=== PATIENT | male | born 1930 | race Caucasian/White ===

== ENCOUNTER 2016-08-01 08:13 | Inpatient (IN) | payer MEDICARE, MEDICAID ==
[2016-08-01] MEDS ORDERED: Metoprolol Tartrate 5 MG/5 ML SDV IVPUSH ONE (08:25)
[2016-08-01] MEDS ORDERED: Aspirin 81 MG Tab.Chew CHEW ONE (08:25)
[2016-08-01] MEDS ORDERED: Clopidogrel 75 MG Tab PO ONE (08:25)
[2016-08-01] MEDS ORDERED: Famotidine 20 MG/2 ML SDV IVPUSH ONE (08:25)
--- NOTE | 2016-08-01 08:39 | EDM.PDOC ---
ED HISTORY OF PRESENT ILLNESS - General Chief Complaint: Chest Pain Stated Complaint: CP, SOB Time Seen by Provider: 08/01/16 08:20 Source of Information: Reports: Patient, Old records ([facility] chart/EMR) History Limitations: Reports: No limitations - History of Present Illness INITIAL COMMENTS - FREE TEXT/NARRATIVE: Patient drove himself to the emergency room via private automobile were evaluation of nonspecific 4/10 left-sided chest pain/pressure, which started at about 2 a.m. this morning and associated with some slight diaphoresis, heart flutter, and nausea at that time. He did have some similar chest pain yesterday morning at 7 a.m., although no other anginal-type symptoms at that time. The patient denies orthostasis, orthopnea, diaphoresis, paresthesias, recent decreased exercise tolerance, or any other anginal-type symptoms. No recent history of abdominal pain, heartburn, diarrhea, melena, gross hematochezia, or any food intolerance, including fatty foods, etc. with normal function gastrostomy with bowel movements at midnight. The patient also denies any recent fever, cough, wheezing, dyspnea, etc., although he has had some mild clear nasal drainage during the last 3 days. Symptom Onset Date: 07/31/16 Symptom Onset Time: 07:00 Timing/Duration: Reports: Intermittent Severity: mild Location, General: Reports: chest. Denies: face, neck, abdomen, back, pelvis, upper extremity, left, upper extremity, right, lower extremity, left, radiates to: Quality: Reports: Pressure, Same as previous episode Improves with: Reports: None Worsens with: Reports: None Associated Symptoms (General): Reports: chest pain, diaphoresis, nausea/ vomiting (No emesis). 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: Other (see below) (None, although the patient did take his morning medications) - Related Data Allergies/ADRs: Allergies Allergy/AdvReac Type Severity Reaction Status Date / Time No Known Allergies Allergy Verified 08/01/16 08:28 Home Meds: Home Meds Ferrous Sulfate [Iron] 325 mg PO BID 01/08/14 [History] Gluc HCl/Csa/Brayan Hy/Hyalur Ac [Glucosamine Chondroitin] 1 cap PO QAM 01/08/14 [ History] Leuprolide [Leuprolide Depot 6-Month] 45 mg INJECT ASDIRECTED 01/08/14 [History] Sertraline [Zoloft] 50 mg PO QAM 01/08/14 [History] Simvastatin [Zocor] 20 mg PO BEDTIME 01/08/14 [History] amLODIPine Besylate [Amlodipine Besylate] 10 mg PO BID 01/08/14 [History] Acetaminophen 650 mg PO Q6H PRN 08/01/16 [History] Calcium Carbonate/Vitamin D3 [Calcium 250+D] 2 each PO TID PRN 08/01/16 [History ] Cyclobenzaprine HCl 10 mg PO Q8H PRN 08/01/16 [History] Ibuprofen 200 mg PO Q8H PRN 08/01/16 [History] Lisinopril 15 mg PO DAILY 08/01/16 [History] Prednisone [IMW: predniSONE] 40 mg PO WITHBREAKFAST 08/01/16 [History] Simethicone [Gas Relief] 80 mg PO TID PRN 08/01/16 [History] Past Medical History HEENT History: Reports: Hard of hearing, Impaired vision. Denies: Allergic rhinitis, Cataract, Glaucoma, Macular degeneration, Retinal detachment Cardiovascular History: Reports: High cholesterol, Hypertension. Denies: Afib, Aneurysm, Arrhythmia, Blood clots/VTE/DVT, CAD, Heart Failure, Heart murmur, ID , PTCA, Stents, Syncope Respiratory History: Reports: None. Denies: COPD, Intubation, previous, PE, Pneumothorax, TB Gastrointestinal History: Reports: Chronic constipation, Colon polyp, GI bleed, PUD, Other (see below). Denies: Celiac disease, Cholelithiasis, Chronic diarrhea, Diverticulosis, Fecal incontinence, Gastritis, GERD, Hepatitis, Hiatal hernia, Inflammatory bowel disease, Irritable bowel syndrome, Jaundice, Pancreatitis Other Gastrointestinal History: Upper GI bleed from duodenal ulcer in about 2014 benign hepatic cysts, history of colon cancer as below, left lower quadrant colostomy Genitourinary History: Reports: BPH, Prostate disorder, Urinary incontinence, UTI, recurrent, Other (see below). Denies: Acute renal failure, Chronic renal insuffiency, Renal calculus, STD Other Genitourinary History: Prostate cancer as below Musculoskeletal History: Reports: Arthritis, Back pain, chronic, Fracture, Neck pain, chronic, Osteoarthritis, Other (see below). Denies: Amputation, Gout, Osteoporosis, RA, SLE Other Musculoskeletal History: Right distal fibular/ankle fracture at about age 40 Neurological History: Denies: Alzheimers disease, Cerebral aneurysms, CVA, Frequent repetitive habits (TICS), Headaches, chronic, Migraines, MS, Parkinson' s, Seizure, TIA Psychiatric History: Reports: Addiction, Anxiety, Depression, Other (see below) . 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 Denies: Diabetes, type I, Diabetes , type II, Hypothyroidism Hematologic History: Reports: Anemia, Iron deficiency. Denies: Blood transfusion(s) Immunologic History: Reports: None. Denies: AIDS, HIV, SLE Oncologic (Cancer) History: Reports: Colon, Prostate, Other (see below). Denies : Hodgkin's Lymphoma, Leukemia, Lymphoma, Non-Hodgkin's Lymphoma, Squamous cell carcinoma Other Oncologic History: colon cancer 1982 requiring surgery as below no radiation treatment or chemotherapy, prostate cancer in 1990 with current every 6 month injections Dermatologic History: Reports: None. Denies: Eczema, Psoriasis - Infectious Disease History Infectious Disease History: Reports: Measles, Mumps. Denies: C-difficile, Chicken pox, Meningitis, Mononucleosis, MRSA, Pertussis (whooping cough), Rheumatic Fever, Rubella, Scarlet fever, Shingles, TB, VRE - Past Surgical History Head Surgeries/Procedures: Reports: None HEENT Surgical History: Reports: Oral surgery, Other (see below). Denies: Adenoidectomy, Cataract surgery, Eye surgery, Laser surgery, LASIK, Myringotomy w tube(s), Naso-sinus surgery, Tonsillectomy Other HEENT Surgeries/Procedures: Complete upper extraction of multiple lower teeth extraction Cardiovascular Surgical History: Reports: None. Denies: Varicose, Vascular surgery Respiratory Surgical History: Reports: None. Denies: Thoracentesis GI Surgical History: Reports: Colonoscopy, EGD, Other (see below) Other GI Surgeries/Procedures: Last EGD in about 2014, last colonoscopy in about 2013, left hemicolectomy secondary to colon cancer in 1982 Male Surgical History: Reports: Prostate Biopsy, Other (see below). Denies: Circumcision, Prostatectomy, TURP-Transurethral resection of prostate, Vasectomy Other Male Surgeries/Procedures: Prostate biopsy for prostate cancer 1990 Endocrine Surgical History: Reports: None. Denies: Thyroid biopsy Neurological Surgical History: Reports: None. Denies: C-Spine, Intracranial, Lumbar spine, Sacral Spine, Spinal fusion, Vertebroplasty Musculoskeletal Surgical History: Denies: Arthroscopic knee, Arthroscopic procedure, Carpal tunnel, Ganglion cyst, Joint replacement, ORIF, Shoulder surgery Oncologic Surgical History: Reports: None Dermatological Surgical History: Reports: None - Past Imaging History Past Imaging History: Reports: Bone scan (Whole body bone scan on 05/24/04), CAT scan (CT of the abdomen and pelvis without contrast 07/21/[address] of the abdomen and pelvis on 05/21/04) Social & Family History - Family History HEENT: Reports: None. Denies: Allergic rhinitis, Glaucoma, Macular degeneration , Retinal detachment Cardiac: Reports: CAD, Hypertension, ID, PVD/COD, Other (see below). Denies: Afib, Aneurysm, Arrhythmia, Blood clots/VTE/DVT, High cholesterol, Syncope Other Cardiac Family History: Father with ID in his 70s, sister, mother and father with hypertension, sister with several MIs with 4 vessel CABG with fatal ID at age 83, mother with peripheral vascular disease secondary to her IDDM Respiratory: Denies: Asthma, COPD, PE GI: Reports: Cholelithiasis, Other (see below). Denies: Celiac disease, Colon polyps, GERD, GI bleed, Inflammatory bowel disease, Irritable bowel syndrome, PUD Other GI Family History: Mother with cholelithiasis : Reports: None. Denies: Dialysis, Renal calculus, Renal disease/ insufficiency OBGYN: Reports: None. Denies: Dysfunctional uterine bleeding, Endometriosis, Recurrent spontaneous Musculoskeletal: Reports: None. Denies: Gout, RA, SLE Neurological: Reports: Alzheimers disease, CVA, Dementia, Other (see below). Denies: Migraines, MS, Parkinson's, Seizure Other Neurological Family History: Mother with fatal dementia at age 89, father with history of CVA x4 with fatal CVA at age 82, a brother with a CVA during surgery at age 62 secondary to oral cancer as below Psychiatric: Reports: None. Denies: Abuse, victim of, ADD, ADHD, Psych hospitalization(s), PTSD, Suicide attempt Endocrine/Metabolic: Reports: Diabetes, type II, IDDM, Other (see below). Denies: Diabetes, type I, Hypothyroidism Other Endocrine/Metabolic Family History: Mother with IDDM Hematologic: Reports: None. Denies: Anemia, Transfusion reaction Immunologic: Reports: None. Denies: AIDS, HIV, SLE Dermatologic: Reports: None. Denies: Eczema, Psoriasis Oncologic: Reports: Metastatic, Prostate, Other (see below). Denies: Colon, Leukemia, Lymphoma, Non-Hodgkin's lymphoma, Skin Other Oncologic Family History: 2 brothers with fatal metastatic prostate cancer at age 68 and age 79, brother with oral/? Tonsil cancer at age 62 - Tobacco Use Smoking Status *Q: Former Smoker Tobacco Use Within Last Twelve Months: No Years of Tobacco use: 26 Packs/Tins Daily: 4 Month Tobacco Last Used: Quit 04/23/1974 Smoking Cessation Information Provided To Patient: No Second Hand Smoke Exposure: No Second Hand Smoke Education Provided: No - Caffeine Use Caffeine Use: Reports: Coffee (5 cups per day), Soda (One soda per day). 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 Denies: fever, chills, weakness, fatigue , night sweats, diaphoresis, decreased appetite, weight loss, weight gain HEENT: Reports: Glasses, Hearing loss (Stable severe chronic), Rhinitis. Denies : Dental pain, Ear discharge, Ear pain, Eye pain, Throat pain, Vertigo, Vision change Respiratory: Reports: No Symptoms. Denies: Shortness of Breath, Wheezing, Pleuritic Chest Pain, Cough, Sputum Cardiovascular: Reports: Chest pain, Lightheadedness, Palpitations. Denies: Blood pressure problem, Claudication, Dyspnea on exertion, Edema, Orthopnea, Syncope Endocrine: Reports: no symptoms. Denies: fatigue GI/Abdominal: Reports: No symptoms. Denies: Abdominal pain, Anorexia, Black stool, Bloody stool, Constipation, Diarrhea, Decreased appetite, Difficulty swallowing, Distension, Flatus, Hematemesis, Hematochezia, Melena, Nausea, Vomiting : Reports: incontinence. Denies: discharge, dysuria, flank pain, frequency, hematuria, pain, urgency, urinary retention Musculoskeletal: Reports: no symptoms. Denies: neck pain, shoulder pain, arm pain, back pain, leg pain Skin: Denies: diaphoresis, bruising, wound Neurological: Reports: Dizziness. Denies: Confusion, Headache, Numbness, Paresthesia, Seizure, Tingling, Trouble Speaking, Difficulty Walking, Weakness, Change in Speech, Gait Disturbance Psychiatric: Reports: No symptoms. 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 No: Normal teeth (Completely absent dentition with only a few remaining lower dentition with moderate periodontosis but no acute caries), Dysphagia, Perioral cyanosis Head: atraumatic, normocephalic. No: facial swelling, facial tenderness Neck: supple, non-tender, full range of motion, carotid bruit (Mild bilateral carotid bruits). No: lymphadenopathy (L), lymphadenopathy (R), thyromegaly Respiratory/Chest: no respiratory distress, no accessory muscle use, chest non- tender, rales (Mild bilateral basilar ), wheezing (Occasional bilateral). No: crackles, pleural rub, retractions Cardiovascular: normal peripheral pulses, no edema, no gallop, no JVD, no murmur , extra beats (Frequent PVCs, regular rate). No: diastolic murmur, gallop/S3, gallop/S4 Peripheral Pulses: 2+: radial (L), radial (R), dorsalis pedis (L), dorsalis pedis (R) GI/Abdominal: normal bowel sounds, soft, non tender, no organomegaly, no distention, no abnormal bruit, no mass, hernia (Mild ventral abdominal hernia surrounding colostomy), other (Left lower quadrant colostomy). No: guarding (Male) Exam: Deferred Rectal (Males) Exam: Deferred Back Exam: normal inspection, full range of motion. No: CVA tenderness (L), CVA tenderness (R), muscle spasm Extremities: normal inspection, normal range of motion, non-tender, no pedal edema, normal capillary refill. No: Ana's Sign Neurological: alert, oriented, CN II-XII intact, normal cognition, normal gait, normal reflexes (Negative Babinski's), no motor/sensory deficits Psychiatric: normal affect, normal mood Skin Exam: Warm, Dry, Intact, Normal color, No rash. No: Diaphoretic, Ecchymosis, Petechiae, Wound/incision Lymphatic: no adenopathy EKG INTERPRETATION EKG Date: 08/01/16 Time: 08:20 Rhythm: other (Sinus rhythm with frequent PVCs) Rate (beats/min): 79 [place]: normal (Left cardiac axis) P-wave: enlarged (Moderate diffuse biphasic P waves with extreme poor R-wave progression in the anterior leads) QRS: RBBB (QRS interval of 0.13 seconds representing a complete bifascicular bundle-branch block) ST-T: depressed (T-wave inversion with up to [address] depressions in leads V5, V6, 1, and aVL) QT: normal LA/PQ Interval: 0.16 seconds Comparison: NA - no prior EKG EKG Interpretation Comments: 1. Lateral wall cardiac ischemia 2. PVCs 3. Complete bifascicular bundle-branch block 4. Left atrial enlargement Course - Vital Signs Last Recorded V/S: Last Vital Signs Temp 37.1 C 08/01/16 08:15 Pulse 69 08/01/16 10:45 Resp 26 H 08/01/16 10:45 BP 141/55 H 08/01/16 10:45 Pulse Ox 91 L 08/01/16 10:45 Vital Signs - 24 hr 08/01/16 08/01/16 08/01/16 08:15 08:30 08:34 Temperature [ 37.1 C Oral] Pulse, 81 Peripheral Pulse, 85 79 Peripheral [ Right Brachial] Respiratory 23 H 19 Rate Blood Pressure 159/60 H Blood Pressure 156/68 H 159/60 H [Right Upper Arm] O2 Sat by Pulse 84 L 92 L Oximetry 08/01/16 08/01/16 08/01/16 08:45 08:56 09:15 Temperature [ Oral] Pulse, Peripheral Pulse, 66 64 69 Peripheral [ Right Brachial] Respiratory 20 23 H 24 H Rate Blood Pressure Blood Pressure 148/100 H 145/55 H 156/60 H [Right Upper Arm] O2 Sat by Pulse 92 L 91 L 92 L Oximetry 08/01/16 08/01/16 08/01/16 09:30 09:45 09:57 Temperature [ Oral] Pulse, Peripheral Pulse, 71 67 68 Peripheral [ Right Brachial] Respiratory 22 H 21 H 20 Rate Blood Pressure Blood Pressure 147/61 H 149/57 H 152/61 H [Right Upper Arm] O2 Sat by Pulse 92 L 91 L 91 L Oximetry 08/01/16 08/01/16 08/01/16 10:15 10:30 10:45 Temperature [ Oral] Pulse, Peripheral Pulse, 72 68 69 Peripheral [ Right Brachial] Respiratory 22 H 22 H 26 H Rate Blood Pressure Blood Pressure 149/69 H 148/67 H 141/55 H [Right Upper Arm] O2 Sat by Pulse 91 L 91 L 91 L Oximetry - Orders/Labs/Meds Orders: Active Orders 24 hr Category Date Time Status EKG Documentation Completion [RC] ASDIRECTED Care 08/01/16 08:26 Active Oxygen Therapy, ED [RC] CONTINUOUS Care 08/01/16 08:26 Active Peripheral IV Care [RC] . DIRECTED Care 08/01/16 08:26 Active Peripheral IV Care [RC] . DIRECTED Care 08/01/16 08:26 Active Pulse Oximetry [RC] CONTINUOUS Care 08/01/16 08:26 Active Up With Assistance [RC] PFP Care 08/01/16 08:26 Active Vital Signs [RC] PFP Care 08/01/16 08:26 Active Nothing per Oral Now Diet [DIET] Diet 08/01/16 Breakfast Active Chest 1V Frontal [CR] Stat Exams 08/01/16 08:26 Taken Enoxaparin [Lovenox] Med 08/01/16 10:45 Ordered 40 mg SUBCUT Q24H Sodium Chloride 0.9% [Saline Flush] Med 08/01/16 08:25 Active 10 ml FLUSH ASDIRECTED PRN Obtain Past Medical Record [OM.PC] Urgent Oth 08/01/16 08:26 Active Peripheral IV Insertion Adult [OM.PC] Stat Oth 08/01/16 08:26 Ordered Resuscitation Status Stat Resus Stat 08/01/16 08:25 Ordered Medication Orders Enoxaparin Sodium (Lovenox) 40 mg SUBCUT Q24H SEKOU Last Admin: 08/01/16 10:41 Dose: 40 mg Sodium Chloride (Saline Flush) 10 ml FLUSH ASDIRECTED PRN PRN Reason: Keep Vein Open Labs: Laboratory Tests 08/01/16 08/01/16 08/01/16 Range/Units 08:26 08:26 08:26 WBC 8.3 (4.0-10.2) K/uL RBC 3.79 L (4.33-5.41) M/uL Hgb 11.2 L D (13.1-16.8) g/dL Hct 34.9 L (39.0-49.0) % MCV 92.1 D (84.0-98.0) fL MCH 29.6 (28.2-33.3) pg MCHC 32.1 (31.7-36.0) g/dL RDW 15.1 H (11.2-14.1) % Plt Count 219 (150-350) K/uL Neut % (Auto) 72.5 (45.0-80.0) % Lymph % (Auto) 14.9 (10.0-50.0) % [place] % (Auto) 8.4 (2.0-14.0) % Eos % (Auto) 2.6 (0.0-5.0) % Baso % (Auto) 1.6 (0.0-2.0) % Neut # (Auto) 6.04 (1.40-7.00) K/uL Lymph # (Auto) 1.24 (0.50-3.50) K/uL [place] # (Auto) 0.70 (0.00-1.00) K/uL Eos # (Auto) 0.22 (0.00-0.50) K/uL Baso # (Auto) 0.13 (0.00-0.20) K/uL PT 10.8 (9.8-11.7) SEC INR 1.0 APTT 26.1 (23.5-30.0) SEC D-Dimer, Quantitative 599 H (0-400) ng/mL Sodium (136-145) mmol/L Potassium (3.5-5.1) mmol/L Chloride (98-107) mmol/L Carbon Dioxide (21.0-32.0) mmol/L BUN (7-18) mg/dL Creatinine (0.51-1.17) mg/dL Est Cr Clr Drug Dosing Estimated GFR (MDRD) mL/min Glucose (74-106) mg/dL Hemoglobin A1c (4.3-5.7) % Lactic Acid (0.4-2.0) mmol/L Uric Acid (2.6-7.2) mg/dL Calcium (8.5-10.1) mg/dL Magnesium (1.8-2.4) mg/dL Total Bilirubin (0.2-1.0) mg/dL AST (15-37) U/L ALT (12-78) U/L Alkaline Phosphatase (46-116) IU/L Creatine Kinase (26-308) U/L Creatine Kinase Index (0.0-2.5) % CK-MB (CK-2) (0.00-3.60) ng/mL Troponin I (0.000-0.056) ng/mL Hry-Z-Ipeknybmsyc Pept (0-125) pg/mL Total Protein (6.4-8.2) g/dL Albumin (3.4-5.0) g/dL TSH, Ultra Sensitive (0.358-3.740) mIU/mL H. pylori IgG Antibody (NEGATIVE) 08/01/16 08/01/16 08/01/16 Range/Units 08:26 08:26 08:26 WBC (4.0-10.2) K/uL RBC (4.33-5.41) M/uL Hgb (13.1-16.8) g/dL Hct (39.0-49.0) % MCV (84.0-98.0) fL MCH (28.2-33.3) pg MCHC (31.7-36.0) g/dL RDW (11.2-14.1) % Plt Count (150-350) K/uL Neut % (Auto) (45.0-80.0) % Lymph % (Auto) (10.0-50.0) % [place] % (Auto) (2.0-14.0) % Eos % (Auto) (0.0-5.0) % Baso % (Auto) (0.0-2.0) % Neut # (Auto) (1.40-7.00) K/uL Lymph # (Auto) (0.50-3.50) K/uL [place] # (Auto) (0.00-1.00) K/uL Eos # (Auto) (0.00-0.50) K/uL Baso # (Auto) (0.00-0.20) K/uL PT (9.8-11.7) SEC INR APTT (23.5-30.0) SEC D-Dimer, Quantitative (0-400) ng/mL Sodium 143 (136-145) mmol/L Potassium 3.8 (3.5-5.1) mmol/L Chloride 106 (98-107) mmol/L Carbon Dioxide 26.3 (21.0-32.0) mmol/L BUN 29 H (7-18) mg/dL Creatinine 0.90 (0.51-1.17) mg/dL Est Cr Clr Drug Dosing TNP Estimated GFR (MDRD) > 60 mL/min Glucose 177 H (74-106) mg/dL Hemoglobin A1c (4.3-5.7) % Lactic Acid 1.4 (0.4-2.0) mmol/L Uric Acid 3.4 (2.6-7.2) mg/dL Calcium 8.5 (8.5-10.1) mg/dL Magnesium 2.1 (1.8-2.4) mg/dL Total Bilirubin 0.6 (0.2-1.0) mg/dL AST 54 H (15-37) U/L ALT 81 H (12-78) U/L Alkaline Phosphatase 79 (46-116) IU/L Creatine Kinase 74 (26-308) U/L Creatine Kinase Index 2.0 (0.0-2.5) % CK-MB (CK-2) 1.50 (0.00-3.60) ng/mL Troponin I 0.054 (0.000-0.056) ng/mL Tvv-L-Egxlgfdtlyx Pept 6314 H (0-125) pg/mL Total Protein 7.0 (6.4-8.2) g/dL Albumin 3.8 (3.4-5.0) g/dL TSH, Ultra Sensitive 2.429 (0.358-3.740) mIU/mL H. pylori IgG Antibody Negative (NEGATIVE) 08/01/16 Range/Units 08:26 WBC (4.0-10.2) K/uL RBC (4.33-5.41) M/uL Hgb (13.1-16.8) g/dL Hct (39.0-49.0) % MCV (84.0-98.0) fL MCH (28.2-33.3) pg MCHC (31.7-36.0) g/dL RDW (11.2-14.1) % Plt Count (150-350) K/uL Neut % (Auto) (45.0-80.0) % Lymph % (Auto) (10.0-50.0) % [place] % (Auto) (2.0-14.0) % Eos % (Auto) (0.0-5.0) % Baso % (Auto) (0.0-2.0) % Neut # (Auto) (1.40-7.00) K/uL Lymph # (Auto) (0.50-3.50) K/uL [place] # (Auto) (0.00-1.00) K/uL Eos # (Auto) (0.00-0.50) K/uL Baso # (Auto) (0.00-0.20) K/uL PT (9.8-11.7) SEC INR APTT (23.5-30.0) SEC D-Dimer, Quantitative (0-400) ng/mL Sodium (136-145) mmol/L Potassium (3.5-5.1) mmol/L Chloride (98-107) mmol/L Carbon Dioxide (21.0-32.0) mmol/L BUN (7-18) mg/dL Creatinine (0.51-1.17) mg/dL Est Cr Clr Drug Dosing Estimated GFR (MDRD) mL/min Glucose (74-106) mg/dL Hemoglobin A1c 5.2 (4.3-5.7) % Lactic Acid (0.4-2.0) mmol/L Uric Acid (2.6-7.2) mg/dL Calcium (8.5-10.1) mg/dL Magnesium (1.8-2.4) mg/dL Total Bilirubin (0.2-1.0) mg/dL AST (15-37) U/L ALT (12-78) U/L Alkaline Phosphatase (46-116) IU/L Creatine Kinase (26-308) U/L Creatine Kinase Index (0.0-2.5) % CK-MB (CK-2) (0.00-3.60) ng/mL Troponin I (0.000-0.056) ng/mL Fdx-Y-Vqpphgkarku Pept (0-125) pg/mL Total Protein (6.4-8.2) g/dL Albumin (3.4-5.0) g/dL TSH, Ultra Sensitive (0.358-3.740) mIU/mL H. pylori IgG Antibody (NEGATIVE) Meds: Medications Generic Name Dose Route Start Last Admin Trade Name Freq PRN Reason Stop Dose Admin Enoxaparin Sodium 40 mg 08/01/16 10:45 08/01/16 10:41 Lovenox SUBCUT 40 mg Q24H SEKOU Administration Sodium Chloride 10 ml 08/01/16 08:25 Saline Flush FLUSH ASDIRECTED PRN Keep Vein Open Discontinued Medications Generic Name Dose Route Start Last Admin Trade Name Freq PRN Reason Stop Dose Admin Aspirin 324 mg 08/01/16 08:25 08/01/16 08:31 Aspirin CHEW 08/01/16 08:26 324 mg ONETIME ONE Administration Clopidogrel Bisulfate 300 mg 08/01/16 08:25 08/01/16 08:32 Plavix PO 08/01/16 08:26 300 mg ONETIME ONE Administration Famotidine 40 mg 08/01/16 08:25 08/01/16 08:37 Pepcid IVPUSH 08/01/16 08:26 40 mg ONETIME ONE Administration Furosemide 60 mg 08/01/16 09:12 08/01/16 09:47 Lasix IVPUSH 08/01/16 09:13 60 mg NOW ONE Administration Metoprolol Tartrate 2.5 mg 08/01/16 08:25 08/01/16 08:34 Lopressor IVPUSH 08/01/16 08:26 2.5 mg ONETIME ONE Administration - Radiology Interpretation Free Text/Narrative:: Healthcare Specialist shows sinus rhythm with frequent preformed PVCs, including occasional couplets and triplets, with rate averaging in the 60s to 80s with no other arrhythmia noted Chest x-ray, portable, shows moderate COPD changes with additional moderate to severe cardiomegaly and moderate CHF. Mild aortic valve calcification. Possible additional pulmonary infiltrates, however difficult to assess secondary to his CHF Departure - Departure Time of Disposition: 10:55 Disposition: Admitted As Inpatient 67 Condition: fair Clinical Impression: Acute coronary syndrome, CHF (congestive heart failure), PVC's (premature ventricular contractions), Hypertension, Iron deficiency anemia, Peptic reflux disease, Dyslipidemia, Osteoarthritis, Mixed anxiety depressive disorder, D- dimer, elevated, Elevated LFTs, Hyperglycemia Referrals: PCP,Unknown [Primary Care Provider] - Forms: ED Department Discharge Care Plan Goals: See plan - Problem List & Annotations (1) Acute coronary syndrome SNOMED Code(s): 468480801 Code(s): I24.9 - ACUTE ISCHEMIC HEART DISEASE, UNSPECIFIED Status: Acute Priority: High Onset Date: ~07/31/16 Annotation/Comment:: Unstable angina with chest pain protocol initiated immediately upon patient's arrival to the emergency room. Patient was symptom-free after the above treatments with significant improvement shortly after application of O2. Patient now wishes to be a no code with no further cardiac workup or evaluation per his request. He does agree to hospital transfer to the [facility] in [place] for further treatment. Telephone consultation at 09:55 hours with Sagrario from the [facility] in [place] with no beds available in that facility. The patient agrees to admission to this facility with the MA to contact us tomorrow, if a bed becomes available. Initiate standard rule out ID orders. Note significant d- dimer and BNP elevation with evidence of lateral wall cardiac ischemia by EKG, however only mild secondary changes troponin I but otherwise normal cardiac enzymes. Subcutaneous Lovenox initiated in the emergency room at cardiac dose. (2) CHF (congestive heart failure) SNOMED Code(s): 46719423 Code(s): I50.9 - HEART FAILURE, UNSPECIFIED Status: Acute Priority: High Onset Date: ~08/01/16 Annotation/Comment:: Moderate CHF. IV Lasix started in the emergency room. Note comfort care with no echocardiogram, cardiology consultation, further workup, etc. per the patient's request Qualifiers: Congestive heart failure type: unspecified congestive heart failure type Congestive heart failure chronicity: acute Qualified Code(s): I50.9 - Heart failure, unspecified (3) D-dimer, elevated SNOMED Code(s): 469995661 Code(s): R79.89 - OTHER SPECIFIED ABNORMAL FINDINGS OF BLOOD CHEMISTRY Status: Acute Priority: High Onset Date: 08/01/16 Annotation/Comment:: Acute Lovenox initiated as above. Venous Doppler studies of lower extremities. Consider CTA of the chest with PE protocol depending on his clinical course. Repeat blood work in the a.m. (4) Dyslipidemia SNOMED Code(s): 404433611 Code(s): E78.5 - HYPERLIPIDEMIA, UNSPECIFIED Status: Chronic Priority: Medium Annotation/Comment:: Lipid panel in the a.m. (5) Elevated LFTs SNOMED Code(s): 713188922 Code(s): R94.5 - ABNORMAL RESULTS OF LIVER FUNCTION STUDIES Status: Acute Priority: Medium Onset Date: 08/01/16 Annotation/Comment:: LFTs elevation likely secondary to CHF. No abdominal complaints. Repeat blood work in the a.m. (6) Hyperglycemia SNOMED Code(s): 42784567 Code(s): R73.9 - HYPERGLYCEMIA, UNSPECIFIED Status: Acute Priority: Medium Onset Date: 08/01/16 Annotation/Comment:: Glycosylated hemoglobin later today. No previous known AODM (7) Hypertension SNOMED Code(s): 97289209 Code(s): I10 - ESSENTIAL (PRIMARY) HYPERTENSION Status: Chronic Priority : Medium Annotation/Comment:: Blood Pressures were stable in the emergency room Qualifiers: Hypertension type: essential hypertension Qualified Code(s): I10 - Essential (primary) hypertension (8) Iron deficiency anemia SNOMED Code(s): 85951740 Code(s): D50.9 - IRON DEFICIENCY ANEMIA, UNSPECIFIED Status: Chronic Priority: Medium Annotation/Comment:: Iron studies in the a.m. Note current iron supplementation. No abdominal pain or evidence of acute GI bleed. Hemoccults to be conducted Qualifiers: Iron deficiency anemia type: unspecified iron deficiency Qualified Code(s) : D50.9 - Iron deficiency anemia, unspecified (9) Mixed anxiety depressive disorder SNOMED Code(s): 298023260 Code(s): F41.8 - OTHER SPECIFIED ANXIETY DISORDERS Status: Chronic Priority: Medium Annotation/Comment:: Stable by patient history (10) Osteoarthritis SNOMED Code(s): 213472835 Code(s): M19.90 - UNSPECIFIED OSTEOARTHRITIS, UNSPECIFIED SITE Status: Chronic Priority: Medium Annotation/Comment:: Stable by patient history Qualifiers: Osteoarthritis location: multiple joints Osteoarthritis type: primary Qualified Code(s): M15.0 - Primary generalized (osteo)arthritis (11) PVC's (premature ventricular contractions) SNOMED Code(s): 11598041 Code(s): I49.3 - VENTRICULAR PREMATURE DEPOLARIZATION Status: Acute Priority: High Onset Date: 08/01/16 Annotation/Comment:: IV Lopressor given in the emergency room with improved arrhythmia at time of admission. The patient did take his morning medications (12) Peptic reflux disease SNOMED Code(s): 25610741 Code(s): K21.9 - GASTRO-ESOPHAGEAL REFLUX DISEASE WITHOUT ESOPHAGITIS Status: Chronic Priority: Medium Annotation/Comment:: High-dose IV Pepcid given as GI prophylaxis in the emergency room. - Problem List Review Problem List Initiated/Reviewed/Updated: Yes - My Orders Last 24 Hours: My Active Orders 08/01/16 08:25 Sodium Chloride 0.9% [Saline Flush] 10 ml FLUSH ASDIRECTED PRN Resuscitation Status Stat 08/01/16 08:26 EKG Documentation Completion [RC] ASDIRECTED Oxygen Therapy, ED [RC] CONTINUOUS Peripheral IV Care [RC] . DIRECTED Peripheral IV Care [RC] . DIRECTED Pulse Oximetry [RC] CONTINUOUS Up With Assistance [RC] PFP Vital Signs [RC] PFP Chest 1V Frontal [CR] Stat Obtain Past Medical Record [OM.PC] Urgent Peripheral IV Insertion Adult [OM.PC] Stat 08/01/16 10:45 Enoxaparin [Lovenox] 40 mg SUBCUT Q24H 08/01/16 Breakfast Nothing per Oral Now Diet [DIET] - Assessment/Plan Admission H&P: Please use this note as an admission H&P Last 24 Hours: My Active Orders 08/01/16 08:25 Sodium Chloride 0.9% [Saline Flush] 10 ml FLUSH ASDIRECTED PRN Resuscitation Status Stat 08/01/16 08:26 EKG Documentation Completion [RC] ASDIRECTED Oxygen Therapy, ED [RC] CONTINUOUS Peripheral IV Care [RC] . DIRECTED Peripheral IV Care [RC] . DIRECTED Pulse Oximetry [RC] CONTINUOUS Up With Assistance [RC] PFP Vital Signs [RC] PFP Chest 1V Frontal [CR] Stat Obtain Past Medical Record [OM.PC] Urgent Peripheral IV Insertion Adult [OM.PC] Stat 08/01/16 10:45 Enoxaparin [Lovenox] 40 mg SUBCUT Q24H 08/01/16 Breakfast Nothing per Oral Now Diet [DIET] Assessment:: As above Plan: As above. Extensive precautions were given to the patient, who is in agreement with the treatment plan. The patient will require about 3-4 days of inpatient/ acute care secondary to multiple health problems as above. Asaf rodgers physician assumes care in the a.m.
[2016-08-01 09:00] LABS: CHLORIDE,CL 106 mmol/L (98-107); SODIUM,NA 143 mmol/L (136-145)
[2016-08-01] MEDS ORDERED: Furosemide 40 MG/4 ML VIAL IVPUSH ONE (09:12)
[2016-08-01] MEDS: Enoxaparin 40 MG/0.4 ML Syringe SUBCUT SCH (10:41)
[2016-08-01] MEDS ORDERED: Simethicone 80 MG Tab.Chew PO PRN (12:41)
[2016-08-01] MEDS ORDERED: Acetaminophen 325 MG Tab PO PRN (12:48)
[2016-08-01] MEDS ORDERED: Temazepam 15 MG Cap PO PRN (13:23)
[2016-08-01] MEDS ORDERED: Isosorbide Mononitrate 30 MG Tab.ER PO ONE (16:01)
[2016-08-01] MEDS: Metoprolol Succinate 25 MG Tab.ER PO SCH (17:08)
[2016-08-01] MEDS: Furosemide 40 MG/4 ML VIAL IVPUSH SCH (17:09)
[2016-08-01] MEDS: Potassium Chloride 20 MEQ Tab.ER PO SCH (17:09)
[2016-08-01] MEDS: Sodium Chloride 0.9% 10 ML Syringe FLUSH PRN (17:11)
[2016-08-01] MEDS ORDERED: Isosorbide Mononitrate 30 MG Tab.ER PO SCH (18:00)
[2016-08-01] MEDS ORDERED: amLODIPine 5 MG Tab PO SCH (18:00)
[2016-08-01] MEDS ORDERED: Simvastatin 20 MG Tab PO SCH (20:00)
[2016-08-01] MEDS ORDERED: Sodium Chloride 0.9% 1,000 ML IV SCH (22:00)
[2016-08-01] MEDS ORDERED: Nitroglycerin/D5W 25 MG/250 ML BOTTLE IV SCH (22:00)
[2016-08-02] MEDS: Furosemide 40 MG/4 ML VIAL IVPUSH SCH ×3 (02:39→17:37)
[2016-08-02] MEDS: Sodium Chloride 0.9% 10 ML Syringe FLUSH PRN ×3 (02:39→20:24)
[2016-08-02 07:53] LABS: CHLORIDE,CL 106 mmol/L (98-107); SODIUM,NA 144 mmol/L (136-145)
[2016-08-02] MEDS: Famotidine 20 MG/2 ML SDV IVPUSH SCH (08:14)
[2016-08-02] MEDS: amLODIPine 5 MG Tab PO SCH (08:15)
[2016-08-02] MEDS: Potassium Chloride 20 MEQ Tab.ER PO SCH ×3 (08:15→18:34)
[2016-08-02] MEDS: Sertraline 50 MG Tab PO SCH (08:15)
[2016-08-02] MEDS: Ferrous Sulfate 325 MG Tab PO SCH (08:16)
[2016-08-02] MEDS: predniSONE 20 MG Tab PO SCH (08:16)
[2016-08-02] MEDS: Lisinopril 5 MG Tab PO SCH (08:16)
[2016-08-02] MEDS: Enoxaparin 40 MG/0.4 ML Syringe SUBCUT SCH (10:37)
[2016-08-02] MEDS ORDERED: Clopidogrel 75 MG Tab PO ONE (12:18)
[2016-08-02] MEDS: Isosorbide Mononitrate 30 MG Tab.ER PO SCH (12:38)
[2016-08-02] MEDS: Aspirin 325 MG Tab.EC PO SCH (12:38)
--- NOTE | 2016-08-02 15:15 | PCM.PN ---
- General Info Date of Service: 08/02/16 Admission Dx/Problem (Free Text): NSTEMI. Subjective Update: Patient reports chest pain has resolved and complains currently of mild shortness of breath. Sitting upright and eating on my arrival. Appears comfortable. No distress. - Review of Systems General: Reports: No Symptoms HEENT: Reports: no symptoms Pulmonary: Reports: shortness of breath (Mild) Cardiovascular: Denies: Chest Pain, Palpitations, Orthopnea, Edema, Lightheadedness Gastrointestinal: Reports: No symptoms Genitourinary: Reports: no symptoms Musculoskeletal: Reports: no symptoms Skin: Reports: no symptoms Neurological: Reports: No Symptoms Psychiatric: Reports: no symptoms - Patient Data Vitals - most recent: Last Vital Signs Temp 36.1 C 08/02/16 11:51 Pulse 60 08/02/16 11:51 Resp 18 08/02/16 06:15 BP 134/75 08/02/16 11:51 Pulse Ox 92 L 08/02/16 11:51 Weight - most recent: 85.638 kg I&O - last 24 hours: Intake & Output 08/02/16 08/02/16 08/02/16 06:59 14:59 22:59 Intake Total 578 Output Total 300 Balance 278 Lab Results last 24 hrs: Laboratory Results - last 24 hr 08/01/16 08/01/16 08/01/16 Range/Units 15:00 15:00 20:50 WBC (4.0-10.2) K/uL RBC (4.33-5.41) M/uL Hgb (13.1-16.8) g/dL Hct (39.0-49.0) % MCV (84.0-98.0) fL MCH (28.2-33.3) pg MCHC (31.7-36.0) g/dL RDW (11.2-14.1) % Plt Count (150-350) K/uL Neut % (Auto) (45.0-80.0) % Lymph % (Auto) (10.0-50.0) % Lake % (Auto) (2.0-14.0) % Eos % (Auto) (0.0-5.0) % Baso % (Auto) (0.0-2.0) % Neut # (Auto) (1.40-7.00) K/uL Lymph # (Auto) (0.50-3.50) K/uL Lake # (Auto) (0.00-1.00) K/uL Eos # (Auto) (0.00-0.50) K/uL Baso # (Auto) (0.00-0.20) K/uL D-Dimer, Quantitative (0-400) ng/mL Sodium (136-145) mmol/L Potassium (3.5-5.1) mmol/L Chloride (98-107) mmol/L Carbon Dioxide (21.0-32.0) mmol/L BUN (7-18) mg/dL Creatinine (0.51-1.17) mg/dL Est Cr Clr Drug Dosing mL/min Estimated GFR (MDRD) mL/min Glucose (74-106) mg/dL Calcium (8.5-10.1) mg/dL Total Bilirubin (0.2-1.0) mg/dL AST (15-37) U/L ALT (12-78) U/L Alkaline Phosphatase (46-116) IU/L Creatine Kinase 71 (26-308) U/L Creatine Kinase Index 2.1 (0.0-2.5) % CK-MB (CK-2) 1.50 (0.00-3.60) ng/mL Troponin I 0.059 H* 0.070 H* (0.000-0.056) ng/mL Qie-M-Pvhniskxmfo Pept (0-125) pg/mL Total Protein (6.4-8.2) g/dL Albumin (3.4-5.0) g/dL Triglycerides (30-150) mg/dL Cholesterol (100-200) mg/dL LDL Cholesterol, Calc (0-100) mg/dL HDL Cholesterol (40-60) mg/dL Vitamin B12 454 (193-986) pg/mL Folate 21.0 (8.6-58.9) ng/mL 08/01/16 08/02/16 08/02/16 Range/Units 20:50 06:45 06:45 WBC 7.5 (4.0-10.2) K/uL RBC 3.46 L (4.33-5.41) M/uL Hgb 10.2 L (13.1-16.8) g/dL Hct 32.2 L (39.0-49.0) % MCV 93.1 (84.0-98.0) fL MCH 29.5 (28.2-33.3) pg MCHC 31.7 (31.7-36.0) g/dL RDW 14.9 H (11.2-14.1) % Plt Count 192 (150-350) K/uL Neut % (Auto) 74.9 (45.0-80.0) % Lymph % (Auto) 10.9 (10.0-50.0) % Lake % (Auto) 10.0 (2.0-14.0) % Eos % (Auto) 3.7 (0.0-5.0) % Baso % (Auto) 0.5 (0.0-2.0) % Neut # (Auto) 5.63 (1.40-7.00) K/uL Lymph # (Auto) 0.82 (0.50-3.50) K/uL Lake # (Auto) 0.75 (0.00-1.00) K/uL Eos # (Auto) 0.28 (0.00-0.50) K/uL Baso # (Auto) 0.04 (0.00-0.20) K/uL D-Dimer, Quantitative 532 H (0-400) ng/mL Sodium (136-145) mmol/L Potassium (3.5-5.1) mmol/L Chloride (98-107) mmol/L Carbon Dioxide (21.0-32.0) mmol/L BUN (7-18) mg/dL Creatinine (0.51-1.17) mg/dL Est Cr Clr Drug Dosing mL/min Estimated GFR (MDRD) mL/min Glucose (74-106) mg/dL Calcium (8.5-10.1) mg/dL Total Bilirubin (0.2-1.0) mg/dL AST (15-37) U/L ALT (12-78) U/L Alkaline Phosphatase (46-116) IU/L Creatine Kinase 81 (26-308) U/L Creatine Kinase Index 2.0 (0.0-2.5) % CK-MB (CK-2) 1.60 (0.00-3.60) ng/mL Troponin I (0.000-0.056) ng/mL Fmv-G-Qnljyyqhcik Pept (0-125) pg/mL Total Protein (6.4-8.2) g/dL Albumin (3.4-5.0) g/dL Triglycerides (30-150) mg/dL Cholesterol (100-200) mg/dL LDL Cholesterol, Calc (0-100) mg/dL HDL Cholesterol (40-60) mg/dL Vitamin B12 (193-986) pg/mL Folate (8.6-58.9) ng/mL 08/02/16 Range/Units 06:45 WBC (4.0-10.2) K/uL RBC (4.33-5.41) M/uL Hgb (13.1-16.8) g/dL Hct (39.0-49.0) % MCV (84.0-98.0) fL MCH (28.2-33.3) pg MCHC (31.7-36.0) g/dL RDW (11.2-14.1) % Plt Count (150-350) K/uL Neut % (Auto) (45.0-80.0) % Lymph % (Auto) (10.0-50.0) % Lake % (Auto) (2.0-14.0) % Eos % (Auto) (0.0-5.0) % Baso % (Auto) (0.0-2.0) % Neut # (Auto) (1.40-7.00) K/uL Lymph # (Auto) (0.50-3.50) K/uL Lake # (Auto) (0.00-1.00) K/uL Eos # (Auto) (0.00-0.50) K/uL Baso # (Auto) (0.00-0.20) K/uL D-Dimer, Quantitative (0-400) ng/mL Sodium 144 (136-145) mmol/L Potassium 3.3 L (3.5-5.1) mmol/L Chloride 106 (98-107) mmol/L Carbon Dioxide 30.6 (21.0-32.0) mmol/L BUN 27 H (7-18) mg/dL Creatinine 0.98 (0.51-1.17) mg/dL Est Cr Clr Drug Dosing 52.10 mL/min Estimated GFR (MDRD) > 60 mL/min Glucose 107 H (74-106) mg/dL Calcium 8.2 L (8.5-10.1) mg/dL Total Bilirubin 0.5 (0.2-1.0) mg/dL AST 43 H (15-37) U/L ALT 74 (12-78) U/L Alkaline Phosphatase 67 (46-116) IU/L Creatine Kinase 90 (26-308) U/L Creatine Kinase Index 2.0 (0.0-2.5) % CK-MB (CK-2) 1.80 (0.00-3.60) ng/mL Troponin I 0.067 H* (0.000-0.056) ng/mL Nrg-M-Otvvpducmgj Pept 7335 H (0-125) pg/mL Total Protein 6.4 (6.4-8.2) g/dL Albumin 3.4 (3.4-5.0) g/dL Triglycerides 66 (30-150) mg/dL Cholesterol 138 (100-200) mg/dL LDL Cholesterol, Calc 77 (0-100) mg/dL HDL Cholesterol 48 (40-60) mg/dL Vitamin B12 (193-986) pg/mL Folate (8.6-58.9) ng/mL Dwaine Results last 24 hrs: Microbiology 08/02/16 00:23 Stool Occult Blood (DWAINE) - Final Stool / Feces 08/01/16 17:19 Stool Occult Blood (DWAINE) - Final Stool / Feces Med Orders - Current: Current Medications Acetaminophen (Tylenol) 650 mg PO Q4H PRN PRN Reason: Pain (Mild 1-3)/fever Amlodipine Besylate (Norvasc) 10 mg PO DAILY [facility] Last Admin: 08/02/16 08:15 Dose: 10 mg Aspirin (Ecotrin) 325 mg PO DAILY [facility] Last Admin: 08/02/16 12:38 Dose: 325 mg Atorvastatin Calcium (Lipitor) 80 mg PO BEDTIME [facility] Clopidogrel Bisulfate (Plavix) 75 mg PO DAILY ONE Stop: 08/03/16 08:01 Enoxaparin Sodium (Lovenox) 40 mg SUBCUT Q24H [facility] Last Admin: 08/02/16 10:37 Dose: 40 mg Famotidine (Pepcid) 20 mg IVPUSH DAILY [facility] Last Admin: 08/02/16 08:14 Dose: 20 mg Ferrous Sulfate (Ferrous Sulfate) 325 mg PO DAILY [facility] Last Admin: 08/02/16 08:16 Dose: 325 mg Furosemide (Lasix) 40 mg IVPUSH Q8H [facility] Last Admin: 08/02/16 10:37 Dose: 40 mg Isosorbide Mononitrate (Imdur) 30 mg PO DAILY [facility] Last Admin: 08/02/16 12:38 Dose: 30 mg Lisinopril (Prinivil) 15 mg PO DAILY [facility] Last Admin: 08/02/16 08:16 Dose: 15 mg Metoprolol Succinate (Toprol Xl) 25 mg PO QPM [facility] Last Admin: 08/01/16 17:08 Dose: 25 mg Potassium Chloride (Klor-Con M20) 20 meq PO TID [facility] Last Admin: 08/02/16 11:26 Dose: 20 meq Prednisone (Prednisone) 40 mg PO WITHBREAKFAST [facility] Last Admin: 08/02/16 08:16 Dose: 40 mg Sertraline HCl (Zoloft) 50 mg PO QAM [facility] Last Admin: 08/02/16 08:15 Dose: 50 mg Simethicone (Simethicone) 80 mg PO TID PRN PRN Reason: Gas Sodium Chloride (Saline Flush) 10 ml FLUSH ASDIRECTED PRN PRN Reason: Keep Vein Open Last Admin: 08/02/16 02:39 Dose: 10 ml Sodium Chloride (Saline Flush) 10 ml FLUSH Q12H PRN PRN Reason: Keep Vein Open Temazepam (Restoril) 15 mg PO BEDTIME PRN PRN Reason: Insomnia Discontinued Medications Amlodipine Besylate (Norvasc) 10 mg PO BID [facility] Aspirin (Aspirin) 324 mg CHEW ONETIME ONE Stop: 08/01/16 08:26 Last Admin: 08/01/16 08:31 Dose: 324 mg Clopidogrel Bisulfate (Plavix) 300 mg PO ONETIME ONE Stop: 08/01/16 08:26 Last Admin: 08/01/16 08:32 Dose: 300 mg Clopidogrel Bisulfate (Plavix) 75 mg PO ONETIME ONE Stop: 08/02/16 12:19 Last Admin: 08/02/16 12:38 Dose: 75 mg Famotidine (Pepcid) 40 mg IVPUSH ONETIME ONE Stop: 08/01/16 08:26 Last Admin: 08/01/16 08:37 Dose: 40 mg Furosemide (Lasix) 60 mg IVPUSH NOW ONE Stop: 08/01/16 09:13 Last Admin: 08/01/16 09:47 Dose: 60 mg Nitroglycerin/Dextrose (Nitroglycerin 25 Mg/D5w 250 Ml) 25 mg in 250 mls @ 3 mls/hr IV TITRATE SEK[facility]; 5 MCG/MIN PRN Reason: Protocol Last Admin: 08/01/16 23:35 Dose: 5 mcg/min, 3 mls/hr Sodium Chloride (Normal Saline) 1,000 mls @ 30 mls/hr IV ASDIRECTED [facility] Last Admin: 08/01/16 23:41 Dose: 30 mls/hr Isosorbide Mononitrate (Imdur) 30 mg PO ONETIME ONE Stop: 08/01/16 16:02 Last Admin: 08/01/16 17:08 Dose: 30 mg Isosorbide Mononitrate (Imdur) 30 mg PO QPM [facility] Isosorbide Mononitrate (Imdur) 30 mg PO QPM [facility] Metoprolol Tartrate (Lopressor) 2.5 mg IVPUSH ONETIME ONE Stop: 08/01/16 08:26 Last Admin: 08/01/16 08:34 Dose: 2.5 mg Simvastatin (Zocor) 20 mg PO BEDTIME [facility] Last Admin: 08/01/16 19:10 Dose: 20 mg - Exam General: alert, oriented, cooperative, no acute distress HEENT: Pupils equal, EOMI, Mucous membr. moist/pink Lungs: Clear to auscultation, Normal respiratory effort. No: Decreased breath sounds, Crackles, Rales, Rhonchi, Rub, Wheezing Cardiovascular: Regular Rate, Regular Rhythm, No Murmurs. No: Gallops, Rubs Abdomen: bowel sounds present, soft, no tenderness, no distension Back Exam: normal inspection, full range of motion Extremities: no edema, normal pulses, no tenderness/swelling, no clubbing, no cyanosis, no calf tenderness, other (Ana sign absent bilateral LE.) Skin: warm, dry, intact Neurological: no new focal deficit Psy/Mental Status: alert, normal affect, normal mood EKG INTERPRETATION EKG Interpretation Comments: Review prior EKG and interpretation per Dr. Sunshine and agree with assessment. - Problem List & Annotations (1) Non-ST elevation WI (NSTEMI) SNOMED Code(s): 364846695 Code(s): I21.4 - NON-ST ELEVATION (NSTEMI) MYOCARDIAL INFARCTION Status: Acute Priority: High Current Visit: Yes Onset Date: ~08/01/16 Annotation /Comment:: likely mild as mild elevation of troponin and peak of 0.070 at 20:50 on 08/01/2016 and has subsequently declined and chest pain resolved. (2) Hypertension SNOMED Code(s): 33501871 Code(s): I10 - ESSENTIAL (PRIMARY) HYPERTENSION Status: Chronic Priority : High Current Visit: Yes Qualifiers: Hypertension type: essential hypertension Qualified Code(s): I10 - Essential (primary) hypertension Annotation/Comment:: Currently controlled. (3) CHF (congestive heart failure) SNOMED Code(s): 96122221 Code(s): I50.9 - HEART FAILURE, UNSPECIFIED Status: Acute Priority: High Current Visit: Yes Onset Date: ~08/01/16 Qualifiers: Congestive heart failure type: unspecified congestive heart failure type Congestive heart failure chronicity: acute Qualified Code(s): I50.9 - Heart failure, unspecified Annotation/Comment:: Moderate CHF. BNP increased from admission. Note comfort care with no echocardiogram, cardiology consultation, further workup, etc. per the patient's request (4) D-dimer, elevated SNOMED Code(s): 413362915 Code(s): R79.89 - OTHER SPECIFIED ABNORMAL FINDINGS OF BLOOD CHEMISTRY Status: Acute Priority: High Current Visit: Yes Onset Date: 08/01/16 Annotation/Comment:: Decreased since admission. No clinical concern for DVT or PE at this time. (5) Elevated LFTs SNOMED Code(s): 967342008 Code(s): R94.5 - ABNORMAL RESULTS OF LIVER FUNCTION STUDIES Status: Resolved Priority: Low Current Visit: Yes Onset Date: 08/01/16 Annotation/Comment:: LFTs elevation on admission likely secondary to CHF. Resolved. (6) Peptic reflux disease SNOMED Code(s): 87551636 Code(s): K21.9 - GASTRO-ESOPHAGEAL REFLUX DISEASE WITHOUT ESOPHAGITIS Status: Chronic Priority: Low Current Visit: Yes Annotation/Comment:: Asymptomatic currently. PPI. (7) Dyslipidemia SNOMED Code(s): 066130701 Code(s): E78.5 - HYPERLIPIDEMIA, UNSPECIFIED Status: Chronic Priority: Medium Current Visit: Yes Annotation/Comment:: Good control on current regimen. (8) Hypokalemia SNOMED Code(s): 93161543 Code(s): E87.6 - HYPOKALEMIA Status: Acute Priority: High Current Visit : Yes Annotation/Comment:: Mild hypokalemia currently. Will replete with oral potassium. (9) Normocytic anemia SNOMED Code(s): 132719219 Code(s): D64.9 - ANEMIA, UNSPECIFIED Status: Acute Priority: High Current Visit: Yes Annotation/Comment:: Likely secondary to iatrogenic blood draws. Will continue to follow. - Problem List Review Problem List Initiated/Reviewed/Updated: Yes - My Orders Last 24 Hours: My Active Orders 08/02/16 12:15 Isosorbide Mononitrate [Imdur] 30 mg PO DAILY 08/02/16 12:30 Aspirin [Ecotrin] 325 mg PO DAILY 08/02/16 20:00 atorvaSTATin [Lipitor] 80 mg PO BEDTIME 08/03/16 08:00 Clopidogrel [Plavix] 75 mg PO DAILY ONE - Plan Plan:: 1. Discontinue serial cardiac enzymes and telemetry as cardiac enzymes have peaked and no chest pain currently. 2. Discontinue nitroglycerin gtt and resume isosorbide mononitrate at 30 mg ER daily. 3. Aspirin 325 mg PO daily until discharge then will plan aspirin 81 mg oral daily. 4. Plavix 75 mg PO daily. 5. Potassium chloride 40 mEQ PO x 1 for mild hypokalemia. 6. Continue Lovenox at 40 mg SQ daily as initiated by admitting provider. Will not up to cardiac dose as on ASA, Plavix, and currently asymptomatic and troponin peaked. 7. Continue Lasix 40 mg IV every 8 hours for CHF. 8. Continue Metoprolol Succinate 25 mg QHS for CHF and HTN. 9. Continue Lisinopril 15 mg PO QD for HTN. 10. Continue Amlodipine 10 mg PO QD for HTN. 11. Discontinue Zocor and start Lipitor 80 mg PO QD given ACS to stabilize plaque. 12. ADRIEL mino and SCD's for DVT prophylaxis in addition to Lovenox 40 mg SQ QD. 13. Incentive spirometer for pneumonia prophylaxis. 14. Repeat labs in AM: CBC, CMP, BNP, and D-dimer.
[2016-08-02] MEDS ORDERED: Potassium Chloride 20 MEQ Tab.ER PO ONE (15:42)
[2016-08-02] MEDS: Metoprolol Succinate 25 MG Tab.ER PO SCH (17:36)
[2016-08-02] MEDS ORDERED: Isosorbide Mononitrate 30 MG Tab.ER PO SCH (18:00)
[2016-08-02] MEDS: atorvaSTATin 40 MG Tab PO SCH (19:43)
[2016-08-03] MEDS: Furosemide 40 MG/4 ML VIAL IVPUSH SCH ×2 (02:31→11:03)
[2016-08-03] MEDS: amLODIPine 5 MG Tab PO SCH (07:44)
[2016-08-03] MEDS: Clopidogrel 75 MG Tab PO SCH (07:44)
[2016-08-03] MEDS: predniSONE 20 MG Tab PO SCH (07:44)
[2016-08-03] MEDS: Ferrous Sulfate 325 MG Tab PO SCH (07:44)
[2016-08-03] MEDS: Famotidine 20 MG/2 ML SDV IVPUSH SCH ×2 (07:44→11:03)
[2016-08-03] MEDS: Isosorbide Mononitrate 30 MG Tab.ER PO SCH (07:44)
[2016-08-03] MEDS: Lisinopril 5 MG Tab PO SCH (07:44)
[2016-08-03] MEDS: Aspirin 325 MG Tab.EC PO SCH (07:44)
[2016-08-03] MEDS: Potassium Chloride 20 MEQ Tab.ER PO SCH ×3 (07:44→17:50)
[2016-08-03] MEDS: Sertraline 50 MG Tab PO SCH (07:44)
[2016-08-03] MEDS: Sodium Chloride 0.9% 10 ML Syringe FLUSH PRN (07:45)
[2016-08-03] MEDS ORDERED: Clopidogrel 75 MG Tab PO ONE (08:00)
--- NOTE | 2016-08-03 11:12 | PCM.PN ---
- General Info Date of Service: 08/03/16 Admission Dx/Problem (Free Text): NSTEMI. Subjective Update: The patient denies chest pain. He states he has intermittent shortness of breath and is coughing intermittently. - Review of Systems General: Reports: No Symptoms HEENT: Reports: no symptoms Pulmonary: Reports: shortness of breath (Mild and intermittent.), cough (Mild and intermittent.) Cardiovascular: Reports: No Symptoms Gastrointestinal: Reports: No symptoms Genitourinary: Reports: no symptoms Musculoskeletal: Reports: no symptoms Skin: Reports: no symptoms Neurological: Reports: No Symptoms Psychiatric: Reports: no symptoms - Patient Data Vitals - most recent: Last Vital Signs Temp 36.8 C 08/03/16 04:10 Pulse 72 08/03/16 04:10 Resp 22 H 08/03/16 04:10 BP 117/52 L 08/03/16 04:10 Pulse Ox 91 L 08/03/16 04:16 Weight - most recent: 87.1 kg I&O - last 24 hours: Intake & Output 08/02/16 08/03/16 08/03/16 22:59 06:59 14:59 Intake Total 590 400 Output Total 1100 200 Balance -510 200 Lab Results last 24 hrs: Laboratory Results - last 24 hr 08/03/16 08/03/16 Range/Units 07:10 07:10 WBC 9.6 (4.0-10.2) K/uL RBC 3.67 L (4.33-5.41) M/uL Hgb 10.8 L (13.1-16.8) g/dL Hct 34.2 L (39.0-49.0) % MCV 93.2 (84.0-98.0) fL MCH 29.4 (28.2-33.3) pg MCHC 31.6 L (31.7-36.0) g/dL RDW 14.9 H (11.2-14.1) % Plt Count 236 (150-350) K/uL Neut % (Auto) 74.7 (45.0-80.0) % Lymph % (Auto) 13.1 (10.0-50.0) % H[place] % (Auto) 10.7 (2.0-14.0) % Eos % (Auto) 0.7 (0.0-5.0) % Baso % (Auto) 0.8 (0.0-2.0) % Neut # (Auto) 7.19 H (1.40-7.00) K/uL Lymph # (Auto) 1.26 (0.50-3.50) K/uL Hays # (Auto) 1.03 H (0.00-1.00) K/uL Eos # (Auto) 0.07 (0.00-0.50) K/uL Baso # (Auto) 0.08 (0.00-0.20) K/uL D-Dimer, Quantitative 508 H (0-400) ng/mL Dwaine Results last 24 hrs: Microbiology 08/02/16 00:23 Stool Occult Blood (DWAINE) - Final Stool / Feces Med Orders - Current: Current Medications Acetaminophen (Tylenol) 650 mg PO Q4H PRN PRN Reason: Pain (Mild 1-3)/fever Amlodipine Besylate (Norvasc) 10 mg PO DAILY [facility] Last Admin: 08/03/16 07:44 Dose: 10 mg Aspirin (Ecotrin) 325 mg PO DAILY [facility] Last Admin: 08/03/16 07:44 Dose: 325 mg Atorvastatin Calcium (Lipitor) 80 mg PO BEDTIME [facility] Last Admin: 08/02/16 19:43 Dose: 80 mg Clopidogrel Bisulfate (Plavix) 75 mg PO DAILY [facility] Last Admin: 08/03/16 07:44 Dose: 75 mg Enoxaparin Sodium (Lovenox) 40 mg SUBCUT Q24H [facility] Last Admin: 08/02/16 10:37 Dose: 40 mg Famotidine (Pepcid) 20 mg IVPUSH DAILY [facility] Last Admin: 08/03/16 11:03 Dose: Not Given Ferrous Sulfate (Ferrous Sulfate) 325 mg PO DAILY [facility] Last Admin: 08/03/16 07:44 Dose: 325 mg Furosemide (Lasix) 40 mg IVPUSH Q8H [facility] Last Admin: 08/03/16 11:03 Dose: Not Given Isosorbide Mononitrate (Imdur) 30 mg PO DAILY [facility] Last Admin: 08/03/16 07:44 Dose: 30 mg Lisinopril (Prinivil) 15 mg PO DAILY [facility] Last Admin: 08/03/16 07:44 Dose: 15 mg Metoprolol Succinate (Toprol Xl) 25 mg PO QPM [facility] Last Admin: 08/02/16 17:36 Dose: 25 mg Potassium Chloride (Klor-Con M20) 20 meq PO TID [facility] Last Admin: 08/03/16 07:44 Dose: 20 meq Prednisone (Prednisone) 40 mg PO WITHBREAKFAST [facility] Last Admin: 08/03/16 07:44 Dose: 40 mg Sertraline HCl (Zoloft) 50 mg PO QAM [facility] Last Admin: 08/03/16 07:44 Dose: 50 mg Simethicone (Simethicone) 80 mg PO TID PRN PRN Reason: Gas Sodium Chloride (Saline Flush) 10 ml FLUSH ASDIRECTED PRN PRN Reason: Keep Vein Open Last Admin: 08/02/16 02:39 Dose: 10 ml Sodium Chloride (Saline Flush) 10 ml FLUSH Q12H PRN PRN Reason: Keep Vein Open Last Admin: 08/03/16 07:45 Dose: 10 ml Temazepam (Restoril) 15 mg PO BEDTIME PRN PRN Reason: Insomnia Discontinued Medications Amlodipine Besylate (Norvasc) 10 mg PO BID [facility] Aspirin (Aspirin) 324 mg CHEW ONETIME ONE Stop: 08/01/16 08:26 Last Admin: 08/01/16 08:31 Dose: 324 mg Clopidogrel Bisulfate (Plavix) 300 mg PO ONETIME ONE Stop: 08/01/16 08:26 Last Admin: 08/01/16 08:32 Dose: 300 mg Clopidogrel Bisulfate (Plavix) 75 mg PO ONETIME ONE Stop: 08/02/16 12:19 Last Admin: 08/02/16 12:38 Dose: 75 mg Clopidogrel Bisulfate (Plavix) 75 mg PO DAILY ONE Stop: 08/03/16 08:01 Famotidine (Pepcid) 40 mg IVPUSH ONETIME ONE Stop: 08/01/16 08:26 Last Admin: 08/01/16 08:37 Dose: 40 mg Furosemide (Lasix) 60 mg IVPUSH NOW ONE Stop: 08/01/16 09:13 Last Admin: 08/01/16 09:47 Dose: 60 mg Nitroglycerin/Dextrose (Nitroglycerin 25 Mg/D5w 250 Ml) 25 mg in 250 mls @ 3 mls/hr IV TITRATE [facility]; 5 MCG/MIN PRN Reason: Protocol Last Admin: 08/01/16 23:35 Dose: 5 mcg/min, 3 mls/hr Sodium Chloride (Normal Saline) 1,000 mls @ 30 mls/hr IV ASDIRECTED [facility] Last Admin: 08/01/16 23:41 Dose: 30 mls/hr Isosorbide Mononitrate (Imdur) 30 mg PO ONETIME ONE Stop: 08/01/16 16:02 Last Admin: 08/01/16 17:08 Dose: 30 mg Isosorbide Mononitrate (Imdur) 30 mg PO QPM [facility] Isosorbide Mononitrate (Imdur) 30 mg PO QPM [facility] Metoprolol Tartrate (Lopressor) 2.5 mg IVPUSH ONETIME ONE Stop: 08/01/16 08:26 Last Admin: 08/01/16 08:34 Dose: 2.5 mg Potassium Chloride (Klor-Con M20) 40 meq PO ONETIME ONE Stop: 08/02/16 15:43 Last Admin: 08/02/16 17:35 Dose: 40 meq Simvastatin (Zocor) 20 mg PO BEDTIME [facility] Last Admin: 08/01/16 19:10 Dose: 20 mg - Exam General: alert, oriented HEENT: Pupils equal, Pupils reactive, EOMI, Mucous membr. moist/pink Neck: supple Lungs: Clear to auscultation, Normal respiratory effort Cardiovascular: Regular Rate, Regular Rhythm, No Murmurs Abdomen: bowel sounds present, soft, no tenderness, no distension. No: rigidity , rebound, guarding, tenderness Back Exam: normal inspection, full range of motion Extremities: no edema Skin: warm, dry, intact Wound/Incisions: healing well Neurological: no new focal deficit Psy/Mental Status: alert, normal affect, normal mood - Problem List & Annotations (1) Non-ST elevation [place] (NSTEMI) SNOMED Code(s): 991909745 Code(s): I21.4 - NON-ST ELEVATION (NSTEMI) MYOCARDIAL INFARCTION Status: Acute Priority: High Current Visit: Yes Onset Date: ~08/01/16 Annotation /Comment:: No further chest pain. Mild intermittent shortness of breath. (2) CHF (congestive heart failure) SNOMED Code(s): 23032006 Code(s): I50.9 - HEART FAILURE, UNSPECIFIED Status: Acute Priority: High Current Visit: Yes Onset Date: ~08/01/16 Qualifiers: Congestive heart failure type: unspecified congestive heart failure type Congestive heart failure chronicity: acute Qualified Code(s): I50.9 - Heart failure, unspecified Annotation/Comment:: Moderate CHF. BNP increased from admission. BNP pending today as machine is down and specimen sent out for processing. Note comfort care with no echocardiogram, cardiology consultation, further workup, etc. per the patient's request (3) Hypokalemia SNOMED Code(s): 46440888 Code(s): E87.6 - HYPOKALEMIA Status: Acute Priority: High Current Visit : Yes Annotation/Comment:: Mild hypokalemia currently. Will replete with oral potassium. (4) Normocytic anemia SNOMED Code(s): 410077470 Code(s): D64.9 - ANEMIA, UNSPECIFIED Status: Acute Priority: High Current Visit: Yes Annotation/Comment:: Likely secondary to iatrogenic blood draws. Will continue to follow. (5) Hypertension SNOMED Code(s): 91641367 Code(s): I10 - ESSENTIAL (PRIMARY) HYPERTENSION Status: Chronic Priority : Medium Current Visit: Yes Qualifiers: Hypertension type: essential hypertension Qualified Code(s): I10 - Essential (primary) hypertension Annotation/Comment:: Currently controlled. (6) Dyslipidemia SNOMED Code(s): 276067578 Code(s): E78.5 - HYPERLIPIDEMIA, UNSPECIFIED Status: Chronic Priority: Medium Current Visit: Yes Annotation/Comment:: Good control on current regimen. (7) Peptic reflux disease SNOMED Code(s): 52209468 Code(s): K21.9 - GASTRO-ESOPHAGEAL REFLUX DISEASE WITHOUT ESOPHAGITIS Status: Chronic Priority: Low Current Visit: Yes Annotation/Comment:: Asymptomatic currently. PPI. (8) D-dimer, elevated SNOMED Code(s): 661475243 Code(s): R79.89 - OTHER SPECIFIED ABNORMAL FINDINGS OF BLOOD CHEMISTRY Status: Resolved Priority: Low Current Visit: Yes Onset Date: 08/01/16 Annotation/Comment:: Has continued to decrease since admission. No clinical concern for DVT or PE at this time. - Problem List Review Problem List Initiated/Reviewed/Updated: Yes - My Orders Last 24 Hours: My Active Orders 08/02/16 12:15 Isosorbide Mononitrate [Imdur] 30 mg PO DAILY 08/02/16 12:30 Aspirin [Ecotrin] 325 mg PO DAILY 08/02/16 20:00 atorvaSTATin [Lipitor] 80 mg PO BEDTIME 08/03/16 07:10 CMP [COMPREHENSIVE METABOLIC PN,CMP] [CHEM] DAILY PRO B-TYPE NATRIUR PEPT,BNPPRO [CHEM] DAILY 08/03/16 08:00 Clopidogrel [Plavix] 75 mg PO DAILY 08/03/16 08:02 Chest 2V [CR] Stat 08/04/16 07:00 PRO B-TYPE NATRIUR PEPT,BNPPRO [CHEM] DAILY 08/05/16 07:00 PRO B-TYPE NATRIUR PEPT,BNPPRO [CHEM] DAILY 08/06/16 07:00 PRO B-TYPE NATRIUR PEPT,BNPPRO [CHEM] DAILY - Assessment Assessment:: NSTEMI with mild elevation of troponin and peak of - Plan Plan:: 1. Continue isosorbide mononitrate at 30 mg ER daily. 2. Continue aspirin 325 mg PO daily until discharge then will plan aspirin 81 mg oral daily. 3. Plavix 75 mg PO daily. 4. Continue Lasix 40 mg IV every 8 hours for CHF. 5. Continue Metoprolol Succinate 25 mg QHS for CHF and HTN. 6. Continue Lisinopril 15 mg PO QD for HTN. 7. Continue Amlodipine 10 mg PO QD for HTN. 8. Continue Lipitor 80 mg PO QD given ACS to stabilize plaque. 9. Followup CMP and BNP as machine is down and samples sent out for processing. 10. Repeat CXR to followup CHF, but no clinical change. 11. ADRIEL herzog and SCD's for DVT prophylaxis in addition to Lovenox 40 mg SQ QD. 12. Incentive spirometer for pneumonia prophylaxis.
[2016-08-03] MEDS: Enoxaparin 40 MG/0.4 ML Syringe SUBCUT SCH (11:45)
[2016-08-03] MEDS: Furosemide 40 MG Tab PO SCH (17:50)
[2016-08-03] MEDS: Metoprolol Succinate 25 MG Tab.ER PO SCH (17:51)
[2016-08-03] MEDS: atorvaSTATin 40 MG Tab PO SCH (19:25)
[2016-08-03] MEDS ORDERED: Albuterol 0.083% 2.5 MG/3 ML Neb Soln NEB PRN (23:12)
[2016-08-03] MEDS ORDERED: methylPREDNISolone Sodium Succinate 125 MG/2 ML SDV IM ONE (23:14)
[2016-08-03] MEDS: Albuterol 0.083% 2.5 MG/3 ML Neb Soln NEB SCH (23:55)
[2016-08-04] MEDS: Albuterol 0.083% 2.5 MG/3 ML Neb Soln NEB SCH ×5 (04:52→21:07)
[2016-08-04] MEDS: Lisinopril 5 MG Tab PO SCH (07:09)
[2016-08-04] MEDS: Clopidogrel 75 MG Tab PO SCH (07:10)
[2016-08-04] MEDS: Famotidine 20 MG Tab PO SCH (07:10)
[2016-08-04] MEDS: Aspirin 325 MG Tab.EC PO SCH (07:10)
[2016-08-04] MEDS: predniSONE 20 MG Tab PO SCH (07:10)
[2016-08-04] MEDS: Isosorbide Mononitrate 30 MG Tab.ER PO SCH (07:10)
[2016-08-04] MEDS: amLODIPine 5 MG Tab PO SCH (07:10)
[2016-08-04] MEDS: Sertraline 50 MG Tab PO SCH (07:11)
[2016-08-04] MEDS: Ferrous Sulfate 325 MG Tab PO SCH (07:11)
[2016-08-04] MEDS: Potassium Chloride 20 MEQ Tab.ER PO SCH ×3 (07:11→17:27)
[2016-08-04] MEDS: Furosemide 40 MG Tab PO SCH ×2 (07:17→15:29)
[2016-08-04 08:16] LABS: CHLORIDE,CL 105 mmol/L (98-107); SODIUM,NA 143 mmol/L (136-145)
[2016-08-04] MEDS: Enoxaparin 40 MG/0.4 ML Syringe SUBCUT SCH (10:10)
[2016-08-04] MEDS ORDERED: Sodium Chloride 0.9% 10 ML Syringe FLUSH PRN (13:00)
--- NOTE | 2016-08-04 13:13 | PCM.PN ---
- General Info Date of Service: 08/04/16 Admission Dx/Problem (Free Text): NSTEMI. Subjective Update: The patient had wheezing and hypoxia last night with shortness of breath, but no chest pain, and required an increase in oxygen to 5 L per nasal cannula and required IM Solumedrol 125 mg and albuterol nebulizers. Nursing reports wheezing improved significantly after initial treatment and continued to improve throughout the night. The patient reports his shortness of breath and wheezing have resolved but nursing reports he is still requiring 5 L of oxygen per nasal cannula to maintain adequate oxygenation. - Review of Systems General: Reports: No Symptoms HEENT: Reports: no symptoms Pulmonary: Reports: shortness of breath (Mild, improved significantly from last night. Denies wheezing and chest pain. ) Cardiovascular: Reports: No Symptoms Gastrointestinal: Reports: No symptoms Musculoskeletal: Reports: no symptoms Skin: Reports: no symptoms Neurological: Reports: No Symptoms Psychiatric: Reports: no symptoms - Patient Data Vitals - most recent: Last Vital Signs Temp 36.4 C 08/04/16 07:10 Pulse 66 08/04/16 07:10 Resp 20 08/04/16 07:10 BP 126/54 L 08/04/16 07:10 Pulse Ox 92 L 08/04/16 07:10 Weight - most recent: 86.636 kg I&O - last 24 hours: Intake & Output 08/03/16 08/04/16 08/04/16 22:59 06:59 14:59 Intake Total 540 400 590 Output Total 800 400 Balance 540 -400 190 Lab Results last 24 hrs: Laboratory Results - last 24 hr 08/04/16 Range/Units 07:35 Sodium 143 (136-145) mmol/L Potassium 4.3 (3.5-5.1) mmol/L Chloride 105 (98-107) mmol/L Carbon Dioxide 28.3 (21.0-32.0) mmol/L BUN 40 H (7-18) mg/dL Creatinine 0.93 (0.51-1.17) mg/dL Est Cr Clr Drug Dosing 54.90 mL/min Estimated GFR (MDRD) > 60 mL/min Glucose 162 H (74-106) mg/dL Calcium 8.7 (8.5-10.1) mg/dL Total Bilirubin 0.5 (0.2-1.0) mg/dL AST 254 H (15-37) U/L ALT 368 H (12-78) U/L Alkaline Phosphatase 130 H (46-116) IU/L Ogl-[id number]-[id number] Pept 7061 H (0-125) pg/mL Total Protein 7.0 (6.4-8.2) g/dL Albumin 3.7 (3.4-5.0) g/dL Dwaine Results last 24 hrs: Microbiology 08/04/16 07:20 Stool Occult Blood (DWAINE) - Final Stool / Feces Med Orders - Current: Current Medications Acetaminophen (Tylenol) 650 mg PO Q4H PRN PRN Reason: Pain (Mild 1-3)/fever Albuterol (Proventil Neb Soln) 2.5 mg NEB Q4HRRT [facility] Last Admin: 08/04/16 11:21 Dose: 2.5 mg Albuterol (Proventil Neb Soln) 2.5 mg NEB Q1H PRN PRN Reason: Wheezing Amlodipine Besylate (Norvasc) 10 mg PO DAILY [facility] Last Admin: 08/04/16 07:10 Dose: 10 mg Aspirin (Ecotrin) 325 mg PO DAILY [facility] Last Admin: 08/04/16 07:10 Dose: 325 mg Atorvastatin Calcium (Lipitor) 80 mg PO BEDTIME [facility] Last Admin: 08/03/16 19:25 Dose: 80 mg Clopidogrel Bisulfate (Plavix) 75 mg PO DAILY [facility] Last Admin: 08/04/16 07:10 Dose: 75 mg Enoxaparin Sodium (Lovenox) 40 mg SUBCUT Q24H [facility] Last Admin: 08/04/16 10:10 Dose: 40 mg Famotidine (Pepcid) 20 mg PO DAILY [facility] Last Admin: 08/04/16 07:10 Dose: 20 mg Ferrous Sulfate (Ferrous Sulfate) 325 mg PO DAILY [facility] Last Admin: 08/04/16 07:11 Dose: 325 mg Furosemide (Lasix) 40 mg PO 0800,1600 [facility] Last Admin: 08/04/16 07:17 Dose: 40 mg Isosorbide Mononitrate (Imdur) 30 mg PO DAILY [facility] Last Admin: 08/04/16 07:10 Dose: 30 mg Lisinopril (Prinivil) 15 mg PO DAILY [facility] Last Admin: 08/04/16 07:09 Dose: 15 mg Methylprednisolone Sodium Succinate (Solu-Medrol) 125 mg IVPUSH Q8H [facility] Metoprolol Succinate (Toprol Xl) 25 mg PO QPM [facility] Last Admin: 08/03/16 17:51 Dose: 25 mg Potassium Chloride (Klor-Con M20) 20 meq PO TID [facility] Last Admin: 08/04/16 11:21 Dose: 20 meq Prednisone (Prednisone) 40 mg PO WITHBREAKFAST [facility] Last Admin: 08/04/16 07:10 Dose: 40 mg Sertraline HCl (Zoloft) 50 mg PO QAM [facility] Last Admin: 08/04/16 07:11 Dose: 50 mg Simethicone (Simethicone) 80 mg PO TID PRN PRN Reason: Gas Sodium Chloride (Saline Flush) 10 ml FLUSH ASDIRECTED PRN PRN Reason: Keep Vein Open Last Admin: 08/02/16 02:39 Dose: 10 ml Sodium Chloride (Saline Flush) 10 ml FLUSH Q12H PRN PRN Reason: Keep Vein Open Last Admin: 08/03/16 07:45 Dose: 10 ml Sodium Chloride (Saline Flush) 10 ml FLUSH ASDIRECTED PRN PRN Reason: Keep Vein Open Temazepam (Restoril) 15 mg PO BEDTIME PRN PRN Reason: Insomnia Discontinued Medications Amlodipine Besylate (Norvasc) 10 mg PO BID [facility] Aspirin (Aspirin) 324 mg CHEW ONETIME ONE Stop: 08/01/16 08:26 Last Admin: 08/01/16 08:31 Dose: 324 mg Clopidogrel Bisulfate (Plavix) 300 mg PO ONETIME ONE Stop: 08/01/16 08:26 Last Admin: 08/01/16 08:32 Dose: 300 mg Clopidogrel Bisulfate (Plavix) 75 mg PO ONETIME ONE Stop: 08/02/16 12:19 Last Admin: 08/02/16 12:38 Dose: 75 mg Clopidogrel Bisulfate (Plavix) 75 mg PO DAILY ONE Stop: 08/03/16 08:01 Famotidine (Pepcid) 40 mg IVPUSH ONETIME ONE Stop: 08/01/16 08:26 Last Admin: 08/01/16 08:37 Dose: 40 mg Famotidine (Pepcid) 20 mg IVPUSH DAILY [facility] Last Admin: 08/03/16 11:03 Dose: Not Given Furosemide (Lasix) 60 mg IVPUSH NOW ONE Stop: 08/01/16 09:13 Last Admin: 08/01/16 09:47 Dose: 60 mg Furosemide (Lasix) 40 mg IVPUSH Q8H [facility] Last Admin: 08/03/16 11:03 Dose: Not Given Nitroglycerin/Dextrose (Nitroglycerin 25 Mg/D5w 250 Ml) 25 mg in 250 mls @ 3 mls/hr IV TITRATE SEK[facility]; 5 MCG/MIN PRN Reason: Protocol Last Admin: 08/01/16 23:35 Dose: 5 mcg/min, 3 mls/hr Sodium Chloride (Normal Saline) 1,000 mls @ 30 mls/hr IV ASDIRECTED [facility] Last Admin: 08/01/16 23:41 Dose: 30 mls/hr Isosorbide Mononitrate (Imdur) 30 mg PO ONETIME ONE Stop: 08/01/16 16:02 Last Admin: 08/01/16 17:08 Dose: 30 mg Isosorbide Mononitrate (Imdur) 30 mg PO QPM [facility] Isosorbide Mononitrate (Imdur) 30 mg PO QPM [facility] Methylprednisolone Sodium Succinate (Solu-Medrol) 125 mg IM ONETIME ONE Stop: 08/03/16 23:15 Last Admin: 08/03/16 23:55 Dose: 125 mg Metoprolol Tartrate (Lopressor) 2.5 mg IVPUSH ONETIME ONE Stop: 08/01/16 08:26 Last Admin: 08/01/16 08:34 Dose: 2.5 mg Potassium Chloride (Klor-Con M20) 40 meq PO ONETIME ONE Stop: 08/02/16 15:43 Last Admin: 08/02/16 17:35 Dose: 40 meq Simvastatin (Zocor) 20 mg PO BEDTIME [facility] Last Admin: 08/01/16 19:10 Dose: 20 mg - Exam General: alert, oriented HEENT: Pupils equal, Pupils reactive, EOMI, Mucous membr. moist/pink Neck: supple, other (No nuchal rigidity.) Lungs: Clear to auscultation, Normal respiratory effort, Decreased breath sounds (Mildly diminished breath sounds.). No: Crackles, Rales, Rhonchi, Rub, Wheezing Cardiovascular: Regular Rate, Regular Rhythm Abdomen: bowel sounds present, soft, no tenderness, no distension Back Exam: normal inspection, full range of motion. No: CVA tenderness (L), CVA tenderness (R), paraspinal tenderness, vertebral tenderness Extremities: no edema, no tenderness/swelling, no clubbing, no cyanosis Skin: warm, dry, intact Neurological: no new focal deficit Psy/Mental Status: alert, normal affect, normal mood - Problem List & Annotations (1) COPD exacerbation SNOMED Code(s): 451341795, 939751968 Code(s): J44.1 - CHRONIC OBSTRUCTIVE PULMONARY DISEASE W (ACUTE) EXACERBATION Status: Acute Priority: High Current Visit: Yes Annotation/ Comment:: Undiagnosed COPD. Exacerbation that began 08/03/2016 in the evening with wheezing, shortness of breath, and hypoxia. Improved 08/04/2016 following initial treatment with albuterol nebulizers and IM Solumedrol, but still requiring 5 L of oxygen by nasal cannula to maintain saturations > 90%. 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 Will decrease dose of atorvastatin from 80 mg oral daily to 40 mg oral daily and continue to follow. Will switch back to simvastatin if necessary but atorvastatin preferred for plaque stabilization given acute NSTEMI. (3) Non-ST elevation [place] (NSTEMI) SNOMED Code(s): 733438308 Code(s): I21.4 - NON-ST ELEVATION (NSTEMI) MYOCARDIAL INFARCTION Status: Acute Priority: [facility] Current Visit: Yes Onset Date: ~08/01/16 Annotation /Comment:: No further chest pain. Mild intermittent shortness of breath. (4) CHF (congestive heart failure) SNOMED Code(s): 97363563 Code(s): I50.9 - HEART FAILURE, UNSPECIFIED Status: Acute Priority: High Current Visit: Yes Onset Date: ~08/01/16 Qualifiers: Congestive heart failure type: unspecified congestive heart failure type Congestive heart failure chronicity: acute Qualified Code(s): I50.9 - Heart failure, unspecified Annotation/Comment:: Moderate CHF. BNP increased from admission initially and has stabilized currently. Note comfort care with no echocardiogram, cardiology consultation, further workup, etc. per the patient's request (5) Normocytic anemia SNOMED Code(s): 887622330 Code(s): D64.9 - ANEMIA, UNSPECIFIED Status: Acute Priority: High Current Visit: Yes Annotation/Comment:: Likely secondary to iatrogenic blood draws. Improved 08/03/2016. Will continue to follow and limit blood draws when able. (6) Hypertension SNOMED Code(s): 32510586 Code(s): I10 - ESSENTIAL (PRIMARY) HYPERTENSION Status: Chronic Priority : Medium Current Visit: Yes Qualifiers: Hypertension type: essential hypertension Qualified Code(s): I10 - Essential (primary) hypertension Annotation/Comment:: Currently controlled. (7) Dyslipidemia SNOMED Code(s): 832756190 Code(s): E78.5 - HYPERLIPIDEMIA, UNSPECIFIED Status: Chronic Priority: Medium Current Visit: Yes Annotation/Comment:: Changed from simvastatin to atovastatic given NSTEMI for plaque stabilization. Appears to have some hepatotoxicity at current dose, will cut dose in half from 80 mg daily to 40 mg daily. (8) Peptic reflux disease SNOMED Code(s): 45004878 Code(s): K21.9 - GASTRO-ESOPHAGEAL REFLUX DISEASE WITHOUT ESOPHAGITIS Status: Chronic Priority: Low Current Visit: No Annotation/Comment:: Asymptomatic currently. PPI. - Problem List Review Problem List Initiated/Reviewed/Updated: Yes - My Orders Last 24 Hours: My Active Orders 08/03/16 17:26 Furosemide [Lasix] 40 mg PO 0800,1600 08/03/16 23:11 RT Aerosol Therapy [RC] ASDIRECTED 08/03/16 23:12 Albuterol [Proventil Neb Soln] 2.5 mg NEB Q1H PRN 08/03/16 23:13 RT Aerosol Therapy [RC] ASDIRECTED 08/04/16 00:00 Albuterol [Proventil Neb Soln] 2.5 mg NEB Q4HRRT 08/04/16 08:00 Famotidine [Pepcid] 20 mg PO DAILY 08/04/16 13:00 Peripheral IV Care [RC] . DIRECTED Sodium Chloride 0.9% [Saline Flush] 10 ml FLUSH ASDIRECTED PRN methylPREDNISolone Sod Succ [Solu-MEDROL] 125 mg IVPUSH Q8H Peripheral IV Insertion Adult [OM.PC] Routine 08/05/16 05:11 CBC WITH AUTO DIFF [HEME] AM CMP [COMPREHENSIVE METABOLIC PN,CMP] [CHEM] AM 08/05/16 07:00 PRO B-TYPE NATRIUR PEPT,BNPPRO [CHEM] DAILY 08/06/16 07:00 PRO B-TYPE NATRIUR PEPT,BNPPRO [CHEM] DAILY - Plan Plan:: 1. Solumedrol 125 mg IV every 8 hours for COPD exacerbation. 2. Albuterol nebulizers every 4 hours scheduled and every 1 hour as needed for COPD exacerbation. 3. Decrease dose of Lipitor to 40 mg PO daily from 80 mg PO daily given hepatotoxicity and will continue to follow and switch back to simvastatin if necessary. 4. Continue Aspirin 325 mg PO daily currently and plan to discharge on 81 mg oral daily. 5. Continue Plavix 75 mg oral daily. 6. Continue Toprol XL 25 mg PO QHS. 7. Continue current regimen for hypertension as currently well-controlled. 8. Continue Imdur at 30 mg ER daily. 9. ADRIEL herzog and SCD's for DVT prophylaxis in addition to Lovenox 40 mg SQ QD. 10. Incentive spirometer for pneumonia prophylaxis.
[2016-08-04] MEDS: methylPREDNISolone Sodium Succinate 125 MG/2 ML SDV IVPUSH SCH ×2 (14:22→21:10)
[2016-08-04] MEDS: Sodium Chloride 0.9% 10 ML Syringe FLUSH PRN ×2 (14:22→21:13)
[2016-08-04] MEDS: Metoprolol Succinate 25 MG Tab.ER PO SCH (17:32)
[2016-08-04] MEDS: atorvaSTATin 40 MG Tab PO SCH (21:07)
[2016-08-05] MEDS: Albuterol 0.083% 2.5 MG/3 ML Neb Soln NEB SCH ×3 (01:32→08:48)
[2016-08-05] MEDS: methylPREDNISolone Sodium Succinate 125 MG/2 ML SDV IVPUSH SCH (04:40)
[2016-08-05] MEDS: Sodium Chloride 0.9% 10 ML Syringe FLUSH PRN ×2 (04:40)
[2016-08-05 07:05] LABS: CHLORIDE,CL 106 mmol/L (98-107); SODIUM,NA 144 mmol/L (136-145)
[2016-08-05 08:17] VITALS: BP 148/74
[2016-08-05] MEDS: Famotidine 20 MG Tab PO SCH (08:48)
[2016-08-05] MEDS: Sertraline 50 MG Tab PO SCH (08:48)
[2016-08-05] MEDS: Aspirin 325 MG Tab.EC PO SCH (08:49)
[2016-08-05] MEDS: Potassium Chloride 20 MEQ Tab.ER PO SCH (08:49)
[2016-08-05] MEDS: Lisinopril 5 MG Tab PO SCH (08:50)
[2016-08-05] MEDS: Ferrous Sulfate 325 MG Tab PO SCH (08:50)
[2016-08-05] MEDS: Isosorbide Mononitrate 30 MG Tab.ER PO SCH (08:51)
[2016-08-05] MEDS: Clopidogrel 75 MG Tab PO SCH (08:51)
[2016-08-05] MEDS: amLODIPine 5 MG Tab PO SCH (08:52)
[2016-08-05] MEDS: Furosemide 40 MG Tab PO SCH (08:55)
--- NOTE | 2016-08-05 09:41 | PCM.DCSUM1 ---
Discharge Summary - Hospital Course HPI Initial Comments: See emergency room note/admission H&P Brief History: See emergency room note/admission H&P - Discharge Data Discharge Date: 08/05/16 Discharge Disposition: DC/Tfer to Acute Hospital 02 Condition: Fair - Discharge Diagnosis/Problem(s) (1) Acute coronary syndrome SNOMED Code(s): 838189278 ICD Code: I24.9 - ACUTE ISCHEMIC HEART DISEASE, UNSPECIFIED Status: Acute Priority: High Current Visit: Yes Onset Date: ~07/31/16 Problem Details : No chest pain or anginal-type symptoms at time of discharge/transfer, although evidence of a probable non-STEMI with secondary CHF prior to admission. Patient is requesting comfort care only with no further cardiac workup, consultation, etc. Secondary to his CHF and COPD patient has been more oxygen dependent during this hospitalization and is currently requiring 5 L per minute by nasal cannula with no previous oxygen use required at home. Note that on admission no beds were available at the [facility] in [place] with patient refusing transfer about 2 days thereafter when a [facility] bed was open. Telephone consultation this morning and 0.9:15 hours with [facility] in [place], with no bed available in their facility at that time and approval received to transfer the patient to another hospital in [place]. Subsequent telephone consultation at 09:[address] Diana, hospitalist at [facility], who does accept the patient for further treatment and evaluation, with no further treatment recommendations given. He is aware that patient's condition has degraded significantly since admission, comfort care only status, and likelihood of needing to discharge the patient to [facility] in [place] or another similar facility. The patient now does agree to hospital transfer. Note persistent significant d-dimer and BNP elevation. Subcutaneous Lovenox was discontinued this morning secondary to patient's progressive anemia and Hemoccult-positive stools with his ASA also reduced 81 mg daily. Plavix will be continued for the time being with caution. Currently no abdominal complaints or evidence of a significant GI bleed with continuation of current to Pepcid therapy. Note previously negative H. pylori on admission. Long-term prognosis is extremely poor (2) CHF (congestive heart failure) SNOMED Code(s): 51091414 ICD Code: I50.9 - HEART FAILURE, UNSPECIFIED Status: Acute Priority: High Current Visit: Yes Onset Date: ~08/01/16 Problem Details: Moderate persistent CHF with progressive BNP and LFTs elevation and continued O2 requirement since yesterday after his Lasix therapy was decreased. 60 mg of IV Lasix given prior to discharge secondary to significant CHF by chest x-ray as below. Otherwise as above. Note comfort care with no echocardiogram, cardiology consultation, further workup, etc. per the patient's request Qualifiers: Congestive heart failure type: unspecified congestive heart failure type Congestive heart failure chronicity: acute Qualified Code(s): I50.9 - Heart failure, unspecified (3) D-dimer, elevated SNOMED Code(s): 248843130 ICD Code: R79.89 - OTHER SPECIFIED ABNORMAL FINDINGS OF BLOOD CHEMISTRY Status: Deleted Priority: Low Current Visit: Yes Onset Date: 08/01/16 Problem Details: D-dimer elevation has continued to decrease since admission. No clinical concern for DVT or PE at this time with negative venous Doppler studies of the lower extremities on admission. (4) Dyslipidemia SNOMED Code(s): 559392321 ICD Code: E78.5 - HYPERLIPIDEMIA, UNSPECIFIED Status: Chronic Priority: Medium Current Visit: Yes Problem Details: Secondary to progressive LFTs elevation his statin therapy was discontinued this morning with previously decreased therapy yesterday. CHF likely a concomitant factor of his LFTs elevation with normal total bilirubin at this time. Further workup depending on his clinical course. Lipid panel was normal during this hospitalization with previous medical therapy prior to admission (5) Elevated LFTs SNOMED Code(s): 944323355 ICD Code: R94.5 - ABNORMAL RESULTS OF LIVER FUNCTION STUDIES Status: Deleted Priority: Low Current Visit: Yes Onset Date: 08/01/16 Problem Details: As above (6) Hyperglycemia SNOMED Code(s): 48104149 ICD Code: R73.9 - HYPERGLYCEMIA, UNSPECIFIED Status: Acute Priority: Medium Current Visit: Yes Onset Date: 08/01/16 Problem Details: Glycosylated hemoglobin normal on admission. No previous known AODM (7) Hypertension SNOMED Code(s): 69593882 ICD Code: I10 - ESSENTIAL (PRIMARY) HYPERTENSION Status: Chronic Priority : Medium Current Visit: Yes Problem Details: Blood pressure stable during this hospitalization Qualifiers: Hypertension type: essential hypertension Qualified Code(s): I10 - Essential (primary) hypertension (8) Iron deficiency anemia SNOMED Code(s): 66244267 ICD Code: D50.9 - IRON DEFICIENCY ANEMIA, UNSPECIFIED Status: Chronic Priority: Medium Current Visit: Yes Problem Details: Iron studies, vitamin B 12 level, and folic acid level were normal during this hospitalization. Note current iron supplementation, which will be continued for now secondary to Hemoccult-positive stools and mildly progressive anemia, which may also be related to his CHF and hydration status.. No abdominal pain or evidence of acute GI bleed. Qualifiers: Iron deficiency anemia type: unspecified iron deficiency Qualified Code(s) : D50.9 - Iron deficiency anemia, unspecified (9) Mixed anxiety depressive disorder SNOMED Code(s): 697536638 ICD Code: F41.8 - OTHER SPECIFIED ANXIETY DISORDERS Status: Chronic Priority: Medium Current Visit: Yes Problem Details: Stable by patient history (10) Osteoarthritis SNOMED Code(s): 699530672 ICD Code: M19.90 - UNSPECIFIED OSTEOARTHRITIS, UNSPECIFIED SITE Status: Chronic Priority: Medium Current Visit: Yes Problem Details: Stable by patient history Qualifiers: Osteoarthritis location: multiple joints Osteoarthritis type: primary Qualified Code(s): M15.0 - Primary generalized (osteo)arthritis (11) PVC's (premature ventricular contractions) SNOMED Code(s): 65547377 ICD Code: I49.3 - VENTRICULAR PREMATURE DEPOLARIZATION Status: Acute Priority: High Current Visit: Yes Onset Date: 08/01/16 Problem Details: Persistent occasional PVCs with further adjustment of his beta brooklynn therapy with caution secondary to his COPD. Note that IV Lopressor given in the emergency room with improved arrhythmia at time of admission. (12) Peptic reflux disease SNOMED Code(s): 05250162 ICD Code: K21.9 - GASTRO-ESOPHAGEAL REFLUX DISEASE WITHOUT ESOPHAGITIS Status: Chronic Priority: Low Current Visit: No Problem Details: No abdominal pain at this time despite despite progressive anemia and Hemoccult- positive stools during this hospitalization. He does complain of some constipation, which is a chronic problem. Comfort care with GI consultation as needed (13) Hypocalcemia SNOMED Code(s): 4658161 ICD Code: E83.51 - HYPOCALCEMIA Status: Chronic Priority: Medium Current Visit: Yes Problem Details: Persistent mild occasional hypocalcemia, although normal earlier in hospitalization. Continue to observe for now (14) Hypoalbuminemia SNOMED Code(s): 868566052 ICD Code: E88.09 - OTH DISORDERS OF PLASMA-PROTEIN METABOLISM, NEC Status: Chronic Priority: Medium Current Visit: Yes Problem Details: Consider high -protein Glucerna supplements as snacks (15) Hypokalemia SNOMED Code(s): 56534107 ICD Code: E87.6 - HYPOKALEMIA Status: Acute Priority: High Current Visit: Yes Onset Date: ~08/01/16 Problem Details: Normal at this time (16) COPD (chronic obstructive pulmonary disease) SNOMED Code(s): 09637970 ICD Code: J44.9 - CHRONIC OBSTRUCTIVE PULMONARY DISEASE, UNSPECIFIED Status : Chronic Priority: High Current Visit: Yes Problem Details: Consider aggressive nebulizer therapy with current IV Solu-Medrol therapy, which may need to be discontinued secondary to patient's Hemoccult-positive stools, progressive anemia, etc.. Continue GI medications for now as above. No leukocytosis with CHF as a concomitant factor for exacerbation of his COPD. Qualifiers: COPD type: COPD with acute exacerbation Qualified Code(s): J44.1 - Chronic obstructive pulmonary disease with (acute) exacerbation - Patient Summary/Data Operative Procedure(s) Performed: None Complications: Progressive CHF, COPD exacerbation, progressive anemia, LFTs elevation, etc. as above. Labs Pending at D/C: None Recommended Follow-up Testing/Procedures: As per discharge instructions Planned Operative Procedure(s) after DC: None. Note comfort care Hospital Course: The patient was admitted to inpatient/acute care on telemetry with initiation of standard rule out AR orders with evidence of probable lateral wall non- STEMI. No significant anginal complaints during this hospitalization with patient started on cardiac dose of subcutaneous Lovenox on admission. This therapy was discontinued at time of discharge as above. [facility] physician did assume the patient's care showing after admission with patient's baseline condition degenerating during this hospitalization as above. Long-term prognosis is poor with probable usp care required at time of discharge from the accepting facility in [place] - Patient Instructions Diet: Fluid Restriction Fluid Restriction: Heart healthy, diverticulosis Activity: No Strenuous Activities Driving: Do Not Drive Showering/Bathing: May Shower Notify Provider of: Fever, Increased Pain, Nausea and/or Vomiting Other/Special Instructions: Ambulance transfer to [facility] for direct admission - Discharge Plan Home Medications: Home Meds Ferrous Sulfate [Iron] 325 mg PO DAILY 01/08/14 [History] Gluc HCl/Csa/Brayan Hy/Hyalur Ac [Glucosamine Chondroitin] 1 cap PO QAM 01/08/14 [ History] Leuprolide [Leuprolide Depot 6-Month] 45 mg INJECT ASDIRECTED 01/08/14 [History] Sertraline [Zoloft] 50 mg PO QAM 01/08/14 [History] Simvastatin [Zocor] 20 mg PO BEDTIME 01/08/14 [History] amLODIPine Besylate [Amlodipine Besylate] 10 mg PO BID 01/08/14 [History] Acetaminophen 650 mg PO Q6H PRN 08/01/16 [History] Calcium Carbonate/Vitamin D3 [Calcium 250+D] 2 each PO TID PRN 08/01/16 [History ] Cyclobenzaprine HCl 10 mg PO Q8H PRN 08/01/16 [History] Ibuprofen 200 mg PO Q8H PRN 08/01/16 [History] Lisinopril 15 mg PO DAILY 08/01/16 [History] Prednisone [IMW: predniSONE] 40 mg PO WITHBREAKFAST 08/01/16 [History] Simethicone [Gas Relief] 80 mg PO TID PRN 08/01/16 [History] Patient Handouts: Enoxaparin injection, Acute Coronary Syndrome, Heart Failure Forms: ED Department Discharge, Interfacility Transfer EMTALA Referrals: PCP,Unknown [Ordering Only Provider] - - Discharge Summary/Plan Comment DC Time >30 min.: Yes (Coordination of care) Discharge Summary/Plan Comment: As above. Extensive precautions were given to the patient, who is in agreement with the treatment plan. - General Info Admission Dx/Problem (Free Text: 1. CHF 2. NSTEMI. Functional Status: Reports: pain controlled, tolerating diet, ambulating, urinating, incentive spirometry. Denies: new symptoms Numeric/FACES Score: 0 - Review of Systems General: Reports: Fever, Weakness (Mild generalized), Appetite (Good). Denies: Fatigue, Malaise, Chills, Night Sweats HEENT: Denies: ear pain, eye pain, headaches, post nasal drip, sinus congestion , sore throat, rhinitis, visual changes Pulmonary: Reports: shortness of breath, cough, wheezing. Denies: pleuritic chest pain, sputum, hemoptysis Cardiovascular: Reports: Dyspnea on Exertion. Denies: Chest Pain, Palpitations , Orthopnea, PND, Edema, Lightheadedness Gastrointestinal: Reports: Constipation. Denies: Abdominal pain, Decreased appetite, Diarrhea, Difficulty swallowing, Flatus, Hematochezia, Melena, Nausea , Vomiting Genitourinary: Reports: no symptoms. Denies: dysuria, frequency, burning, pain , urgency, hematuria, flank pain Musculoskeletal: Reports: no symptoms. Denies: neck pain, shoulder pain, arm pain, back pain, leg pain Skin: Reports: pallor (Mild), bruising (Mild secondary to Lovenox therapy). Denies: jaundice, diaphoresis, pruritis, rash Neurological: Reports: Confusion (Borderline), Difficulty Walking (Secondary to weakness), Weakness (Generalized). Denies: Dizziness, Headache, Numbness, Paresthesia, Seizure, Syncope, Tingling, Tremors, Change in Speech, Gait Disturbance Psychiatric: Reports: confusion (As above). Denies: depression, anxiety, agitation, hallucinations, suicidal ideation - Patient Data Vitals - Most Recent: Last Vital Signs Temp 36.6 C 08/05/16 08:00 Pulse 72 08/05/16 08:00 Resp 16 08/04/16 20:00 BP 148/74 H 08/05/16 08:52 Pulse Ox 91 L 08/05/16 08:00 Weight - Most Recent: 87.634 kg I&O - Last 24 hours: Intake & Output 08/04/16 08/05/16 08/05/16 22:59 06:59 14:59 Intake Total 236 800 100 Output Total 350 Balance 236 800 -250 Imaging Impressions - Last 24 hrs: air brake tester shows normal sinus rhythm with exception of occasional uniform PVCs with heart rate averaging in the 60s to 70s with no other ectopy or arrhythmia Venous Doppler studies of the lower extremities on 08/01/16 were negative for DVT Chest x-ray, PA and lateral, from 08/05/16 shows progressive moderate to severe CHF with additional moderate to severe cardiomegaly and COPD changes. Moderate stressors and osteoporotic changes also noted. No pneumothorax. Cannot rule out concomitant pulmonary infiltrates secondary to his CHF findings as above. Fluid level noted in incomplete abdominal view with no evidence of free air Lab Results - Last 24 hrs: Laboratory Results - last 24 hr 08/05/16 08/05/16 08/05/16 Range/Units 06:20 06:20 06:20 WBC 9.3 (4.0-10.2) K/uL RBC 3.32 L (4.33-5.41) M/uL Hgb 9.8 L (13.1-16.8) g/dL Hct 31.4 L (39.0-49.0) % MCV 94.6 (84.0-98.0) fL MCH 29.5 (28.2-33.3) pg MCHC 31.2 L (31.7-36.0) g/dL RDW 14.6 H (11.2-14.1) % Plt Count 230 (150-350) K/uL Neut % (Auto) 94.2 H (45.0-80.0) % Lymph % (Auto) 3.1 L (10.0-50.0) % Bullitt % (Auto) 2.4 (2.0-14.0) % Eos % (Auto) 0.0 (0.0-5.0) % Baso % (Auto) 0.3 (0.0-2.0) % Neut # (Auto) 8.78 H (1.40-7.00) K/uL Lymph # (Auto) 0.29 L (0.50-3.50) K/uL Bullitt # (Auto) 0.22 (0.00-1.00) K/uL Eos # (Auto) 0.00 (0.00-0.50) K/uL Baso # (Auto) 0.03 (0.00-0.20) K/uL Sodium 144 (136-145) mmol/L Potassium 4.3 (3.5-5.1) mmol/L Chloride 106 (98-107) mmol/L Carbon Dioxide 28.2 (21.0-32.0) mmol/L BUN 40 H (7-18) mg/dL Creatinine 0.93 (0.51-1.17) mg/dL Est Cr Clr Drug Dosing 54.90 mL/min Estimated GFR (MDRD) > 60 mL/min Glucose 145 H (74-106) mg/dL Calcium 8.3 L (8.5-10.1) mg/dL Total Bilirubin 0.4 (0.2-1.0) mg/dL AST 191 H (15-37) U/L ALT 371 H (12-78) U/L Alkaline Phosphatase 114 (46-116) IU/L Hdu-P-Whpfgtmbily Pept 8574 H (0-125) pg/mL Total Protein 6.3 L (6.4-8.2) g/dL Albumin 3.3 L (3.4-5.0) g/dL Laboratory Tests 08/01/16 08/01/16 08/01/16 Range/Units 08:26 08:26 08:26 WBC 8.3 (4.0-10.2) K/uL RBC 3.79 L (4.33-5.41) M/uL Hgb 11.2 L D (13.1-16.8) g/dL Hct 34.9 L (39.0-49.0) % MCV 92.1 D (84.0-98.0) fL MCH 29.6 (28.2-33.3) pg MCHC 32.1 (31.7-36.0) g/dL RDW 15.1 H (11.2-14.1) % Plt Count 219 (150-350) K/uL Neut % (Auto) 72.5 (45.0-80.0) % Lymph % (Auto) 14.9 (10.0-50.0) % Bullitt % (Auto) 8.4 (2.0-14.0) % Eos % (Auto) 2.6 (0.0-5.0) % Baso % (Auto) 1.6 (0.0-2.0) % Neut # (Auto) 6.04 (1.40-7.00) K/uL Lymph # (Auto) 1.24 (0.50-3.50) K/uL Bullitt # (Auto) 0.70 (0.00-1.00) K/uL Eos # (Auto) 0.22 (0.00-0.50) K/uL Baso # (Auto) 0.13 (0.00-0.20) K/uL PT 10.8 (9.8-11.7) SEC INR 1.0 APTT 26.1 (23.5-30.0) SEC D-Dimer, Quantitative 599 H (0-400) ng/mL Sodium (136-145) mmol/L Potassium (3.5-5.1) mmol/L Chloride (98-107) mmol/L Carbon Dioxide (21.0-32.0) mmol/L BUN (7-18) mg/dL Creatinine (0.51-1.17) mg/dL Est Cr Clr Drug Dosing Estimated GFR (MDRD) mL/min Glucose (74-106) mg/dL Hemoglobin A1c (4.3-5.7) % Lactic Acid (0.4-2.0) mmol/L Uric Acid (2.6-7.2) mg/dL Calcium (8.5-10.1) mg/dL Magnesium (1.8-2.4) mg/dL Iron (50-175) ug/dL TIBC (250-450) ug/dL % Saturation Transferrin (180-329) mg/dL Ferritin (8-388) ng/mL Total Bilirubin (0.2-1.0) mg/dL AST (15-37) U/L ALT (12-78) U/L Alkaline Phosphatase (46-116) IU/L Creatine Kinase (26-308) U/L Creatine Kinase Index (0.0-2.5) % CK-MB (CK-2) (0.00-3.60) ng/mL Troponin I (0.000-0.056) ng/mL Wvp-L-Mecxrqunxmu Pept (0-125) pg/mL Total Protein (6.4-8.2) g/dL Albumin (3.4-5.0) g/dL Triglycerides (30-150) mg/dL Cholesterol (100-200) mg/dL LDL Cholesterol, Calc (0-100) mg/dL HDL Cholesterol (40-60) mg/dL Vitamin B12 (193-986) pg/mL Folate (8.6-58.9) ng/mL TSH, Ultra Sensitive (0.358-3.740) mIU/mL H. pylori IgG Antibody (NEGATIVE) 08/01/16 08/01/16 08/01/16 Range/Units 08:26 08:26 08:26 WBC (4.0-10.2) K/uL RBC (4.33-5.41) M/uL Hgb (13.1-16.8) g/dL Hct (39.0-49.0) % MCV (84.0-98.0) fL MCH (28.2-33.3) pg MCHC (31.7-36.0) g/dL RDW (11.2-14.1) % Plt Count (150-350) K/uL Neut % (Auto) (45.0-80.0) % Lymph % (Auto) (10.0-50.0) % Bullitt % (Auto) (2.0-14.0) % Eos % (Auto) (0.0-5.0) % Baso % (Auto) (0.0-2.0) % Neut # (Auto) (1.40-7.00) K/uL Lymph # (Auto) (0.50-3.50) K/uL Bullitt # (Auto) (0.00-1.00) K/uL Eos # (Auto) (0.00-0.50) K/uL Baso # (Auto) (0.00-0.20) K/uL PT (9.8-11.7) SEC INR APTT (23.5-30.0) SEC D-Dimer, Quantitative (0-400) ng/mL Sodium 143 (136-145) mmol/L Potassium 3.8 (3.5-5.1) mmol/L Chloride 106 (98-107) mmol/L Carbon Dioxide 26.3 (21.0-32.0) mmol/L BUN 29 H (7-18) mg/dL Creatinine 0.90 (0.51-1.17) mg/dL Est Cr Clr Drug Dosing TNP Estimated GFR (MDRD) > 60 mL/min Glucose 177 H (74-106) mg/dL Hemoglobin A1c (4.3-5.7) % Lactic Acid 1.4 (0.4-2.0) mmol/L Uric Acid 3.4 (2.6-7.2) mg/dL Calcium 8.5 (8.5-10.1) mg/dL Magnesium 2.1 (1.8-2.4) mg/dL Iron (50-175) ug/dL TIBC (250-450) ug/dL % Saturation Transferrin (180-329) mg/dL Ferritin (8-388) ng/mL Total Bilirubin 0.6 (0.2-1.0) mg/dL AST 54 H (15-37) U/L ALT 81 H (12-78) U/L Alkaline Phosphatase 79 (46-116) IU/L Creatine Kinase 74 (26-308) U/L Creatine Kinase Index 2.0 (0.0-2.5) % CK-MB (CK-2) 1.50 (0.00-3.60) ng/mL Troponin I 0.054 (0.000-0.056) ng/mL Phu-S-Yrpvlxlacew Pept 6314 H (0-125) pg/mL Total Protein 7.0 (6.4-8.2) g/dL Albumin 3.8 (3.4-5.0) g/dL Triglycerides (30-150) mg/dL Cholesterol (100-200) mg/dL LDL Cholesterol, Calc (0-100) mg/dL HDL Cholesterol (40-60) mg/dL Vitamin B12 (193-986) pg/mL Folate (8.6-58.9) ng/mL TSH, Ultra Sensitive 2.429 (0.358-3.740) mIU/mL H. pylori IgG Antibody Negative (NEGATIVE) 08/01/16 08/01/16 08/01/16 Range/Units 08:26 09:04 09:10 WBC (4.0-10.2) K/uL RBC (4.33-5.41) M/uL Hgb (13.1-16.8) g/dL Hct (39.0-49.0) % MCV (84.0-98.0) fL MCH (28.2-33.3) pg MCHC (31.7-36.0) g/dL RDW (11.2-14.1) % Plt Count (150-350) K/uL Neut % (Auto) (45.0-80.0) % Lymph % (Auto) (10.0-50.0) % Bullitt % (Auto) (2.0-14.0) % Eos % (Auto) (0.0-5.0) % Baso % (Auto) (0.0-2.0) % Neut # (Auto) (1.40-7.00) K/uL Lymph # (Auto) (0.50-3.50) K/uL Bullitt # (Auto) (0.00-1.00) K/uL Eos # (Auto) (0.00-0.50) K/uL Baso # (Auto) (0.00-0.20) K/uL PT (9.8-11.7) SEC INR APTT (23.5-30.0) SEC D-Dimer, Quantitative (0-400) ng/mL Sodium (136-145) mmol/L Potassium (3.5-5.1) mmol/L Chloride (98-107) mmol/L Carbon Dioxide (21.0-32.0) mmol/L BUN (7-18) mg/dL Creatinine (0.51-1.17) mg/dL Est Cr Clr Drug Dosing Estimated GFR (MDRD) mL/min Glucose (74-106) mg/dL Hemoglobin A1c 5.2 (4.3-5.7) % Lactic Acid (0.4-2.0) mmol/L Uric Acid (2.6-7.2) mg/dL Calcium (8.5-10.1) mg/dL Magnesium (1.8-2.4) mg/dL Iron 52 (50-175) ug/dL TIBC 353 (250-450) ug/dL % Saturation 14.50864 Transferrin 277 (180-329) mg/dL Ferritin 29 (8-388) ng/mL Total Bilirubin (0.2-1.0) mg/dL AST (15-37) U/L ALT (12-78) U/L Alkaline Phosphatase (46-116) IU/L Creatine Kinase (26-308) U/L Creatine Kinase Index (0.0-2.5) % CK-MB (CK-2) (0.00-3.60) ng/mL Troponin I (0.000-0.056) ng/mL Knb-N-Vniihxqpufr Pept (0-125) pg/mL Total Protein (6.4-8.2) g/dL Albumin (3.4-5.0) g/dL Triglycerides (30-150) mg/dL Cholesterol (100-200) mg/dL LDL Cholesterol, Calc (0-100) mg/dL HDL Cholesterol (40-60) mg/dL Vitamin B12 (193-986) pg/mL Folate (8.6-58.9) ng/mL TSH, Ultra Sensitive (0.358-3.740) mIU/mL H. pylori IgG Antibody (NEGATIVE) 08/01/16 08/01/16 08/01/16 Range/Units 15:00 15:00 20:50 WBC (4.0-10.2) K/uL RBC (4.33-5.41) M/uL Hgb (13.1-16.8) g/dL Hct (39.0-49.0) % MCV (84.0-98.0) fL MCH (28.2-33.3) pg MCHC (31.7-36.0) g/dL RDW (11.2-14.1) % Plt Count (150-350) K/uL Neut % (Auto) (45.0-80.0) % Lymph % (Auto) (10.0-50.0) % Bullitt % (Auto) (2.0-14.0) % Eos % (Auto) (0.0-5.0) % Baso % (Auto) (0.0-2.0) % Neut # (Auto) (1.40-7.00) K/uL Lymph # (Auto) (0.50-3.50) K/uL Bullitt # (Auto) (0.00-1.00) K/uL Eos # (Auto) (0.00-0.50) K/uL Baso # (Auto) (0.00-0.20) K/uL PT (9.8-11.7) SEC INR APTT (23.5-30.0) SEC D-Dimer, Quantitative (0-400) ng/mL Sodium (136-145) mmol/L Potassium (3.5-5.1) mmol/L Chloride (98-107) mmol/L Carbon Dioxide (21.0-32.0) mmol/L BUN (7-18) mg/dL Creatinine (0.51-1.17) mg/dL Est Cr Clr Drug Dosing Estimated GFR (MDRD) mL/min Glucose (74-106) mg/dL Hemoglobin A1c (4.3-5.7) % Lactic Acid (0.4-2.0) mmol/L Uric Acid (2.6-7.2) mg/dL Calcium (8.5-10.1) mg/dL Magnesium (1.8-2.4) mg/dL Iron (50-175) ug/dL TIBC (250-450) ug/dL % Saturation Transferrin (180-329) mg/dL Ferritin (8-388) ng/mL Total Bilirubin (0.2-1.0) mg/dL AST (15-37) U/L ALT (12-78) U/L Alkaline Phosphatase (46-116) IU/L Creatine Kinase 71 (26-308) U/L Creatine Kinase Index 2.1 (0.0-2.5) % CK-MB (CK-2) 1.50 (0.00-3.60) ng/mL Troponin I 0.059 H* 0.070 H* (0.000-0.056) ng/mL Zds-V-Gyazckolvld Pept (0-125) pg/mL Total Protein (6.4-8.2) g/dL Albumin (3.4-5.0) g/dL Triglycerides (30-150) mg/dL Cholesterol (100-200) mg/dL LDL Cholesterol, Calc (0-100) mg/dL HDL Cholesterol (40-60) mg/dL Vitamin B12 454 (193-986) pg/mL Folate 21.0 (8.6-58.9) ng/mL TSH, Ultra Sensitive (0.358-3.740) mIU/mL H. pylori IgG Antibody (NEGATIVE) 08/01/16 08/02/16 08/02/16 Range/Units 20:50 06:45 06:45 WBC 7.5 (4.0-10.2) K/uL RBC 3.46 L (4.33-5.41) M/uL Hgb 10.2 L (13.1-16.8) g/dL Hct 32.2 L (39.0-49.0) % MCV 93.1 (84.0-98.0) fL MCH 29.5 (28.2-33.3) pg MCHC 31.7 (31.7-36.0) g/dL RDW 14.9 H (11.2-14.1) % Plt Count 192 (150-350) K/uL Neut % (Auto) 74.9 (45.0-80.0) % Lymph % (Auto) 10.9 (10.0-50.0) % Bullitt % (Auto) 10.0 (2.0-14.0) % Eos % (Auto) 3.7 (0.0-5.0) % Baso % (Auto) 0.5 (0.0-2.0) % Neut # (Auto) 5.63 (1.40-7.00) K/uL Lymph # (Auto) 0.82 (0.50-3.50) K/uL Bullitt # (Auto) 0.75 (0.00-1.00) K/uL Eos # (Auto) 0.28 (0.00-0.50) K/uL Baso # (Auto) 0.04 (0.00-0.20) K/uL PT (9.8-11.7) SEC INR APTT (23.5-30.0) SEC D-Dimer, Quantitative 532 H (0-400) ng/mL Sodium (136-145) mmol/L Potassium (3.5-5.1) mmol/L Chloride (98-107) mmol/L Carbon Dioxide (21.0-32.0) mmol/L BUN (7-18) mg/dL Creatinine (0.51-1.17) mg/dL Est Cr Clr Drug Dosing Estimated GFR (MDRD) mL/min Glucose (74-106) mg/dL Hemoglobin A1c (4.3-5.7) % Lactic Acid (0.4-2.0) mmol/L Uric Acid (2.6-7.2) mg/dL Calcium (8.5-10.1) mg/dL Magnesium (1.8-2.4) mg/dL Iron (50-175) ug/dL TIBC (250-450) ug/dL % Saturation Transferrin (180-329) mg/dL Ferritin (8-388) ng/mL Total Bilirubin (0.2-1.0) mg/dL AST (15-37) U/L ALT (12-78) U/L Alkaline Phosphatase (46-116) IU/L Creatine Kinase 81 (26-308) U/L Creatine Kinase Index 2.0 (0.0-2.5) % CK-MB (CK-2) 1.60 (0.00-3.60) ng/mL Troponin I (0.000-0.056) ng/mL Yfn-S-Fdeogeonhgo Pept (0-125) pg/mL Total Protein (6.4-8.2) g/dL Albumin (3.4-5.0) g/dL Triglycerides (30-150) mg/dL Cholesterol (100-200) mg/dL LDL Cholesterol, Calc (0-100) mg/dL HDL Cholesterol (40-60) mg/dL Vitamin B12 (193-986) pg/mL Folate (8.6-58.9) ng/mL TSH, Ultra Sensitive (0.358-3.740) mIU/mL H. pylori IgG Antibody (NEGATIVE) 08/02/16 08/03/16 08/03/16 Range/Units 06:45 07:10 07:10 WBC 9.6 (4.0-10.2) K/uL RBC 3.67 L (4.33-5.41) M/uL Hgb 10.8 L (13.1-16.8) g/dL Hct 34.2 L (39.0-49.0) % MCV 93.2 (84.0-98.0) fL MCH 29.4 (28.2-33.3) pg MCHC 31.6 L (31.7-36.0) g/dL RDW 14.9 H (11.2-14.1) % Plt Count 236 (150-350) K/uL Neut % (Auto) 74.7 (45.0-80.0) % Lymph % (Auto) 13.1 (10.0-50.0) % Bullitt % (Auto) 10.7 (2.0-14.0) % Eos % (Auto) 0.7 (0.0-5.0) % Baso % (Auto) 0.8 (0.0-2.0) % Neut # (Auto) 7.19 H (1.40-7.00) K/uL Lymph # (Auto) 1.26 (0.50-3.50) K/uL Bullitt # (Auto) 1.03 H (0.00-1.00) K/uL Eos # (Auto) 0.07 (0.00-0.50) K/uL Baso # (Auto) 0.08 (0.00-0.20) K/uL PT (9.8-11.7) SEC INR APTT (23.5-30.0) SEC D-Dimer, Quantitative 508 H (0-400) ng/mL Sodium 144 (136-145) mmol/L Potassium 3.3 L (3.5-5.1) mmol/L Chloride 106 (98-107) mmol/L Carbon Dioxide 30.6 (21.0-32.0) mmol/L BUN 27 H (7-18) mg/dL Creatinine 0.98 (0.51-1.17) mg/dL Est Cr Clr Drug Dosing 52.10 Estimated GFR (MDRD) > 60 mL/min Glucose 107 H (74-106) mg/dL Hemoglobin A1c (4.3-5.7) % Lactic Acid (0.4-2.0) mmol/L Uric Acid (2.6-7.2) mg/dL Calcium 8.2 L (8.5-10.1) mg/dL Magnesium (1.8-2.4) mg/dL Iron (50-175) ug/dL TIBC (250-450) ug/dL % Saturation Transferrin (180-329) mg/dL Ferritin (8-388) ng/mL Total Bilirubin 0.5 (0.2-1.0) mg/dL AST 43 H (15-37) U/L ALT 74 (12-78) U/L Alkaline Phosphatase 67 (46-116) IU/L Creatine Kinase 90 (26-308) U/L Creatine Kinase Index 2.0 (0.0-2.5) % CK-MB (CK-2) 1.80 (0.00-3.60) ng/mL Troponin I 0.067 H* (0.000-0.056) ng/mL Evj-B-Quaksakeskz Pept 7335 H (0-125) pg/mL Total Protein 6.4 (6.4-8.2) g/dL Albumin 3.4 (3.4-5.0) g/dL Triglycerides 66 (30-150) mg/dL Cholesterol 138 (100-200) mg/dL LDL Cholesterol, Calc 77 (0-100) mg/dL HDL Cholesterol 48 (40-60) mg/dL Vitamin B12 (193-986) pg/mL Folate (8.6-58.9) ng/mL TSH, Ultra Sensitive (0.358-3.740) mIU/mL H. pylori IgG Antibody (NEGATIVE) 08/04/16 08/05/16 08/05/16 Range/Units 07:35 06:20 06:20 WBC 9.3 (4.0-10.2) K/uL RBC 3.32 L (4.33-5.41) M/uL Hgb 9.8 L (13.1-16.8) g/dL Hct 31.4 L (39.0-49.0) % MCV 94.6 (84.0-98.0) fL MCH 29.5 (28.2-33.3) pg MCHC 31.2 L (31.7-36.0) g/dL RDW 14.6 H (11.2-14.1) % Plt Count 230 (150-350) K/uL Neut % (Auto) 94.2 H (45.0-80.0) % Lymph % (Auto) 3.1 L (10.0-50.0) % [place] % (Auto) 2.4 (2.0-14.0) % Eos % (Auto) 0.0 (0.0-5.0) % Baso % (Auto) 0.3 (0.0-2.0) % Neut # (Auto) 8.78 H (1.40-7.00) K/uL Lymph # (Auto) 0.29 L (0.50-3.50) K/uL [place] # (Auto) 0.22 (0.00-1.00) K/uL Eos # (Auto) 0.00 (0.00-0.50) K/uL Baso # (Auto) 0.03 (0.00-0.20) K/uL PT (9.8-11.7) SEC INR APTT (23.5-30.0) SEC D-Dimer, Quantitative (0-400) ng/mL Sodium 143 (136-145) mmol/L Potassium 4.3 (3.5-5.1) mmol/L Chloride 105 (98-107) mmol/L Carbon Dioxide 28.3 (21.0-32.0) mmol/L BUN 40 H (7-18) mg/dL Creatinine 0.93 (0.51-1.17) mg/dL Est Cr Clr Drug Dosing 54.90 Estimated GFR (MDRD) > 60 mL/min Glucose 162 H (74-106) mg/dL Hemoglobin A1c (4.3-5.7) % Lactic Acid (0.4-2.0) mmol/L Uric Acid (2.6-7.2) mg/dL Calcium 8.7 (8.5-10.1) mg/dL Magnesium (1.8-2.4) mg/dL Iron (50-175) ug/dL TIBC (250-450) ug/dL % Saturation Transferrin (180-329) mg/dL Ferritin (8-388) ng/mL Total Bilirubin 0.5 (0.2-1.0) mg/dL AST 254 H (15-37) U/L ALT 368 H (12-78) U/L Alkaline Phosphatase 130 H (46-116) IU/L Creatine Kinase (26-308) U/L Creatine Kinase Index (0.0-2.5) % CK-MB (CK-2) (0.00-3.60) ng/mL Troponin I (0.000-0.056) ng/mL [id number]-[id number] Pept 7061 H 8574 H (0-125) pg/mL Total Protein 7.0 (6.4-8.2) g/dL Albumin 3.7 (3.4-5.0) g/dL Triglycerides (30-150) mg/dL Cholesterol (100-200) mg/dL LDL Cholesterol, Calc (0-100) mg/dL HDL Cholesterol (40-60) mg/dL Vitamin B12 (193-986) pg/mL Folate (8.6-58.9) ng/mL TSH, Ultra Sensitive (0.358-3.740) mIU/mL H. pylori IgG Antibody (NEGATIVE) 08/05/16 08/05/16 Range/Units 06:20 06:20 WBC (4.0-10.2) K/uL RBC (4.33-5.41) M/uL Hgb (13.1-16.8) g/dL Hct (39.0-49.0) % MCV (84.0-98.0) fL MCH (28.2-33.3) pg MCHC (31.7-36.0) g/dL RDW (11.2-14.1) % Plt Count (150-350) K/uL Neut % (Auto) (45.0-80.0) % Lymph % (Auto) (10.0-50.0) % [place] % (Auto) (2.0-14.0) % Eos % (Auto) (0.0-5.0) % Baso % (Auto) (0.0-2.0) % Neut # (Auto) (1.40-7.00) K/uL Lymph # (Auto) (0.50-3.50) K/uL [place] # (Auto) (0.00-1.00) K/uL Eos # (Auto) (0.00-0.50) K/uL Baso # (Auto) (0.00-0.20) K/uL PT (9.8-11.7) SEC INR APTT (23.5-30.0) SEC D-Dimer, Quantitative (0-400) ng/mL Sodium 144 (136-145) mmol/L Potassium 4.3 (3.5-5.1) mmol/L Chloride 106 (98-107) mmol/L Carbon Dioxide 28.2 (21.0-32.0) mmol/L BUN 40 H (7-18) mg/dL Creatinine 0.93 (0.51-1.17) mg/dL Est Cr Clr Drug Dosing 54.90 Estimated GFR (MDRD) > 60 mL/min Glucose 145 H (74-106) mg/dL Hemoglobin A1c (4.3-5.7) % Lactic Acid (0.4-2.0) mmol/L Uric Acid (2.6-7.2) mg/dL Calcium 8.3 L (8.5-10.1) mg/dL Magnesium (1.8-2.4) mg/dL Iron (50-175) ug/dL TIBC (250-450) ug/dL % Saturation Transferrin (180-329) mg/dL Ferritin (8-388) ng/mL Total Bilirubin 0.4 (0.2-1.0) mg/dL AST 191 H (15-37) U/L ALT 371 H (12-78) U/L Alkaline Phosphatase 114 (46-116) IU/L Creatine Kinase 196 (26-308) U/L Creatine Kinase Index 0.8 (0.0-2.5) % CK-MB (CK-2) 1.50 (0.00-3.60) ng/mL Troponin I 0.047 (0.000-0.056) ng/mL Riv-U-Exxrrkgredo Pept (0-125) pg/mL Total Protein 6.3 L (6.4-8.2) g/dL Albumin 3.3 L (3.4-5.0) g/dL Triglycerides (30-150) mg/dL Cholesterol (100-200) mg/dL LDL Cholesterol, Calc (0-100) mg/dL HDL Cholesterol (40-60) mg/dL Vitamin B12 (193-986) pg/mL Folate (8.6-58.9) ng/mL TSH, Ultra Sensitive (0.358-3.740) mIU/mL H. pylori IgG Antibody (NEGATIVE) MICHAEL Results - Last 24 hrs: Microbiology 08/04/16 07:20 Stool Occult Blood (MICHAEL) - Final Stool / Feces Microbiology 08/04/16 07:20 Stool / Feces Stool Occult Blood (MICHAEL) - Final 08/02/16 00:23 Stool / Feces Stool Occult Blood (MICHAEL) - Final 08/01/16 17:19 Stool / Feces Stool Occult Blood (MICHAEL) - Final Hemoccult x3 all positive Med Orders - Current: Current Medications Acetaminophen (Tylenol) 650 mg PO Q4H PRN PRN Reason: Pain (Mild 1-3)/fever Albuterol (Proventil Neb Soln) 2.5 mg NEB Q4HRRT [facility] Last Admin: 08/05/16 08:48 Dose: 2.5 mg Albuterol (Proventil Neb Soln) 2.5 mg NEB Q1H PRN PRN Reason: Wheezing Amlodipine Besylate (Norvasc) 10 mg PO DAILY [facility] Last Admin: 08/05/16 08:52 Dose: 10 mg Aspirin (Aspirin) 81 mg PO WITHBREAKFAST [facility] Clopidogrel Bisulfate (Plavix) 75 mg PO DAILY [facility] Last Admin: 08/05/16 08:51 Dose: 75 mg Famotidine (Pepcid) 20 mg PO DAILY [facility] Last Admin: 08/05/16 08:48 Dose: 20 mg Ferrous Sulfate (Ferrous Sulfate) 325 mg PO DAILY [facility] Last Admin: 08/05/16 08:50 Dose: 325 mg Furosemide (Lasix) 40 mg PO 0800,1600 [facility] Last Admin: 08/05/16 08:55 Dose: 40 mg Isosorbide Mononitrate (Imdur) 30 mg PO DAILY [facility] Last Admin: 08/05/16 08:51 Dose: 30 mg Lisinopril (Prinivil) 15 mg PO DAILY [facility] Last Admin: 08/05/16 08:50 Dose: 15 mg Methylprednisolone Sodium Succinate (Solu-Medrol) 125 mg IVPUSH Q8H [facility] Last Admin: 08/05/16 04:40 Dose: 125 mg Metoprolol Succinate (Toprol Xl) 25 mg PO QPM [facility] Last Admin: 08/04/16 17:32 Dose: 25 mg Potassium Chloride (Klor-Con M20) 20 meq PO TID [facility] Last Admin: 08/05/16 08:49 Dose: 20 meq Sertraline HCl (Zoloft) 50 mg PO QAM [facility] Last Admin: 08/05/16 08:48 Dose: 50 mg Simethicone (Simethicone) 80 mg PO TID PRN PRN Reason: Gas Sodium Chloride (Saline Flush) 10 ml FLUSH Q12H PRN PRN Reason: Keep Vein Open Last Admin: 08/05/16 04:40 Dose: 10 ml Sodium Chloride (Saline Flush) 10 ml FLUSH ASDIRECTED PRN PRN Reason: Keep Vein Open Last Admin: 08/04/16 15:30 Dose: 10 ml Temazepam (Restoril) 15 mg PO BEDTIME PRN PRN Reason: Insomnia Discontinued Medications Amlodipine Besylate (Norvasc) 10 mg PO BID [facility] Aspirin (Aspirin) 324 mg CHEW ONETIME ONE Stop: 08/01/16 08:26 Last Admin: 08/01/16 08:31 Dose: 324 mg Aspirin (Ecotrin) 325 mg PO DAILY [facility] Last Admin: 08/05/16 08:49 Dose: Not Given Atorvastatin Calcium (Lipitor) 80 mg PO BEDTIME [facility] Last Admin: 08/04/16 21:07 Dose: 80 mg Clopidogrel Bisulfate (Plavix) 300 mg PO ONETIME ONE Stop: 08/01/16 08:26 Last Admin: 08/01/16 08:32 Dose: 300 mg Clopidogrel Bisulfate (Plavix) 75 mg PO ONETIME ONE Stop: 08/02/16 12:19 Last Admin: 08/02/16 12:38 Dose: 75 mg Clopidogrel Bisulfate (Plavix) 75 mg PO DAILY ONE Stop: 08/03/16 08:01 Enoxaparin Sodium (Lovenox) 40 mg SUBCUT Q24H [facility] Last Admin: 08/04/16 10:10 Dose: 40 mg Famotidine (Pepcid) 40 mg IVPUSH ONETIME ONE Stop: 08/01/16 08:26 Last Admin: 08/01/16 08:37 Dose: 40 mg Famotidine (Pepcid) 20 mg IVPUSH DAILY [facility] Last Admin: 08/03/16 11:03 Dose: Not Given Furosemide (Lasix) 60 mg IVPUSH NOW ONE Stop: 08/01/16 09:13 Last Admin: 08/01/16 09:47 Dose: 60 mg Furosemide (Lasix) 40 mg IVPUSH Q8H [facility] Last Admin: 08/03/16 11:03 Dose: Not Given Nitroglycerin/Dextrose (Nitroglycerin 25 Mg/D5w 250 Ml) 25 mg in 250 mls @ 3 mls/hr IV TITRATE SEKOU; 5 MCG/MIN PRN Reason: Protocol Last Admin: 08/01/16 23:35 Dose: 5 mcg/min, 3 mls/hr Sodium Chloride (Normal Saline) 1,000 mls @ 30 mls/hr IV ASDIRECTED [facility] Last Admin: 08/01/16 23:41 Dose: 30 mls/hr Isosorbide Mononitrate (Imdur) 30 mg PO ONETIME ONE Stop: 08/01/16 16:02 Last Admin: 08/01/16 17:08 Dose: 30 mg Isosorbide Mononitrate (Imdur) 30 mg PO QPM [facility] Isosorbide Mononitrate (Imdur) 30 mg PO QPM [facility] Methylprednisolone Sodium Succinate (Solu-Medrol) 125 mg IM ONETIME ONE Stop: 08/03/16 23:15 Last Admin: 08/03/16 23:55 Dose: 125 mg Metoprolol Tartrate (Lopressor) 2.5 mg IVPUSH ONETIME ONE Stop: 08/01/16 08:26 Last Admin: 08/01/16 08:34 Dose: 2.5 mg Potassium Chloride (Klor-Con M20) 40 meq PO ONETIME ONE Stop: 08/02/16 15:43 Last Admin: 08/02/16 17:35 Dose: 40 meq Prednisone (Prednisone) 40 mg PO WITHBREAKFAST [facility] Last Admin: 08/04/16 07:10 Dose: 40 mg Simvastatin (Zocor) 20 mg PO BEDTIME [facility] Last Admin: 08/01/16 19:10 Dose: 20 mg Sodium Chloride (Saline Flush) 10 ml FLUSH ASDIRECTED PRN PRN Reason: Keep Vein Open Last Admin: 08/05/16 04:40 Dose: 10 ml - Exam Quality Assessment: Reports: supplemental oxygen, DVT prophylaxis. Denies: urine catheter, skin breakdown, restraints General: Reports: alert, oriented (Borderline OBS), cooperative, no acute distress HEENT: Reports: Pupils equal, Pupils reactive, EOMI, Mucous membr. moist/pink Neck: Reports: supple, trachea midline, no JVD, carotid bruit (Mild bilateral carotid bruits). Denies: no thyromegaly, lymphadenopathy Lungs: Reports: Normal respiratory effort, Rales (Mild bilateral diffuse rales mostly in the bases), Wheezing (Occasional diffuse). Denies: Rhonchi, Rub Cardiovascular: Reports: Regular Rate, No Murmurs, Irregular Rhythm (Occasional extrasystoles noted with PVCs by monitor). Denies: Murmurs, Rubs Abdomen: Reports: bowel sounds present, soft, no tenderness, no distension, other (8 cm nonincarcerated ventral abdominal hernia in the midline with abdominal incision/scar noted in this area). Denies: guarding, distension, CVA tenderness (Male) Exam: Deferred Rectal (Males) Exam: Deferred Back Exam: Reports: normal inspection. Denies: CVA tenderness (L), CVA tenderness (R), muscle spasm Extremities: Reports: no edema, normal pulses, no tenderness/swelling, no calf tenderness Skin: Reports: warm, dry, intact, ecchymosis (Occasional), other (Tattoo on left arm) Neurological: Reports: no new focal deficit, other (No clinical orthostasis, borderline confusion as above) Psy/Mental Status: Reports: alert, normal affect, normal mood. Denies: agitated , hallucinations EKG INTERPRETATION EKG Date: 08/05/16 Time: 09:39 Rhythm: other (Occasional PVCs but otherwise normal sinus rhythm) Rate (beats/min): 81 [place]: normal (Left cardiac axis) P-wave: enlarged (Other diffuse biphasic P waves with extreme poor R-wave progression in the anterior leads) QRS: other (QRS interval of 0.13 seconds representing a complete right bundle branch block/bifascicular bundle-branch block) ST-T: depressed (Persistent 1-[address] depressions with T-wave inversion in leads V5, V6, 1, and aVL with additional [address] depressions in leads 2, 3, and aVF) Comparison: change from previous EKG (Last EKG on 08/02/16) EKG Interpretation Comments: 1. Progressive inferolateral cardiac ischemia since last EKG 2. 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 PVCs *Q Meaningful Use (DIS) - VTE *Q VTE Criteria *Q: - Stroke *Q Stroke Criteria *Q: - AMI *Q AMI Criteria *Q:
[2016-08-05] MEDS ORDERED: Furosemide 40 MG/4 ML VIAL IVPUSH ONE (10:28)
[2016-08-06] MEDS ORDERED: Aspirin 81 MG Tab.Chew PO SCH (08:00)
== END 2016-08-05 10:54 | DRG 281 ==
LOC: LL.ED 08:13 → LL.MS 11:00 → UNDOADMIN 11:00 → LL.MS 12:40 → UNDODISIN 08-05 10:54
PROVIDERS: ADMIT Family Medicine; ATTEND Family Medicine
DX: I24.9 Acute ischemic heart disease, unspecified (principal); I21.4 Non-ST elevation (NSTEMI) myocardial infarction; J44.1 Chronic obstructive pulmonary disease with (acute) exacerbation; Z51.5 Encounter for palliative care; I50.9 Heart failure, unspecified; J44.9 Chronic obstructive pulmonary disease, unspecified; E78.5 Hyperlipidemia, unspecified; R79.89 Other specified abnormal findings of blood chemistry; R94.5 Abnormal results of liver function studies; R73.9 Hyperglycemia, unspecified; I11.0 Hypertensive heart disease with heart failure; D50.9 Iron deficiency anemia, unspecified; F41.8 Other specified anxiety disorders; M15.0 Primary generalized (osteo)arthritis; I49.3 Ventricular premature depolarization; K21.9 Gastro-esophageal reflux disease without esophagitis; E83.51 Hypocalcemia; E88.09 Other disorders of plasma-protein metabolism, not elsewhere classified; E87.6 Hypokalemia; R09.02 Hypoxemia; T46.6X1A Poisoning by antihyperlipidemic and antiarteriosclerotic drugs, accidental (unintentional), initial encounter; D64.9 Anemia, unspecified
CPT/HCPCS: 36415; 71010; 80053; 82550; 82553; 82728; 83036; 83540; 83550; 83605; 83735; 83880; 84443; 84466; 84484; 84550; 85025; 85379; 85610; 85730; 86318; 93005; 96372; 96374; 96375; 99285; A9270 ×2; J1650; J1940; 71020; 80061; 82272; 82607; 82746; 93970; 94640; 94664; J2930; J3490; J7030; J7050; J7620-GY; S0028

== ENCOUNTER 2016-08-19 07:06 | Emergency (ER) | payer MEDICARE, MEDICAID ==
[2016-08-19] MEDS ORDERED: Aspirin 81 MG Tab.Chew PO ONE (07:17)
[2016-08-19] MEDS ORDERED: Sodium Chloride 0.9% 10 ML Syringe FLUSH PRN (07:22)
[2016-08-19] MEDS ORDERED: Albuterol 0.083% 2.5 MG/3 ML Neb Soln NEB ONE (07:40)
[2016-08-19] MEDS ORDERED: Furosemide 40 MG/4 ML VIAL IVPUSH ONE (08:00)
[2016-08-19 08:03] LABS: CHLORIDE,CL 106 mmol/L (98-107); SODIUM,NA 142 mmol/L (136-145)
--- NOTE | 2016-08-19 08:13 | EDM.PDOC ---
<Beltran Sanders - Last Filed: 08/19/16 08:01> ED HISTORY OF PRESENT ILLNESS - General Chief Complaint: Cardiovascular Problem Stated Complaint: SOB Time Seen by Provider: 08/19/16 07:20 Source of Information: Reports: Patient History Limitations: Reports: No limitations - History of Present Illness INITIAL COMMENTS - FREE TEXT/NARRATIVE: The patient presents with SOB that began on awakening this morning at approximately 04:00 am this morning. He denies chest pain or orthopnea lately. He was admitted on 08/02/16 here at [facility] with NSTEMI with mild elevation of troponin and corresponding moderate CHF exacerbation and patient refused transfer and aggressive treatment initially. He had subsequent COPD exacerbation as well. He had progressive deterioration during his admission and was subsequently transferred out to [facility] on 08/05/16 for further care. - Related Data Allergies/ADRs: Allergies Allergy/AdvReac Type Severity Reaction Status Date / Time carvedilol Allergy Itching Verified 08/19/16 09:44 metoprolol Allergy Itching Verified 08/19/16 09:44 Home Meds: Home Meds Ferrous Sulfate [Iron] 325 mg PO DAILY 01/08/14 [History] Gluc HCl/Csa/Brayan Hy/Hyalur Ac [Glucosamine Chondroitin] 1 cap PO QAM 01/08/14 [ History] Leuprolide [Leuprolide Depot 6-Month] 45 mg INJECT ASDIRECTED 01/08/14 [History] Sertraline [Zoloft] 50 mg PO QAM 01/08/14 [History] Simvastatin [Zocor] 20 mg PO BEDTIME 01/08/14 [History] amLODIPine Besylate [Amlodipine Besylate] 10 mg PO BID 01/08/14 [History] Acetaminophen 650 mg PO Q6H PRN 08/01/16 [History] Calcium Carbonate/Vitamin D3 [Calcium 250+D] 2 each PO TID PRN 08/01/16 [History ] Cyclobenzaprine HCl 10 mg PO Q8H PRN 08/01/16 [History] Ibuprofen 200 mg PO Q8H PRN 08/01/16 [History] Lisinopril 15 mg PO DAILY 08/01/16 [History] Prednisone [IMW: predniSONE] 40 mg PO WITHBREAKFAST 08/01/16 [History] Simethicone [Gas Relief] 80 mg PO TID PRN 08/01/16 [History] Past Medical History HEENT History: Reports: Hard of hearing, Impaired vision Cardiovascular History: Reports: High cholesterol, Hypertension Respiratory History: Reports: None Gastrointestinal History: Reports: Chronic constipation, Colon polyp, GI bleed, PUD, Other (see below) Other Gastrointestinal History: Upper GI bleed from duodenal ulcer in about 2014 benign hepatic cysts, history of colon cancer as below, left lower quadrant colostomy Genitourinary History: Reports: BPH, Prostate disorder, Urinary incontinence, UTI, recurrent, Other (see below) Other Genitourinary History: Prostate cancer as below Musculoskeletal History: Reports: Arthritis, Back pain, chronic, Fracture, Neck pain, chronic, Osteoarthritis, Other (see below) Other Musculoskeletal History: Right distal fibular/ankle fracture at about age 40 Psychiatric History: Reports: Addiction, Anxiety, Depression, Other (see below) Other Psychiatric History: 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 Denies: C-difficile, Chicken pox, Meningitis, Mononucleosis, MRSA, Pertussis (whooping cough), Rheumatic Fever, Rubella, Scarlet fever, Shingles, TB, VRE - Past Surgical History Head Surgeries/Procedures: Reports: None HEENT Surgical History: Reports: Oral surgery, Other (see below) Other HEENT Surgeries/Procedures: Complete upper extraction of multiple lower teeth extraction Cardiovascular Surgical History: Reports: None Respiratory Surgical History: Reports: None GI Surgical History: Reports: Colonoscopy, EGD, Other (see below) Other GI Surgeries/Procedures: Last EGD in about 2014, last colonoscopy in about 2013, left hemicolectomy secondary to colon cancer in 1982 Male Surgical History: Reports: Prostate Biopsy, Other (see below) Other Male Surgeries/Procedures: Prostate biopsy for prostate cancer 1990 Endocrine Surgical History: Reports: None Neurological Surgical History: Reports: None Oncologic Surgical History: Reports: None Dermatological Surgical History: Reports: None - Past Imaging History Past Imaging History: Reports: Bone scan (Whole body bone scan on 05/24/04), CAT scan (CT of the abdomen and pelvis without contrast 07/21/[address] of the abdomen and pelvis on 05/21/04) Social & Family History - Family History HEENT: Reports: None Cardiac: Reports: CAD, Hypertension, WI, PVD/COD, Other (see below) Other Cardiac Family History: Father with WI in his 70s, sister, mother and father with hypertension, sister with several MIs with 4 vessel CABG with fatal WI at age 83, mother with peripheral vascular disease secondary to her IDDM GI: Reports: Cholelithiasis, Other (see below) Other GI Family History: Mother with cholelithiasis : Reports: None OBGYN: Reports: None Musculoskeletal: Reports: None Neurological: Reports: Alzheimers disease, CVA, Dementia, Other (see below) Other Neurological Family History: Mother with fatal dementia at age 89, father with history of CVA x4 with fatal CVA at age 82, a brother with a CVA during surgery at age 62 secondary to oral cancer as below Psychiatric: Reports: None Endocrine/Metabolic: Reports: Diabetes, type II, IDDM, Other (see below) Other Endocrine/Metabolic Family History: Mother with IDDM Hematologic: Reports: None Immunologic: Reports: None Dermatologic: Reports: None Oncologic: Reports: Metastatic, Prostate, Other (see below) Other Oncologic Family History: 2 brothers with fatal metastatic prostate cancer at age 68 and age 79, brother with oral/? Tonsil cancer at age 62 - Tobacco Use Smoking Status *Q: Former Smoker Years of Tobacco use: 26 Packs/Tins Daily: 4 Used Tobacco, but Quit: Yes Month Tobacco Last Used: Quit 04/23/1974 Second Hand Smoke Exposure: No - Caffeine Use Caffeine Use: Reports: Coffee (5 cups per day), Soda (One soda per day). 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 ED EXAM, GENERAL - Physical Exam Exam: See Below Exam Limited By: No limitations General Appearance: alert, WD/WN, no apparent distress (Mild SOB. ) Eye Exam: bilateral eye: EOMI, normal inspection, PERRL Ears: normal external exam, normal canal, hearing grossly normal, normal TMs Ear Exam: bilateral ear: auricle normal, canal normal, TM normal Nose: normal inspection, normal mucosa, no blood Throat/Mouth: Normal inspection, Normal lips, Normal teeth, Normal gums, Normal oropharynx, Normal voice Head: atraumatic, normocephalic Neck: normal inspection, supple, non-tender, full range of motion, other (No nuchal rigidity.). No: lymphadenopathy (L), lymphadenopathy (R), tender lateral , tender midline Respiratory/Chest: no respiratory distress, lungs clear, normal breath sounds, no accessory muscle use, chest non-tender Cardiovascular: normal peripheral pulses, regular rate, rhythm, no edema, no gallop, no murmur, no rub Peripheral Pulses: 2+: radial (L), radial (R), dorsalis pedis (L), dorsalis pedis (R) GI/Abdominal: normal bowel sounds, soft, non tender, no organomegaly, no distention. No: distended, guarding, rigid, rebound Back Exam: normal inspection, full range of motion. No: CVA tenderness (L), CVA tenderness (R), paraspinal tenderness, vertebral tenderness Extremities: normal inspection, normal range of motion, non-tender, normal capillary refill, pedal edema (2+ nonpitting edema of bilateral LE. ) Neurological: alert, oriented, CN II-XII intact, normal cognition, normal gait, normal reflexes, no motor/sensory deficits Psychiatric: normal affect, normal mood Skin Exam: Warm, Dry, Intact, Normal color, No rash Lymphatic: no adenopathy EKG INTERPRETATION EKG Date: 08/19/16 Time: 07:18 Rhythm: NSR [place]: normal P-wave: present QRS: RBBB (WRS 134) ST-T: depressed (V4-V6) QT: normal Comparison: no change Course - Vital Signs Last Recorded V/S: Last Vital Signs Temp 36.3 C 08/19/16 09:00 Pulse 110 H 08/19/16 09:00 Resp 21 H 08/19/16 09:00 BP 121/83 08/19/16 09:00 Pulse Ox 91 L 08/19/16 09:00 - Orders/Labs/Meds Orders: Active Orders 24 hr Category Date Time Status EKG Documentation Completion [RC] ASDIRECTED Care 08/19/16 07:21 Active EKG Documentation Completion [RC] ASDIRECTED Care 08/19/16 09:26 Active EKG Documentation Completion [RC] STAT Care 08/19/16 08:17 Active Oxygen Therapy Adult [Oxygen Therapy, ED] [RC] Care 08/19/16 07:22 Active ASDIRECTED RT Aerosol Therapy [RC] ASDIRECTED Care 08/19/16 07:40 Active Chest 1V Frontal [CR] Stat Exams 08/19/16 07:21 Taken PE Chest [Ang Chest] [CT] Stat Exams 08/19/16 08:18 Taken Diltiazem [Cardizem] 100 mg Med 08/19/16 08:45 Active Sodium Chloride 0.9% [Normal Saline] 100 ml IV TITRATE Sodium Chloride 0.9% [Normal Saline] 500 ml Med 08/19/16 09:00 Active IV ASDIRECTED Sodium Chloride 0.9% [Saline Flush] Med 08/19/16 07:22 Active 10 ml FLUSH ASDIRECTED PRN Saline Lock Insert [OM.PC] Routine Oth 08/19/16 07:22 Ordered Medication Orders Diltiazem HCl 100 mg/ Sodium (Chloride) 100 mls @ 5 mls/hr IV TITRATE SEKOU; 5 MG /HR PRN Reason: Protocol Last Admin: 08/19/16 08:54 Dose: 5 mls/hr Sodium Chloride (Normal Saline) 500 mls @ 30 mls/hr IV ASDIRECTED SEKOU Last Admin: 08/19/16 09:02 Dose: 30 mls/hr Sodium Chloride (Saline Flush) 10 ml FLUSH ASDIRECTED PRN PRN Reason: Keep Vein Open Labs: Laboratory Tests 08/19/16 08/19/16 08/19/16 Range/Units 07:15 07:15 07:15 WBC 12.1 H (4.0-10.2) K/uL RBC 3.59 L (4.33-5.41) M/uL Hgb 10.3 L (13.1-16.8) g/dL Hct 33.7 L (39.0-49.0) % MCV 93.9 (84.0-98.0) fL MCH 28.7 (28.2-33.3) pg MCHC 30.6 L (31.7-36.0) g/dL RDW 14.9 H (11.2-14.1) % Plt Count 263 (150-350) K/uL Neut % (Auto) 84.4 H (45.0-80.0) % Lymph % (Auto) 7.2 L (10.0-50.0) % [place] % (Auto) 6.5 (2.0-14.0) % Eos % (Auto) 1.2 (0.0-5.0) % Baso % (Auto) 0.7 (0.0-2.0) % Neut # (Auto) 10.23 H (1.40-7.00) K/uL Lymph # (Auto) 0.87 (0.50-3.50) K/uL [place] # (Auto) 0.79 (0.00-1.00) K/uL Eos # (Auto) 0.14 (0.00-0.50) K/uL Baso # (Auto) 0.08 (0.00-0.20) K/uL PT 11.0 (9.8-11.7) SEC INR 1.0 APTT 28.0 (23.5-30.0) SEC D-Dimer, Quantitative (0-400) ng/mL Sodium 142 (136-145) mmol/L Potassium 3.7 (3.5-5.1) mmol/L Chloride 106 (98-107) mmol/L Carbon Dioxide 28.3 (21.0-32.0) mmol/L BUN 22 H (7-18) mg/dL Creatinine 1.01 (0.51-1.17) mg/dL Est Cr Clr Drug Dosing 49.99 mL/min Estimated GFR (MDRD) > 60 mL/min Glucose 133 H (74-106) mg/dL Calcium 8.0 L (8.5-10.1) mg/dL Total Bilirubin 0.6 (0.2-1.0) mg/dL AST 78 H (15-37) U/L ALT 199 H (12-78) U/L Alkaline Phosphatase 146 H (46-116) IU/L Creatine Kinase 61 (26-308) U/L Creatine Kinase Index 2.3 (0.0-2.5) % CK-MB (CK-2) 1.40 (0.00-3.60) ng/mL Troponin I 0.034 (0.000-0.056) ng/mL [id number] Pept (0-125) pg/mL Total Protein 6.7 (6.4-8.2) g/dL Albumin 3.0 L (3.4-5.0) g/dL 08/19/16 08/19/16 Range/Units 07:15 07:15 WBC (4.0-10.2) K/uL RBC (4.33-5.41) M/uL Hgb (13.1-16.8) g/dL Hct (39.0-49.0) % MCV (84.0-98.0) fL MCH (28.2-33.3) pg MCHC (31.7-36.0) g/dL RDW (11.2-14.1) % Plt Count (150-350) K/uL Neut % (Auto) (45.0-80.0) % Lymph % (Auto) (10.0-50.0) % [place] % (Auto) (2.0-14.0) % Eos % (Auto) (0.0-5.0) % Baso % (Auto) (0.0-2.0) % Neut # (Auto) (1.40-7.00) K/uL Lymph # (Auto) (0.50-3.50) K/uL [place] # (Auto) (0.00-1.00) K/uL Eos # (Auto) (0.00-0.50) K/uL Baso # (Auto) (0.00-0.20) K/uL PT (9.8-11.7) SEC INR APTT (23.5-30.0) SEC D-Dimer, Quantitative 1410 H (0-400) ng/mL Sodium (136-145) mmol/L Potassium (3.5-5.1) mmol/L Chloride (98-107) mmol/L Carbon Dioxide (21.0-32.0) mmol/L BUN (7-18) mg/dL Creatinine (0.51-1.17) mg/dL Est Cr Clr Drug Dosing mL/min Estimated GFR (MDRD) mL/min Glucose (74-106) mg/dL Calcium (8.5-10.1) mg/dL Total Bilirubin (0.2-1.0) mg/dL AST (15-37) U/L ALT (12-78) U/L Alkaline Phosphatase (46-116) IU/L Creatine Kinase (26-308) U/L Creatine Kinase Index (0.0-2.5) % CK-MB (CK-2) (0.00-3.60) ng/mL Troponin I (0.000-0.056) ng/mL Svp-L-Emxtcvdaged Pept 25379 H (0-125) pg/mL Total Protein (6.4-8.2) g/dL Albumin (3.4-5.0) g/dL Meds: Medications Generic Name Dose Route Start Last Admin Trade Name Freq PRN Reason Stop Dose Admin Diltiazem HCl 100 mg/ Sodium 100 mls @ 5 mls/hr 08/19/16 08:45 08/19/16 08:54 Chloride IV 5 mls/hr TITRATE SEKOU Administration Protocol 5 MG/HR Sodium Chloride 500 mls @ 30 mls/hr 08/19/16 09:00 08/19/16 09:02 Normal Saline IV 30 mls/hr ASDIRECTED SEKOU Administration Sodium Chloride 10 ml 08/19/16 07:22 Saline Flush FLUSH ASDIRECTED PRN Keep Vein Open Discontinued Medications Generic Name Dose Route Start Last Admin Trade Name Fresabino PRN Reason Stop Dose Admin Albuterol 2.5 mg 08/19/16 07:40 08/19/16 07:43 Proventil Neb Soln NEB 08/19/16 07:41 2.5 mg ONETIME ONE Administration Aspirin 324 mg 08/19/16 07:17 08/19/16 07:28 Aspirin PO 08/19/16 07:18 324 mg ONETIME ONE Administration Enoxaparin Sodium 80 mg 08/19/16 08:37 08/19/16 08:53 Lovenox SUBCUT 08/19/16 08:38 80 mg ONETIME ONE Administration Furosemide 40 mg 08/19/16 08:00 08/19/16 08:07 Lasix IVPUSH 08/19/16 08:01 40 mg NOW ONE Administration Iopamidol 100 ml 08/19/16 08:30 08/19/16 08:46 Isovue-370 (76%) IVPUSH 08/19/16 08:31 100 ml ONETIME ONE Administration Metoprolol Tartrate 5 mg 08/19/16 09:30 08/19/16 09:30 Lopressor IVPUSH 08/19/16 09:41 Not Given Q5M SEKOU - Radiology Interpretation Free Text/Narrative:: CXR shows increased size of cardiac silhouette and increased pulmonary edema. No evidence of consolidation or infiltrate. - Re-Assessments/Exams Free Text/Narrative Re-Assessment/Exam: 08/19/16 08:30 Pulse increased to 110-120 and pulse irregularly irregular. EKG performed and shows atrial fibrillation with RVR. Diffuse ST depressions I, II, III, aVL, and V4-V6. Deep and wide Q waves in V1-V3. Patient continues to have significant tachycardia and SOB and D-Dimer significantly elevated. Will get CT with PE protocol. Will start Cardizem drip at 5 mg/hour and titrate up to 15 mg/hour as tolerated to target HR < 90. Will dose with SQ Lovenox as well. 08/19/16 08:33 Discussed history, labs, EKG, CXR, and new onset atrial fibrillation with oncoming provider Dr. Yang who will resume care. Departure - Departure Disposition: DC/Tfer to [facility] 02 Clinical Impression: New onset a-fib CHF exacerbation Qualifiers: Congestive heart failure type: unspecified congestive heart failure type Qualified Code(s): I50.9 - Heart failure, unspecified Forms: ED Department Discharge - My Orders Last 24 Hours: My Active Orders 08/19/16 09:00 Sodium Chloride 0.9% [Normal Saline] 500 ml IV ASDIRECTED - Assessment/Plan Last 24 Hours: My Active Orders 08/19/16 09:00 Sodium Chloride 0.9% [Normal Saline] 500 ml IV ASDIRECTED <Cheko Yang - Last Filed: 08/19/16 09:51> Course - Re-Assessments/Exams Free Text/Narrative Re-Assessment/Exam: 08/19/16 09:48 D/W [facility] hopitalist Dr Valencia. Will accept in transfer. Transfer via ambulance Departure - Departure Time of Disposition: 10:00 Reason for Transfer *Q: Primary PCI Indicated
[2016-08-19] MEDS ORDERED: Iopamidol 755 Mg/ML 100 ML Bottle IVPUSH ONE (08:30)
[2016-08-19] MEDS ORDERED: Enoxaparin 100 MG/1 ML Syringe SUBCUT ONE (08:37)
[2016-08-19] MEDS ORDERED: Diltiazem 100 MG in Sodium Chloride 0.9% 100 ML IV SCH (08:45)
[2016-08-19] MEDS ORDERED: Sodium Chloride 0.9% 500 ML IV SCH (09:00)
[2016-08-19] MEDS: Metoprolol Tartrate 5 MG/5 ML SDV IVPUSH SCH ×2 (09:30→09:51)
[2016-08-19 11:21] VITALS: BP 109/67
== END 2016-08-19 10:30 ==
LOC: LL.ED 07:06
DX: I48.91 Unspecified atrial fibrillation (principal); I50.9 Heart failure, unspecified; I10 Essential (primary) hypertension; E78.00 Pure hypercholesterolemia, unspecified; N40.0 Benign prostatic hyperplasia without lower urinary tract symptoms; C61 Malignant neoplasm of prostate; M19.90 Unspecified osteoarthritis, unspecified site; F32.9 Major depressive disorder, single episode, unspecified; F41.9 Anxiety disorder, unspecified; F10.21 Alcohol dependence, in remission; D50.9 Iron deficiency anemia, unspecified; Z87.891 Personal history of nicotine dependence; Z88.8 Allergy status to other drugs, medicaments and biological substances
CPT/HCPCS: 36000; 36415; 71010; 71275; 80053; 82550; 82553; 83880; 84484; 85025; 85379; 85610; 85730; 93005; 94640; 96365; 96372; 96375; 99285; A9270; J1650; J1940; J7040; J7050; J7620; Q9967; J3490

== ENCOUNTER 2016-09-11 00:14 | Emergency (ER) | payer MEDICARE, MEDICAID ==
--- NOTE | 2016-09-11 00:36 | EDM.PDOC ---
ED HPI GENERAL MEDICAL PROBLEM - General Chief Complaint: General Stated Complaint: diaphoretic,confused Time Seen by Provider: 09/11/16 00:30 Source of Information: Reports: Patient, Family (Kyleon), Old Records ([facility] chart/EMR), Other (EMR for [facility]) History Limitations: Reports: No Limitations - History of Present Illness INITIAL COMMENTS - FREE TEXT/NARRATIVE: Patient was brought to the emergency room via private automobile by his stepson Carlton, for evaluation of moderate to severe sudden onset diaphoresis, which occurred at about midnight this evening. His stepson thought that there may have been some mild confusion at time of his arrival, although the patient is much more alert and back to his baseline at time of arrival to our facility. Note that the patient is status post recent PTCA/stent x4 as below with hospital discharge from [facility] on 09/02/16. The patient denies any chest pain/pressure, heart flutter, dizziness, orthostasis, orthopnea , paresthesias, recent decreased exercise tolerance, or any other anginal-type symptoms. No recent history of abdominal pain, heartburn, nausea, diarrhea, melena, gross hematochezia, or any food intolerance, including fatty foods, etc.. The patient also denies any recent fever, cough, wheezing, dyspnea, etc.. Onset: Today, Sudden Onset Date: 09/11/16 Onset Time: 00:00 Duration: Constant (Diaphoresis with no pain) Quality: Reports: Same as Previous Episode Severity: Moderate Improves with: Reports: None Worsens with: Reports: None Context: Reports: Other (As above) Associated Symptoms: Reports: Confusion (Borderline as above), Diaphoresis. Denies: Chest Pain, Cough, Fever/Chills, Headaches, Loss of Appetite, Malaise, Nausea/Vomiting, Shortness of Breath, Syncope, Weakness Treatments HEALTH PROFESSOR: Reports: Other (see below) (None) - Related Data Allergies Allergy/AdvReac Type Severity Reaction Status Date / Time carvedilol Allergy Itching Verified 08/19/16 09:44 Home Meds: Home Meds Gluc HCl/Csa/Brayan Hy/Hyalur Ac [Glucosamine Chondroitin] 1 cap PO QAM 01/08/14 [ History] Leuprolide [Leuprolide Depot 6-Month] 45 mg INJECT ASDIRECTED 01/08/14 [History] Sertraline [Zoloft] 50 mg PO QAM 01/08/14 [History] Acetaminophen 650 mg PO Q6H PRN 08/01/16 [History] Calcium Carbonate/Vitamin D3 [Calcium 250+D] 1 each PO DAILY PRN 08/01/16 [ History] Simethicone [Gas Relief] 160 mg PO TID PRN 08/01/16 [History] Aspirin [Adult Low Dose Aspirin EC] 81 mg PO DAILY 08/19/16 [History] Ferrous Gluconate 324 mg PO DAILY 08/19/16 [History] Metoprolol Succinate 25 mg PO DAILY 08/19/16 [History] Apixaban [Eliquis] 5 mg PO BID 09/11/16 [History] Bumetanide 1 mg PO 1800 09/11/16 [History] Bumetanide 2 mg PO DAILY 09/11/16 [History] Clopidogrel [Plavix] 75 mg PO DAILY 09/11/16 [History] Docusate Sodium/Sennosides [Senna Plus] 2 tab PO DAILY PRN 09/11/16 [History] Fluticasone Propionate [Flovent Diskus] 50 mcg IH BID 09/11/16 [History] Ibuprofen 200 mg PO TID 09/11/16 [History] Losartan [Cozaar] 25 mg PO DAILY 09/11/16 [History] Nitroglycerin [Nitrostat] 0.4 mg SL Q5M 09/11/16 [History] Potassium Chloride [Klor-Con M20] 10 meq PO DAILY 09/11/16 [History] atorvaSTATin [Lipitor] 40 mg PO BEDTIME 09/11/16 [History] Past Medical History HEENT History: Reports: Hard of Hearing, Impaired Vision. Denies: Allergic Rhinitis, Cataract, Glaucoma, Macular Degeneration, Retinal Detachment Cardiovascular History: Reports: Afib, Arrhythmia, CAD, Cardiomyopathy, Heart Failure, Heart Murmur, High Cholesterol, Hypertension, DE, PTCA, Pulmonary Hypertension, Stents, Other (See Below). Denies: Aneurysm, Blood Clots/VTE/DVT , Bypass, Pacemaker, PVD, Syncope Other Cardiovascular History: Dyslipidemia, non-STEMI on 08/01/16 and 08/19/16 with subsequent PTCA/stent as below, new onset atrial fibrillation with rapid ventricular response with frequent PVCs and incomplete bifascicular bundle branch block at time of DE on 08/19/16, severe systolic/grade 2 diastolic dysfunction and cardiomyopathy with ejection fraction of only 20-25%, recurrent CHF, severe mitral valve insufficiency and aortic valve insufficiency with additional moderate tricuspid valve insufficiency and moderate bilateral atrial enlargement, severe pulmonary hypertension by echocardiogram, chronic d-dimer elevation with negative workup as below Respiratory History: Reports: COPD, Intubation, Previous, Other (See Below). Denies: PE, Pneumothorax Other Respiratory History: Respiratory failure in July 2016 with concomitant CHF Gastrointestinal History: Reports: Bowel Obstruction, Chronic Constipation, Colon Polyp, Diverticulosis (Left-sided), Gastritis, GI Bleed, PUD, Other (See Below). Denies: Celiac Disease, Cholelithiasis, Chronic Diarrhea, Fecal Incontinence, GERD, Hepatitis, Hiatal Hernia, Inflammatory Bowel Disease, Irritable Bowel Syndrome, Jaundice, Pancreatitis Other Gastrointestinal History: Upper GI bleed from duodenal ulcer in about 2014 , benign hepatic cysts, history of colon cancer as below, left lower quadrant colostomy, left-sided ischemic colitis with acute lower GI bleed in July 2016, excision of tubular adenomas x3 from the cecal area on 08/08/16, history of LFTs elevation secondary to fatty liver, CHF, and possible statin intolerance, benign hepatic cysts Genitourinary History: Reports: BPH, Chronic Renal Insuffiency, Prostate Disorder, Urinary Incontinence, UTI, Recurrent, Other (See Below). Denies: Acute Renal Failure, Renal Calculus, STD Other Genitourinary History: Prostate cancer as below Musculoskeletal History: Reports: Arthritis, Back Pain, Chronic, Fracture, Neck Pain, Chronic, Osteoarthritis, Other (See Below). Denies: Gout, Osteoporosis, RA, SLE Other Musculoskeletal History: Right distal fibular/ankle fracture at about age 40 Neurological History: Reports: None. Denies: Alzheimers Disease, Cerebral Aneurysms, Concussion, CVA, Headaches, Chronic, Head Trauma, Migraines, Parkinson's, Seizure, TIA Psychiatric History: Reports: Addiction, Anxiety, Depression, Other (See Below) . 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 Denies: Diabetes, Type I, Diabetes, Type II, Hypothyroidism, IDDM Other Endocrine/Metabolic History: Borderline hyperglycemia with normal glycosylated hemoglobin Hematologic History: Reports: Anemia, Iron Deficiency. Denies: Blood Transfusion(s) Immunologic History: Reports: None. Denies: AIDS, HIV, SLE Oncologic (Cancer) History: Reports: Colon, Prostate, Other (See Below). Denies : Basal Cell Carcinoma, Hodgkin's Lymphoma, Leukemia, Lymphoma, Malignant Melanoma, Metastatic, Non-Hodgkin's Lymphoma, Squamous Cell Carcinoma Other Oncologic History: colon cancer 1982 requiring surgery as below with no radiation treatment or chemotherapy, prostate cancer in 1990 with current every 6 month Lupron injections Dermatologic History: Reports: None. Denies: Eczema, Psoriasis - Infectious Disease History Infectious Disease History: Reports: Measles, Mumps. Denies: C-Difficile, Chicken Pox, Meningitis, Mononucleosis, MRSA, Pertussis (Whooping Cough), Rheumatic Fever, Rubella, Scarlet Fever, Shingles, TB, VRE - Past Surgical History Head Surgeries/Procedures: Reports: None HEENT Surgical History: Reports: Oral Surgery, Other (See Below). Denies: Adenoidectomy, Cataract Surgery, Eye Surgery, Laser Surgery, LASIK, Myringotomy w Tube(s), Naso-Sinus Surgery, Tonsillectomy Other HEENT Surgeries/Procedures: Complete upper teeth extraction with multiple lower teeth extractions Cardiovascular Surgical History: Reports: Coronary Artery Stent, Percutaneous Transluminal Angioplasty, Other (See Below). Denies: Varicose Other Cardiovascular Surgeries/Procedures: PTCA/stent x4 on 08/29/16 Respiratory Surgical History: Reports: None. Denies: Thoracentesis GI Surgical History: Reports: Colonoscopy, EGD, Polypectomy, Other (See Below). Denies: Appendectomy, Cholecystectomy, Hernia, Abdominal, Hernia, Inguinal, Hernia Repair/Other Other GI Surgeries/Procedures: Last colonoscopy on 08/08/16 with previous evaluation in about 2013, EGD in about 2014, left hemicolectomy secondary to colon cancer in 1982 with current colostomy Male Surgical History: Reports: Prostate Biopsy, Other (See Below). Denies: Circumcision, Vasectomy Other Male Surgeries/Procedures: Prostate biopsy for prostate cancer 1990 Endocrine Surgical History: Reports: None. Denies: Thyroid Biopsy Neurological Surgical History: Reports: Other (See Below). Denies: C-Spine, Discectomy, Laminectomy, Lumbar Spine, Spinal Fusion, Vertebroplasty Other Neurological Surgeries/Procedures: Last epidural steroid injection and lumbar region on 06/13/16 Musculoskeletal Surgical History: Reports: None. Denies: Arthroscopic Knee, Arthroscopic Procedure, Carpal Tunnel, Ganglion Cyst, Joint Replacement, ORIF, Shoulder Surgery Oncologic Surgical History: Reports: None Dermatological Surgical History: Reports: None - Past Imaging History Past Imaging History: Reports: Bone Scan (Whole body bone scan on 05/24/04), Cardiac Echo (Last echocardiogram on 08/06/16 with ejection fraction of only 20- 25% and significant findings as above), CAT Scan (Negative CTA of the chest on , CT of the abdomen and pelvis on 08/06/16 with previous evaluations on 07/21 and 05/21/04), Venous Doppler (Lower extremities bilaterally on 08/01/16) Social & Family History - Family History HEENT: Reports: None. Denies: Allergic Rhinitis, Glaucoma, Macular Degeneration Cardiac: Reports: CAD, Hypertension, DE, PVD/COD, Other (See Below). Denies: Afib, Aneurysm, Blood Clots/VTE/DVT, High Cholesterol, Syncope Other Cardiac Family History: Father with DE in his 70s, sister, mother and father with hypertension, sister with several MIs with 4 vessel CABG with fatal DE at age 83, mother with peripheral vascular disease secondary to her IDDM Respiratory: Reports: None. Denies: COPD, PE GI: Reports: Cholelithiasis, Other (See Below). Denies: Celiac Disease, Colon Polyps, Inflammatory Bowel Disease, Irritable Bowel Syndrome, PUD Other GI Family History: Mother with cholelithiasis : Reports: None. Denies: Dialysis, Renal Calculus, Renal Disease/ Insufficiency OBGYN: Reports: None. Denies: Dysfunctional uterine bleeding, Endometriosis, Recurrent Spontaneous Musculoskeletal: Reports: None. Denies: Gout, RA, SLE Neurological: Reports: Alzheimers Disease, CVA, Dementia, Other (See Below). Denies: Migraines, MS, Parkinson's Other Neurological Family History: Mother with fatal dementia at age 89, father with history of CVA x4 with fatal CVA at age 82, a brother with a CVA during surgery at age 62 secondary to oral cancer as below Psychiatric: Reports: None. Denies: Abuse, Victim of, ADD, ADHD, Anxiety, Depression, Psych Hospitalization(s), PTSD, Suicide Attempt Endocrine/Metabolic: Reports: Diabetes, type II, IDDM, Other (See Below). Denies: Diabetes, Type I, Hypothyroidism Other Endocrine/Metabolic Family History: Mother with IDDM Hematologic: Reports: None. Denies: Anemia, Transfusion Reaction Immunologic: Reports: None. Denies: AIDS, HIV, SLE Dermatologic: Reports: None. Denies: Eczema, Psoriasis Oncologic: Reports: Metastatic, Prostate, Other (See Below). Denies: Colon, Hodgkin's Lymphoma, Leukemia, Lymphoma, Non-Hodgkin's Lymphoma, Skin Other Oncologic Family History: 2 brothers with fatal metastatic prostate cancer at age 68 and age 79, brother with oral/? Tonsil cancer at age 62 - Tobacco Use Smoking Status *Q: Former Smoker Tobacco Use Within Last Twelve Months: No Years of Tobacco use: 26 Packs/Tins Daily: 4 Used Tobacco, but Quit: Yes Month Tobacco Last Used: Quit 04/23/1974 Second Hand Smoke Exposure: No Second Hand Smoke Education Provided: No - Caffeine Use Caffeine Use: Reports: Coffee (5 cups per day), Soda (One soda per day). 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 Denies: Fever, Chills, Weakness, Fatigue , Night Sweats, Decreased Appetite, Weight Loss, Weight Gain HEENT: Reports: Glasses, Hearing Loss. Denies: Dental Pain, Ear Pain, Throat Pain, Vertigo, Vision Change Respiratory: Reports: No Symptoms. Denies: Shortness of Breath, Wheezing, Pleuritic Chest Pain, Cough Cardiovascular: Reports: No Symptoms. Denies: Chest Pain, Blood Pressure Problem, Claudication, Dyspnea on Exertion, Edema, Lightheadedness, Orthopnea, Palpitations, Syncope Endocrine: Reports: No Symptoms. Denies: Fatigue GI/Abdominal: Reports: No Symptoms. Denies: Abdominal Pain, Anorexia, Black Stool, Bloody Stool, Constipation, Diarrhea, Decreased Appetite, Difficulty Swallowing, Distension, Flatus, Hematochezia, Melena, Nausea, Stool Incontinence , Vomiting : Reports: No Symptoms. Denies: Discharge, Dysuria, Flank Pain, Frequency, Hematuria, Pain, Urgency Musculoskeletal: Reports: No Symptoms. Denies: Neck Pain, Shoulder Pain, Arm Pain, Back Pain, Leg Pain Skin: Reports: Diaphoresis. Denies: Bruising, Wound Neurological: Reports: Confusion (Possible as above). Denies: Dizziness, Headache, Numbness, Paresthesia, Seizure, Syncope, Trouble Speaking, Difficulty Walking, Weakness Psychiatric: Reports: Confusion (As above). Denies: Agitation, Anxiety, Depression, Hallucinations Hematologic/Lymphatic: Reports: Anemia (Stable chronic), Easy Bruising (Blood thinners) Immunologic: Reports: No Symptoms ED EXAM, GENERAL - Physical Exam Exam: See Below Exam Limited By: No Limitations General Appearance: Alert, WD/WN, No Apparent Distress Eye Exam: Bilateral Eye: EOMI, Normal Fundi, Normal Inspection (No nystagmus), PERRL Ears: Normal External Exam, Normal Canal, Normal TMs, Hearing Loss (Mild to moderate bilateral presbycusis) Nose: Normal Inspection, Normal Mucosa, No Blood Throat/Mouth: Normal Inspection, Normal Lips, Normal Gums, Normal Oropharynx, Normal Voice, No Airway Compromise. No: Normal Teeth (Complete absent upper dentition with only a few lower maintaining dentition with no dentures today), Dysphagia, Perioral Cyanosis Head: Atraumatic, Normocephalic. No: Facial Swelling, Facial Tenderness, Sinus Tenderness Neck: Normal Inspection, Supple, Non-Tender, Full Range of Motion, Carotid Bruit (Bilateral carotid bruits versus transmitted heart sounds). No: Lymphadenopathy (L), Lymphadenopathy (R), Thyromegaly Respiratory/Chest: No Respiratory Distress, No Accessory Muscle Use, Chest Non- Tender, Rales (Mild bilateral basilar), Rhonchi (Very occasional). No: Pleural Rub, Retractions Cardiovascular: Normal Peripheral Pulses, No Edema, No Gallop, No JVD, No Rub, Bradycardia (Mild), Systolic Murmur (2/6 DREW at the mitral and aortic valves), Extra Beats (Occasional with PVCs by monitor as below). No: Gallop/S3, Gallop/ S4, Friction Rub Peripheral Pulses: 2+: Radial (L), Radial (R), Dorsalis Pedis (L), Dorsalis Pedis (R) GI/Abdominal: Normal Bowel Sounds, Soft, Non-Tender, No Organomegaly, No Distention, No Abnormal Bruit, No Mass, Pelvis Stable, Other (Colostomy noted with multiple postoperative abdominal scars). No: Guarding (Male) Exam: Deferred Rectal (Males) Exam: Deferred Back Exam: Normal Inspection, Full Range of Motion. No: CVA Tenderness (L), CVA Tenderness (R), Muscle Spasm Extremities: Normal Inspection, Normal Range of Motion, Non-Tender, No Pedal Edema, Normal Capillary Refill. No: Ana's Sign Neurological: Alert, Oriented, CN II-XII Intact, Normal Cognition, Normal Gait, Normal Reflexes (Negative Babinski's), No Motor/Sensory Deficits. No: Confused Psychiatric: Normal Affect, Normal Mood Skin Exam: Intact, Cool, Diaphoretic, Ecchymosis (Occasional), Pallor (Mild). No: Petechiae, Wound/Incision Lymphatic: No Adenopathy EKG INTERPRETATION EKG Date: 09/11/16 Time: 01:10 Rhythm: other (Sinus bradycardia with PVCs) Rate (beats/min): 58 Bernie: normal (Left) P-wave: present QRS: other (QRS interval of 0.13 seconds representing a bifascicular bundle- branch block) ST-T: other (T-wave inversion in leads 1, 2, aVL, and V4 through V6 with nonspecific ST changes and resolution of previous ST depressions in these leads) QT: normal NM/PQ Interval: 0.16 seconds with extreme poor R-wave progression in the anterior leads and left ventricular hypertrophy by voltage Comparison: change from previous EKG (Resolved atrial fibrillation, tachycardia , and lateral wall ST depressions since 08/19/[address] changes in these leads, no postoperative EKG for comparison) EKG Interpretation Comments: 1. Lateral wall ischemia versus non-STEMI 2. Bradycardia with PVCs 3. Complete bifascicular bundle-branch Course - Vital Signs Last Recorded V/S: Last Vital Signs Temp 36.4 C 05/24/17 00:27 Pulse 58 L 09/11/16 01:00 Resp 18 09/11/16 01:00 BP 139/61 09/11/16 01:00 Pulse Ox 100 09/11/16 01:00 Vital Signs - 24 hr 09/11/16 09/11/16 09/11/16 00:18 00:27 00:37 Temperature [ 36.4 C Axillary] Temperature [ 35.1 C L 36.4 C Temporal] Pulse, 68 63 58 L Peripheral [ Right Pulse Oximetry] Respiratory 10 L 20 20 Rate Blood Pressure 150/86 H 147/58 H 148/55 H [Right Upper Arm] O2 Sat by Pulse 97 95 100 Oximetry 09/11/16 09/11/16 09/11/16 01:00 01:11 01:26 Temperature [ Axillary] Temperature [ Temporal] Pulse, 58 L 60 Peripheral [ Right Pulse Oximetry] Respiratory 18 18 18 Rate Blood Pressure 139/61 146/56 H 146/56 H [Right Upper Arm] O2 Sat by Pulse 100 100 100 Oximetry 09/11/16 09/11/16 01:41 02:14 Temperature [ Axillary] Temperature [ Temporal] Pulse, 57 L Peripheral [ Right Pulse Oximetry] Respiratory 18 18 Rate Blood Pressure 147/53 H 146/58 H [Right Upper Arm] O2 Sat by Pulse 100 99 Oximetry - Orders/Labs/Meds Orders: Active Orders 24 hr Category Date Time Status Cardiac Monitoring [RC] . DIRECTED Care 09/11/16 00:37 Active EKG Documentation Completion [RC] ASDIRECTED Care 09/11/16 00:37 Active Oxygen Therapy, ED [RC] CONTINUOUS Care 09/11/16 00:37 Active Peripheral IV Care [RC] . DIRECTED Care 09/11/16 00:37 Active Pulse Oximetry [RC] CONTINUOUS Care 09/11/16 00:37 Active Up With Assistance [RC] PFP Care 09/11/16 00:37 Active Vital Signs [RC] PFP Care 09/11/16 00:37 Active Nothing per Oral Now Diet [DIET] Diet 09/11/16 Breakfast Active Chest 1V Frontal [CR] Stat Exams 09/11/16 00:37 Ordered H PYLORI STOOL ANTIGEN [MREF] Stat Lab 09/11/16 00:37 Uncollected Sodium Chloride 0.9% [Saline Flush] Med 09/11/16 00:37 Active 10 ml FLUSH ASDIRECTED PRN Obtain Past Medical Record [OM.PC] Urgent Oth 09/11/16 00:37 Active Peripheral IV Insertion Adult [OM.PC] Stat Oth 09/11/16 00:37 Ordered Resuscitation Status Stat Resus Stat 09/11/16 00:37 Ordered Medication Orders Sodium Chloride (Saline Flush) 10 ml FLUSH ASDIRECTED PRN PRN Reason: Keep Vein Open Last Admin: 09/11/16 00:48 Dose: 10 ml Labs: Laboratory Tests 09/11/16 09/11/16 09/11/16 Range/Units 00:45 00:45 00:45 WBC 4.7 (4.0-10.2) K/uL RBC 3.73 L (4.33-5.41) M/uL Hgb 10.1 L (13.1-16.8) g/dL Hct 33.5 L (39.0-49.0) % MCV 89.8 D (84.0-98.0) fL MCH 27.1 L (28.2-33.3) pg MCHC 30.1 L (31.7-36.0) g/dL RDW 15.4 H (11.2-14.1) % Plt Count 330 (150-350) K/uL Add Manual Diff Yes Neutrophils % (Manual) 58 Lymphocytes % (Manual) 26 Monocytes % (Manual) 13 Eosinophils % (Manual) 3 Absolute Neutrophils 2.7260 Lymphocytes # (Manual) 1.2220 Monocytes # (Manual) 0.6110 Eosinophils # (Manual) 0.1410 PT 11.8 H (9.8-11.7) SEC INR 1.1 APTT 30.6 H (23.5-30.0) SEC D-Dimer, Quantitative 567 H (0-400) ng/mL Sodium (136-145) mmol/L Potassium (3.5-5.1) mmol/L Chloride (98-107) mmol/L Carbon Dioxide (21.0-32.0) mmol/L BUN (7-18) mg/dL Creatinine (0.51-1.17) mg/dL Est Cr Clr Drug Dosing mL/min Estimated GFR (MDRD) mL/min Glucose (74-106) mg/dL Lactic Acid (0.4-2.0) mmol/L Uric Acid (2.6-7.2) mg/dL Calcium (8.5-10.1) mg/dL Magnesium (1.8-2.4) mg/dL Total Bilirubin (0.2-1.0) mg/dL AST (15-37) U/L ALT (12-78) U/L Alkaline Phosphatase (46-116) IU/L Creatine Kinase (26-308) U/L Creatine Kinase Index (0.0-2.5) % CK-MB (CK-2) (0.00-3.60) ng/mL Troponin I (0.000-0.056) ng/mL Dvd-C-Jadmoirfury Pept (0-125) pg/mL Total Protein (6.4-8.2) g/dL Albumin (3.4-5.0) g/dL TSH, Ultra Sensitive (0.358-3.740) mIU/mL 09/11/16 09/11/16 Range/Units 00:45 00:45 WBC (4.0-10.2) K/uL RBC (4.33-5.41) M/uL Hgb (13.1-16.8) g/dL Hct (39.0-49.0) % MCV (84.0-98.0) fL MCH (28.2-33.3) pg MCHC (31.7-36.0) g/dL RDW (11.2-14.1) % Plt Count (150-350) K/uL Add Manual Diff Neutrophils % (Manual) Lymphocytes % (Manual) Monocytes % (Manual) Eosinophils % (Manual) Absolute Neutrophils Lymphocytes # (Manual) Monocytes # (Manual) Eosinophils # (Manual) PT (9.8-11.7) SEC INR APTT (23.5-30.0) SEC D-Dimer, Quantitative (0-400) ng/mL Sodium 143 (136-145) mmol/L Potassium 4.0 (3.5-5.1) mmol/L Chloride 105 (98-107) mmol/L Carbon Dioxide 30.1 (21.0-32.0) mmol/L BUN 30 H (7-18) mg/dL Creatinine 1.32 H (0.51-1.17) mg/dL Est Cr Clr Drug Dosing 38.25 mL/min Estimated GFR (MDRD) 52 mL/min Glucose 109 H (74-106) mg/dL Lactic Acid 1.1 (0.4-2.0) mmol/L Uric Acid 4.5 (2.6-7.2) mg/dL Calcium 8.0 L (8.5-10.1) mg/dL Magnesium 2.2 (1.8-2.4) mg/dL Total Bilirubin 0.3 (0.2-1.0) mg/dL AST 21 (15-37) U/L ALT 17 (12-78) U/L Alkaline Phosphatase 87 (46-116) IU/L Creatine Kinase 48 (26-308) U/L Creatine Kinase Index 2.3 (0.0-2.5) % CK-MB (CK-2) 1.10 (0.00-3.60) ng/mL Troponin I 0.065 H* (0.000-0.056) ng/mL Udp-V-Ipymptlvozr Pept 54411 H (0-125) pg/mL Total Protein 6.4 (6.4-8.2) g/dL Albumin 3.0 L (3.4-5.0) g/dL TSH, Ultra Sensitive 4.466 H (0.358-3.740) mIU/mL Meds: Medications Generic Name Dose Route Start Last Admin Trade Name Freq PRN Reason Stop Dose Admin Sodium Chloride 10 ml 09/11/16 00:37 09/11/16 00:48 Saline Flush FLUSH 10 ml ASDIRECTED PRN Administration Keep Vein Open Discontinued Medications Generic Name Dose Route Start Last Admin Trade Name Freq PRN Reason Stop Dose Admin Famotidine 40 mg 09/11/16 00:37 09/11/16 00:48 Pepcid IVPUSH 09/11/16 00:38 40 mg ONETIME ONE Administration Furosemide 60 mg 09/11/16 01:39 09/11/16 01:44 Lasix IVPUSH 09/11/16 01:40 60 mg NOW ONE Administration - Radiology Interpretation Free Text/Narrative:: 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 bradycardia with heart rate in the high 50s with frequent PVCs and occasional bigeminy and couplets Chest x-ray, portable, shows severe cardiomegaly with moderate COPD and CHF Departure - Departure Time of Disposition: 02:40 Disposition: DC/Tfer to Acute Hospital 02 Reason for Transfer *Q: Other (Possible repeat lateral non-STEMI) Condition: fair Clinical Impression: COPD exacerbation, Non-ST elevation DE (NSTEMI), PVC's (premature ventricular contractions), Hypoalbuminemia, Mixed anxiety depressive disorder, Peptic reflux disease, Dyslipidemia CHF (congestive heart failure) Qualifiers: Congestive heart failure type: unspecified congestive heart failure type Congestive heart failure chronicity: acute Qualified Code(s): I50.9 - Heart failure, unspecified COPD (chronic obstructive pulmonary disease) Qualifiers: COPD type: COPD with acute exacerbation Qualified Code(s): J44.1 - Chronic obstructive pulmonary disease with (acute) exacerbation Hypertension Qualifiers: Hypertension type: essential hypertension Qualified Code(s): I10 - Essential ( primary) hypertension Iron deficiency anemia Qualifiers: Iron deficiency anemia type: unspecified iron deficiency Qualified Code(s): D50.9 - Iron deficiency anemia, unspecified Forms: ED Department Discharge, Interfacility Transfer EMTALA - Problem List & Annotations (1) Non-ST elevation DE (NSTEMI) SNOMED Code(s): 624824756 Code(s): I21.4 - NON-ST ELEVATION (NSTEMI) MYOCARDIAL INFARCTION Status: Acute Priority: High Current Visit: Yes Onset Date: 09/11/16 Annotation/ Comment:: No chest pain on arrival, however no diaphoresis with chest pain protocol initiated in the emergency room. No ASA, Plavix, or IV heparin were given secondary to patient's recently initiated Eliquis with discontinuation of Coumadin at that time. No beta brooklynn therapy was also given secondary to his bradycardia on arrival. Troponin I elevation with probable threatening lateral wall ischemia versus non-STEMI, although EKG improved from time non-STEMI on 08/19. Renal insufficiency and CHF component to his troponin I elevation. Telephone consultation at 01:[address] Art, hospitalist at the [facility] in [place], who does accept the patient for further treatment and evaluation. No further treatment recommendations given with Dr. Art in agreement with our current treatment regimen, including no IV heparinization, etc. as above. Vital signs stable at time of transfer. Some confusion with the patient's current medical therapy with apparent continued ASA and Plavix despite recent initiation of Eliquis with discontinuation of Coumadin. Clarification of medical therapy with [facility] [place] [facility] from [facility] as above (2) CHF (congestive heart failure) SNOMED Code(s): 40213242 Code(s): I50.9 - HEART FAILURE, UNSPECIFIED Status: Acute Priority: High Current Visit: Yes Onset Date: ~08/01/16 Annotation/Comment:: Moderate CHF by chest x-ray and elevated BNP, although improved from time of acute DE on 08/19/16. Note recent echocardiogram showing extremely poor cardiac function with ejection fraction of only 20-25%, diffuse vascular disease, pulmonary hypertension, and grade 2 diastolic dysfunction. Initial dose of IV Lasix given in the emergency room Qualifiers: Congestive heart failure type: unspecified congestive heart failure type Congestive heart failure chronicity: acute Qualified Code(s): I50.9 - Heart failure, unspecified (3) Renal insufficiency SNOMED Code(s): 699334486, 428287431 Code(s): N28.9 - DISORDER OF KIDNEY AND URETER, UNSPECIFIED Status: Chronic Priority: Medium Current Visit: Yes Annotation/Comment:: Continue to observe closely especially in light of required IV Lasix therapy (4) PVC's (premature ventricular contractions) SNOMED Code(s): 54935312 Code(s): I49.3 - VENTRICULAR PREMATURE DEPOLARIZATION Status: Acute Priority: High Current Visit: Yes Onset Date: 08/01/16 Annotation/Comment: : Nonsymptomatic PVCs. Continue to observe closely with recent history of atrial fibrillation with rapid ventricular response with his DE on 08/19 (5) COPD (chronic obstructive pulmonary disease) SNOMED Code(s): 34014052 Code(s): J44.9 - CHRONIC OBSTRUCTIVE PULMONARY DISEASE, UNSPECIFIED Status : Chronic Priority: High Current Visit: Yes Annotation/Comment:: No recent fever or bronchitic-type symptoms Qualifiers: COPD type: COPD with acute exacerbation Qualified Code(s): J44.1 - Chronic obstructive pulmonary disease with (acute) exacerbation (6) Dyslipidemia SNOMED Code(s): 824137543 Code(s): E78.5 - HYPERLIPIDEMIA, UNSPECIFIED Status: Chronic Priority: Medium Current Visit: Yes Annotation/Comment:: Currently under therapy (7) Hypertension SNOMED Code(s): 07566030 Code(s): I10 - ESSENTIAL (PRIMARY) HYPERTENSION Status: Chronic Priority : Medium Current Visit: Yes Annotation/Comment:: Blood pressures stable during emergency room care Qualifiers: Hypertension type: essential hypertension Qualified Code(s): I10 - Essential (primary) hypertension (8) Hypoalbuminemia SNOMED Code(s): 072524614 Code(s): E88.09 - OTH DISORDERS OF PLASMA-PROTEIN METABOLISM, NEC Status: Chronic Priority: Medium Current Visit: Yes Annotation/Comment:: Consider high-protein Glucerna supplements as snacks (9) Iron deficiency anemia SNOMED Code(s): 35338142 Code(s): D50.9 - IRON DEFICIENCY ANEMIA, UNSPECIFIED Status: Chronic Priority: Medium Current Visit: Yes Annotation/Comment:: Iron studies, vitamin B 12 level, and folic acid level were normal during recent hospitalization this facility. No abdominal pain or evidence of acute GI bleed. Qualifiers: Iron deficiency anemia type: unspecified iron deficiency Qualified Code(s) : D50.9 - Iron deficiency anemia, unspecified (10) Mixed anxiety depressive disorder SNOMED Code(s): 969327431 Code(s): F41.8 - OTHER SPECIFIED ANXIETY DISORDERS Status: Chronic Priority: Medium Current Visit: Yes Annotation/Comment:: Stable by patient history (11) Peptic reflux disease SNOMED Code(s): 99663513 Code(s): K21.9 - GASTRO-ESOPHAGEAL REFLUX DISEASE WITHOUT ESOPHAGITIS Status: Chronic Priority: Low Current Visit: Yes Annotation/Comment:: No abdominal pain at this time. IV Pepcid given as GI prophylaxis (12) Osteoarthritis SNOMED Code(s): 120640323 Code(s): M19.90 - UNSPECIFIED OSTEOARTHRITIS, UNSPECIFIED SITE Status: Chronic Priority: Medium Current Visit: No Annotation/Comment:: Stable by patient history Qualifiers: Osteoarthritis location: multiple joints Osteoarthritis type: primary Qualified Code(s): M15.0 - Primary generalized (osteo)arthritis - Problem List Review Problem List Initiated/Reviewed/Updated: Yes - My Orders Last 24 Hours: My Active Orders 09/11/16 00:37 Cardiac Monitoring [RC] . DIRECTED EKG Documentation Completion [RC] ASDIRECTED Oxygen Therapy, ED [RC] CONTINUOUS Peripheral IV Care [RC] . DIRECTED Pulse Oximetry [RC] CONTINUOUS Up With Assistance [RC] PFP Vital Signs [RC] PFP Chest 1V Frontal [CR] Stat H PYLORI STOOL ANTIGEN [MREF] Stat Sodium Chloride 0.9% [Saline Flush] 10 ml FLUSH ASDIRECTED PRN Obtain Past Medical Record [OM.PC] Urgent Peripheral IV Insertion Adult [OM.PC] Stat Resuscitation Status Stat 09/11/16 Breakfast Nothing per Oral Now Diet [DIET] - Assessment/Plan Last 24 Hours: My Active Orders 09/11/16 00:37 Cardiac Monitoring [RC] . DIRECTED EKG Documentation Completion [RC] ASDIRECTED Oxygen Therapy, ED [RC] CONTINUOUS Peripheral IV Care [RC] . DIRECTED Pulse Oximetry [RC] CONTINUOUS Up With Assistance [RC] PFP Vital Signs [RC] PFP Chest 1V Frontal [CR] Stat H PYLORI STOOL ANTIGEN [MREF] Stat Sodium Chloride 0.9% [Saline Flush] 10 ml FLUSH ASDIRECTED PRN Obtain Past Medical Record [OM.PC] Urgent Peripheral IV Insertion Adult [OM.PC] Stat Resuscitation Status Stat 09/11/16 Breakfast Nothing per Oral Now Diet [DIET] Assessment:: As above Plan: As above. Extensive precautions were given to the patient and his stepson, who are in agreement with the treatment plan. Ambulance transfer with deputy director of nursing accompaniment
[2016-09-11] MEDS ORDERED: Famotidine 20 MG/2 ML SDV IVPUSH ONE (00:37)
[2016-09-11] MEDS ORDERED: Sodium Chloride 0.9% 10 ML Syringe FLUSH PRN (00:37)
[2016-09-11] MEDS ORDERED: Furosemide 40 MG/4 ML VIAL IVPUSH ONE (01:39)
[2016-09-11 02:15] VITALS: BP 146/58
== END 2016-09-11 02:40 ==
LOC: LL.ED 00:14
DX: J44.1 Chronic obstructive pulmonary disease with (acute) exacerbation (principal); I11.0 Hypertensive heart disease with heart failure; I50.9 Heart failure, unspecified; I48.91 Unspecified atrial fibrillation; I21.4 Non-ST elevation (NSTEMI) myocardial infarction; I25.10 Atherosclerotic heart disease of native coronary artery without angina pectoris; E78.00 Pure hypercholesterolemia, unspecified; I25.2 Old myocardial infarction; E78.5 Hyperlipidemia, unspecified; D50.9 Iron deficiency anemia, unspecified; F41.8 Other specified anxiety disorders; Z87.891 Personal history of nicotine dependence
CPT/HCPCS: 36415; 71010; 80053; 82550; 82553; 83605; 83735; 83880; 84443; 84484; 84550; 85025; 85379; 85610; 85730; 93005; 96374; 96375; 99285; J1940; J7050; S0028

== ENCOUNTER 2016-11-04 09:33 | Inpatient (IN) | payer MEDICARE, MEDICAID ==
[2016-11-04 10:26] LABS: CHLORIDE,CL 105 mmol/L (98-107); SODIUM,NA 144 mmol/L (136-145)
[2016-11-04] MEDS ORDERED: Sodium Chloride 0.9% 10 ML Syringe FLUSH PRN (10:46)
[2016-11-04] MEDS ORDERED: Furosemide 40 MG/4 ML VIAL IVPUSH ONE (10:46)
[2016-11-04] MEDS ORDERED: Nitroglycerin 0.4 MG Tab.SL SL PRN ×2 (11:24→12:29)
[2016-11-04] MEDS ORDERED: Aspirin 81 MG Tab.Chew PO ONE (11:24)
--- NOTE | 2016-11-04 11:33 | EDM.PDOC ---
ED HPI GENERAL MEDICAL PROBLEM - General Chief Complaint: Cardiovascular Problem Stated Complaint: SHORTNESS OF BREATH, INCREASED LEG EDEMA Time Seen by Provider: 11/04/16 09:40 Source of Information: Reports: Patient (940) History Limitations: Reports: No Limitations - History of Present Illness Onset: Gradual Duration: Day(s): Location: Reports: Lower Extremity, Left, Lower Extremity, Right Severity: Severe Improves with: Reports: None Worsens with: Reports: Other Context: Reports: Sick Contact Associated Symptoms: Reports: Chest Pain, Shortness of Breath Other Treatments ASSOCIATE MANAGER: none - Related Data Allergies Allergy/AdvReac Type Severity Reaction Status Date / Time carvedilol Allergy Itching Verified 08/19/16 09:44 Home Meds: Home Meds Gluc HCl/Csa/Brayan Hy/Hyalur Ac [Glucosamine Chondroitin] 1 cap PO DAILY@1200 [History] Leuprolide [Leuprolide Depot 6-Month] 45 mg INJECT ASDIRECTED 01/08/14 [History] Sertraline [Zoloft] 50 mg PO QAM 01/08/14 [History] Acetaminophen 650 mg PO Q6H PRN 08/01/16 [History] Calcium Carbonate/Vitamin D3 [Calcium 250+D] 1 each PO DAILY@1200 PRN 08/01/16 [ History] Simethicone [Gas Relief] 160 mg PO TID PRN 08/01/16 [History] Ferrous Gluconate 324 mg PO DAILY 08/19/16 [History] Metoprolol Succinate 25 mg PO DAILY 08/19/16 [History] Apixaban [Eliquis] 5 mg PO BID 09/11/16 [History] Bumetanide 1 mg PO DAILY@1800 09/11/16 [History] Bumetanide 2 mg PO QAM 09/11/16 [History] Clopidogrel [Plavix] 75 mg PO DAILY 09/11/16 [History] Nitroglycerin [Nitrostat] 0.4 mg SL Q5M PRN 09/11/16 [History] atorvaSTATin [Lipitor] 40 mg PO BEDTIME 09/11/16 [History] Docusate Sodium 2 tab PO DAILY PRN 11/04/16 [History] Fluticasone Propionate [Flonase] 1 spray NASBOTH BID PRN 11/04/16 [History] Losartan [Cozaar] 50 mg PO DAILY 11/04/16 [History] Potassium Chloride 10 meq PO DAILY 11/04/16 [History] Past Medical History HEENT History: Reports: Hard of Hearing, Impaired Vision Other HEENT History: wears glasses Cardiovascular History: Reports: Afib, Arrhythmia, CAD, Cardiomyopathy, Heart Failure, Heart Murmur, High Cholesterol, Hypertension, IA, PTCA, Pulmonary Hypertension, Stents, Other (See Below) Other Cardiovascular History: Dyslipidemia, non-STEMI on 08/01/16 and 08/19/16 with subsequent PTCA/stent as below, new onset atrial fibrillation with rapid ventricular response with frequent PVCs and incomplete bifascicular bundle branch block at time of IA on 08/19/16, severe systolic/grade 2 diastolic dysfunction and cardiomyopathy with ejection fraction of only 20-25%, recurrent CHF, severe mitral valve insufficiency and aortic valve insufficiency with additional moderate tricuspid valve insufficiency and moderate bilateral atrial enlargement, severe pulmonary hypertension by echocardiogram, chronic d-dimer elevation with negative workup as below Respiratory History: Reports: COPD, Intubation, Previous, Other (See Below) Other Respiratory History: Respiratory failure in July 2016 with concomitant CHF Gastrointestinal History: Reports: Bowel Obstruction, Chronic Constipation, Colon Polyp, Diverticulosis, Gastritis, GI Bleed, PUD, Other (See Below) Other Gastrointestinal History: Upper GI bleed from duodenal ulcer in about 2014 , benign hepatic cysts, history of colon cancer as below, left lower quadrant colostomy, left-sided ischemic colitis with acute lower GI bleed in July 2016, excision of tubular adenomas x3 from the cecal area on 08/08/16, history of LFTs elevation secondary to fatty liver, CHF, and possible statin intolerance, benign hepatic cysts Genitourinary History: Reports: BPH, Chronic Renal Insuffiency, Prostate Disorder, Urinary Incontinence, UTI, Recurrent, Other (See Below) Other Genitourinary History: Prostate cancer as below Musculoskeletal History: Reports: Arthritis, Back Pain, Chronic, Fracture, Neck Pain, Chronic, Osteoarthritis, Other (See Below) Other Musculoskeletal History: Right distal fibular/ankle fracture at about age 40 Neurological History: Reports: None Psychiatric History: Reports: Addiction, Anxiety, Depression, Other (See Below) Other Psychiatric History: alcohol abuse with no use since February 17, 1972 Endocrine/Metabolic History: Reports: Other (See Below) Other Endocrine/Metabolic History: Borderline hyperglycemia with normal glycosylated hemoglobin Hematologic History: Reports: Anemia, Iron Deficiency Immunologic History: Reports: None Oncologic (Cancer) History: Reports: Colon, Prostate, Other (See Below) Other Oncologic History: colon cancer 1982 requiring surgery as below with no radiation treatment or chemotherapy, prostate cancer in 1990 with current every 6 month Lupron injections Dermatologic History: Reports: None - Infectious Disease History Infectious Disease History: Reports: Measles, Mumps - Past Surgical History Head Surgeries/Procedures: Reports: None HEENT Surgical History: Reports: Oral Surgery, Other (See Below) Other HEENT Surgeries/Procedures: Complete upper teeth extraction with multiple lower teeth extractions Cardiovascular Surgical History: Reports: Coronary Artery Stent, Percutaneous Transluminal Angioplasty, Other (See Below) Other Cardiovascular Surgeries/Procedures: PTCA/stent x4 on 08/29/16 Respiratory Surgical History: Reports: None GI Surgical History: Reports: Colonoscopy, EGD, Polypectomy, Other (See Below) Other GI Surgeries/Procedures: Last colonoscopy on 08/08/16 with previous evaluation in about 2013, EGD in about 2014, left hemicolectomy secondary to colon cancer in 1982 with current colostomy Male Surgical History: Reports: Prostate Biopsy, Other (See Below) Other Male Surgeries/Procedures: Prostate biopsy for prostate cancer 1990 Endocrine Surgical History: Reports: None Neurological Surgical History: Reports: Other (See Below) Other Neurological Surgeries/Procedures: Last epidural steroid injection and lumbar region on 06/13/16 Musculoskeletal Surgical History: Reports: None Oncologic Surgical History: Reports: None Dermatological Surgical History: Reports: None - Past Imaging History Past Imaging History: Reports: Bone Scan (Whole body bone scan on 05/24/04), Cardiac Echo (Last echocardiogram on 08/06/16 with ejection fraction of only 20- 25% and significant findings as above), CAT Scan (Negative CTA of the chest on , CT of the abdomen and pelvis on 08/06/16 with previous evaluations on 07/21 and 05/21/04), Venous Doppler (Lower extremities bilaterally on 08/01/16) Social & Family History - Family History HEENT: Reports: None Cardiac: Reports: CAD, Hypertension, IA, PVD/COD, Other (See Below) Other Cardiac Family History: Father with IA in his 70s, sister, mother and father with hypertension, sister with several MIs with 4 vessel CABG with fatal IA at age 83, mother with peripheral vascular disease secondary to her IDDM Respiratory: Reports: None GI: Reports: Cholelithiasis, Other (See Below) Other GI Family History: Mother with cholelithiasis : Reports: None OBGYN: Reports: None Musculoskeletal: Reports: None Neurological: Reports: Alzheimers Disease, CVA, Dementia, Other (See Below) Other Neurological Family History: Mother with fatal dementia at age 89, father with history of CVA x4 with fatal CVA at age 82, a brother with a CVA during surgery at age 62 secondary to oral cancer as below Psychiatric: Reports: None Endocrine/Metabolic: Reports: Diabetes, type II, IDDM, Other (See Below) Other Endocrine/Metabolic Family History: Mother with IDDM Hematologic: Reports: None Immunologic: Reports: None Dermatologic: Reports: None Oncologic: Reports: Metastatic, Prostate, Other (See Below) Other Oncologic Family History: 2 brothers with fatal metastatic prostate cancer at age 68 and age 79, brother with oral/? 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) ED ROS GENERAL - Review of Systems Review Of Systems: See Below Constitutional: Reports: Weakness, Weight Gain HEENT: Reports: No Symptoms Respiratory: Reports: Shortness of Breath Cardiovascular: Reports: Chest Pain Endocrine: Reports: Fatigue GI/Abdominal: Reports: Other (colostomy) Musculoskeletal: Reports: Other Skin: Reports: No Symptoms Neurological: Reports: No Symptoms Psychiatric: Reports: No Symptoms ED EXAM, GENERAL - Physical Exam Exam: See Below Exam Limited By: No Limitations General Appearance: Alert, WD/WN, No Apparent Distress, Mild Distress Ears: Normal External Exam, Normal Canal, Hearing Grossly Normal, Normal TMs Nose: Normal Inspection Throat/Mouth: Normal Inspection, Normal Lips, Normal Teeth, Normal Gums, Normal Oropharynx, Normal Voice, No Airway Compromise Head: Atraumatic, Normocephalic Neck: Normal Inspection, Supple, Non-Tender, Full Range of Motion Respiratory/Chest: Decreased Breath Sounds, Rales (Left lower lobe) Cardiovascular: Irregularly Irregular GI/Abdominal: Normal Bowel Sounds, Other (Left colostomy) (Male) Exam: Deferred Neurological: Alert, Oriented, CN II-XII Intact, Normal Cognition, Normal Gait, Normal Reflexes, No Motor/Sensory Deficits Psychiatric: Normal Affect, Normal Mood Skin Exam: Warm, Dry, Intact, Normal Color, No Rash Course - Vital Signs Last Recorded V/S: Last Vital Signs Temp 96.3 F 11/04/16 10:10 Pulse 54 L 11/04/16 10:10 Resp 20 11/04/16 10:10 BP 151/81 H 11/04/16 10:10 Pulse Ox 95 11/04/16 10:10 - Orders/Labs/Meds Orders: Active Orders 24 hr Category Date Time Status EKG Documentation Completion [RC] ASDIRECTED Care 11/04/16 11:22 Ordered Notify Provider Vital Signs [RC] ASDIRECTED Care 11/04/16 11:20 Ordered Oxygen Therapy [RC] PRN Care 11/04/16 11:20 Ordered CXR [Chest 2V] [CR] Stat Exams 11/04/16 09:34 Taken Nitroglycerin [Nitrostat] Med 11/04/16 11:24 Ordered 0.4 mg SL Q5M PRN Sodium Chloride 0.9% [Saline Flush] Med 11/04/16 10:46 Ordered 10 ml FLUSH ASDIRECTED PRN CHF Questionnaire [COMM] Routine Oth 11/04/16 09:34 Ordered Saline Lock Insert [OM.PC] Stat Oth 11/04/16 10:46 Ordered EKG 12 Lead [EK] Stat Ther 11/04/16 11:20 Ordered Medication Orders Nitroglycerin (Nitrostat) 0.4 mg SL Q5M PRN PRN Reason: Chest Pain Stop: 11/04/16 11:35 Sodium Chloride (Saline Flush) 10 ml FLUSH ASDIRECTED PRN PRN Reason: Keep Vein Open Last Admin: 11/04/16 11:02 Dose: 10 ml Labs: Laboratory Tests 11/04/16 11/04/16 Range/Units 09:55 09:55 WBC 6.4 (4.0-10.2) K/uL RBC 4.28 L (4.33-5.41) M/uL Hgb 11.0 L (13.1-16.8) g/dL Hct 36.8 L (39.0-49.0) % MCV 86.0 D (84.0-98.0) fL MCH 25.7 L (28.2-33.3) pg MCHC 29.9 L (31.7-36.0) g/dL RDW 16.7 H (11.2-14.1) % Plt Count 290 (150-350) K/uL Neut % (Auto) 66.1 (45.0-80.0) % Lymph % (Auto) 14.6 (10.0-50.0) % [place] % (Auto) 13.8 (2.0-14.0) % Eos % (Auto) 3.6 (0.0-5.0) % Baso % (Auto) 1.9 (0.0-2.0) % Neut # (Auto) 4.26 (1.40-7.00) K/uL Lymph # (Auto) 0.94 (0.50-3.50) K/uL [place] # (Auto) 0.89 (0.00-1.00) K/uL Eos # (Auto) 0.23 (0.00-0.50) K/uL Baso # (Auto) 0.12 (0.00-0.20) K/uL Sodium 144 (136-145) mmol/L Potassium 4.1 (3.5-5.1) mmol/L Chloride 105 (98-107) mmol/L Carbon Dioxide 33.9 H (21.0-32.0) mmol/L BUN 30 H (7-18) mg/dL Creatinine 1.09 (0.51-1.17) mg/dL Est Cr Clr Drug Dosing 47.13 mL/min Estimated GFR (MDRD) > 60 mL/min Glucose 99 (74-106) mg/dL Calcium 8.3 L (8.5-10.1) mg/dL Goe-C-Fzepvcrkelq Pept 89394 H (0-125) pg/mL Meds: Medications Generic Name Dose Route Start Last Admin Trade Name Freq PRN Reason Stop Dose Admin Nitroglycerin 0.4 mg 11/04/16 11:24 Nitrostat SL 11/04/16 11:35 Q5M PRN Chest Pain Sodium Chloride 10 ml 11/04/16 10:46 11/04/16 11:02 Saline Flush FLUSH 10 ml ASDIRECTED PRN Administration Keep Vein Open Discontinued Medications Generic Name Dose Route Start Last Admin Trade Name Faby PRN Reason Stop Dose Admin Aspirin 324 mg 11/04/16 11:24 Aspirin PO 11/04/16 11:25 ONETIME ONE Furosemide 80 mg 11/04/16 10:46 11/04/16 11:02 Lasix IVPUSH 11/04/16 10:47 80 mg NOW ONE Administration Departure - Departure Time of Disposition: 12:01 Disposition: Admitted As Inpatient 67 Condition: Serious Clinical Impression: Chest pain Qualifiers: Chest pain type: chest pain due to myocardial ischemia Ischemic chest pain type : stable angina pectoris Qualified Code(s): I20.8 - Other forms of angina pectoris CHF (congestive heart failure) Qualifiers: Congestive heart failure type: unspecified congestive heart failure type Congestive heart failure chronicity: acute Qualified Code(s): I50.9 - Heart failure, unspecified Forms: ED Department Discharge Care Plan Goals: Patient will be admitted to the hospital monitored and treated as needed Discussed with distance learning coordinator at the [facility] at this time has no acute benefits will admit him to our hospital - My Orders Last 24 Hours: My Active Orders 11/04/16 09:34 CXR [Chest 2V] [CR] Stat CHF Questionnaire [COMM] Routine 11/04/16 10:46 Sodium Chloride 0.9% [Saline Flush] 10 ml FLUSH ASDIRECTED PRN Saline Lock Insert [OM.PC] Stat 11/04/16 11:20 Notify Provider Vital Signs [RC] ASDIRECTED Oxygen Therapy [RC] PRN EKG 12 Lead [EK] Stat 11/04/16 11:22 EKG Documentation Completion [RC] ASDIRECTED 11/04/16 11:24 Nitroglycerin [Nitrostat] 0.4 mg SL Q5M PRN - Assessment/Plan Last 24 Hours: My Active Orders 11/04/16 09:34 CXR [Chest 2V] [CR] Stat CHF Questionnaire [COMM] Routine 11/04/16 10:46 Sodium Chloride 0.9% [Saline Flush] 10 ml FLUSH ASDIRECTED PRN Saline Lock Insert [OM.PC] Stat 11/04/16 11:20 Notify Provider Vital Signs [RC] ASDIRECTED Oxygen Therapy [RC] PRN EKG 12 Lead [EK] Stat 11/04/16 11:22 EKG Documentation Completion [RC] ASDIRECTED 11/04/16 11:24 Nitroglycerin [Nitrostat] 0.4 mg SL Q5M PRN
[2016-11-04] MEDS ORDERED: Fluticasone Propionate Nasal Spray 16 GM Bottle NASBOTH PRN (12:29)
[2016-11-04] MEDS ORDERED: Simethicone 80 MG Tab.Chew PO PRN (12:29)
[2016-11-04] MEDS ORDERED: Acetaminophen 325 MG Tab PO PRN (12:29)
[2016-11-04] MEDS ORDERED: Docusate Sodium 100 MG Cap PO PRN (12:29)
[2016-11-04] MEDS ORDERED: LEUPROLIDE 45 MG INJECT SCH (12:30)
[2016-11-04] MEDS: Furosemide 40 MG/4 ML VIAL IVPUSH SCH (18:22)
[2016-11-04] MEDS: Apixaban 5 MG Tab PO SCH (18:22)
[2016-11-04] MEDS: atorvaSTATin 40 MG Tab PO SCH (20:30)
[2016-11-05] MEDS ORDERED: Sertraline 25 MG Tab PO SCH (08:00)
[2016-11-05 08:06] LABS: CHLORIDE,CL 106 mmol/L (98-107); SODIUM,NA 144 mmol/L (136-145)
[2016-11-05] MEDS: Furosemide 40 MG/4 ML VIAL IVPUSH SCH (08:27)
[2016-11-05] MEDS: Sodium Chloride 0.9% 10 ML Syringe FLUSH PRN ×2 (08:27→12:55)
[2016-11-05] MEDS: Clopidogrel 75 MG Tab PO SCH (08:28)
[2016-11-05] MEDS: Losartan 50 MG Tab PO SCH (08:29)
[2016-11-05] MEDS: Pantoprazole 40 MG Tab.CR PO SCH (08:29)
[2016-11-05] MEDS: Ferrous Sulfate 325 MG Tab PO SCH (08:29)
[2016-11-05] MEDS: Apixaban 5 MG Tab PO SCH ×2 (08:30→17:29)
[2016-11-05] MEDS: Metoprolol Succinate 25 MG Tab.ER PO SCH (08:30)
[2016-11-05] MEDS: Potassium Chloride 10 MEQ Tab.ER PO SCH (08:30)
[2016-11-05] MEDS: Aspirin 81 MG Tab.Chew PO SCH (08:30)
--- NOTE | 2016-11-05 11:54 | PCM.PN ---
- General Info Date of Service: 11/05/16 Admission Dx/Problem (Free Text): chf she was admitted with chief complaint of shortness of breath [facility] therefore we decided to admit him here - Review of Systems General: Reports: Weakness, Fatigue HEENT: Reports: no symptoms Pulmonary: Reports: shortness of breath Cardiovascular: Reports: Dyspnea on Exertion Gastrointestinal: Reports: No symptoms Genitourinary: Reports: no symptoms Musculoskeletal: Reports: no symptoms Skin: Reports: no symptoms Neurological: Reports: No Symptoms Psychiatric: Reports: no symptoms - Patient Data Vitals - most recent: Last Vital Signs Temp 97.8 F 11/05/16 08:00 Pulse 62 11/05/16 08:30 Resp 17 11/05/16 08:00 BP 150/50 H 11/05/16 08:30 Pulse Ox 98 11/05/16 08:00 Weight - most recent: 200 lb I&O - last 24 hours: Intake & Output 11/04/16 11/05/16 11/05/16 22:59 06:59 14:59 Intake Total 300 Balance 300 Lab Results last 24 hrs: Laboratory Results - last 24 hr 11/04/16 11/05/16 11/05/16 Range/Units 17:10 06:50 06:50 WBC 6.8 (4.0-10.2) K/uL RBC 4.15 L (4.33-5.41) M/uL Hgb 10.4 L (13.1-16.8) g/dL Hct 35.7 L (39.0-49.0) % MCV 86.0 (84.0-98.0) fL MCH 25.1 L (28.2-33.3) pg MCHC 29.1 L (31.7-36.0) g/dL RDW 16.5 H (11.2-14.1) % Plt Count 267 (150-350) K/uL Neut % (Auto) 68.9 (45.0-80.0) % Lymph % (Auto) 13.7 (10.0-50.0) % [place] % (Auto) 12.8 (2.0-14.0) % Eos % (Auto) 3.4 (0.0-5.0) % Baso % (Auto) 1.2 (0.0-2.0) % Neut # (Auto) 4.70 (1.40-7.00) K/uL Lymph # (Auto) 0.93 (0.50-3.50) K/uL [place] # (Auto) 0.87 (0.00-1.00) K/uL Eos # (Auto) 0.23 (0.00-0.50) K/uL Baso # (Auto) 0.08 (0.00-0.20) K/uL PT 12.6 H (9.8-11.7) SEC INR 1.2 APTT 28.7 (23.5-30.0) SEC Sodium (136-145) mmol/L Potassium (3.5-5.1) mmol/L Chloride (98-107) mmol/L Carbon Dioxide (21.0-32.0) mmol/L BUN (7-18) mg/dL Creatinine (0.51-1.17) mg/dL Est Cr Clr Drug Dosing mL/min Estimated GFR (MDRD) mL/min Glucose (74-106) mg/dL Calcium (8.5-10.1) mg/dL Troponin I 0.070 H* (0.000-0.056) ng/mL Triglycerides (30-150) mg/dL Cholesterol (100-200) mg/dL LDL Cholesterol, Calc (0-100) mg/dL HDL Cholesterol (40-60) mg/dL 11/05/16 Range/Units 06:50 WBC (4.0-10.2) K/uL RBC (4.33-5.41) M/uL Hgb (13.1-16.8) g/dL Hct (39.0-49.0) % MCV (84.0-98.0) fL MCH (28.2-33.3) pg MCHC (31.7-36.0) g/dL RDW (11.2-14.1) % Plt Count (150-350) K/uL Neut % (Auto) (45.0-80.0) % Lymph % (Auto) (10.0-50.0) % Jefferson % (Auto) (2.0-14.0) % Eos % (Auto) (0.0-5.0) % Baso % (Auto) (0.0-2.0) % Neut # (Auto) (1.40-7.00) K/uL Lymph # (Auto) (0.50-3.50) K/uL Jefferson # (Auto) (0.00-1.00) K/uL Eos # (Auto) (0.00-0.50) K/uL Baso # (Auto) (0.00-0.20) K/uL PT (9.8-11.7) SEC INR APTT (23.5-30.0) SEC Sodium 144 (136-145) mmol/L Potassium 3.7 (3.5-5.1) mmol/L Chloride 106 (98-107) mmol/L Carbon Dioxide 34.2 H (21.0-32.0) mmol/L BUN 34 H (7-18) mg/dL Creatinine 1.13 (0.51-1.17) mg/dL Est Cr Clr Drug Dosing 45.46 mL/min Estimated GFR (MDRD) > 60 mL/min Glucose 112 H (74-106) mg/dL Calcium 8.2 L (8.5-10.1) mg/dL Troponin I (0.000-0.056) ng/mL Triglycerides 69 (30-150) mg/dL Cholesterol 107 (100-200) mg/dL LDL Cholesterol, Calc 56 (0-100) mg/dL HDL Cholesterol 37 L (40-60) mg/dL Med Orders - Current: Current Medications Acetaminophen (Tylenol) 650 mg PO Q6H PRN PRN Reason: Pain Apixaban (Eliquis) 5 mg PO BID [facility] Last Admin: 11/05/16 08:30 Dose: 5 mg Aspirin (Aspirin) 81 mg PO DAILY [facility] Last Admin: 11/05/16 08:30 Dose: 81 mg Atorvastatin Calcium (Lipitor) 40 mg PO BEDTIME [facility] Last Admin: 11/04/16 20:30 Dose: 40 mg Calcium Carbonate (Oystcal-D 625 Mg-125 Units) 1 tab PO DAILY@1200 [facility] Clopidogrel Bisulfate (Plavix) 75 mg PO DAILY [facility] Last Admin: 11/05/16 08:28 Dose: 75 mg Docusate Sodium (Colace) 200 mg PO DAILY PRN PRN Reason: Constipation Ferrous Sulfate (Ferrous Sulfate) 325 mg PO DAILY [facility] Last Admin: 11/05/16 08:29 Dose: 325 mg Fluticasone Propionate (Flonase) 0 gm NASBOTH BID PRN PRN Reason: Allergies Furosemide (Lasix) 40 mg IVPUSH BID [facility] Last Admin: 11/05/16 08:27 Dose: 40 mg Glucosamine/Chondroitin (Glucosamine-Chondroitin 500-400 Capsule) 1 cap PO DAILY@1200 [facility] Losartan Potassium (Cozaar) 50 mg PO DAILY [facility] Last Admin: 11/05/16 08:29 Dose: 50 mg Metoprolol Succinate (Toprol Xl) 25 mg PO DAILY [facility] Last Admin: 11/05/16 08:30 Dose: 25 mg Nitroglycerin (Nitrostat) 0.4 mg SL Q5M PRN PRN Reason: Chest Pain Pantoprazole Sodium (Protonix) 40 mg PO ACBREAKFAST [facility] Last Admin: 11/05/16 08:29 Dose: 40 mg Potassium Chloride (Klor-Con 10) 10 meq PO DAILY [facility] Last Admin: 11/05/16 08:30 Dose: 10 meq Sertraline HCl (Zoloft) 50 mg PO QAM [facility] Simethicone (Simethicone) 160 mg PO TID PRN PRN Reason: Gas Sodium Chloride (Saline Flush) 10 ml FLUSH ASDIRECTED PRN PRN Reason: Keep Vein Open Last Admin: 11/05/16 08:27 Dose: 10 ml Discontinued Medications Aspirin (Aspirin) 324 mg PO ONETIME ONE Stop: 11/04/16 11:25 Last Admin: 11/04/16 11:29 Dose: 324 mg Furosemide (Lasix) 80 mg IVPUSH NOW ONE Stop: 11/04/16 10:47 Last Admin: 11/04/16 11:02 Dose: 80 mg Nitroglycerin (Nitrostat) 0.4 mg SL Q5M PRN PRN Reason: Chest Pain Stop: 11/04/16 11:35 Last Admin: 11/04/16 11:31 Dose: 0.4 mg Non-Formulary Medication (Leuprolide [Leuprolide Depot 6-Month]) 45 mg INJECT ASDIRECTED [facility] Sertraline HCl (Zoloft) 50 mg PO QAM [facility] Last Admin: 11/05/16 08:28 Dose: 50 mg Sodium Chloride (Saline Flush) 10 ml FLUSH ASDIRECTED PRN PRN Reason: Keep Vein Open Last Admin: 11/04/16 11:02 Dose: 10 ml - Exam General: alert, oriented HEENT: Pupils equal, Pupils reactive, EOMI, Mucous membr. moist/pink Neck: supple Lungs: Rales (in bilateral bases) Cardiovascular: Irregular Rhythm (and rate ) GI/Abdominal Exam: Normal Bowel Sounds, Soft, Non-Tender, No Organomegaly, No Distention, No Abnormal Bruit, No Mass, Pelvis Stable (Male) Exam: Deferred Back Exam: Normal Inspection, Full Range of Motion Extremities: Pedal Edema Skin: warm, dry, intact Neurological: no new focal deficit Psy/Mental Status: alert, normal affect, normal mood - Problem List & Annotations (1) CHF (congestive heart failure) SNOMED Code(s): 32084086 Code(s): I50.9 - HEART FAILURE, UNSPECIFIED Status: Acute Current Visit: Yes Qualifiers: Congestive heart failure type: unspecified congestive heart failure type Congestive heart failure chronicity: acute Qualified Code(s): I50.9 - Heart failure, unspecified - Problem List Review Problem List Initiated/Reviewed/Updated: Yes - My Orders Last 24 Hours: My Active Orders 11/04/16 12:21 Cardiac Education [RC] Click To Edit Cardiac Monitoring [RC] Q2HR Oxygen Therapy [RC] 2300 Sodium Chloride 0.9% [Saline Flush] 10 ml FLUSH ASDIRECTED PRN Peripheral IV Insertion Adult [OM.PC] Routine 11/04/16 12:25 Peripheral IV Care [RC] 00,08,16 11/04/16 12:26 EKG Documentation Completion [RC] ASDIRECTED 11/04/16 12:29 Acetaminophen [Tylenol] 650 mg PO Q6H PRN Docusate Sodium [Colace] 200 mg PO DAILY PRN Fluticasone Propionate [Flonase] 0 gm NASBOTH BID PRN Nitroglycerin [Nitrostat] 0.4 mg SL Q5M PRN Simethicone 160 mg PO TID PRN 11/04/16 12:35 Ambulate [RC] ASDIRECTED Height and Weight [RC] 0600 May Shower [RC] ASDIRECTED Up to Chair [RC] ASDIRECTED Vital Signs [RC] 00,08,16 Resuscitation Status Routine 11/04/16 12:36 Patient Status [ADT] Routine VTE/DVT Education [RC] PER UNIT ROUTINE 11/04/16 18:00 Apixaban [Eliquis] 5 mg PO BID Furosemide [Lasix] 40 mg IVPUSH BID 11/04/16 20:00 atorvaSTATin [Lipitor] 40 mg PO BEDTIME 11/05/16 05:11 Chest 1V Frontal [CR] AM 11/05/16 07:30 Pantoprazole [ProTONIX] 40 mg PO ACBREAKFAST 11/05/16 08:00 Aspirin 81 mg PO DAILY Clopidogrel [Plavix] 75 mg PO DAILY Ferrous Sulfate 325 mg PO DAILY Losartan [Cozaar] 50 mg PO DAILY Metoprolol Succinate [Toprol XL] 25 mg PO DAILY Potassium Chloride [Klor-Con 10] 10 meq PO DAILY 11/05/16 12:00 Calcium Carbonate/Vitamin D3 [OystCal-D 625 MG-125 Units] 1 tab PO DAILY@1200 Chondroitin/Glucosamine [Glucosamine-Chondroitin 500-400 Capsule] 1 cap PO DAILY@1200 11/06/16 08:00 Sertraline [Zoloft] 50 mg PO QAM - Plan Plan:: Will continue diuresing patient at this time. Will continue to monitor CHF status. Planned DC tomorrow.
[2016-11-05] MEDS ORDERED: Furosemide 40 MG/4 ML VIAL IVPUSH ONE (11:59)
[2016-11-05] MEDS: Chondroitin/Glucosamine Cap PO SCH (12:55)
[2016-11-05] MEDS: Calcium Carbonate/Vitamin D3 625 MG-125 Unit Tab PO SCH (12:55)
[2016-11-05] MEDS: atorvaSTATin 40 MG Tab PO SCH (19:30)
[2016-11-06 07:40] LABS: CHLORIDE,CL 106 mmol/L (98-107); SODIUM,NA 143 mmol/L (136-145)
[2016-11-06] MEDS: Ferrous Sulfate 325 MG Tab PO SCH (07:55)
[2016-11-06] MEDS: Potassium Chloride 10 MEQ Tab.ER PO SCH (07:55)
[2016-11-06] MEDS: Aspirin 81 MG Tab.Chew PO SCH (07:55)
[2016-11-06] MEDS: Metoprolol Succinate 25 MG Tab.ER PO SCH (07:55)
[2016-11-06] MEDS: Sertraline 50 MG Tab PO SCH (07:56)
[2016-11-06] MEDS: Apixaban 5 MG Tab PO SCH ×2 (07:56→17:17)
[2016-11-06] MEDS: Losartan 50 MG Tab PO SCH (07:56)
[2016-11-06] MEDS: Pantoprazole 40 MG Tab.CR PO SCH (07:56)
[2016-11-06] MEDS: Clopidogrel 75 MG Tab PO SCH (07:56)
[2016-11-06] MEDS: Furosemide 40 MG/4 ML VIAL IVPUSH SCH ×2 (07:56→17:17)
[2016-11-06] MEDS: Sodium Chloride 0.9% 10 ML Syringe FLUSH PRN ×4 (07:56→20:51)
[2016-11-06] MEDS: Chondroitin/Glucosamine Cap PO SCH (11:52)
[2016-11-06] MEDS: Calcium Carbonate/Vitamin D3 625 MG-125 Unit Tab PO SCH (11:52)
--- NOTE | 2016-11-06 12:21 | PCM.PN ---
- General Info Date of Service: 11/06/16 Admission Dx/Problem (Free Text): chf she was admitted with chief complaint of shortness of breath [facility] therefore we decided to admit him here Functional Status: Reports: Ambulating, Urinating, Other () - Review of Systems General: Reports: Weakness HEENT: Reports: No Symptoms Pulmonary: Reports: shortness of breath Cardiovascular: Reports: Dyspnea on Exertion, Edema (Improving) Gastrointestinal: Reports: No Symptoms Genitourinary: Reports: no symptoms Musculoskeletal: Reports: no symptoms Skin: Reports: no symptoms Neurological: Reports: Confusion (At night) Psychiatric: Reports: confusion, depression - Patient Data Vitals - most recent: Last Vital Signs Temp 97.6 F 11/06/16 07:27 Pulse 61 11/06/16 07:55 Resp 17 11/06/16 07:27 BP 135/59 L 11/06/16 07:56 Pulse Ox 93 L 11/06/16 07:27 Weight - most recent: 198 lb I&O - last 24 hours: Intake & Output 11/05/16 11/06/16 11/06/16 22:59 06:59 14:59 Intake Total 187 461 4106 Balance 062 345 4335 Lab Results last 24 hrs: Laboratory Results - last 24 hr 11/05/16 11/06/16 11/06/16 Range/Units 16:00 07:10 07:10 WBC 7.2 (4.0-10.2) K/uL RBC 4.09 L (4.33-5.41) M/uL Hgb 10.4 L (13.1-16.8) g/dL Hct 35.2 L (39.0-49.0) % MCV 86.1 (84.0-98.0) fL MCH 25.4 L (28.2-33.3) pg MCHC 29.5 L (31.7-36.0) g/dL RDW 16.5 H (11.2-14.1) % Plt Count 262 (150-350) K/uL Neut % (Auto) 74.4 (45.0-80.0) % Lymph % (Auto) 11.9 (10.0-50.0) % [place]y % (Auto) 10.5 (2.0-14.0) % Eos % (Auto) 2.5 (0.0-5.0) % Baso % (Auto) 0.7 (0.0-2.0) % Neut # (Auto) 5.32 (1.40-7.00) K/uL Lymph # (Auto) 0.85 (0.50-3.50) K/uL [place] # (Auto) 0.75 (0.00-1.00) K/uL Eos # (Auto) 0.18 (0.00-0.50) K/uL Baso # (Auto) 0.05 (0.00-0.20) K/uL Sodium 143 (136-145) mmol/L Potassium 3.8 (3.5-5.1) mmol/L Chloride 106 (98-107) mmol/L Carbon Dioxide 34.0 H (21.0-32.0) mmol/L BUN 37 H (7-18) mg/dL Creatinine 1.12 (0.51-1.17) mg/dL Est Cr Clr Drug Dosing 45.59 mL/min Estimated GFR (MDRD) > 60 mL/min Glucose 110 H (74-106) mg/dL Calcium 8.2 L (8.5-10.1) mg/dL Troponin I (0.000-0.056) ng/mL Uks-[id number]-Kfxbwjucajr Pept 44150 H (0-125) pg/mL 11/06/16 Range/Units 07:10 WBC (4.0-10.2) K/uL RBC (4.33-5.41) M/uL Hgb (13.1-16.8) g/dL Hct (39.0-49.0) % MCV (84.0-98.0) fL MCH (28.2-33.3) pg MCHC (31.7-36.0) g/dL RDW (11.2-14.1) % Plt Count (150-350) K/uL Neut % (Auto) (45.0-80.0) % Lymph % (Auto) (10.0-50.0) % [place] % (Auto) (2.0-14.0) % Eos % (Auto) (0.0-5.0) % Baso % (Auto) (0.0-2.0) % Neut # (Auto) (1.40-7.00) K/uL Lymph # (Auto) (0.50-3.50) K/uL [place]y # (Auto) (0.00-1.00) K/uL Eos # (Auto) (0.00-0.50) K/uL Baso # (Auto) (0.00-0.20) K/uL Sodium (136-145) mmol/L Potassium (3.5-5.1) mmol/L Chloride (98-107) mmol/L Carbon Dioxide (21.0-32.0) mmol/L BUN (7-18) mg/dL Creatinine (0.51-1.17) mg/dL Est Cr Clr Drug Dosing mL/min Estimated GFR (MDRD) mL/min Glucose (74-106) mg/dL Calcium (8.5-10.1) mg/dL Troponin I 0.050 (0.000-0.056) ng/mL Uel-[id number] Pept 8604 H (0-125) pg/mL Med Orders - Current: Current Medications Acetaminophen (Tylenol) 650 mg PO Q6H PRN PRN Reason: Pain Apixaban (Eliquis) 5 mg PO BID [facility] Last Admin: 11/06/16 07:56 Dose: 5 mg Aspirin (Aspirin) 81 mg PO DAILY [facility] Last Admin: 11/06/16 07:55 Dose: 81 mg Atorvastatin Calcium (Lipitor) 40 mg PO BEDTIME [facility] Last Admin: 11/05/16 19:30 Dose: 40 mg Calcium Carbonate (Oystcal-D 625 Mg-125 Units) 1 tab PO DAILY@1200 [facility] Last Admin: 11/06/16 11:52 Dose: 1 tab Clopidogrel Bisulfate (Plavix) 75 mg PO DAILY [facility] Last Admin: 11/06/16 07:56 Dose: 75 mg Docusate Sodium (Colace) 200 mg PO DAILY PRN PRN Reason: Constipation Ferrous Sulfate (Ferrous Sulfate) 325 mg PO DAILY [facility] Last Admin: 11/06/16 07:55 Dose: 325 mg Fluticasone Propionate (Flonase) 0 gm NASBOTH BID PRN PRN Reason: Allergies Furosemide (Lasix) 40 mg IVPUSH BID [facility] Last Admin: 11/06/16 07:56 Dose: 40 mg Glucosamine/Chondroitin (Glucosamine-Chondroitin 500-400 Capsule) 1 cap PO DAILY@1200 [facility] Last Admin: 11/06/16 11:52 Dose: 1 cap Losartan Potassium (Cozaar) 50 mg PO DAILY [facility] Last Admin: 11/06/16 07:56 Dose: 50 mg Metoprolol Succinate (Toprol Xl) 25 mg PO DAILY [facility] Last Admin: 11/06/16 07:55 Dose: 25 mg Nitroglycerin (Nitrostat) 0.4 mg SL Q5M PRN PRN Reason: Chest Pain Pantoprazole Sodium (Protonix) 40 mg PO ACBREAKFAST [facility] Last Admin: 11/06/16 07:56 Dose: 40 mg Potassium Chloride (Klor-Con 10) 10 meq PO DAILY [facility] Last Admin: 11/06/16 07:55 Dose: 10 meq Sertraline HCl (Zoloft) 50 mg PO QAM [facility] Last Admin: 11/06/16 07:56 Dose: 50 mg Simethicone (Simethicone) 160 mg PO TID PRN PRN Reason: Gas Sodium Chloride (Saline Flush) 10 ml FLUSH ASDIRECTED PRN PRN Reason: Keep Vein Open Last Admin: 11/06/16 07:56 Dose: 10 ml Discontinued Medications Aspirin (Aspirin) 324 mg PO ONETIME ONE Stop: 11/04/16 11:25 Last Admin: 11/04/16 11:29 Dose: 324 mg Furosemide (Lasix) 80 mg IVPUSH NOW ONE Stop: 11/04/16 10:47 Last Admin: 11/04/16 11:02 Dose: 80 mg Furosemide (Lasix) 80 mg IVPUSH NOW ONE Stop: 11/05/16 12:00 Last Admin: 11/05/16 12:55 Dose: 80 mg Nitroglycerin (Nitrostat) 0.4 mg SL Q5M PRN PRN Reason: Chest Pain Stop: 11/04/16 11:35 Last Admin: 11/04/16 11:31 Dose: 0.4 mg Non-Formulary Medication (Leuprolide [Leuprolide Depot 6-Month]) 45 mg INJECT ASDIRECTED [facility] Sertraline HCl (Zoloft) 50 mg PO QAM [facility] Last Admin: 11/05/16 08:28 Dose: 50 mg Sodium Chloride (Saline Flush) 10 ml FLUSH ASDIRECTED PRN PRN Reason: Keep Vein Open Last Admin: 11/04/16 11:02 Dose: 10 ml - Problem List & Annotations (1) CHF (congestive heart failure) SNOMED Code(s): 99343273 Code(s): I50.9 - HEART FAILURE, UNSPECIFIED Status: Acute Current Visit: Yes Qualifiers: Congestive heart failure type: unspecified congestive heart failure type Congestive heart failure chronicity: acute Qualified Code(s): I50.9 - Heart failure, unspecified (2) COPD exacerbation SNOMED Code(s): 284262809, 466316533 Code(s): J44.1 - CHRONIC OBSTRUCTIVE PULMONARY DISEASE W (ACUTE) EXACERBATION Status: Acute Priority: High Current Visit: No Annotation/ Comment:: 0%. (3) Pulmonary hypertension SNOMED Code(s): 20120258 Code(s): I27.2 - OTHER SECONDARY PULMONARY HYPERTENSION Status: Acute Current Visit: Yes Annotation/Comment:: X-ray appearance of pulmonary hypertension - Problem List Review Problem List Initiated/Reviewed/Updated: Yes - My Orders Last 24 Hours: My Active Orders 11/05/16 12:00 Calcium Carbonate/Vitamin D3 [OystCal-D 625 MG-125 Units] 1 tab PO DAILY@1200 Chondroitin/Glucosamine [Glucosamine-Chondroitin 500-400 Capsule] 1 cap PO DAILY@1200 11/06/16 08:00 Sertraline [Zoloft] 50 mg PO QAM 11/06/16 10:25 Chest 2V [CR] Routine - Plan Plan:: Will continue diuresing patient at this time. Will continue to monitor CHF status. Planned DC tomorrow.
[2016-11-06] MEDS: atorvaSTATin 40 MG Tab PO SCH (20:51)
[2016-11-07] MEDS: Apixaban 5 MG Tab PO SCH ×2 (08:35→17:23)
[2016-11-07] MEDS: Losartan 50 MG Tab PO SCH (08:35)
[2016-11-07] MEDS: Potassium Chloride 10 MEQ Tab.ER PO SCH (08:36)
[2016-11-07] MEDS: Ferrous Sulfate 325 MG Tab PO SCH (08:36)
[2016-11-07] MEDS: Sertraline 50 MG Tab PO SCH (08:36)
[2016-11-07] MEDS: Clopidogrel 75 MG Tab PO SCH (08:36)
[2016-11-07] MEDS: Metoprolol Succinate 25 MG Tab.ER PO SCH (08:37)
[2016-11-07] MEDS: Pantoprazole 40 MG Tab.CR PO SCH (08:38)
[2016-11-07] MEDS: Aspirin 81 MG Tab.Chew PO SCH (08:38)
[2016-11-07] MEDS: Furosemide 40 MG/4 ML VIAL IVPUSH SCH ×3 (08:39→17:23)
[2016-11-07] MEDS: Calcium Carbonate/Vitamin D3 625 MG-125 Unit Tab PO SCH (11:17)
[2016-11-07] MEDS: Chondroitin/Glucosamine Cap PO SCH (11:17)
[2016-11-07] MEDS: Sodium Chloride 0.9% 10 ML Syringe FLUSH PRN (17:23)
--- NOTE | 2016-11-07 17:48 | PCM.PN ---
- General Info Date of Service: 11/07/16 Functional Status: Reports: Other (sob) - Review of Systems General: Reports: Weakness HEENT: Reports: No Symptoms Pulmonary: Reports: Shortness of Breath Cardiovascular: Reports: No Symptoms, Dyspnea on Exertion Gastrointestinal: Reports: No Symptoms Genitourinary: Reports: No Symptoms Musculoskeletal: Reports: Leg Pain, Joint Pain Skin: Reports: No Symptoms Neurological: Reports: No Symptoms Psychiatric: Reports: Depression - Patient Data Vitals - most recent: Last Vital Signs Temp 97.6 F 11/07/16 16:00 Pulse 58 L 11/07/16 16:00 Resp 20 11/07/16 16:00 BP 146/60 H 11/07/16 16:00 Pulse Ox 94 L 11/07/16 16:00 Weight - most recent: 199 lb 4 oz I&O - last 24 hours: Intake & Output 11/07/16 11/07/16 11/07/16 06:59 14:59 22:59 Intake Total 480 960 Balance 480 960 Lab Results last 24 hrs: Laboratory Results - last 24 hr 11/07/16 Range/Units 09:48 WBC 6.3 (4.0-10.2) K/uL RBC 3.88 L (4.33-5.41) M/uL Hgb 9.9 L (13.1-16.8) g/dL Hct 33.7 L (39.0-49.0) % MCV 86.9 (84.0-98.0) fL MCH 25.5 L (28.2-33.3) pg MCHC 29.4 L (31.7-36.0) g/dL RDW 16.6 H (11.2-14.1) % Plt Count 240 (150-350) K/uL Neut % (Auto) 75.7 (45.0-80.0) % Lymph % (Auto) 10.8 (10.0-50.0) % [place] % (Auto) 10.4 (2.0-14.0) % Eos % (Auto) 2.1 (0.0-5.0) % Baso % (Auto) 1.0 (0.0-2.0) % Neut # (Auto) 4.75 (1.40-7.00) K/uL Lymph # (Auto) 0.68 (0.50-3.50) K/uL [place] # (Auto) 0.65 (0.00-1.00) K/uL Eos # (Auto) 0.13 (0.00-0.50) K/uL Baso # (Auto) 0.06 (0.00-0.20) K/uL Med Orders - Current: Current Medications Acetaminophen (Tylenol) 650 mg PO Q6H PRN PRN Reason: Pain Apixaban (Eliquis) 5 mg PO BID [facility] Last Admin: 11/07/16 17:23 Dose: 5 mg Atorvastatin Calcium (Lipitor) 40 mg PO BEDTIME [facility] Last Admin: 11/06/16 20:51 Dose: 40 mg Calcium Carbonate (Oystcal-D 625 Mg-125 Units) 1 tab PO DAILY@1200 [facility] Last Admin: 11/07/16 11:17 Dose: 1 tab Clopidogrel Bisulfate (Plavix) 75 mg PO DAILY [facility] Last Admin: 11/07/16 08:36 Dose: 75 mg Docusate Sodium (Colace) 200 mg PO DAILY PRN PRN Reason: Constipation Ferrous Sulfate (Ferrous Sulfate) 325 mg PO DAILY [facility] Last Admin: 11/07/16 08:36 Dose: 325 mg Fluticasone Propionate (Flonase) 0 gm NASBOTH BID PRN PRN Reason: Allergies Furosemide (Lasix) 40 mg IVPUSH BID [facility] Last Admin: 11/07/16 17:23 Dose: 40 mg Glucosamine/Chondroitin (Glucosamine-Chondroitin 500-400 Capsule) 1 cap PO DAILY@1200 [facility] Last Admin: 11/07/16 11:17 Dose: 1 cap Losartan Potassium (Cozaar) 50 mg PO DAILY [facility] Last Admin: 11/07/16 08:35 Dose: 50 mg Metoprolol Succinate (Toprol Xl) 25 mg PO DAILY [facility] Last Admin: 11/07/16 08:37 Dose: 25 mg Nitroglycerin (Nitrostat) 0.4 mg SL Q5M PRN PRN Reason: Chest Pain Pantoprazole Sodium (Protonix) 40 mg PO ACBREAKFAST [facility] Last Admin: 11/07/16 08:38 Dose: 40 mg Potassium Chloride (Klor-Con 10) 10 meq PO DAILY [facility] Last Admin: 11/07/16 08:36 Dose: 10 meq Sertraline HCl (Zoloft) 50 mg PO QAM [facility] Last Admin: 11/07/16 08:36 Dose: 50 mg Simethicone (Simethicone) 160 mg PO TID PRN PRN Reason: Gas Sodium Chloride (Saline Flush) 10 ml FLUSH ASDIRECTED PRN PRN Reason: Keep Vein Open Last Admin: 11/07/16 17:23 Dose: 10 ml Discontinued Medications Aspirin (Aspirin) 324 mg PO ONETIME ONE Stop: 11/04/16 11:25 Last Admin: 11/04/16 11:29 Dose: 324 mg Aspirin (Aspirin) 81 mg PO DAILY [facility] Last Admin: 11/07/16 08:38 Dose: 81 mg Furosemide (Lasix) 80 mg IVPUSH NOW ONE Stop: 11/04/16 10:47 Last Admin: 11/04/16 11:02 Dose: 80 mg Furosemide (Lasix) 80 mg IVPUSH NOW ONE Stop: 11/05/16 12:00 Last Admin: 11/05/16 12:55 Dose: 80 mg Nitroglycerin (Nitrostat) 0.4 mg SL Q5M PRN PRN Reason: Chest Pain Stop: 11/04/16 11:35 Last Admin: 11/04/16 11:31 Dose: 0.4 mg Non-Formulary Medication (Leuprolide [Leuprolide Depot 6-Month]) 45 mg INJECT ASDIRECTED [facility]) [facility] Admin: 11/05/16 08:28 Dose: 50 mg Sodium Chloride (Saline Flush) 10 ml FLUSH ASDIRECTED PRN PRN Reason: Keep Vein Open Last Admin: 11/04/16 11:02 Dose: 10 ml - Exam Quality Assessment: supplemental oxygen General: alert, oriented HEENT: Pupils equal, Pupils reactive, EOMI, Mucous membr. moist/pink Neck: supple Lungs: Clear to Auscultation, Normal Respiratory Effort Cardiovascular: Regular Rate, Regular Rhythm GI/Abdominal Exam: Normal Bowel Sounds - Problem List & Annotations (1) CHF (congestive heart failure) SNOMED Code(s): 32734260 Code(s): I50.9 - HEART FAILURE, UNSPECIFIED Status: Acute Current Visit: Yes Qualifiers: Congestive heart failure type: unspecified congestive heart failure type Congestive heart failure chronicity: acute Qualified Code(s): I50.9 - Heart failure, unspecified (2) COPD exacerbation SNOMED Code(s): 462906498, 810921836 Code(s): J44.1 - CHRONIC OBSTRUCTIVE PULMONARY DISEASE W (ACUTE) EXACERBATION Status: Acute Priority: High Current Visit: No Annotation/ Comment:: 0%. (3) Pulmonary hypertension SNOMED Code(s): 81514711 Code(s): I27.2 - OTHER SECONDARY PULMONARY HYPERTENSION Status: Acute Current Visit: Yes Annotation/Comment:: X-ray appearance of pulmonary hypertension - Problem List Review Problem List Initiated/Reviewed/Updated: No - My Orders Last 24 Hours: My Active Orders 11/07/16 14:02 Consult to Physical Therapy [PT Evaluation and Treatment] [CONS] Routine OT Evaluation and Treatment [CONS] Routine 11/07/16 17:45 CBC WITH AUTO DIFF [HEME] AM 11/08/16 05:11 COMPREHENSIVE METABOLIC PN,CMP [CHEM] Routine PRO B-TYPE NATRIUR PEPT,BNPPRO [CHEM] Stat 11/08/16 05:15 BASIC METABOLIC PANEL,BMP [CHEM] AM 11/08/16 17:41 Chest 2V [CR] Routine 11/08/16 17:42 PRO B-TYPE NATRIUR PEPT,BNPPRO [CHEM] Routine - Plan Plan:: Will continue diuresing patient at this time. Will continue to monitor CHF status. Planned DC tomorrow.
[2016-11-07] MEDS: atorvaSTATin 40 MG Tab PO SCH (19:57)
[2016-11-07] MEDS ORDERED: Temazepam 15 MG Cap PO PRN (22:59)
[2016-11-08 06:16] VITALS: BP 140/52
[2016-11-08 07:34] LABS: CHLORIDE,CL 106 mmol/L (98-107); SODIUM,NA 146 mmol/L (136-145)
[2016-11-08] MEDS: Losartan 50 MG Tab PO SCH (07:48)
[2016-11-08] MEDS: Metoprolol Succinate 25 MG Tab.ER PO SCH (07:48)
[2016-11-08] MEDS: Potassium Chloride 10 MEQ Tab.ER PO SCH (07:49)
[2016-11-08] MEDS: Sertraline 50 MG Tab PO SCH (07:49)
[2016-11-08] MEDS: Ferrous Sulfate 325 MG Tab PO SCH (07:50)
[2016-11-08] MEDS: Pantoprazole 40 MG Tab.CR PO SCH (07:50)
[2016-11-08] MEDS: Apixaban 5 MG Tab PO SCH (07:50)
[2016-11-08] MEDS: Clopidogrel 75 MG Tab PO SCH (07:50)
[2016-11-08] MEDS: Furosemide 40 MG/4 ML VIAL IVPUSH SCH (07:51)
[2016-11-08] MEDS: Sodium Chloride 0.9% 10 ML Syringe FLUSH PRN (07:51)
--- NOTE | 2016-11-08 10:16 | PCM.DCSUM1 ---
Discharge Summary - Hospital Course Free Text/Narrative:: Patient is a 86-year-old gentleman who was admitted secondary to congestive heart failure during this period of time patient was diuresed and it was noted the patient was sundowning at night also home health states the patient is unable to take medications at night and there is concern for his safety at home therefore we decided and patient also decided to be admitted to swing bed with transfer to the [facility] when space available - Discharge Data Discharge Date: 11/08/16 Discharge Disposition: DC/Tfer W/I Hosp To Swing 61 Condition: Good - Discharge Diagnosis/Problem(s) (1) CHF (congestive heart failure) SNOMED Code(s): 28471805 ICD Code: I50.9 - HEART FAILURE, UNSPECIFIED Status: Acute Current Visit : Yes Qualifiers: Congestive heart failure type: unspecified congestive heart failure type Congestive heart failure chronicity: acute Qualified Code(s): I50.9 - Heart failure, unspecified (2) COPD exacerbation SNOMED Code(s): 736598693, 741016220 ICD Code: J44.1 - CHRONIC OBSTRUCTIVE PULMONARY DISEASE W (ACUTE) EXACERBATION Status: Acute Priority: High Current Visit: No Problem Details: 0%. (3) Pulmonary hypertension SNOMED Code(s): 04718478 ICD Code: I27.2 - OTHER SECONDARY PULMONARY HYPERTENSION Status: Acute Current Visit: Yes Problem Details: X-ray appearance of pulmonary hypertension - Patient Summary/Data Consults: Consultations 11/07/16 14:02 Consult to Physical Therapy [PT Evaluation and Treatment] [CONS] Routine OT Evaluation and Treatment [CONS] Routine - Discharge Plan Home Medications: Home Meds Gluc HCl/Csa/Brayan Hy/Hyalur Ac [Glucosamine Chondroitin] 1 cap PO DAILY@1200 [History] Leuprolide [Leuprolide Depot 6-Month] 45 mg INJECT ASDIRECTED 01/08/14 [History] Sertraline [Zoloft] 50 mg PO QAM 01/08/14 [History] Acetaminophen 650 mg PO Q6H PRN 08/01/16 [History] Calcium Carbonate/Vitamin D3 [Calcium 250+D] 1 each PO DAILY@1200 08/01/16 [ History] Simethicone [Gas Relief] 160 mg PO TID PRN 08/01/16 [History] Ferrous Gluconate 324 mg PO DAILY 08/19/16 [History] Metoprolol Succinate 25 mg PO DAILY 08/19/16 [History] Apixaban [Eliquis] 5 mg PO BID 09/11/16 [History] Bumetanide 1 mg PO DAILY@1800 09/11/16 [History] Bumetanide 2 mg PO QAM 09/11/16 [History] Clopidogrel [Plavix] 75 mg PO DAILY 09/11/16 [History] Nitroglycerin [Nitrostat] 0.4 mg SL Q5M PRN 09/11/16 [History] atorvaSTATin [Lipitor] 40 mg PO BEDTIME 09/11/16 [History] Docusate Sodium 2 tab PO DAILY PRN 11/04/16 [History] Fluticasone Propionate [Flonase] 1 spray NASBOTH BID PRN 11/04/16 [History] Losartan [Cozaar] 50 mg PO DAILY 11/04/16 [History] Potassium Chloride 10 meq PO DAILY 11/04/16 [History] Patient Handouts: Heart Failure, [id number] Forms: ED Department Discharge Referrals: PCP,Not In Area [Primary Care Provider] - - General Info Date of Service: 11/08/16 - Review of Systems General: Reports: Weakness, Fatigue HEENT: Reports: No Symptoms Pulmonary: Reports: Shortness of Breath Cardiovascular: Reports: No Symptoms Gastrointestinal: Reports: No Symptoms Genitourinary: Reports: No Symptoms Musculoskeletal: Reports: No Symptoms Skin: Reports: No Symptoms Neurological: Reports: Confusion (at night ) Psychiatric: Reports: No Symptoms - Patient Data Vitals - Most Recent: Last Vital Signs Temp 98.2 F 11/08/16 06:16 Pulse 58 L 11/08/16 07:48 Resp 20 11/08/16 06:16 BP 140/52 L 11/08/16 07:48 Pulse Ox 99 11/08/16 06:16 Weight - Most Recent: 200 lb 4.8 oz I&O - Last 24 hours: Intake & Output 11/07/16 11/08/16 11/08/16 22:59 06:59 14:59 Intake Total 380 440 360 Balance 380 440 360 Lab Results - Last 24 hrs: Laboratory Results - last 24 hr 11/08/16 11/08/16 Range/Units 06:10 06:10 WBC 6.8 (4.0-10.2) K/uL RBC 3.96 L (4.33-5.41) M/uL Hgb 9.9 L (13.1-16.8) g/dL Hct 34.0 L (39.0-49.0) % MCV 85.9 (84.0-98.0) fL MCH 25.0 L (28.2-33.3) pg MCHC 29.1 L (31.7-36.0) g/dL RDW 17.0 H (11.2-14.1) % Plt Count 266 (150-350) K/uL Neut % (Auto) 70.1 (45.0-80.0) % Lymph % (Auto) 15.4 (10.0-50.0) % Swift % (Auto) 10.7 (2.0-14.0) % Eos % (Auto) 2.9 (0.0-5.0) % Baso % (Auto) 0.9 (0.0-2.0) % Neut # (Auto) 4.80 (1.40-7.00) K/uL Lymph # (Auto) 1.05 (0.50-3.50) K/uL Swift # (Auto) 0.73 (0.00-1.00) K/uL Eos # (Auto) 0.20 (0.00-0.50) K/uL Baso # (Auto) 0.06 (0.00-0.20) K/uL Sodium 146 H (136-145) mmol/L Potassium 4.0 (3.5-5.1) mmol/L Chloride 106 (98-107) mmol/L Carbon Dioxide 34.3 H (21.0-32.0) mmol/L BUN 36 H (7-18) mg/dL Creatinine 1.04 (0.51-1.17) mg/dL Est Cr Clr Drug Dosing 49.09 mL/min Estimated GFR (MDRD) > 60 mL/min Glucose 103 (74-106) mg/dL Calcium 7.8 L (8.5-10.1) mg/dL Total Bilirubin 0.5 (0.2-1.0) mg/dL AST 68 H (15-37) U/L ALT 121 H (12-78) U/L Alkaline Phosphatase 95 (46-116) IU/L [id number] Pept 09852 H (0-125) pg/mL Total Protein 5.9 L (6.4-8.2) g/dL Albumin 2.9 L (3.4-5.0) g/dL Med Orders - Current: Current Medications Acetaminophen (Tylenol) 650 mg PO Q6H PRN PRN Reason: Pain Apixaban (Eliquis) 5 mg PO BID [facility] Last Admin: 11/08/16 07:50 Dose: 5 mg Atorvastatin Calcium (Lipitor) 40 mg PO BEDTIME [facility] Last Admin: 11/07/16 19:57 Dose: 40 mg Calcium Carbonate (Oystcal-D 625 Mg-125 Units) 1 tab PO DAILY@1200 [facility] Last Admin: 11/07/16 11:17 Dose: 1 tab Clopidogrel Bisulfate (Plavix) 75 mg PO DAILY [facility] Last Admin: 11/08/16 07:50 Dose: 75 mg Docusate Sodium (Colace) 200 mg PO DAILY PRN PRN Reason: Constipation Ferrous Sulfate (Ferrous Sulfate) 325 mg PO DAILY [facility] Last Admin: 11/08/16 07:50 Dose: 325 mg Fluticasone Propionate (Flonase) 0 gm NASBOTH BID PRN PRN Reason: Allergies Furosemide (Lasix) 40 mg IVPUSH BID [facility] Last Admin: 11/08/16 07:51 Dose: 40 mg Glucosamine/Chondroitin (Glucosamine-Chondroitin 500-400 Capsule) 1 cap PO DAILY@1200 [facility] Last Admin: 11/07/16 11:17 Dose: 1 cap Losartan Potassium (Cozaar) 50 mg PO DAILY [facility] Last Admin: 11/08/16 07:48 Dose: 50 mg Metoprolol Succinate (Toprol Xl) 25 mg PO DAILY [facility] Last Admin: 11/08/16 07:48 Dose: 25 mg Nitroglycerin (Nitrostat) 0.4 mg SL Q5M PRN PRN Reason: Chest Pain Pantoprazole Sodium (Protonix) 40 mg PO ACBREAKFAST [facility] Last Admin: 11/08/16 07:50 Dose: 40 mg Potassium Chloride (Klor-Con 10) 10 meq PO DAILY [facility] Last Admin: 11/08/16 07:49 Dose: 10 meq Sertraline HCl (Zoloft) 50 mg PO QAM [facility] Last Admin: 11/08/16 07:49 Dose: 50 mg Simethicone (Simethicone) 160 mg PO TID PRN PRN Reason: Gas Sodium Chloride (Saline Flush) 10 ml FLUSH ASDIRECTED PRN PRN Reason: Keep Vein Open Last Admin: 11/08/16 07:51 Dose: 10 ml Temazepam (Restoril) 15 mg PO BEDTIME PRN PRN Reason: Insomnia Last Admin: 11/07/16 23:12 Dose: 15 mg Discontinued Medications Aspirin (Aspirin) 324 mg PO ONETIME ONE Stop: 11/04/16 11:25 Last Admin: 11/04/16 11:29 Dose: 324 mg Aspirin (Aspirin) 81 mg PO DAILY [facility] Last Admin: 11/07/16 08:38 Dose: 81 mg Furosemide (Lasix) 80 mg IVPUSH NOW ONE Stop: 11/04/16 10:47 Last Admin: 11/04/16 11:02 Dose: 80 mg Furosemide (Lasix) 80 mg IVPUSH NOW ONE Stop: 11/05/16 12:00 Last Admin: 11/05/16 12:55 Dose: 80 mg Nitroglycerin (Nitrostat) 0.4 mg SL Q5M PRN PRN Reason: Chest Pain Stop: 11/04/16 11:35 Last Admin: 11/04/16 11:31 Dose: 0.4 mg Non-Formulary Medication (Leuprolide [Leuprolide Depot 6-Month]) 45 mg INJECT ASDIRECTED [facility] Sertraline HCl (Zoloft) 50 mg PO QAM [facility] Last Admin: 11/05/16 08:28 Dose: 50 mg Sodium Chloride (Saline Flush) 10 ml FLUSH ASDIRECTED PRN PRN Reason: Keep Vein Open Last Admin: 11/04/16 11:02 Dose: 10 ml - Exam Quality Assessment: Reports: supplemental oxygen General: Reports: alert (with occasional sundowners at night ), oriented HEENT: Reports: Pupils equal, Pupils reactive, EOMI, Mucous membr. moist/pink Neck: Reports: supple Lungs: Reports: Rales (in bilateral bases but improving ) Cardiovascular: Reports: Regular Rate, Regular Rhythm GI/Abdominal Exam: Normal Bowel Sounds, Soft, Non-Tender, No Organomegaly, No Distention, No Abnormal Bruit, No Mass, Pelvis Stable (Male) Exam: Deferred Rectal (Males) Exam: Deferred Back Exam: Reports: Normal Inspection, Full Range of Motion Extremities: Pedal Edema (+2) Skin: Reports: warm, dry, intact Neurological: Reports: no new focal deficit Psy/Mental Status: Reports: alert, normal affect, normal mood *Q Meaningful Use (DIS) - VTE *Q VTE Criteria *Q: - Stroke *Q Stroke Criteria *Q: - AMI *Q AMI Criteria *Q:
== END 2016-11-08 10:27 | disposition swing bed (61) | DRG 292 ==
LOC: LL.ED 09:33 → LL.MS 12:14
PROVIDERS: ADMIT Family Medicine; ATTEND Family Medicine
DX: I13.0 Hypertensive heart and chronic kidney disease with heart failure and stage 1 through stage 4 chronic kidney disease, or unspecified chronic kidney disease (principal); F05 Delirium due to known physiological condition; R07.9 Chest pain, unspecified; R60.0 Localized edema; J44.1 Chronic obstructive pulmonary disease with (acute) exacerbation; I50.40 Unspecified combined systolic (congestive) and diastolic (congestive) heart failure; I27.2 Other secondary pulmonary hypertension; E78.00 Pure hypercholesterolemia, unspecified; I42.9 Cardiomyopathy, unspecified; R06.02 Shortness of breath; I20.8 Other forms of angina pectoris; Z79.899 Other long term (current) drug therapy; J44.9 Chronic obstructive pulmonary disease, unspecified; K57.30 Diverticulosis of large intestine without perforation or abscess without bleeding; I48.91 Unspecified atrial fibrillation; N40.0 Benign prostatic hyperplasia without lower urinary tract symptoms; D64.9 Anemia, unspecified; Z87.891 Personal history of nicotine dependence; Z85.46 Personal history of malignant neoplasm of prostate; I25.10 Atherosclerotic heart disease of native coronary artery without angina pectoris; Z85.038 Personal history of other malignant neoplasm of large intestine; Z79.01 Long term (current) use of anticoagulants; Z88.8 Allergy status to other drugs, medicaments and biological substances; Z93.3 Colostomy status; I25.2 Old myocardial infarction; E78.5 Hyperlipidemia, unspecified; K59.09 Other constipation
CPT/HCPCS: 36415; 71020; 80048; 83880; 84484; 85025; 85379; 93005; 94761; 96374; 99285; A9270 ×2; J1940; J7050; 71010; 80053; 80061; 85610; 85730; 97116-GP; 97161-GP; 97530-GP

== ENCOUNTER 2016-11-08 09:31 | Inpatient (IN) | payer MEDICARE, MEDICAID ==
[2016-11-08] MEDS ORDERED: Docusate Sodium 100 MG Cap PO PRN (10:17)
[2016-11-08] MEDS ORDERED: Fluticasone Propionate Nasal Spray 16 GM Bottle NASBOTH PRN (10:17)
--- NOTE | 2016-11-08 10:21 | PCM.SN ---
- Free Text/Narrative Note: Please use DC summary from acute on 11-08-16 as SWB H&P
[2016-11-08] MEDS: Calcium Carbonate/Vitamin D3 625 MG-125 Unit Tab PO SCH (12:38)
[2016-11-08] MEDS: Chondroitin/Glucosamine Cap PO SCH (12:38)
[2016-11-08] MEDS: Furosemide 40 MG/4 ML VIAL IVPUSH SCH (18:03)
[2016-11-08] MEDS: Sodium Chloride 0.9% 10 ML Syringe FLUSH PRN (18:03)
[2016-11-08] MEDS: Apixaban 5 MG Tab PO SCH (18:03)
[2016-11-08] MEDS: atorvaSTATin 40 MG Tab PO SCH (20:12)
[2016-11-08] MEDS: Temazepam 15 MG Cap PO PRN (23:10)
[2016-11-09] MEDS: Pantoprazole 40 MG Tab.CR PO SCH (07:28)
[2016-11-09] MEDS: Ferrous Sulfate 325 MG Tab PO SCH (07:40)
[2016-11-09] MEDS: Sertraline 50 MG Tab PO SCH (07:40)
[2016-11-09] MEDS: Potassium Chloride 10 MEQ Tab.ER PO SCH (07:41)
[2016-11-09] MEDS: Metoprolol Succinate 25 MG Tab.ER PO SCH (07:41)
[2016-11-09] MEDS: Apixaban 5 MG Tab PO SCH ×2 (07:42→18:03)
[2016-11-09] MEDS: Losartan 50 MG Tab PO SCH (07:42)
[2016-11-09] MEDS: Clopidogrel 75 MG Tab PO SCH (07:42)
[2016-11-09] MEDS: Furosemide 40 MG/4 ML VIAL IVPUSH SCH ×2 (07:43→18:03)
[2016-11-09 08:07] LABS: CHLORIDE,CL 107 mmol/L (98-107); SODIUM,NA 144 mmol/L (136-145)
[2016-11-09] MEDS: Calcium Carbonate/Vitamin D3 625 MG-125 Unit Tab PO SCH (12:03)
[2016-11-09] MEDS: Chondroitin/Glucosamine Cap PO SCH (12:03)
[2016-11-09] MEDS: Sodium Chloride 0.9% 10 ML Syringe FLUSH PRN (18:04)
[2016-11-09] MEDS: atorvaSTATin 40 MG Tab PO SCH (20:10)
[2016-11-09] MEDS: Acetaminophen 325 MG Tab PO PRN (21:58)
[2016-11-09] MEDS: Temazepam 15 MG Cap PO PRN (21:58)
[2016-11-10] MEDS: Losartan 50 MG Tab PO SCH (07:49)
[2016-11-10] MEDS: Apixaban 5 MG Tab PO SCH ×2 (07:49→19:01)
[2016-11-10] MEDS: Sertraline 50 MG Tab PO SCH (07:50)
[2016-11-10] MEDS: Ferrous Sulfate 325 MG Tab PO SCH (07:50)
[2016-11-10] MEDS: Potassium Chloride 10 MEQ Tab.ER PO SCH (07:50)
[2016-11-10] MEDS: Metoprolol Succinate 25 MG Tab.ER PO SCH (07:51)
[2016-11-10] MEDS: Clopidogrel 75 MG Tab PO SCH (07:51)
[2016-11-10] MEDS: Pantoprazole 40 MG Tab.CR PO SCH (07:52)
[2016-11-10] MEDS: Furosemide 40 MG/4 ML VIAL IVPUSH SCH ×2 (07:52→19:08)
[2016-11-10] MEDS: Chondroitin/Glucosamine Cap PO SCH (12:25)
[2016-11-10] MEDS: Calcium Carbonate/Vitamin D3 625 MG-125 Unit Tab PO SCH (12:25)
[2016-11-10] MEDS: atorvaSTATin 40 MG Tab PO SCH (19:15)
[2016-11-11] MEDS: Sertraline 50 MG Tab PO SCH (07:24)
[2016-11-11] MEDS: Potassium Chloride 10 MEQ Tab.ER PO SCH (07:24)
[2016-11-11] MEDS: Metoprolol Succinate 25 MG Tab.ER PO SCH (07:25)
[2016-11-11] MEDS: Pantoprazole 40 MG Tab.CR PO SCH (07:26)
[2016-11-11] MEDS: Apixaban 5 MG Tab PO SCH ×2 (07:27→17:40)
[2016-11-11] MEDS: Ferrous Sulfate 325 MG Tab PO SCH (07:27)
[2016-11-11] MEDS: Clopidogrel 75 MG Tab PO SCH (07:27)
[2016-11-11] MEDS: Losartan 50 MG Tab PO SCH (07:28)
[2016-11-11] MEDS: Furosemide 40 MG/4 ML VIAL IVPUSH SCH ×2 (07:29→17:40)
[2016-11-11] MEDS: Sodium Chloride 0.9% 10 ML Syringe FLUSH PRN ×3 (07:32→17:42)
[2016-11-11] MEDS: Calcium Carbonate/Vitamin D3 625 MG-125 Unit Tab PO SCH (11:20)
[2016-11-11] MEDS: Chondroitin/Glucosamine Cap PO SCH (11:21)
[2016-11-11] MEDS: atorvaSTATin 40 MG Tab PO SCH (20:20)
[2016-11-11] MEDS: Temazepam 15 MG Cap PO PRN (23:25)
[2016-11-12] MEDS: Metoprolol Succinate 25 MG Tab.ER PO SCH (07:21)
[2016-11-12] MEDS: Pantoprazole 40 MG Tab.CR PO SCH (07:21)
[2016-11-12] MEDS: Sodium Chloride 0.9% 10 ML Syringe FLUSH PRN ×2 (07:21→17:17)
[2016-11-12] MEDS: Furosemide 40 MG/4 ML VIAL IVPUSH SCH ×2 (07:21→17:17)
[2016-11-12] MEDS: Apixaban 5 MG Tab PO SCH ×2 (07:22→17:17)
[2016-11-12] MEDS: Losartan 50 MG Tab PO SCH (07:22)
[2016-11-12] MEDS: Potassium Chloride 10 MEQ Tab.ER PO SCH (07:22)
[2016-11-12] MEDS: Ferrous Sulfate 325 MG Tab PO SCH (07:22)
[2016-11-12] MEDS: Clopidogrel 75 MG Tab PO SCH (07:22)
[2016-11-12] MEDS: Sertraline 50 MG Tab PO SCH (07:22)
[2016-11-12] MEDS: Calcium Carbonate/Vitamin D3 625 MG-125 Unit Tab PO SCH (11:50)
[2016-11-12] MEDS: Chondroitin/Glucosamine Cap PO SCH (11:50)
[2016-11-12] MEDS: atorvaSTATin 40 MG Tab PO SCH (20:14)
[2016-11-13] MEDS: Losartan 50 MG Tab PO SCH (08:04)
[2016-11-13] MEDS: Potassium Chloride 10 MEQ Tab.ER PO SCH (08:05)
[2016-11-13] MEDS: Sertraline 50 MG Tab PO SCH (08:06)
[2016-11-13] MEDS: Apixaban 5 MG Tab PO SCH ×2 (08:06→17:03)
[2016-11-13] MEDS: Ferrous Sulfate 325 MG Tab PO SCH (08:07)
[2016-11-13] MEDS: Metoprolol Succinate 25 MG Tab.ER PO SCH (08:07)
[2016-11-13] MEDS: Pantoprazole 40 MG Tab.CR PO SCH (08:08)
[2016-11-13] MEDS: Clopidogrel 75 MG Tab PO SCH (08:09)
[2016-11-13] MEDS: Furosemide 40 MG/4 ML VIAL IVPUSH SCH ×2 (08:10→17:07)
[2016-11-13] MEDS: Sodium Chloride 0.9% 10 ML Syringe FLUSH PRN ×2 (08:12→17:10)
[2016-11-13] MEDS: Calcium Carbonate/Vitamin D3 625 MG-125 Unit Tab PO SCH (11:19)
[2016-11-13] MEDS: Chondroitin/Glucosamine Cap PO SCH (11:19)
[2016-11-13] MEDS ORDERED: Metoprolol Succinate 25 MG Tab.ER PO ONE (16:52)
[2016-11-13] MEDS: atorvaSTATin 40 MG Tab PO SCH (19:23)
[2016-11-14] MEDS: Pantoprazole 40 MG Tab.CR PO SCH (07:40)
[2016-11-14] MEDS: Apixaban 5 MG Tab PO SCH ×2 (07:41→17:24)
[2016-11-14] MEDS: Losartan 50 MG Tab PO SCH (07:41)
[2016-11-14] MEDS: Ferrous Sulfate 325 MG Tab PO SCH (07:41)
[2016-11-14] MEDS: Potassium Chloride 10 MEQ Tab.ER PO SCH (07:42)
[2016-11-14] MEDS: Clopidogrel 75 MG Tab PO SCH (07:43)
[2016-11-14] MEDS: Metoprolol Succinate 25 MG Tab.ER PO SCH (07:44)
[2016-11-14] MEDS: Furosemide 40 MG/4 ML VIAL IVPUSH SCH ×2 (07:45→17:24)
[2016-11-14] MEDS: Sertraline 50 MG Tab PO SCH (07:45)
[2016-11-14] MEDS: Sodium Chloride 0.9% 10 ML Syringe FLUSH PRN ×2 (07:46→17:27)
[2016-11-14 09:56] LABS: CHLORIDE,CL 103 mmol/L (98-107); SODIUM,NA 144 mmol/L (136-145)
[2016-11-14] MEDS ORDERED: Metolazone 2.5 MG Tab PO ONE (10:41)
--- NOTE | 2016-11-14 10:52 | PCM.PN ---
- General Info Date of Service: 11/14/16 Admission Dx/Problem (Free Text): Increased heart rate with mild difficulty breathing. Heart rate was up slightly yesterday afternoon at which time we'll implement an additional dose of Toprol-XL with minimal improvement. This morning heart rate continued slightly over 100 at which time laboratory analysis was obtained showing increase in his BNP with stable creatinine and mildly elevated be when. Was seen for assessment after laboratory analysis concluded Functional Status: Reports: Pain Controlled - Review of Systems General: Reports: No Symptoms HEENT: Reports: No Symptoms Pulmonary: Reports: Shortness of Breath Cardiovascular: Reports: Other (Tachycardia) Gastrointestinal: Reports: No Symptoms Genitourinary: Reports: No Symptoms Musculoskeletal: Reports: No Symptoms Skin: Reports: No Symptoms Neurological: Reports: Confusion, Other (Forgetfulness) Psychiatric: Reports: Other (Radicular: This) - Patient Data Vitals - Most Recent: Last Vital Signs Temp 36.5 C 11/14/16 07:54 Pulse 118 H 11/14/16 07:54 Resp 20 11/14/16 07:54 BP 116/64 11/14/16 07:54 Pulse Ox 96 11/14/16 07:54 Weight - Most Recent: 89.267 kg I&O - Last 24 Hours: Intake & Output 11/13/16 11/14/16 11/14/16 22:59 06:59 14:59 Intake Total 150 300 Output Total 400 400 Balance -250 -100 Lab Results Last 24 Hours: Laboratory Results - last 24 hr 11/14/16 11/14/16 Range/Units 09:20 09:20 WBC 6.7 (4.0-10.2) K/uL RBC 3.82 L (4.33-5.41) M/uL Hgb 9.6 L (13.1-16.8) g/dL Hct 32.8 L (39.0-49.0) % MCV 85.9 (84.0-98.0) fL MCH 25.1 L (28.2-33.3) pg MCHC 29.3 L (31.7-36.0) g/dL RDW 17.1 H (11.2-14.1) % Plt Count 222 (150-350) K/uL Neut % (Auto) 71.0 (45.0-80.0) % Lymph % (Auto) 12.3 (10.0-50.0) % Harmon % (Auto) 12.9 (2.0-14.0) % Eos % (Auto) 2.7 (0.0-5.0) % Baso % (Auto) 1.1 (0.0-2.0) % Neut # (Auto) 4.72 (1.40-7.00) K/uL Lymph # (Auto) 0.82 (0.50-3.50) K/uL Harmon # (Auto) 0.86 (0.00-1.00) K/uL Eos # (Auto) 0.18 (0.00-0.50) K/uL Baso # (Auto) 0.07 (0.00-0.20) K/uL Sodium 144 (136-145) mmol/L Potassium 3.7 (3.5-5.1) mmol/L Chloride 103 (98-107) mmol/L Carbon Dioxide 36.1 H (21.0-32.0) mmol/L BUN 23 H (7-18) mg/dL Creatinine 1.09 (0.51-1.17) mg/dL Est Cr Clr Drug Dosing 46.21 mL/min Estimated GFR (MDRD) > 60 mL/min Glucose 121 H (74-106) mg/dL Calcium 8.3 L (8.5-10.1) mg/dL [id number] Pept 48868 H (0-125) pg/mL Med Orders - Current: Current Medications Acetaminophen (Tylenol) 650 mg PO Q6H PRN PRN Reason: Pain Last Admin: 11/09/16 21:58 Dose: 650 mg Apixaban (Eliquis) 5 mg PO BID [facility] Last Admin: 11/14/16 07:41 Dose: 5 mg Atorvastatin Calcium (Lipitor) 40 mg PO BEDTIME [facility] Last Admin: 11/13/16 19:23 Dose: 40 mg Calcium Carbonate (Oystcal-D 625 Mg-125 Units) 1 tab PO DAILY@1200 [facility] Last Admin: 11/13/16 11:19 Dose: 1 tab Clopidogrel Bisulfate (Plavix) 75 mg PO DAILY [facility] Last Admin: 11/14/16 07:43 Dose: 75 mg Docusate Sodium (Colace) 200 mg PO DAILY PRN PRN Reason: Constipation Ferrous Sulfate (Ferrous Sulfate) 325 mg PO DAILY [facility] Last Admin: 11/14/16 07:41 Dose: 325 mg Fluticasone Propionate (Flonase) 0 gm NASBOTH BID PRN PRN Reason: Allergies Furosemide (Lasix) 40 mg IVPUSH BID [facility] Last Admin: 11/14/16 07:45 Dose: 40 mg Furosemide (Lasix) 80 mg IVPUSH NOW ONE Stop: 11/15/16 08:01 Glucosamine/Chondroitin (Glucosamine-Chondroitin 500-400 Capsule) 1 cap PO DAILY@1200 [facility] Last Admin: 11/13/16 11:19 Dose: 1 cap Losartan Potassium (Cozaar) 50 mg PO DAILY [facility] Last Admin: 11/14/16 07:41 Dose: 50 mg Metolazone (Zaroxolyn) 2.5 mg PO ONETIME ONE Stop: 11/14/16 10:42 Metolazone (Zaroxolyn) 2.5 mg PO ONETIME ONE Stop: 11/15/16 07:01 Metoprolol Succinate (Toprol Xl) 25 mg PO DAILY [facility] Last Admin: 11/14/16 07:44 Dose: 25 mg Nitroglycerin (Nitrostat) 0.4 mg SL Q5M PRN PRN Reason: Chest Pain Pantoprazole Sodium (Protonix) 40 mg PO ACBREAKFAST [facility] Last Admin: 11/14/16 07:40 Dose: 40 mg Potassium Chloride (Klor-Con 10) 10 meq PO DAILY [facility] Last Admin: 11/14/16 07:42 Dose: 10 meq Sertraline HCl (Zoloft) 50 mg PO QAM [facility] Last Admin: 11/14/16 07:45 Dose: 50 mg Simethicone (Simethicone) 160 mg PO TID PRN PRN Reason: Gas Sodium Chloride (Saline Flush) 10 ml FLUSH ASDIRECTED PRN PRN Reason: Keep Vein Open Last Admin: 11/14/16 07:46 Dose: 10 ml Temazepam (Restoril) 15 mg PO BEDTIME PRN PRN Reason: Insomnia Last Admin: 11/11/16 23:25 Dose: 15 mg Discontinued Medications Metoprolol Succinate (Toprol Xl) 25 mg PO ONETIME ONE Stop: 11/13/16 16:53 Last Admin: 11/13/16 17:03 Dose: 25 mg - Exam General: Alert, Oriented HEENT: Pupils Equal, Pupils Reactive Neck: Supple Lungs: Rales, Rhonchi Cardiovascular: Regular Rate, Tachycardia GI/Abdominal Exam: Normal Bowel Sounds (Male) Exam: Deferred Extremities: Pedal Edema Skin: Warm, Dry Neurological: No New Focal Deficit Psy/Mental Status: Other (Dementia type confusion/forgetfulness) - Problem List & Annotations (1) CHF (congestive heart failure) SNOMED Code(s): 07895784 Code(s): I50.9 - HEART FAILURE, UNSPECIFIED Status: Acute Priority: High Current Visit: Yes Onset Date: ~08/01/16 Qualifiers: Congestive heart failure type: unspecified congestive heart failure type Congestive heart failure chronicity: acute on chronic Qualified Code(s): I50.9 - Heart failure, unspecified Annotation/Comment:: Significant elevation in BNP again after acute phase of treatment and hospitalization prior to swing bed comparison. Speaks of intermittent breathing issues and increased edema at times to the lower extremities which he does not keep elevated as advised. Discussed with pharmacy aspects of Zaroxolyn in conjunction with an increased dose of Lasix in the a.m. Other consideration if not showing improvement with this change in therapy would be to return to Bumex versus frozen wide. Will be reevaluated. - Problem List Review Problem List Initiated/Reviewed/Updated: Yes - My Orders Last 24 Hours: My Active Orders 11/14/16 10:41 Metolazone [Zaroxolyn] 2.5 mg PO ONETIME ONE 11/15/16 07:00 Metolazone [Zaroxolyn] 2.5 mg PO ONETIME ONE 11/15/16 08:00 Furosemide [Lasix] 80 mg IVPUSH NOW ONE
[2016-11-14] MEDS: Chondroitin/Glucosamine Cap PO SCH (11:10)
[2016-11-14] MEDS: Calcium Carbonate/Vitamin D3 625 MG-125 Unit Tab PO SCH (11:10)
[2016-11-14] MEDS: atorvaSTATin 40 MG Tab PO SCH (20:16)
[2016-11-15] MEDS ORDERED: Metolazone 2.5 MG Tab PO ONE (07:00)
[2016-11-15] MEDS: Pantoprazole 40 MG Tab.CR PO SCH (07:45)
[2016-11-15] MEDS: Losartan 50 MG Tab PO SCH (07:46)
[2016-11-15] MEDS: Apixaban 5 MG Tab PO SCH ×2 (07:48→17:21)
[2016-11-15] MEDS: Potassium Chloride 10 MEQ Tab.ER PO SCH (07:49)
[2016-11-15] MEDS: Clopidogrel 75 MG Tab PO SCH (07:49)
[2016-11-15] MEDS: Ferrous Sulfate 325 MG Tab PO SCH (07:49)
[2016-11-15] MEDS: Metoprolol Succinate 25 MG Tab.ER PO SCH (07:50)
[2016-11-15] MEDS: Sertraline 50 MG Tab PO SCH (07:51)
[2016-11-15] MEDS ORDERED: Furosemide 40 MG/4 ML VIAL IVPUSH ONE (08:00)
[2016-11-15] MEDS: Chondroitin/Glucosamine Cap PO SCH (11:54)
[2016-11-15] MEDS: Calcium Carbonate/Vitamin D3 625 MG-125 Unit Tab PO SCH (11:55)
[2016-11-15] MEDS: Sodium Chloride 0.9% 10 ML Syringe FLUSH PRN ×3 (13:21→22:45)
[2016-11-15] MEDS: Furosemide 40 MG/4 ML VIAL IVPUSH SCH (15:05)
--- NOTE | 2016-11-15 15:09 | PCM.PN ---
- General Info Date of Service: 11/15/16 Admission Dx/Problem (Free Text): re-assess CHF -edema Functional Status: Reports: Pain Controlled - Review of Systems General: Reports: No Symptoms HEENT: Reports: No Symptoms Pulmonary: Reports: Shortness of Breath (Improved status) Cardiovascular: Reports: No Symptoms Gastrointestinal: Reports: No Symptoms Genitourinary: Reports: No Symptoms Musculoskeletal: Reports: No Symptoms Skin: Reports: No Symptoms Neurological: Reports: No Symptoms Psychiatric: Reports: No Symptoms - Patient Data Vitals - Most Recent: Last Vital Signs Temp 36.5 C 11/15/16 08:00 Pulse 114 H 11/15/16 13:10 Resp 20 11/15/16 13:10 BP 102/58 L 11/15/16 13:10 Pulse Ox 98 11/15/16 13:10 Weight - Most Recent: 87.725 kg I&O - Last 24 Hours: Intake & Output 11/15/16 11/15/16 11/15/16 06:59 14:59 22:59 Intake Total 100 Output Total 400 1500 Balance -300 -1500 Med Orders - Current: Current Medications Acetaminophen (Tylenol) 650 mg PO Q6H PRN PRN Reason: Pain Last Admin: 11/09/16 21:58 Dose: 650 mg Apixaban (Eliquis) 5 mg PO BID [facility] Last Admin: 11/15/16 07:48 Dose: 5 mg Atorvastatin Calcium (Lipitor) 40 mg PO BEDTIME [facility] Last Admin: 11/14/16 20:16 Dose: 40 mg Calcium Carbonate (Oystcal-D 625 Mg-125 Units) 1 tab PO DAILY@1200 [facility] Last Admin: 11/15/16 11:55 Dose: 1 tab Clopidogrel Bisulfate (Plavix) 75 mg PO DAILY [facility] Last Admin: 11/15/16 07:49 Dose: 75 mg Docusate Sodium (Colace) 200 mg PO DAILY PRN PRN Reason: Constipation Ferrous Sulfate (Ferrous Sulfate) 325 mg PO DAILY [facility] Last Admin: 11/15/16 07:49 Dose: 325 mg Fluticasone Propionate (Flonase) 0 gm NASBOTH BID PRN PRN Reason: Allergies Furosemide (Lasix) 80 mg IVPUSH DAILY [facility] Furosemide (Lasix) 40 mg IVPUSH DAILY [facility] Glucosamine/Chondroitin (Glucosamine-Chondroitin 500-400 Capsule) 1 cap PO DAILY@1200 [facility] Last Admin: 11/15/16 11:54 Dose: 1 cap Losartan Potassium (Cozaar) 50 mg PO DAILY [facility] Last Admin: 11/15/16 07:46 Dose: 50 mg Metolazone (Zaroxolyn) 2.5 mg PO DAILY [facility] Metoprolol Succinate (Toprol Xl) 25 mg PO DAILY [facility] Last Admin: 11/15/16 07:50 Dose: 25 mg Nitroglycerin (Nitrostat) 0.4 mg SL Q5M PRN PRN Reason: Chest Pain Pantoprazole Sodium (Protonix) 40 mg PO ACBREAKFAST [facility] Last Admin: 11/15/16 07:45 Dose: 40 mg Potassium Chloride (Klor-Con 10) 10 meq PO DAILY [facility] Last Admin: 11/15/16 07:49 Dose: 10 meq Sertraline HCl (Zoloft) 50 mg PO QAM [facility] Last Admin: 11/15/16 07:51 Dose: 50 mg Simethicone (Simethicone) 160 mg PO TID PRN PRN Reason: Gas Sodium Chloride (Saline Flush) 10 ml FLUSH ASDIRECTED PRN PRN Reason: Keep Vein Open Last Admin: 11/15/16 13:21 Dose: 10 ml Temazepam (Restoril) 15 mg PO BEDTIME PRN PRN Reason: Insomnia Last Admin: 11/11/16 23:25 Dose: 15 mg Discontinued Medications Furosemide (Lasix) 40 mg IVPUSH BID [facility] Last Admin: 11/14/16 17:24 Dose: 40 mg Furosemide (Lasix) 80 mg IVPUSH NOW ONE Stop: 11/15/16 08:01 Last Admin: 11/15/16 07:51 Dose: 80 mg Metolazone (Zaroxolyn) 2.5 mg PO ONETIME ONE Stop: 11/14/16 10:42 Last Admin: 11/14/16 11:10 Dose: 2.5 mg Metolazone (Zaroxolyn) 2.5 mg PO ONETIME ONE Stop: 11/15/16 07:01 Last Admin: 11/15/16 07:45 Dose: 2.5 mg Metoprolol Succinate (Toprol Xl) 25 mg PO ONETIME ONE Stop: 11/13/16 16:53 Last Admin: 11/13/16 17:03 Dose: 25 mg - Exam General: Alert, Oriented HEENT: Pupils Equal, Pupils Reactive Neck: Supple Lungs: Clear to Auscultation, Rhonchi (Fine rhonchi at bases) GI/Abdominal Exam: Normal Bowel Sounds (Male) Exam: Deferred Back Exam: Normal Inspection Extremities: Pedal Edema (ADRIEL hose in place but is much softer/typical than yesterday's assessment.) Skin: Warm, Dry Neurological: No New Focal Deficit Psy/Mental Status: Alert, Normal Affect, Normal Mood - Problem List & Annotations (1) CHF (congestive heart failure) SNOMED Code(s): 56936032 Code(s): I50.9 - HEART FAILURE, UNSPECIFIED Status: Acute Priority: High Current Visit: Yes Onset Date: ~08/01/16 Qualifiers: Congestive heart failure type: unspecified congestive heart failure type Congestive heart failure chronicity: acute on chronic Qualified Code(s): I50.9 - Heart failure, unspecified Annotation/Comment:: Noted improvement as well as weight loss. States feeling better. Advised we will continue with medication adjustment over the weekend and reassess 1 work Friday morning and Will be reevaluated at that time for medication adjustments. - Problem List Review Problem List Initiated/Reviewed/Updated: Yes - My Orders Last 24 Hours: My Active Orders 11/15/16 16:00 Furosemide [Lasix] 40 mg IVPUSH DAILY 11/16/16 07:00 Metolazone [Zaroxolyn] 2.5 mg PO DAILY 11/16/16 08:00 Furosemide [Lasix] 80 mg IVPUSH DAILY 11/18/16 05:11 BMP [BASIC METABOLIC PANEL,BMP] [CHEM] Routine PRO B-TYPE NATRIUR PEPT,BNPPRO [CHEM] Routine
[2016-11-15] MEDS: atorvaSTATin 40 MG Tab PO SCH (19:28)
[2016-11-16] MEDS: Pantoprazole 40 MG Tab.CR PO SCH (07:28)
[2016-11-16] MEDS: Losartan 50 MG Tab PO SCH (07:29)
[2016-11-16] MEDS: Ferrous Sulfate 325 MG Tab PO SCH (07:29)
[2016-11-16] MEDS: Potassium Chloride 10 MEQ Tab.ER PO SCH (07:29)
[2016-11-16] MEDS: Apixaban 5 MG Tab PO SCH ×2 (07:29→17:15)
[2016-11-16] MEDS: Clopidogrel 75 MG Tab PO SCH (07:30)
[2016-11-16] MEDS: Metoprolol Succinate 25 MG Tab.ER PO SCH (07:31)
[2016-11-16] MEDS: Sertraline 50 MG Tab PO SCH (07:32)
[2016-11-16] MEDS: Metolazone 2.5 MG Tab PO SCH ×2 (08:10→08:11)
[2016-11-16] MEDS: Furosemide 40 MG/4 ML VIAL IVPUSH SCH ×3 (08:26→15:06)
[2016-11-16] MEDS: Sodium Chloride 0.9% 10 ML Syringe FLUSH PRN ×2 (08:34→15:08)
[2016-11-16] MEDS: Calcium Carbonate/Vitamin D3 625 MG-125 Unit Tab PO SCH (11:17)
[2016-11-16] MEDS: Chondroitin/Glucosamine Cap PO SCH (11:17)
[2016-11-16] MEDS: atorvaSTATin 40 MG Tab PO SCH (19:13)
[2016-11-17] MEDS: Pantoprazole 40 MG Tab.CR PO SCH (07:40)
[2016-11-17] MEDS: Losartan 50 MG Tab PO SCH (07:40)
[2016-11-17] MEDS: Apixaban 5 MG Tab PO SCH ×2 (07:40→17:19)
[2016-11-17] MEDS: Potassium Chloride 10 MEQ Tab.ER PO SCH (07:41)
[2016-11-17] MEDS: Clopidogrel 75 MG Tab PO SCH (07:41)
[2016-11-17] MEDS: Ferrous Sulfate 325 MG Tab PO SCH (07:41)
[2016-11-17] MEDS: Sertraline 50 MG Tab PO SCH (07:42)
[2016-11-17] MEDS: Metolazone 2.5 MG Tab PO SCH (07:42)
[2016-11-17] MEDS: Metoprolol Succinate 25 MG Tab.ER PO SCH (07:45)
[2016-11-17] MEDS: Furosemide 40 MG/4 ML VIAL IVPUSH SCH ×2 (07:46→15:03)
[2016-11-17] MEDS: Sodium Chloride 0.9% 10 ML Syringe FLUSH PRN ×2 (07:47→15:05)
[2016-11-17] MEDS: Chondroitin/Glucosamine Cap PO SCH (11:25)
[2016-11-17] MEDS: Calcium Carbonate/Vitamin D3 625 MG-125 Unit Tab PO SCH (11:26)
[2016-11-17] MEDS: atorvaSTATin 40 MG Tab PO SCH (19:03)
[2016-11-18] MEDS: Pantoprazole 40 MG Tab.CR PO SCH (07:27)
[2016-11-18] MEDS: Losartan 50 MG Tab PO SCH (07:28)
[2016-11-18] MEDS: Apixaban 5 MG Tab PO SCH ×2 (07:28→17:14)
[2016-11-18] MEDS: Ferrous Sulfate 325 MG Tab PO SCH (07:28)
[2016-11-18] MEDS: Potassium Chloride 10 MEQ Tab.ER PO SCH (07:29)
[2016-11-18] MEDS: Metoprolol Succinate 25 MG Tab.ER PO SCH (07:29)
[2016-11-18] MEDS: Clopidogrel 75 MG Tab PO SCH (07:31)
[2016-11-18] MEDS: Metolazone 2.5 MG Tab PO SCH (07:31)
[2016-11-18] MEDS: Sertraline 50 MG Tab PO SCH (07:32)
[2016-11-18] MEDS: Furosemide 40 MG/4 ML VIAL IVPUSH SCH ×3 (07:32→15:04)
[2016-11-18] MEDS ORDERED: D5 IV SCH (09:15)
[2016-11-18] MEDS ORDERED: KCL IV SCH (09:15)
[2016-11-18] MEDS ORDERED: 1/2 NS W IV SCH (09:15)
--- NOTE | 2016-11-18 10:16 | PCM.PN ---
- General Info Date of Service: 11/18/16 Functional Status: Reports: Pain Controlled - Review of Systems General: Reports: No Symptoms HEENT: Reports: No Symptoms Pulmonary: Reports: No Symptoms, Cough Cardiovascular: Reports: No Symptoms Gastrointestinal: Reports: No Symptoms Genitourinary: Reports: No Symptoms Musculoskeletal: Reports: No Symptoms (Very infrequent cough) Skin: Reports: No Symptoms Neurological: Reports: No Symptoms Psychiatric: Reports: No Symptoms - Patient Data Vitals - Most Recent: Last Vital Signs Temp 36.3 C 11/18/16 08:00 Pulse 114 H 11/18/16 08:00 Resp 20 11/18/16 08:00 BP 123/65 11/18/16 08:00 Pulse Ox 93 L 11/18/16 08:00 Weight - Most Recent: 84.686 kg I&O - Last 24 Hours: Intake & Output 11/17/16 11/18/16 11/18/16 22:59 06:59 14:59 Intake Total 1080 Output Total 800 Balance 280 Lab Results Last 24 Hours: Laboratory Results - last 24 hr 11/18/16 Range/Units 07:30 Sodium 143 (136-145) mmol/L Potassium 2.7 L* (3.5-5.1) mmol/L Chloride 95 L (98-107) mmol/L Carbon Dioxide 42.9 H* (21.0-32.0) mmol/L BUN 36 H (7-18) mg/dL Creatinine 1.32 H (0.51-1.17) mg/dL Est Cr Clr Drug Dosing 38.16 mL/min Estimated GFR (MDRD) 52 mL/min Glucose 112 H (74-106) mg/dL Calcium 8.6 (8.5-10.1) mg/dL [id number] Pept 7122 H (0-125) pg/mL Med Orders - Current: Current Medications Acetaminophen (Tylenol) 650 mg PO Q6H PRN PRN Reason: Pain Last Admin: 11/09/16 21:58 Dose: 650 mg Apixaban (Eliquis) 5 mg PO BID [facility] Last Admin: 11/18/16 07:28 Dose: 5 mg Atorvastatin Calcium (Lipitor) 40 mg PO BEDTIME [facility] Last Admin: 11/17/16 19:03 Dose: 40 mg Calcium Carbonate (Oystcal-D 625 Mg-125 Units) 1 tab PO DAILY@1200 [facility] Last Admin: 11/17/16 11:26 Dose: 1 tab Clopidogrel Bisulfate (Plavix) 75 mg PO DAILY [facility] Last Admin: 11/18/16 07:31 Dose: 75 mg Docusate Sodium (Colace) 200 mg PO DAILY PRN PRN Reason: Constipation Ferrous Sulfate (Ferrous Sulfate) 325 mg PO DAILY [facility] Last Admin: 11/18/16 07:28 Dose: 325 mg Fluticasone Propionate (Flonase) 0 gm NASBOTH BID PRN PRN Reason: Allergies Furosemide (Lasix) 80 mg IVPUSH DAILY [facility] Last Admin: 11/18/16 10:09 Dose: 80 mg Furosemide (Lasix) 40 mg IVPUSH DAILY@1600 [facility] Last Admin: 11/17/16 15:03 Dose: 40 mg Glucosamine/Chondroitin (Glucosamine-Chondroitin 500-400 Capsule) 1 cap PO DAILY@1200 [facility] Last Admin: 11/17/16 11:25 Dose: 1 cap Potassium Chloride/Dextrose/Sod Cl (D5 1/2 Ns W/ 40 Meq/L Kcl) 100 mls @ 40 mls /hr IV ASDIRECTED [facility] Losartan Potassium (Cozaar) 50 mg PO DAILY [facility] Last Admin: 11/18/16 07:28 Dose: 50 mg Metolazone (Zaroxolyn) 2.5 mg PO DAILY [facility] Last Admin: 11/18/16 07:31 Dose: 2.5 mg Metoprolol Succinate (Toprol Xl) 25 mg PO DAILY [facility] Last Admin: 11/18/16 07:29 Dose: 25 mg Nitroglycerin (Nitrostat) 0.4 mg SL Q5M PRN PRN Reason: Chest Pain Pantoprazole Sodium (Protonix) 40 mg PO ACBREAKFAST [facility] Last Admin: 11/18/16 07:27 Dose: 40 mg Potassium Chloride (Klor-Con M20) 20 meq PO BID [facility] Sertraline HCl (Zoloft) 50 mg PO QAM [facility] Last Admin: 11/18/16 07:32 Dose: 50 mg Simethicone (Simethicone) 160 mg PO TID PRN PRN Reason: Gas Sodium Chloride (Saline Flush) 10 ml FLUSH ASDIRECTED PRN PRN Reason: Keep Vein Open Last Admin: 11/17/16 15:05 Dose: 10 ml Temazepam (Restoril) 15 mg PO BEDTIME PRN PRN Reason: Insomnia Last Admin: 11/11/16 23:25 Dose: 15 mg Discontinued Medications Furosemide (Lasix) 40 mg IVPUSH BID [facility] Last Admin: 11/14/16 17:24 Dose: 40 mg Furosemide (Lasix) 80 mg IVPUSH NOW ONE Stop: 11/15/16 08:01 Last Admin: 11/15/16 07:51 Dose: 80 mg Furosemide (Lasix) 40 mg IVPUSH DAILY [facility] Last Admin: 11/16/16 08:26 Dose: Not Given Metolazone (Zaroxolyn) 2.5 mg PO ONETIME ONE Stop: 11/14/16 10:42 Last Admin: 11/14/16 11:10 Dose: 2.5 mg Metolazone (Zaroxolyn) 2.5 mg PO ONETIME ONE Stop: 11/15/16 07:01 Last Admin: 11/15/16 07:45 Dose: 2.5 mg Metoprolol Succinate (Toprol Xl) 25 mg PO ONETIME ONE Stop: 11/13/16 16:53 Last Admin: 11/13/16 17:03 Dose: 25 mg Potassium Chloride (Klor-Con 10) 10 meq PO DAILY [facility] Last Admin: 11/18/16 07:29 Dose: 10 meq - Exam General: Alert, Oriented HEENT: Pupils Equal, Pupils Reactive, EOMI Neck: Supple Lungs: Decreased Breath Sounds, Rhonchi (Very faint basilar) Cardiovascular: Regular Rate, Regular Rhythm GI/Abdominal Exam: Normal Bowel Sounds, Soft (Male) Exam: Deferred Back Exam: Normal Inspection Extremities: Pedal Edema (Trace with ADRIEL hose in place) Skin: Warm, Dry, Intact Neurological: No New Focal Deficit Psy/Mental Status: Alert, Normal Affect, Normal Mood - Problem List & Annotations (1) CHF (congestive heart failure) SNOMED Code(s): 93903698 Code(s): I50.9 - HEART FAILURE, UNSPECIFIED Status: Acute Priority: High Current Visit: Yes Onset Date: ~08/01/16 Qualifiers: Congestive heart failure type: unspecified congestive heart failure type Congestive heart failure chronicity: acute on chronic Qualified Code(s): I50.9 - Heart failure, unspecified Annotation/Comment:: Noted improvement as well as weight loss. States feeling better. Advised we will continue with medication adjustment over the weekend and reassess 1 work Friday morning and Will be reevaluated at that time for medication adjustments. (2) Hypokalemia due to loss of potassium SNOMED Code(s): 05489849 Code(s): E87.6 - HYPOKALEMIA Status: Acute Priority: High Current Visit : Yes (3) COPD (chronic obstructive pulmonary disease) SNOMED Code(s): 69579613 Code(s): J44.9 - CHRONIC OBSTRUCTIVE PULMONARY DISEASE, UNSPECIFIED Status : Chronic Priority: High Current Visit: Yes Qualifiers: COPD type: COPD with acute exacerbation Qualified Code(s): J44.1 - Chronic obstructive pulmonary disease with (acute) exacerbation Annotation/Comment:: No recent fever or bronchitic-type symptoms (4) Hypertension SNOMED Code(s): 81240811 Code(s): I10 - ESSENTIAL (PRIMARY) HYPERTENSION Status: Chronic Priority : Medium Current Visit: Yes Qualifiers: Hypertension type: essential hypertension Qualified Code(s): I10 - Essential (primary) hypertension Annotation/Comment:: Blood pressures stable during emergency room care - Problem List Review Problem List Initiated/Reviewed/Updated: Yes - My Orders Last 24 Hours: My Active Orders 11/18/16 09:15 D5 1/2 NS w/ 40 mEq/L KCl 100 ml IV ASDIRECTED 11/18/16 18:00 Potassium Chloride [Klor-Con M20] 20 meq PO BID 11/19/16 05:11 BASIC METABOLIC PANEL,BMP [CHEM] Routine PRO B-TYPE NATRIUR PEPT,BNPPRO [CHEM] Routine
[2016-11-18] MEDS: Potassium Chloride 10 MEQ in Premix Bag 1 BAG IV SCH ×2 (11:02→12:03)
[2016-11-18] MEDS: Chondroitin/Glucosamine Cap PO SCH (11:15)
[2016-11-18] MEDS: Calcium Carbonate/Vitamin D3 625 MG-125 Unit Tab PO SCH (11:15)
[2016-11-18] MEDS ORDERED: Sodium Chloride 0.9% 250 ML IV SCH (11:45)
[2016-11-18] MEDS: Sodium Chloride 0.9% 10 ML Syringe FLUSH PRN (15:05)
[2016-11-18] MEDS: Potassium Chloride 20 MEQ Tab.ER PO SCH (17:22)
[2016-11-18] MEDS: atorvaSTATin 40 MG Tab PO SCH (20:15)
[2016-11-19] MEDS: Pantoprazole 40 MG Tab.CR PO SCH (07:37)
[2016-11-19] MEDS: Apixaban 5 MG Tab PO SCH ×2 (07:38→17:15)
[2016-11-19] MEDS: Losartan 50 MG Tab PO SCH ×2 (07:38→08:40)
[2016-11-19] MEDS: Ferrous Sulfate 325 MG Tab PO SCH (07:38)
[2016-11-19] MEDS: Clopidogrel 75 MG Tab PO SCH (07:39)
[2016-11-19] MEDS: Metoprolol Succinate 25 MG Tab.ER PO SCH (07:41)
[2016-11-19] MEDS: Metolazone 2.5 MG Tab PO SCH (07:43)
[2016-11-19] MEDS: Sertraline 50 MG Tab PO SCH (07:43)
[2016-11-19] MEDS: Potassium Chloride 20 MEQ Tab.ER PO SCH ×2 (07:54→17:15)
[2016-11-19] MEDS: Furosemide 40 MG/4 ML VIAL IVPUSH SCH ×2 (07:55→16:35)
[2016-11-19] MEDS ORDERED: Potassium Chloride 10 MEQ in Premix Bag 1 BAG IV ONE (10:44)
[2016-11-19] MEDS: Chondroitin/Glucosamine Cap PO SCH (11:14)
[2016-11-19] MEDS: Calcium Carbonate/Vitamin D3 625 MG-125 Unit Tab PO SCH (11:14)
[2016-11-19] MEDS: Potassium Chloride 10 MEQ in Premix Bag 1 BAG IV SCH ×4 (11:25→15:14)
[2016-11-19] MEDS: Sodium Chloride 0.9% 10 ML Syringe FLUSH PRN ×2 (11:35→16:36)
[2016-11-19] MEDS ORDERED: Sodium Chloride 0.9% 250 ML IV ONE (12:00)
[2016-11-19] MEDS: atorvaSTATin 40 MG Tab PO SCH (19:29)
[2016-11-20] MEDS: Pantoprazole 40 MG Tab.CR PO SCH (07:56)
[2016-11-20] MEDS: Losartan 50 MG Tab PO SCH (08:00)
[2016-11-20] MEDS: Apixaban 5 MG Tab PO SCH ×2 (08:01→17:05)
[2016-11-20] MEDS: Ferrous Sulfate 325 MG Tab PO SCH (08:02)
[2016-11-20] MEDS: Potassium Chloride 20 MEQ Tab.ER PO SCH ×2 (08:02→17:05)
[2016-11-20] MEDS: Clopidogrel 75 MG Tab PO SCH (08:03)
[2016-11-20] MEDS: Metoprolol Succinate 25 MG Tab.ER PO SCH (08:03)
[2016-11-20] MEDS: Sertraline 50 MG Tab PO SCH (08:04)
[2016-11-20] MEDS: Furosemide 40 MG/4 ML VIAL IVPUSH SCH ×2 (08:05→16:57)
[2016-11-20] MEDS: Sodium Chloride 0.9% 10 ML Syringe FLUSH PRN ×2 (08:06→16:58)
[2016-11-20] MEDS: Chondroitin/Glucosamine Cap PO SCH (11:35)
[2016-11-20] MEDS: Calcium Carbonate/Vitamin D3 625 MG-125 Unit Tab PO SCH (11:35)
[2016-11-20] MEDS: Simethicone 80 MG Tab.Chew PO PRN (11:37)
[2016-11-20] MEDS: atorvaSTATin 40 MG Tab PO SCH (19:30)
[2016-11-21] MEDS: Pantoprazole 40 MG Tab.CR PO SCH (07:27)
[2016-11-21] MEDS: Metolazone 2.5 MG Tab PO SCH (07:27)
[2016-11-21] MEDS: Losartan 50 MG Tab PO SCH (07:27)
[2016-11-21] MEDS: Ferrous Sulfate 325 MG Tab PO SCH (07:28)
[2016-11-21] MEDS: Apixaban 5 MG Tab PO SCH ×2 (07:28→17:37)
[2016-11-21] MEDS: Potassium Chloride 20 MEQ Tab.ER PO SCH ×3 (07:29→17:38)
[2016-11-21] MEDS: Clopidogrel 75 MG Tab PO SCH (07:29)
[2016-11-21] MEDS: Sertraline 50 MG Tab PO SCH (07:30)
[2016-11-21] MEDS: Metoprolol Succinate 25 MG Tab.ER PO SCH (07:30)
[2016-11-21] MEDS: Furosemide 40 MG/4 ML VIAL IVPUSH SCH ×2 (07:32→16:04)
[2016-11-21] MEDS: Sodium Chloride 0.9% 10 ML Syringe FLUSH PRN ×2 (07:32→16:10)
--- NOTE | 2016-11-21 08:25 | PCM.PN ---
- General Info Date of Service: 11/21/16 Functional Status: Reports: Pain Controlled - Review of Systems General: Reports: No Symptoms HEENT: Reports: No Symptoms Pulmonary: Reports: No Symptoms Cardiovascular: Reports: No Symptoms Gastrointestinal: Reports: No Symptoms Genitourinary: Reports: No Symptoms Musculoskeletal: Reports: No Symptoms Skin: Reports: No Symptoms Neurological: Reports: No Symptoms Psychiatric: Reports: No Symptoms - Patient Data Vitals - Most Recent: Last Vital Signs Temp 36.1 C 11/21/16 07:36 Pulse 112 H 11/21/16 07:36 Resp 16 11/21/16 07:36 BP 120/60 11/21/16 07:36 Pulse Ox 97 11/21/16 07:36 Weight - Most Recent: 84.595 kg I&O - Last 24 Hours: Intake & Output 11/20/16 11/21/16 11/21/16 22:59 06:59 14:59 Output Total 500 Balance -500 Lab Results Last 24 Hours: Laboratory Results - last 24 hr 11/21/16 Range/Units 07:20 Sodium 142 (136-145) mmol/L Potassium 2.8 L* (3.5-5.1) mmol/L Chloride 95 L (98-107) mmol/L Carbon Dioxide 41.6 H* (21.0-32.0) mmol/L BUN 47 H (7-18) mg/dL Creatinine 1.45 H (0.51-1.17) mg/dL Est Cr Clr Drug Dosing 34.74 mL/min Estimated GFR (MDRD) 46 mL/min Glucose 116 H (74-106) mg/dL Calcium 8.6 (8.5-10.1) mg/dL [id number] Pept 8114 H (0-125) pg/mL Med Orders - Current: Current Medications Acetaminophen (Tylenol) 650 mg PO Q6H PRN PRN Reason: Pain Last Admin: 11/09/16 21:58 Dose: 650 mg Apixaban (Eliquis) 5 mg PO BID [facility] Last Admin: 11/21/16 07:28 Dose: 5 mg Atorvastatin Calcium (Lipitor) 40 mg PO BEDTIME [facility] Last Admin: 11/20/16 19:30 Dose: 40 mg Calcium Carbonate (Oystcal-D 625 Mg-125 Units) 1 tab PO DAILY@1200 [facility] Last Admin: 11/20/16 11:35 Dose: 1 tab Clopidogrel Bisulfate (Plavix) 75 mg PO DAILY [facility] Last Admin: 11/21/16 07:29 Dose: 75 mg Docusate Sodium (Colace) 200 mg PO DAILY PRN PRN Reason: Constipation Ferrous Sulfate (Ferrous Sulfate) 325 mg PO DAILY [facility] Last Admin: 11/21/16 07:28 Dose: 325 mg Fluticasone Propionate (Flonase) 0 gm NASBOTH BID PRN PRN Reason: Allergies Furosemide (Lasix) 40 mg IVPUSH DAILY@1600 [facility] Last Admin: 11/20/16 16:57 Dose: 40 mg Furosemide (Lasix) 40 mg IVPUSH DAILY [facility] Last Admin: 11/21/16 07:32 Dose: 40 mg Glucosamine/Chondroitin (Glucosamine-Chondroitin 500-400 Capsule) 1 cap PO DAILY@1200 [facility] Last Admin: 11/20/16 11:35 Dose: 1 cap Potassium Chloride 10 meq/ (Premix) 50 mls @ 50 mls/hr IV ONETIME [facility] Losartan Potassium (Cozaar) 50 mg PO DAILY [facility] Last Admin: 11/21/16 07:27 Dose: 50 mg Metolazone (Zaroxolyn) 2.5 mg PO TuThSa@0700 [facility] Last Admin: 11/21/16 07:27 Dose: 2.5 mg Metoprolol Succinate (Toprol Xl) 25 mg PO DAILY [facility] Last Admin: 11/21/16 07:30 Dose: 25 mg Nitroglycerin (Nitrostat) 0.4 mg SL Q5M PRN PRN Reason: Chest Pain Pantoprazole Sodium (Protonix) 40 mg PO ACBREAKFAST [facility] Last Admin: 11/21/16 07:27 Dose: 40 mg Potassium Chloride (Klor-Con M20) 20 meq PO BID [facility] Last Admin: 11/21/16 07:29 Dose: 20 meq Sertraline HCl (Zoloft) 50 mg PO QAM [facility] Last Admin: 11/21/16 07:30 Dose: 50 mg Simethicone (Simethicone) 160 mg PO TID PRN PRN Reason: Gas Last Admin: 11/20/16 11:37 Dose: 160 mg Sodium Chloride (Saline Flush) 10 ml FLUSH ASDIRECTED PRN PRN Reason: Keep Vein Open Last Admin: 11/21/16 07:32 Dose: 10 ml Temazepam (Restoril) 15 mg PO BEDTIME PRN PRN Reason: Insomnia Last Admin: 11/11/16 23:25 Dose: 15 mg Discontinued Medications Furosemide (Lasix) 40 mg IVPUSH BID [facility] Last Admin: 11/14/16 17:24 Dose: 40 mg Furosemide (Lasix) 80 mg IVPUSH NOW ONE Stop: 11/15/16 08:01 Last Admin: 11/15/16 07:51 Dose: 80 mg Furosemide (Lasix) 80 mg IVPUSH DAILY [facility] Last Admin: 11/19/16 07:55 Dose: 80 mg Furosemide (Lasix) 40 mg IVPUSH DAILY [facility] Last Admin: 11/16/16 08:26 Dose: Not Given Potassium Chloride/Dextrose/Sod Cl (D5 1/2 Ns W/ 40 Meq/L Kcl) 100 mls @ 40 mls /hr IV ASDIRECTED [facility] Potassium Chloride 10 meq/ (Premix) 50 mls @ 50 mls/hr IV Q1H [facility] Stop: 11/18/16 12:59 Last Admin: 11/18/16 12:03 Dose: 50 mls/hr Sodium Chloride (Normal Saline) 250 mls @ 50 mls/hr IV ASDIRECTED [facility] Potassium Chloride 10 meq/ (Premix) 50 mls @ 50 mls/hr IV ONETIME ONE Stop: 11/19/16 11:43 Last Admin: 11/19/16 11:38 Dose: Not Given Potassium Chloride 10 meq/ (Premix) 50 mls @ 50 mls/hr IV Q1H [facility] Stop: 11/19/16 15:59 Last Admin: 11/19/16 15:14 Dose: 50 mls/hr Sodium Chloride (Normal Saline) 250 mls @ 50 mls/hr IV ONETIME ONE Stop: 11/19/16 16:59 Last Admin: 11/19/16 11:31 Dose: 50 mls/hr Metolazone (Zaroxolyn) 2.5 mg PO ONETIME ONE Stop: 11/14/16 10:42 Last Admin: 11/14/16 11:10 Dose: 2.5 mg Metolazone (Zaroxolyn) 2.5 mg PO ONETIME ONE Stop: 11/15/16 07:01 Last Admin: 11/15/16 07:45 Dose: 2.5 mg Metolazone (Zaroxolyn) 2.5 mg PO DAILY [facility] Last Admin: 11/19/16 07:43 Dose: 2.5 mg Metoprolol Succinate (Toprol Xl) 25 mg PO ONETIME ONE Stop: 11/13/16 16:53 Last Admin: 11/13/16 17:03 Dose: 25 mg Potassium Chloride (Klor-Con 10) 10 meq PO DAILY [facility] Last Admin: 11/18/16 07:29 Dose: 10 meq - Exam General: Alert, Oriented HEENT: Pupils Equal Neck: Supple Lungs: Clear to Auscultation, Decreased Breath Sounds, Rhonchi Cardiovascular: Regular Rate, Regular Rhythm GI/Abdominal Exam: Normal Bowel Sounds (Male) Exam: Deferred Extremities: Normal Inspection, No Pedal Edema (Trace if any) Skin: Warm, Dry, Intact Neurological: No New Focal Deficit Psy/Mental Status: Alert, Normal Affect, Normal Mood - Problem List & Annotations (1) CHF (congestive heart failure) SNOMED Code(s): 41742459 Code(s): I50.9 - HEART FAILURE, UNSPECIFIED Status: Acute Priority: High Current Visit: Yes Onset Date: ~08/01/16 Qualifiers: Congestive heart failure type: unspecified congestive heart failure type Congestive heart failure chronicity: acute on chronic Qualified Code(s): I50.9 - Heart failure, unspecified Annotation/Comment:: We have likely reached the difficult point of titration as hypokalemia secondary of increased diuresis is still occurring despite increased oral dose as well as IV. Lasix was decreased back to 40 twice a day with Zaroxolyn to every other day and we saw any increase in his BNP by nearly 1000 points over 48 hours. Potassium has slowly come up with the increase in oral dosing in conjunction with IV dosing. We will give 40 mEq IV today, continue with oral potassium twice a day repeat laboratory analysis tomorrow and discuss with Dr. Ling who will be here for the next 10 days for further adjustment and potential of switching IV meds secondary of difficulty in maintaining IV to oral if possible. (2) Hypokalemia due to loss of potassium SNOMED Code(s): 68816121 Code(s): E87.6 - HYPOKALEMIA Status: Acute Priority: High Current Visit : Yes (3) COPD (chronic obstructive pulmonary disease) SNOMED Code(s): 36199566 Code(s): J44.9 - CHRONIC OBSTRUCTIVE PULMONARY DISEASE, UNSPECIFIED Status : Chronic Priority: High Current Visit: Yes Qualifiers: COPD type: COPD with acute exacerbation Qualified Code(s): J44.1 - Chronic obstructive pulmonary disease with (acute) exacerbation Annotation/Comment:: No recent fever or bronchitic-type symptoms (4) Hypertension SNOMED Code(s): 93293343 Code(s): I10 - ESSENTIAL (PRIMARY) HYPERTENSION Status: Chronic Priority : Medium Current Visit: Yes Qualifiers: Hypertension type: essential hypertension Qualified Code(s): I10 - Essential (primary) hypertension Annotation/Comment:: Blood pressures stable during emergency room care - Problem List Review Problem List Initiated/Reviewed/Updated: Yes - My Orders Last 24 Hours: My Active Orders 11/20/16 08:00 Furosemide [Lasix] 40 mg IVPUSH DAILY 11/21/16 07:00 Metolazone [Zaroxolyn] 2.5 mg PO TuThSa@0700 11/21/16 09:00 Potassium Chloride [KCl 10 MEQ in Water 50 ML] 10 meq Premix Bag 4 bag IV ONETIME
[2016-11-21] MEDS ORDERED: Sodium Chloride 0.9% 250 ML IV ONE (08:30)
[2016-11-21] MEDS ORDERED: Potassium Chloride 10 MEQ in Premix Bag 1 BAG IV SCH (09:00)
[2016-11-21] MEDS: Potassium Chloride 10 MEQ in Premix Bag 1 BAG IV SCH ×4 (10:22→13:33)
[2016-11-21] MEDS: Chondroitin/Glucosamine Cap PO SCH (11:21)
[2016-11-21] MEDS: Calcium Carbonate/Vitamin D3 625 MG-125 Unit Tab PO SCH (11:22)
[2016-11-21] MEDS: atorvaSTATin 40 MG Tab PO SCH (20:42)
[2016-11-22] MEDS: Pantoprazole 40 MG Tab.CR PO SCH (07:58)
[2016-11-22] MEDS: Losartan 50 MG Tab PO SCH (08:03)
[2016-11-22] MEDS: Apixaban 5 MG Tab PO SCH ×2 (08:04→17:27)
[2016-11-22] MEDS: Ferrous Sulfate 325 MG Tab PO SCH (08:04)
[2016-11-22] MEDS: Potassium Chloride 20 MEQ Tab.ER PO SCH ×3 (08:04→17:27)
[2016-11-22] MEDS: Metoprolol Succinate 25 MG Tab.ER PO SCH (08:05)
[2016-11-22] MEDS: Clopidogrel 75 MG Tab PO SCH (08:05)
[2016-11-22] MEDS: Sertraline 50 MG Tab PO SCH (08:06)
[2016-11-22] MEDS: Furosemide 40 MG/4 ML VIAL IVPUSH SCH ×2 (08:07→16:22)
[2016-11-22] MEDS: Sodium Chloride 0.9% 10 ML Syringe FLUSH PRN ×4 (08:15→19:27)
[2016-11-22] MEDS: Chondroitin/Glucosamine Cap PO SCH (11:14)
[2016-11-22] MEDS: Calcium Carbonate/Vitamin D3 625 MG-125 Unit Tab PO SCH (11:15)
--- NOTE | 2016-11-22 13:18 | PCM.SN ---
- Free Text/Narrative Note: Potassium level improved however continues to be low. Additional IV potassium requested. Recheck BMP in AM. CO2 level remains elevated, however continues to remain improved in comparison to previous levels.
[2016-11-22] MEDS ORDERED: Sodium Chloride 0.9% 250 ML IV ONE (14:00)
[2016-11-22] MEDS ORDERED: Potassium Chloride 10 MEQ in Premix Bag 1 BAG IV ONE ×2 (14:00→20:00)
[2016-11-22] MEDS: atorvaSTATin 40 MG Tab PO SCH (19:27)
[2016-11-23] MEDS: Metolazone 2.5 MG Tab PO SCH (07:37)
[2016-11-23] MEDS: Apixaban 5 MG Tab PO SCH ×2 (07:38→17:56)
[2016-11-23] MEDS: Pantoprazole 40 MG Tab.CR PO SCH (07:38)
[2016-11-23] MEDS: Losartan 50 MG Tab PO SCH (07:38)
[2016-11-23] MEDS: Potassium Chloride 20 MEQ Tab.ER PO SCH ×3 (07:39→17:55)
[2016-11-23] MEDS: Ferrous Sulfate 325 MG Tab PO SCH (07:39)
[2016-11-23] MEDS: Metoprolol Succinate 25 MG Tab.ER PO SCH (07:40)
[2016-11-23] MEDS: Furosemide 40 MG/4 ML VIAL IVPUSH SCH (07:40)
[2016-11-23] MEDS: Clopidogrel 75 MG Tab PO SCH (07:40)
[2016-11-23] MEDS: Sertraline 50 MG Tab PO SCH (07:41)
[2016-11-23] MEDS: Potassium Chloride 10 MEQ in Premix Bag 4 BAG IV ONE ×2 (09:59→10:15)
[2016-11-23] MEDS ORDERED: Sodium Chloride 0.9% 500 ML IV ONE (10:00)
[2016-11-23] MEDS: Potassium Chloride 10 MEQ in Premix Bag 4 BAG IV SCH ×4 (10:00→12:18)
[2016-11-23] MEDS: Chondroitin/Glucosamine Cap PO SCH (11:52)
[2016-11-23] MEDS: Calcium Carbonate/Vitamin D3 625 MG-125 Unit Tab PO SCH (12:18)
--- NOTE | 2016-11-23 14:06 | PCM.SN ---
- Free Text/Narrative Note: Patient continues to have potassium loss, suspect due to aggressive Lasix therapy for CHF. has no complaints and feels comfortable. CO2 level improved today. He was alert and conversive. Grossly neurologically intact. Lungs overall clear to ascultation. Heart was regular in rate and rhythm. Pulses +2 x4. Abdomen soft. Minimal edema noted in lower leg area. Additional K supplementation IV ordered in addition to PO supplementation. Recheck levels in morning.
[2016-11-23] MEDS: Furosemide 20 MG/2 ML VIAL IVPUSH SCH (16:46)
[2016-11-23] MEDS: atorvaSTATin 40 MG Tab PO SCH (19:33)
[2016-11-24] MEDS: Pantoprazole 40 MG Tab.CR PO SCH (07:58)
[2016-11-24] MEDS: Apixaban 5 MG Tab PO SCH ×2 (08:00→18:06)
[2016-11-24] MEDS: Potassium Chloride 20 MEQ Tab.ER PO SCH ×3 (08:00→18:06)
[2016-11-24] MEDS: Losartan 50 MG Tab PO SCH (08:00)
[2016-11-24] MEDS: Ferrous Sulfate 325 MG Tab PO SCH (08:00)
[2016-11-24] MEDS: Furosemide 40 MG/4 ML VIAL IVPUSH SCH (08:01)
[2016-11-24] MEDS: Clopidogrel 75 MG Tab PO SCH (08:02)
[2016-11-24] MEDS: Metoprolol Succinate 25 MG Tab.ER PO SCH (08:03)
[2016-11-24] MEDS: Sertraline 50 MG Tab PO SCH (08:03)
[2016-11-24] MEDS: Calcium Carbonate/Vitamin D3 625 MG-125 Unit Tab PO SCH (12:14)
[2016-11-24] MEDS: Chondroitin/Glucosamine Cap PO SCH (12:15)
[2016-11-24] MEDS: Furosemide 20 MG/2 ML VIAL IVPUSH SCH (16:31)
[2016-11-24] MEDS: atorvaSTATin 40 MG Tab PO SCH (19:41)
[2016-11-24] MEDS: Acetaminophen 325 MG Tab PO PRN (22:28)
[2016-11-25] MEDS: Pantoprazole 40 MG Tab.CR PO SCH (07:28)
[2016-11-25] MEDS: Losartan 50 MG Tab PO SCH (07:33)
[2016-11-25] MEDS: Apixaban 5 MG Tab PO SCH ×2 (07:34→17:35)
[2016-11-25] MEDS: Ferrous Sulfate 325 MG Tab PO SCH (07:35)
[2016-11-25] MEDS: Furosemide 40 MG/4 ML VIAL IVPUSH SCH (07:36)
[2016-11-25] MEDS: Potassium Chloride 20 MEQ Tab.ER PO SCH ×3 (07:36→17:36)
[2016-11-25] MEDS: Clopidogrel 75 MG Tab PO SCH (07:37)
[2016-11-25] MEDS: Metoprolol Succinate 25 MG Tab.ER PO SCH (07:37)
[2016-11-25] MEDS: Sertraline 50 MG Tab PO SCH (07:38)
[2016-11-25] MEDS: Chondroitin/Glucosamine Cap PO SCH (12:23)
[2016-11-25] MEDS: Calcium Carbonate/Vitamin D3 625 MG-125 Unit Tab PO SCH (12:25)
--- NOTE | 2016-11-25 14:20 | PCM.SN ---
- Free Text/Narrative Note: Potassium noted to stabilize once afternoon dose of Lasix decreased. However BNP noted to elevate in response. BUN/Cr also noted to slightly increase. Patient feels well and is without complaint. Lungs sounds overall are clear. Anticipate increasing difficulty maintaining fluid balance with patient's worsening CHF without compromising renal function as well as electrolytes. After discussion with , will trial patient on oral Lasix and discontinue IV form.
[2016-11-25] MEDS: atorvaSTATin 40 MG Tab PO SCH (19:29)
[2016-11-26] MEDS: Simethicone 80 MG Tab.Chew PO PRN ×2 (04:12→16:20)
[2016-11-26] MEDS: Pantoprazole 40 MG Tab.CR PO SCH (07:20)
[2016-11-26] MEDS: Metolazone 2.5 MG Tab PO SCH (07:47)
[2016-11-26] MEDS: Losartan 50 MG Tab PO SCH (07:48)
[2016-11-26] MEDS: Apixaban 5 MG Tab PO SCH ×2 (07:49→17:41)
[2016-11-26] MEDS: Ferrous Sulfate 325 MG Tab PO SCH (07:50)
[2016-11-26] MEDS: Potassium Chloride 20 MEQ Tab.ER PO SCH ×3 (07:50→17:41)
[2016-11-26] MEDS: Clopidogrel 75 MG Tab PO SCH (07:51)
[2016-11-26] MEDS: Furosemide 40 MG Tab PO SCH (07:51)
[2016-11-26] MEDS: Metoprolol Succinate 25 MG Tab.ER PO SCH (07:52)
[2016-11-26] MEDS: Sertraline 50 MG Tab PO SCH (07:53)
[2016-11-26] MEDS: Sodium Chloride 0.9% 10 ML Syringe FLUSH PRN ×2 (09:00→21:18)
[2016-11-26] MEDS: Chondroitin/Glucosamine Cap PO SCH (12:09)
[2016-11-26] MEDS: Calcium Carbonate/Vitamin D3 625 MG-125 Unit Tab PO SCH (12:10)
[2016-11-26] MEDS: Furosemide 20 MG Tab PO SCH (16:17)
[2016-11-26] MEDS: atorvaSTATin 40 MG Tab PO SCH (19:28)
[2016-11-26] MEDS: Nitroglycerin 0.4 MG Tab.SL SL PRN ×2 (19:38→21:27)
[2016-11-27] MEDS: Losartan 50 MG Tab PO SCH (08:18)
[2016-11-27] MEDS: Pantoprazole 40 MG Tab.CR PO SCH (08:18)
[2016-11-27] MEDS: Ferrous Sulfate 325 MG Tab PO SCH (08:22)
[2016-11-27] MEDS: Apixaban 5 MG Tab PO SCH ×2 (08:22→17:16)
[2016-11-27] MEDS: Potassium Chloride 20 MEQ Tab.ER PO SCH ×3 (08:23→17:16)
[2016-11-27] MEDS: Furosemide 20 MG Tab PO SCH (08:24)
[2016-11-27] MEDS: Furosemide 40 MG Tab PO SCH (08:24)
[2016-11-27] MEDS: Clopidogrel 75 MG Tab PO SCH (08:25)
[2016-11-27] MEDS: Metoprolol Succinate 25 MG Tab.ER PO SCH (08:25)
[2016-11-27] MEDS: Sertraline 50 MG Tab PO SCH (08:26)
[2016-11-27] MEDS: Chondroitin/Glucosamine Cap PO SCH (11:16)
[2016-11-27] MEDS: Calcium Carbonate/Vitamin D3 625 MG-125 Unit Tab PO SCH (11:17)
[2016-11-27] MEDS: Sodium Chloride 0.9% 10 ML Syringe FLUSH PRN (11:18)
[2016-11-27] MEDS: atorvaSTATin 40 MG Tab PO SCH (19:15)
[2016-11-27] MEDS: Sodium Chloride 0.9% 10 ML Syringe IV SCH (19:16)
[2016-11-28] MEDS: Metolazone 2.5 MG Tab PO SCH (07:25)
[2016-11-28] MEDS: Pantoprazole 40 MG Tab.CR PO SCH (07:25)
[2016-11-28] MEDS: Sodium Chloride 0.9% 10 ML Syringe IV SCH ×2 (07:26→19:06)
[2016-11-28] MEDS: Losartan 50 MG Tab PO SCH (07:44)
[2016-11-28] MEDS: Potassium Chloride 20 MEQ Tab.ER PO SCH ×3 (07:45→17:25)
[2016-11-28] MEDS: Apixaban 5 MG Tab PO SCH ×2 (07:45→17:25)
[2016-11-28] MEDS: Ferrous Sulfate 325 MG Tab PO SCH (07:45)
[2016-11-28] MEDS: Furosemide 40 MG Tab PO SCH (07:46)
[2016-11-28] MEDS: Furosemide 20 MG Tab PO SCH (07:46)
[2016-11-28] MEDS: Clopidogrel 75 MG Tab PO SCH (07:47)
[2016-11-28] MEDS: Metoprolol Succinate 25 MG Tab.ER PO SCH (07:47)
[2016-11-28] MEDS: Sertraline 50 MG Tab PO SCH (07:48)
[2016-11-28] MEDS: Chondroitin/Glucosamine Cap PO SCH (11:15)
[2016-11-28] MEDS: Calcium Carbonate/Vitamin D3 625 MG-125 Unit Tab PO SCH (11:16)
[2016-11-28] MEDS: atorvaSTATin 40 MG Tab PO SCH (19:06)
[2016-11-29] MEDS: Pantoprazole 40 MG Tab.CR PO SCH (08:32)
[2016-11-29] MEDS: Losartan 50 MG Tab PO SCH (08:33)
[2016-11-29] MEDS: Potassium Chloride 20 MEQ Tab.ER PO SCH ×3 (08:34→18:01)
[2016-11-29] MEDS: Ferrous Sulfate 325 MG Tab PO SCH (08:34)
[2016-11-29] MEDS: Apixaban 5 MG Tab PO SCH ×2 (08:34→18:01)
[2016-11-29] MEDS: Furosemide 20 MG Tab PO SCH (08:35)
[2016-11-29] MEDS: Furosemide 40 MG Tab PO SCH (08:35)
[2016-11-29] MEDS: Clopidogrel 75 MG Tab PO SCH (08:36)
[2016-11-29] MEDS: Sodium Chloride 0.9% 10 ML Syringe FLUSH SCH ×2 (08:36→19:37)
[2016-11-29] MEDS: Metoprolol Succinate 25 MG Tab.ER PO SCH (08:37)
[2016-11-29] MEDS: Sertraline 50 MG Tab PO SCH (08:37)
[2016-11-29] MEDS: Sodium Chloride 0.9% 10 ML Syringe IV SCH (08:43)
[2016-11-29] MEDS: Chondroitin/Glucosamine Cap PO SCH (12:09)
[2016-11-29] MEDS: Calcium Carbonate/Vitamin D3 625 MG-125 Unit Tab PO SCH (12:10)
[2016-11-29] MEDS: atorvaSTATin 40 MG Tab PO SCH (19:37)
[2016-11-30] MEDS: Metolazone 2.5 MG Tab PO SCH (07:43)
[2016-11-30] MEDS: Pantoprazole 40 MG Tab.CR PO SCH (07:44)
[2016-11-30] MEDS: Apixaban 5 MG Tab PO SCH ×2 (07:53→17:33)
[2016-11-30] MEDS: Losartan 50 MG Tab PO SCH (07:53)
[2016-11-30] MEDS: Ferrous Sulfate 325 MG Tab PO SCH (07:54)
[2016-11-30] MEDS: Potassium Chloride 20 MEQ Tab.ER PO SCH ×3 (07:54→17:33)
[2016-11-30] MEDS: Furosemide 20 MG Tab PO SCH (07:55)
[2016-11-30] MEDS: Furosemide 40 MG Tab PO SCH (07:55)
[2016-11-30] MEDS: Clopidogrel 75 MG Tab PO SCH (07:55)
[2016-11-30] MEDS: Sodium Chloride 0.9% 10 ML Syringe FLUSH SCH ×2 (07:56→19:31)
[2016-11-30] MEDS: Metoprolol Succinate 25 MG Tab.ER PO SCH (07:56)
[2016-11-30] MEDS: Sertraline 50 MG Tab PO SCH (07:57)
[2016-11-30] MEDS: Chondroitin/Glucosamine Cap PO SCH (12:02)
[2016-11-30] MEDS: Calcium Carbonate/Vitamin D3 625 MG-125 Unit Tab PO SCH (12:03)
[2016-11-30] MEDS: atorvaSTATin 40 MG Tab PO SCH (19:31)
[2016-12-01] MEDS: Apixaban 5 MG Tab PO SCH ×2 (07:23→17:27)
[2016-12-01] MEDS: Losartan 50 MG Tab PO SCH (07:23)
[2016-12-01] MEDS: Pantoprazole 40 MG Tab.CR PO SCH (07:23)
[2016-12-01] MEDS: Potassium Chloride 20 MEQ Tab.ER PO SCH ×3 (07:24→17:27)
[2016-12-01] MEDS: Ferrous Sulfate 325 MG Tab PO SCH (07:24)
[2016-12-01] MEDS: Furosemide 20 MG Tab PO SCH (07:25)
[2016-12-01] MEDS: Furosemide 40 MG Tab PO SCH (07:25)
[2016-12-01] MEDS: Clopidogrel 75 MG Tab PO SCH (07:25)
[2016-12-01] MEDS: Sodium Chloride 0.9% 10 ML Syringe FLUSH SCH ×2 (07:26→19:19)
[2016-12-01] MEDS: Metoprolol Succinate 25 MG Tab.ER PO SCH (07:27)
[2016-12-01] MEDS: Sertraline 50 MG Tab PO SCH (07:27)
[2016-12-01] MEDS: Calcium Carbonate/Vitamin D3 625 MG-125 Unit Tab PO SCH (12:25)
[2016-12-01] MEDS: Chondroitin/Glucosamine Cap PO SCH (12:27)
[2016-12-01] MEDS: atorvaSTATin 40 MG Tab PO SCH (19:18)
[2016-12-02] MEDS: Pantoprazole 40 MG Tab.CR PO SCH (08:11)
[2016-12-02] MEDS: Losartan 50 MG Tab PO SCH (08:11)
[2016-12-02] MEDS: Apixaban 5 MG Tab PO SCH ×2 (08:11→18:12)
[2016-12-02] MEDS: Ferrous Sulfate 325 MG Tab PO SCH (08:12)
[2016-12-02] MEDS: Potassium Chloride 20 MEQ Tab.ER PO SCH ×3 (08:12→18:13)
[2016-12-02] MEDS: Clopidogrel 75 MG Tab PO SCH (08:13)
[2016-12-02] MEDS: Furosemide 20 MG Tab PO SCH (08:13)
[2016-12-02] MEDS: Furosemide 40 MG Tab PO SCH (08:13)
[2016-12-02] MEDS: Metoprolol Succinate 25 MG Tab.ER PO SCH (08:14)
[2016-12-02] MEDS: Sertraline 50 MG Tab PO SCH (08:15)
[2016-12-02] MEDS: Sodium Chloride 0.9% 10 ML Syringe FLUSH SCH (11:13)
[2016-12-02] MEDS: Chondroitin/Glucosamine Cap PO SCH (11:18)
[2016-12-02] MEDS: Calcium Carbonate/Vitamin D3 625 MG-125 Unit Tab PO SCH (11:19)
[2016-12-02] MEDS: atorvaSTATin 40 MG Tab PO SCH (19:56)
[2016-12-03] MEDS: Metolazone 2.5 MG Tab PO SCH (07:57)
[2016-12-03] MEDS: Pantoprazole 40 MG Tab.CR PO SCH (07:57)
[2016-12-03] MEDS: Apixaban 5 MG Tab PO SCH (07:58)
[2016-12-03] MEDS: Losartan 50 MG Tab PO SCH (07:58)
[2016-12-03] MEDS: Ferrous Sulfate 325 MG Tab PO SCH (07:59)
[2016-12-03] MEDS: Potassium Chloride 20 MEQ Tab.ER PO SCH (08:00)
[2016-12-03] MEDS: Furosemide 40 MG Tab PO SCH (08:00)
[2016-12-03] MEDS: Furosemide 20 MG Tab PO SCH (08:01)
[2016-12-03] MEDS: Clopidogrel 75 MG Tab PO SCH (08:01)
[2016-12-03] MEDS: Sertraline 50 MG Tab PO SCH (08:02)
[2016-12-03] MEDS: Metoprolol Succinate 25 MG Tab.ER PO SCH (08:12)
[2016-12-03 08:14] VITALS: BP 110/72
--- NOTE | 2016-12-03 08:33 | PCM.DCSUM1 ---
Discharge Summary - Hospital Course Free Text/Narrative:: Uri Allen was admitted to [facility] for post hospitalization for acute CHF for strengthening. At this time, patient has reached optimal level of recovery and is being discharged to the [facility] in [place], [place]. - Discharge Data Discharge Date: 12/03/16 Discharge Disposition: DC/Tfer to [facility] Condition: Good - Discharge Diagnosis/Problem(s) (1) CHF (congestive heart failure) SNOMED Code(s): 49522868 ICD Code: I50.9 - HEART FAILURE, UNSPECIFIED Status: Acute Priority: High Current Visit: Yes Onset Date: ~08/01/16 Problem Details: Currently stable. Will have follow up labs at the [facility]. Qualifiers: Congestive heart failure type: unspecified congestive heart failure type Congestive heart failure chronicity: acute on chronic Qualified Code(s): I50.9 - Heart failure, unspecified (2) COPD (chronic obstructive pulmonary disease) SNOMED Code(s): 84204551 ICD Code: J44.9 - CHRONIC OBSTRUCTIVE PULMONARY DISEASE, UNSPECIFIED Status : Chronic Priority: High Current Visit: Yes Problem Details: No recent fever or bronchitic-type symptoms Qualifiers: COPD type: COPD with acute exacerbation Qualified Code(s): J44.1 - Chronic obstructive pulmonary disease with (acute) exacerbation (3) Hypertension SNOMED Code(s): 61364782 ICD Code: I10 - ESSENTIAL (PRIMARY) HYPERTENSION Status: Chronic Priority : Medium Current Visit: Yes Problem Details: Blood pressures stable Qualifiers: Hypertension type: essential hypertension Qualified Code(s): I10 - Essential (primary) hypertension (4) CHF exacerbation SNOMED Code(s): 16714703 ICD Code: I50.9 - HEART FAILURE, UNSPECIFIED Status: Acute Current Visit : No Qualifiers: Congestive heart failure type: unspecified congestive heart failure type Qualified Code(s): I50.9 - Heart failure, unspecified (5) Dyslipidemia SNOMED Code(s): 199834784 ICD Code: E78.5 - HYPERLIPIDEMIA, UNSPECIFIED Status: Chronic Priority: Medium Current Visit: No Problem Details: Currently under therapy (6) Iron deficiency anemia SNOMED Code(s): 24391126 ICD Code: D50.9 - IRON DEFICIENCY ANEMIA, UNSPECIFIED Status: Chronic Priority: Medium Current Visit: No Problem Details: Stable at this time. Qualifiers: Iron deficiency anemia type: unspecified iron deficiency Qualified Code(s) : D50.9 - Iron deficiency anemia, unspecified (7) Osteoarthritis SNOMED Code(s): 368883670 ICD Code: M19.90 - UNSPECIFIED OSTEOARTHRITIS, UNSPECIFIED SITE Status: Chronic Priority: Medium Current Visit: No Problem Details: Stable by patient history Qualifiers: Osteoarthritis location: multiple joints Osteoarthritis type: primary Qualified Code(s): M15.0 - Primary generalized (osteo)arthritis - Patient Summary/Data Consults: Consultations 11/08/16 10:17 Consult to Physical Therapy [PT Evaluation and Treatment] [CONS] Routine OT Evaluation and Treatment [CONS] Routine 11/08/16 10:20 Consult to Case Management [CONS] Routine - Patient Instructions Diet: Heart Healthy Diet Fluid Restriction: 1500 mL Activity: As Tolerated Showering/Bathing: May Shower Notify Provider of: Fever, Nausea and/or Vomiting Other/Special Instructions: Please call if patient has SOB, Weakness, Increased Edema. Recommend follow up labs in 2 weeks- CBC and BMP. Oxygen PRN 2-4L NC--- -- Keep 02 greater than 92% fi02 - Discharge Plan Prescriptions/Med Rec: Furosemide [Lasix] 20 mg PO DAILY #30 tablet Furosemide [Lasix] 40 mg PO DAILY #30 tablet Metolazone [Zaroxolyn] 2.5 mg PO TuThSa@0700 #60 tablet Omeprazole 40 mg PO DAILY #30 cap.cr Potassium Chloride [Klor-Con M20] 20 meq PO TID #90 tab.er Home Medications: Home Meds Gluc HCl/Csa/Brayan Hy/Hyalur Ac [Glucosamine Chondroitin] 1 cap PO DAILY@1200 [History] Leuprolide [Leuprolide Depot 6-Month] 45 mg INJECT ASDIRECTED 01/08/14 [History] Sertraline [Zoloft] 50 mg PO QAM 01/08/14 [History] Acetaminophen 650 mg PO Q6H PRN 08/01/16 [History] Calcium Carbonate/Vitamin D3 [Calcium 250+D] 1 each PO DAILY@1200 08/01/16 [ History] Simethicone [Gas Relief] 160 mg PO TID PRN 08/01/16 [History] Ferrous Gluconate 324 mg PO DAILY 08/19/16 [History] Metoprolol Succinate 25 mg PO DAILY 08/19/16 [History] Apixaban [Eliquis] 5 mg PO BID 09/11/16 [History] Bumetanide 1 mg PO DAILY@1800 09/11/16 [History] Bumetanide 2 mg PO QAM 09/11/16 [History] Clopidogrel [Plavix] 75 mg PO DAILY 09/11/16 [History] Nitroglycerin [Nitrostat] 0.4 mg SL Q5M PRN 09/11/16 [History] atorvaSTATin [Lipitor] 40 mg PO BEDTIME 09/11/16 [History] Docusate Sodium 2 tab PO DAILY PRN 11/04/16 [History] Fluticasone Propionate [Flonase] 1 spray NASBOTH BID PRN 11/04/16 [History] Losartan [Cozaar] 50 mg PO DAILY 11/04/16 [History] Furosemide [Lasix] 20 mg PO DAILY #30 tablet 12/03/16 [Rx] Furosemide [Lasix] 40 mg PO DAILY #30 tablet 12/03/16 [Rx] Metolazone [Zaroxolyn] 2.5 mg PO TuThSa@0700 #60 tablet 12/03/16 [Rx] Omeprazole 40 mg PO DAILY #30 cap.cr 12/03/16 [Rx] Potassium Chloride [Klor-Con M20] 20 meq PO TID #90 tab.er 12/03/16 [Rx] Referrals: Brandon Ling MD [Primary Care Provider] - - Discharge Summary/Plan Comment DC Time >30 min.: Yes - General Info Date of Service: 12/03/16 Functional Status: Reports: Tolerating Diet, Ambulating - Review of Systems General: Reports: No Symptoms HEENT: Reports: No Symptoms Pulmonary: Reports: No Symptoms Cardiovascular: Reports: No Symptoms Gastrointestinal: Reports: No Symptoms Genitourinary: Reports: No Symptoms Musculoskeletal: Reports: No Symptoms Skin: Reports: No Symptoms Neurological: Reports: No Symptoms Psychiatric: Reports: No Symptoms - Patient Data Vitals - Most Recent: Last Vital Signs Temp 97.9 F 12/02/16 08:00 Pulse 111 H 12/03/16 08:12 Resp 16 12/02/16 08:00 BP 110/72 12/03/16 08:12 Pulse Ox 94 L 12/02/16 08:00 Weight - Most Recent: 186 lb 11.2 oz I&O - Last 24 hours: Intake & Output 12/02/16 12/03/16 12/03/16 22:59 06:59 14:59 Intake Total 100 Output Total 600 Balance -600 100 Med Orders - Current: Current Medications Acetaminophen (Tylenol) 650 mg PO Q6H PRN PRN Reason: Pain Last Admin: 11/24/16 22:28 Dose: 650 mg Apixaban (Eliquis) 5 mg PO BID [facility] Last Admin: 12/03/16 07:58 Dose: 5 mg Atorvastatin Calcium (Lipitor) 40 mg PO BEDTIME [facility] Last Admin: 12/02/16 19:56 Dose: 40 mg Calcium Carbonate (Oystcal-D 625 Mg-125 Units) 1 tab PO DAILY@1200 [facility] Last Admin: 12/02/16 11:19 Dose: 1 tab Clopidogrel Bisulfate (Plavix) 75 mg PO DAILY [facility] Last Admin: 12/03/16 08:01 Dose: 75 mg Docusate Sodium (Colace) 200 mg PO DAILY PRN PRN Reason: Constipation Last Admin: 11/29/16 08:40 Dose: 200 mg Ferrous Sulfate (Ferrous Sulfate) 325 mg PO DAILY [facility] Last Admin: 12/03/16 07:59 Dose: 325 mg Fluticasone Propionate (Flonase) 0 gm NASBOTH BID PRN PRN Reason: Allergies Furosemide (Lasix) 40 mg PO DAILY [facility] Last Admin: 12/03/16 08:00 Dose: 40 mg Furosemide (Lasix) 20 mg PO DAILY [facility] Last Admin: 12/03/16 08:01 Dose: 20 mg Glucosamine/Chondroitin (Glucosamine-Chondroitin 500-400 Capsule) 1 cap PO DAILY@1200 [facility] Last Admin: 12/02/16 11:18 Dose: 1 cap Losartan Potassium (Cozaar) 50 mg PO DAILY [facility] Last Admin: 12/03/16 07:58 Dose: 50 mg Metolazone (Zaroxolyn) 2.5 mg PO TuThSa@0700 [facility] Last Admin: 12/03/16 07:57 Dose: 2.5 mg Metoprolol Succinate (Toprol Xl) 25 mg PO DAILY [facility] Last Admin: 12/03/16 08:12 Dose: 25 mg Nitroglycerin (Nitrostat) 0.4 mg SL Q5M PRN PRN Reason: Chest Pain Last Admin: 11/26/16 21:27 Dose: 0.4 mg Pantoprazole Sodium (Protonix) 40 mg PO ACBREAKFAST [facility] Last Admin: 12/03/16 07:57 Dose: 40 mg Potassium Chloride (Klor-Con M20) 20 meq PO TID [facility] Last Admin: 12/03/16 08:00 Dose: 20 meq Sertraline HCl (Zoloft) 50 mg PO QAM [facility] Last Admin: 12/03/16 08:02 Dose: 50 mg Simethicone (Simethicone) 160 mg PO TID PRN PRN Reason: Gas Last Admin: 11/26/16 16:20 Dose: 160 mg Temazepam (Restoril) 15 mg PO BEDTIME PRN PRN Reason: Insomnia Last Admin: 11/11/16 23:25 Dose: 15 mg Discontinued Medications Furosemide (Lasix) 40 mg IVPUSH BID [facility] Last Admin: 11/14/16 17:24 Dose: 40 mg Furosemide (Lasix) 80 mg IVPUSH NOW ONE Stop: 11/15/16 08:01 Last Admin: 11/15/16 07:51 Dose: 80 mg Furosemide (Lasix) 80 mg IVPUSH DAILY [facility] Last Admin: 11/19/16 07:55 Dose: 80 mg Furosemide (Lasix) 40 mg IVPUSH DAILY [facility] Last Admin: 11/16/16 08:26 Dose: Not Given Furosemide (Lasix) 40 mg IVPUSH DAILY@1600 [facility] Last Admin: 11/22/16 16:22 Dose: 40 mg Furosemide (Lasix) 40 mg IVPUSH DAILY [facility] Last Admin: 11/25/16 07:36 Dose: 40 mg Furosemide (Lasix) 20 mg IVPUSH DAILY@1600 [facility] Last Admin: 11/24/16 16:31 Dose: 20 mg Potassium Chloride/Dextrose/Sod Cl (D5 1/2 Ns W/ 40 Meq/L Kcl) 100 mls @ 40 mls /hr IV ASDIRECTED [facility] Potassium Chloride 10 meq/ (Premix) 50 mls @ 50 mls/hr IV Q1H [facility] Stop: 11/18/16 12:59 Last Admin: 11/18/16 12:03 Dose: 50 mls/hr Sodium Chloride (Normal Saline) 250 mls @ 50 mls/hr IV ASDIRECTED [facility] Potassium Chloride 10 meq/ (Premix) 50 mls @ 50 mls/hr IV ONETIME ONE Stop: 11/19/16 11:43 Last Admin: 11/19/16 11:38 Dose: Not Given Potassium Chloride 10 meq/ (Premix) 50 mls @ 50 mls/hr IV Q1H [facility] Stop: 11/19/16 15:59 Last Admin: 11/19/16 15:14 Dose: 50 mls/hr Sodium Chloride (Normal Saline) 250 mls @ 50 mls/hr IV ONETIME ONE Stop: 11/19/16 16:59 Last Admin: 11/19/16 11:31 Dose: 50 mls/hr Potassium Chloride 10 meq/ (Premix) 50 mls @ 50 mls/hr IV Q1H [facility] Stop: 11/21/16 12:59 Sodium Chloride (Normal Saline) 250 mls @ 50 mls/hr IV ONETIME ONE Stop: 11/21/16 13:29 Last Admin: 11/21/16 10:21 Dose: 50 mls/hr Potassium Chloride 10 meq/ (Premix) 50 mls @ 50 mls/hr IV Q1H [facility] Stop: 11/21/16 13:59 Last Admin: 11/21/16 13:33 Dose: 50 mls/hr Potassium Chloride 10 meq/ (Premix) 50 mls @ 50 mls/hr IV ONETIME ONE Stop: 11/22/16 14:59 Last Admin: 11/22/16 14:52 Dose: 50 mls/hr Potassium Chloride 10 meq/ (Premix) 50 mls @ 50 mls/hr IV ONETIME ONE Stop: 11/22/16 20:59 Last Admin: 11/22/16 19:25 Dose: 50 mls/hr Sodium Chloride (Normal Saline) 250 mls @ 50 mls/hr IV ONETIME ONE Stop: 11/22/16 18:59 Last Admin: 11/22/16 14:53 Dose: 50 mls/hr Potassium Chloride 10 meq/ (Premix) 50 mls @ 50 mls/hr IV ONETIME ONE Stop: 11/23/16 10:30 Last Admin: 11/23/16 10:15 Dose: Not Given Potassium Chloride 10 meq/ (Premix) 50 mls @ 50 mls/hr IV Q1H [facility] Stop: 11/23/16 13:29 Last Admin: 11/23/16 12:18 Dose: 50 mls/hr Sodium Chloride (Normal Saline) 500 mls @ 100 mls/hr IV ONETIME ONE Stop: 11/23/16 14:59 Last Admin: 11/23/16 10:41 Dose: 100 mls/hr Metolazone (Zaroxolyn) 2.5 mg PO ONETIME ONE Stop: 11/14/16 10:42 Last Admin: 11/14/16 11:10 Dose: 2.5 mg Metolazone (Zaroxolyn) 2.5 mg PO ONETIME ONE Stop: 11/15/16 07:01 Last Admin: 11/15/16 07:45 Dose: 2.5 mg Metolazone (Zaroxolyn) 2.5 mg PO DAILY [facility] Last Admin: 11/19/16 07:43 Dose: 2.5 mg Metoprolol Succinate (Toprol Xl) 25 mg PO ONETIME ONE Stop: 11/13/16 16:53 Last Admin: 11/13/16 17:03 Dose: 25 mg Potassium Chloride (Klor-Con 10) 10 meq PO DAILY [facility] Last Admin: 11/18/16 07:29 Dose: 10 meq Potassium Chloride (Klor-Con M20) 20 meq PO BID [facility] Last Admin: 11/21/16 07:29 Dose: 20 meq Sodium Chloride (Saline Flush) 10 ml FLUSH ASDIRECTED PRN PRN Reason: Keep Vein Open Last Admin: 11/27/16 11:18 Dose: 10 ml Sodium Chloride (Saline Flush) 10 ml IV Q12HR [facility] Last Admin: 11/29/16 08:43 Dose: Not Given Sodium Chloride (Saline Flush) 10 ml FLUSH Q12HR [facility] Last Admin: 12/02/16 11:13 Dose: Not Given - Exam General: Reports: Alert, Oriented HEENT: Reports: Pupils Equal, Pupils Reactive, EOMI, Mucous Membr. Moist/[place] Neck: Reports: Supple Lungs: Reports: Clear to Auscultation, Normal Respiratory Effort Cardiovascular: Reports: Regular Rate, Regular Rhythm GI/Abdominal Exam: Soft, Non-Tender (Male) Exam: Deferred Rectal (Males) Exam: Deferred Back Exam: Reports: Normal Inspection, Full Range of Motion Extremities: Normal Inspection, Normal Range of Motion, Non-Tender, No Pedal Edema, Normal Capillary Refill Skin: Reports: Warm, Dry Neurological: Reports: No New Focal Deficit Psy/Mental Status: Reports: Alert, Normal Affect, Normal Mood *Q Meaningful Use (DIS) - VTE *Q VTE Criteria *Q: - Stroke *Q Stroke Criteria *Q: - AMI *Q AMI Criteria *Q:
== END 2016-12-03 10:46 | DRG 951 ==
LOC: LL.MS 10:19 → LL.SWG 11-13 12:23
PROVIDERS: ADMIT Family Medicine; ATTEND Family Medicine
DX: Z74.8 Other problems related to care provider dependency (principal); F05 Delirium due to known physiological condition; I50.9 Heart failure, unspecified; J44.9 Chronic obstructive pulmonary disease, unspecified; I27.2 Other secondary pulmonary hypertension; E87.6 Hypokalemia; E78.5 Hyperlipidemia, unspecified; D50.9 Iron deficiency anemia, unspecified; M19.90 Unspecified osteoarthritis, unspecified site; Z79.899 Other long term (current) drug therapy
CPT/HCPCS: 36415; 80048; 82962; 83880; 84132; 85025; 97110-GO; 97110-GP; 97116-GP; 97140-GP; 97161-GP; 97165-GO; 97530-GO; 97535-GO; A9270-GY; J1940; J3480; J7040; J7050

== ENCOUNTER 2018-01-11 10:52 | Emergency (ER) | payer MEDICARE, MEDICAID ==
[2018-01-11 10:59] VITALS: BP 141/55
--- NOTE | 2018-01-11 11:05 | EDM.PDOC ---
ED HPI GENERAL MEDICAL PROBLEM - General Chief Complaint: General Stated Complaint: R eye swelling/redness Time Seen by Provider: 01/11/18 11:00 Source of Information: Reports: Patient, Custodial Records, Old Records ([facility] chart/EMR) History Limitations: Reports: Altered Mental Status - History of Present Illness INITIAL COMMENTS - FREE TEXT/NARRATIVE: The patient was brought to the emergency room via transport vehicle from [facility] in [place] for evaluation of progressive right eye conjunctivitis, blurred vision, and 7/10 nonspecific right eye pain with symptoms starting yesterday. His regular provider, Gaby Perdomo PA-C, at [facility], did start Polytrim ophthalmic solution yesterday, however evidence of probable herpes zoster infection since this morning. Patient is an extremely poor historian secondary to his baseline organic brain syndrome, which is stable by history. The patient denies any chest pain/pressure, heart flutter, dizziness, orthostasis, orthopnea, diaphoresis, paresthesias, recent decreased exercise tolerance, or any other anginal-type symptoms. No recent history of abdominal pain, heartburn, nausea, diarrhea, melena, gross hematochezia, or any food intolerance, including fatty foods, etc.. The patient also denies any recent fever, cough, wheezing, dyspnea, etc.. No history of recent headaches, visual changes, diplopia, change in mental status, or other change in neurological status. Onset: Gradual, Unknown/Unsure Onset Date: 01/10/18 Duration: Constant, Getting Worse Location: Reports: Face (Right facial region and eye as above). Denies: Head, Neck, Chest, Abdomen, Radiates to Quality: Reports: Ache Severity: Moderate Improves with: Reports: None Worsens with: Reports: None Associated Symptoms: Reports: Confusion (Stable chronic), Rash (As above). Denies: Chest Pain, Cough, Diaphoresis, Fever/Chills, Headaches, Loss of Appetite, Malaise, Nausea/Vomiting, Shortness of Breath, Weakness Treatments INSURANCE INVESTIGATOR: Reports: Other Medication(s) (As above) Right Eye Pain Score (Numeric/FACES): 7 - Related Data Allergies Allergy/AdvReac Type Severity Reaction Status Date / Time carvedilol Allergy Itching Verified 01/11/18 11:03 Home Meds: Home Meds Gluc HCl/Csa/Brayan Hy/Hyalur Ac [Glucosamine Chondroitin] 1 cap PO DAILY@1200 [History] Sertraline [Zoloft] 50 mg PO QAM 01/08/14 [History] Acetaminophen 650 mg PO Q6H PRN 08/01/16 [History] Calcium Carbonate/Vitamin D3 [Calcium 250+D] 1 each PO DAILY@1200 08/01/16 [ History] Simethicone [Gas Relief] 160 mg PO TID PRN 08/01/16 [History] Metoprolol Succinate 25 mg PO DAILY 08/19/16 [History] Bumetanide 1 mg PO DAILY@1800 09/11/16 [History] Bumetanide 2 mg PO QAM 09/11/16 [History] Clopidogrel [Plavix] 75 mg PO DAILY 09/11/16 [History] Nitroglycerin [Nitrostat] 0.4 mg SL Q5M PRN 09/11/16 [History] atorvaSTATin [Lipitor] 40 mg PO BEDTIME 09/11/16 [History] Docusate Sodium 1 tab PO BID PRN 11/04/16 [History] Fluticasone Propionate [Flonase] 1 spray NASBOTH BID PRN 11/04/16 [History] Losartan [Cozaar] 50 mg PO DAILY 11/04/16 [History] Metolazone [Zaroxolyn] 2.5 mg PO TuThSa@0700 #60 tablet 12/03/16 [Rx] Omeprazole 40 mg PO DAILY #30 cap.cr 12/03/16 [Rx] Aloe Vera/Sodium Chloride [[place] Saline Nasal Gel] 1 applic ROCIO ASDIRECTED PRN [History] Carbamide Peroxide [Debrox] 5 - 10 drop OT ASDIRECTED PRN 01/11/18 [History] Digoxin [Lanoxin] 125 mcg PO DAILY 01/11/18 [History] Famciclovir [Famvir] 500 mg PO BID #10 tablet 01/11/18 [Rx] Ferrous Sulfate [Feosol] 325 mg PO DAILY 01/11/18 [History] Levothyroxine 25 mcg PO DAILY 01/11/18 [History] Lidocaine 2% [Xylocaine 2% Jelly] 5 ml TOP ASDIRECTED PRN 01/11/18 [History] Ondansetron HCl [Zofran] 4 mg PO Q4HR PRN 01/11/18 [History] Polymyxin B Sulf/Trimethoprim [Polytrim Eye Drops] 1 drop EYERT DAILY 01/11/18 [ History] Potassium Chloride [Klor-Con M20] 20 meq PO BID 01/11/18 [History] Sennosides/Docusate Sodium [Senna Plus Tablet] 1 tab PO BID 01/11/18 [History] Spironolactone [Aldactone] 25 mg PO DAILY 01/11/18 [History] Warfarin Sodium [Coumadin] 3 mg PO ASDIRECTED 01/11/18 [History] Warfarin Sodium [Coumadin] 4 mg PO ASDIRECTED 01/11/18 [History] Past Medical History HEENT History: Reports: Cataract, Hard of Hearing, Impaired Vision, Macular Degeneration. 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 Patient wears glasses. Chronic tinnitus with moderate bilateral presbycusis. Right- sided cataract. Cardiovascular History: Reports: Afib, Arrhythmia, CAD, Cardiomyopathy, Heart Failure, Heart Murmur, High Cholesterol, Hypertension, CA, PTCA, Pulmonary Hypertension, Stents, Other (See Below). Denies: Aneurysm, Blood Clots/VTE/DVT , Bypass, PVD, Syncope Other Cardiovascular History: Dyslipidemia, non-STEMI on 08/01/16 and 08/19/16 with subsequent PTCA/stent as below, new onset atrial fibrillation with rapid ventricular response with frequent PVCs and incomplete bifascicular bundle branch block at time of CA on 08/19/16, non-STEMI on 09/11/16 with history of subsequent occasional bradycardia and complete bifascicular bundle-branch block. severe systolic/grade 2 diastolic dysfunction and cardiomyopathy with ejection fraction of only 20-25%, recurrent CHF, severe mitral valve insufficiency and aortic valve insufficiency with additional moderate tricuspid valve insufficiency and moderate bilateral atrial enlargement, severe pulmonary hypertension by echocardiogram, chronic d-dimer elevation with negative workup as below Respiratory History: Reports: Bronchitis, Recurrent, COPD, Intubation, Previous , Pneumonia, Recurrent, Other (See Below). Denies: Asthma, Intubation, Difficult, PE, Pneumothorax, Sleep Apnea, TB Other Respiratory History: Respiratory failure in July 2016 with concomitant CHF Gastrointestinal History: Reports: Bowel Obstruction, Chronic Constipation, Colon Polyp, Diverticulosis, Gastritis, GI Bleed, PUD, Other (See Below). Denies: Celiac Disease, Cholelithiasis, Fecal Incontinence, GERD, Hepatitis, Hiatal Hernia, Inflammatory Bowel Disease, Irritable Bowel Syndrome, Jaundice Other Gastrointestinal History: Upper GI bleed from duodenal ulcer in about 2014 , history of colon cancer as below, left lower quadrant colostomy, left-sided ischemic colitis with acute lower GI bleed in July 2016, excision of tubular adenomas x3 from the cecal area on 08/08/16, history of LFTs elevation secondary to fatty liver, CHF, and possible statin intolerance, benign hepatic cysts Genitourinary History: Reports: BPH, Chronic Renal Insuffiency, Prostate Disorder, Urinary Incontinence, UTI, Recurrent, Other (See Below). Denies: Acute Renal Failure, Dialysis, Renal Calculus, STD Other Genitourinary History: Prostate cancer as below Musculoskeletal History: Reports: Arthritis, Back Pain, Chronic, Fracture, Neck Pain, Chronic, Osteoarthritis, Other (See Below). Denies: Gout, RA, SLE Other Musculoskeletal History: Right distal fibular/ankle fracture at about age 40 Neurological History: Reports: None. Denies: Cerebral Aneurysms, Concussion, CVA, Headaches, Chronic, Head Trauma, Migraines, MS, Neuropathy, Peripheral, Parkinson's, Seizure, TIA Psychiatric History: Reports: Addiction, Alzheimers Disease, Anxiety, Dementia , Depression, Other (See Below). 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 Endocrine/Metabolic History: Reports: Hypothyroidism, Other (See Below). Denies : Diabetes, Type I, Diabetes, Type II, Diabetes Mellitus, Type 3c, IDDM Other Endocrine/Metabolic History: Borderline hyperglycemia with normal glycosylated hemoglobin. Hypoalbuminemia Hematologic History: Reports: Anemia, Iron Deficiency. Denies: Blood Transfusion(s) Immunologic History: Reports: None. Denies: AIDS, HIV, SLE Oncologic (Cancer) History: Reports: Colon, Prostate, Other (See Below). Denies : Basal Cell Carcinoma, Hodgkin's Lymphoma, Leukemia, Lymphoma, Malignant Melanoma, Metastatic, Non-Hodgkin's Lymphoma, Squamous Cell Carcinoma Other Oncologic History: colon cancer 1982 requiring surgery as below with no radiation treatment or chemotherapy, prostate cancer in 1990 with current every 6 month Lupron injections Dermatologic History: Reports: None. Denies: Eczema, Psoriasis - Infectious Disease History Infectious Disease History: Reports: Measles, Mumps. Denies: C-Difficile, Chicken Pox, Meningitis, Mononucleosis, MRSA, Rubella, Shingles, TB, VRE - Past Surgical History Head Surgeries/Procedures: Reports: None HEENT Surgical History: Reports: Oral Surgery, Other (See Below). Denies: Adenoidectomy, Cataract Surgery, Eye Surgery, Laser Surgery, LASIK, Myringotomy w Tube(s), Naso-Sinus Surgery, Tonsillectomy Other HEENT Surgeries/Procedures: Complete upper teeth extraction with multiple lower teeth extractions Cardiovascular Surgical History: Reports: Coronary Artery Stent, Percutaneous Transluminal Angioplasty, Other (See Below). Denies: Coronary Artery Bypass, Pacer, Varicose Other Cardiovascular Surgeries/Procedures: PTCA/stent x4 on 08/29/16 Respiratory Surgical History: Reports: None. Denies: Thoracentesis GI Surgical History: Reports: Colon, Colonoscopy, Colostomy, EGD, Polypectomy, Other (See Below). Denies: Appendectomy, Cholecystectomy, Hernia, Abdominal, Hernia, Inguinal, Hernia Repair/Other, Betzy Fundoplication Other GI Surgeries/Procedures: Last colonoscopy on 08/08/16 with previous evaluation in about 2013, EGD in about 2014, left hemicolectomy secondary to colon cancer in 1982 with current colostomy Male Surgical History: Reports: Prostate Biopsy, Other (See Below). Denies: Circumcision, TURP-Transurethral Resection of Prostate Other Male Surgeries/Procedures: Prostate biopsy for prostate cancer 1990 Endocrine Surgical History: Reports: None Neurological Surgical History: Reports: Other (See Below). Denies: C-Spine, Discectomy, Laminectomy, Lumbar Spine, Sacral Spine, Spinal Fusion, Thoracic Spine Other Neurological Surgeries/Procedures: Last epidural steroid injection and lumbar region on 06/13/16 Musculoskeletal Surgical History: Reports: None. Denies: Arthroscopic Procedure , Carpal Tunnel, Ganglion Cyst, Joint Replacement, Knee Replacement, ORIF, Shoulder Surgery Oncologic Surgical History: Reports: None Dermatological Surgical History: Reports: None - Past Imaging History Past Imaging History: Reports: Bone Scan (Whole body bone scan on 05/24/04), Cardiac Echo (Last echocardiogram on 01/30/17 with ejection fraction of only 20- 25% and significant findings as above with previous similar findings from previous echocardiogram on 08/06/16.), CAT Scan (Negative CTA of the chest on 08/19, CT of the abdomen and pelvis on 08/06/16 with previous evaluations on and 05/21/04), Ultrasound (Abdominal ultrasound on 12/27/16), Venous Doppler ( Lower extremities bilaterally on 08/01/16) Social & Family History - Family History HEENT: Reports: None. Denies: Allergic Rhinitis, Glaucoma, Macular Degeneration , Retinal Detachment Cardiac: Reports: Bypass, CAD, Hypertension, CA, PVD/COD, Other (See Below) Other Cardiac Family History: Father with CA in his 70s, sister, mother and father with hypertension, sister with several MIs with 4 vessel CABG with fatal CA at age 83, mother with peripheral vascular disease secondary to her IDDM Respiratory: Reports: None. Denies: COPD, PE, Pneumothorax, Sleep Apnea GI: Reports: Cholelithiasis, Other (See Below). Denies: Celiac Disease, Colon Polyps, GERD, GI bleed, Inflammatory Bowel Disease, Irritable Bowel Syndrome, Pancreatitis, PUD Other GI Family History: Mother with cholelithiasis : Reports: None. Denies: Renal Calculus, Renal Disease/Insufficiency OBGYN: Reports: None. Denies: Dysfunctional uterine bleeding, Endometriosis, Recurrent Spontaneous Musculoskeletal: Reports: None. Denies: Arthritis, Gout, RA, SLE Neurological: Reports: Alzheimers Disease, CVA, Dementia, Other (See Below). Denies: Cerebral Aneurysms, Migraines, MS, Parkinson's, Seizure Other Neurological Family History: Mother with fatal dementia at age 89, father with history of CVA x4 with fatal CVA at age 82, a brother with a CVA during surgery at age 62 secondary to oral cancer as below Psychiatric: Reports: None. Denies: Abuse, Victim of, ADD, ADHD, Anxiety, Depression, Psych Hospitalization(s), PTSD, Suicide Attempt Endocrine/Metabolic: Reports: Diabetes, type II, IDDM, Other (See Below). Denies: Diabetes, Gestational, Diabetes, Type I, Diabetes Mellitus, Type 3c, Hypothyroidism Other Endocrine/Metabolic Family History: Mother with IDDM Hematologic: Reports: None. Denies: Anemia Immunologic: Reports: None. Denies: AIDS, HIV, SLE Dermatologic: Reports: None. Denies: Eczema, Psoriasis Oncologic: Reports: Metastatic, Prostate, Other (See Below). Denies: Colon, Hodgkin's Lymphoma, Leukemia, Lymphoma, Non-Hodgkin's Lymphoma, Skin Other Oncologic Family History: 2 brothers with fatal metastatic prostate cancer at age 68 and age 79, brother with oral/? Tonsil cancer at age 62 - Tobacco Use Smoking Status *Q: Former Smoker Tobacco Use Within Last Twelve Months: No Years of Tobacco use: 26 Packs/Tins Daily: 4 Used Tobacco, but Quit: Yes Month/Year Tobacco Last Used: No use since 04/23/74 Smoking Cessation Information Provided To Patient: No Second Hand Smoke Exposure: No Second Hand Smoke Education Provided: No - Caffeine Use Caffeine Use: Reports: Coffee (5 cups per day), Soda (1 soda per day). Denies: Energy Drinks, Tea - Alcohol Use Alcohol Use History: Yes Days Per Week of Alcohol Use: 0 Number of Drinks Per Day: 0 Total Drinks Per Week: 0 Total Drinks Per Week Comment: Previous history of alcohol abuse as above. 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 ED EXAM, GENERAL - Physical Exam Exam: See Below Exam Limited By: No Limitations General Appearance: Alert, WD/WN, No Apparent Distress Eye Exam: Right Eye: Conjunctival Injection (Severe right-sided with only minimal drainage but some tearing), Vision Changes (Blurred vision right eye by history), Bilateral Eye: EOMI, Normal Fundi, PERRL, Other (Evidence of herpes infection as below) Ears: Normal External Exam, Normal Canal, Normal TMs, Hearing Loss (Moderate bilateral presbycusis) Nose: Normal Inspection, Normal Mucosa, No Blood Throat/Mouth: Normal Lips, Normal Gums, Normal Oropharynx, Normal Voice, No Airway Compromise. No: Normal Teeth (Only a few remaining lower anterior dentition), Dysphagia, Inflammation, Perioral Cyanosis Head: Atraumatic, Normocephalic, Facial Swelling (Mild right periorbital), Facial Tenderness (Mild at site of infection), Other (Moderate 810 cm in diameter area of rash consistent with herpes zoster in the right frontal and right periorbital region including some moderate right upper lid swelling). No : Sinus Tenderness Neck: Supple, Non-Tender, Full Range of Motion, Carotid Bruit (Mild bilateral carotid bruits versus transmitted heart sounds). No: Lymphadenopathy (L), Lymphadenopathy (R), Thyromegaly Respiratory/Chest: No Respiratory Distress, Lungs Clear, Normal Breath Sounds, No Accessory Muscle Use, Chest Non-Tender. No: Pleural Rub, Retractions Cardiovascular: Normal Peripheral Pulses, No Edema, No Gallop, No JVD, Bradycardia (Occasional borderline), Systolic Murmur (Stable 2/6 DREW of the aortic and mitral valves), Irregularly Irregular. No: Gallop/S3, Gallop/S4, Friction Rub Peripheral Pulses: 2+: Radial (L), Radial (R), Dorsalis Pedis (L), Dorsalis Pedis (R) GI/Abdominal: Normal Bowel Sounds, Soft, Non-Tender, No Organomegaly, No Distention, No Abnormal Bruit, No Mass, Other (Left lower quadrant colostomy). No: Guarding (Male) Exam: Deferred Rectal (Males) Exam: Deferred Back Exam: Normal Inspection, Full Range of Motion. No: CVA Tenderness (L), CVA Tenderness (R), Muscle Spasm Extremities: Normal Inspection, Normal Range of Motion, Non-Tender, No Pedal Edema, Normal Capillary Refill. No: Ana's Sign Neurological: Alert, CN II-XII Intact, Normal Reflexes (Negative Babinski's), Confused (Stable moderate organic brain syndrome) Psychiatric: Normal Affect, Normal Mood Skin Exam: Rash (As above). No: Diaphoretic Lymphatic: No Adenopathy Course - Vital Signs Last Recorded V/S: Last Vital Signs Temp 36.9 C 01/11/18 10:53 Pulse 72 01/11/18 10:53 Resp 16 01/11/18 10:53 BP 141/55 H 01/11/18 10:53 Pulse Ox 93 L 01/11/18 10:53 Vital Signs - 24 hr 01/11/18 10:53 Temperature [ 36.9 C Oral] Pulse, 72 Peripheral [ Pulse Oximetry] Respiratory 16 Rate Blood Pressure 141/55 H [Right Upper Arm] O2 Sat by Pulse 93 L Oximetry - Orders/Labs/Meds Orders: Active Orders 24 hr Category Date Time Status CULTURE EYE [RM] Stat Lab 01/11/18 12:00 Received VIRAL CULTURE, GENERAL Routine Lab 01/11/18 12:00 Received Obtain Past Medical Record [OM.PC] Routine Oth 01/11/18 11:05 Active Labs: Laboratory Tests 01/11/18 01/11/18 01/11/18 Range/Units 11:15 11:15 11:15 WBC 8.3 (4.0-10.2) K/uL RBC 4.87 (4.33-5.41) M/uL Hgb 15.0 (13.1-16.8) g/dL Hct 45.0 (39.0-49.0) % MCV 92.4 (84.0-98.0) fL MCH 30.8 (28.2-33.3) pg MCHC 33.3 (31.7-36.0) g/dL RDW 15.2 H (11.2-14.1) % Plt Count 166 (150-350) K/uL Neut % (Auto) 77.7 (45.0-80.0) % Lymph % (Auto) 8.4 L (10.0-50.0) % [place] % (Auto) 13.2 (2.0-14.0) % Eos % (Auto) 0.2 (0.0-5.0) % Baso % (Auto) 0.5 (0.0-2.0) % Neut # (Auto) 6.48 (1.40-7.00) K/uL Lymph # (Auto) 0.70 (0.50-3.50) K/uL [place] # (Auto) 1.10 H (0.00-1.00) K/uL Eos # (Auto) 0.02 (0.00-0.50) K/uL Baso # (Auto) 0.04 (0.00-0.20) K/uL PT 17.6 H (9.8-11.7) SEC INR 1.6 Sodium 137 (136-145) mmol/L Potassium 3.9 (3.5-5.1) mmol/L Chloride 95 L (98-107) mmol/L Carbon Dioxide 29.2 (21.0-32.0) mmol/L BUN 55 H (7-18) mg/dL Creatinine 2.02 H (0.51-1.17) mg/dL Est Cr Clr Drug Dosing 24.54 mL/min Estimated GFR (MDRD) 31 mL/min Glucose 131 H (74-106) mg/dL Calcium 9.0 (8.5-10.1) mg/dL Total Bilirubin 0.9 (0.2-1.0) mg/dL AST 25 (15-37) U/L ALT 28 (12-78) U/L Alkaline Phosphatase 70 (46-116) IU/L Total Protein 7.7 (6.4-8.2) g/dL Albumin 3.7 (3.4-5.0) g/dL Specimens collected from the right eye for both viral and bacterial culture and sensitivity Meds: None - Radiology Interpretation Free Text/Narrative:: None Departure - Departure Time of Disposition: 13:30 Disposition: DC/Tfer to Drug Abuse Program Coordinator [facility] 64 Condition: Fair Clinical Impression: Herpes zoster ophthalmicus of right eye, Mixed anxiety depressive disorder, Peptic reflux disease, Renal insufficiency, Comfort measures only status, Confusion Hypertension Qualifiers: Hypertension type: essential hypertension Qualified Code(s): I10 - Essential ( primary) hypertension COPD (chronic obstructive pulmonary disease) Qualifiers: COPD type: emphysema Emphysema type: panlobular Qualified Code(s): J43.1 - Panlobular emphysema Coronary artery disease Qualifiers: Coronary Disease-Associated Artery/Lesion type: [place] artery [place] vs. transplanted heart: [place] heart Associated angina: without angina Qualified Code(s): I25.10 - Atherosclerotic heart disease of [place] coronary artery without angina pectoris Atrial fibrillation Qualifiers: Atrial fibrillation type: chronic Qualified Code(s): I48.2 - Chronic atrial fibrillation - Discharge Information *PRESCRIPTION DRUG MONITORING PROGRAM REVIEWED*: Not Applicable *COPY OF PRESCRIPTION DRUG MONITORING REPORT IN PATIENT UMAIR: Not Applicable Prescriptions: Famciclovir [Famvir] 500 mg PO BID #10 tablet Instructions: Shingles, [id number], Herpes Keratitis Referrals: Sheets-Nusrat Dorsey MD [Primary Care Provider] - Forms: ED Department Discharge Additional Instructions: 1. Notify regular provider VIN in the a.m. concerning patient's current herpes zoster ophthalmicus and update of his current status. 2. Strongly recommend initiation of antiviral/acyclovir ophthalmic ointment VIN in the right eye and ophthalmology versus teacher specialist exam in the a.m. 3. INR subtherapeutic at 1.6 with no change in his Coumadin secondary to newly initiated Famvir therapy. Further Coumadin instructions and repeat INR orders by regular provider at above update. 4. Emergency room prescription of Famvir for 5 days provided from the emergency room with further therapy depending on instructions from regular provider and/or eye doctor as above. - Problem List & Annotations (1) Herpes zoster ophthalmicus of right eye SNOMED Code(s): 75431383 Code(s): B02.30 - ZOSTER OCULAR DISEASE, UNSPECIFIED Status: Acute Priority: High Onset Date: ~01/10/18 Annotation/Comment:: Famvir at reduced dosage to be initiated secondary to his renal insufficiency with emergency room prescription provided. Topical ophthalmic antiviral medications not available, however close follow-up by regular provider, dovetailer, etc. VIN in the a.m. as per discharge instructions. Cultures obtained both for culture and sensitivity and viral infection. Continue Polytrim for now. (2) Coronary artery disease SNOMED Code(s): 08341831 Code(s): I25.10 - ATHSCL HEART DISEASE OF [place] CORONARY ARTERY W/O ANG PCTRS Status: Chronic Priority: Medium Annotation/Comment:: No chest pain or anginal type symptoms. Note history severe valvular disease, ischemic cardiomyopathy and of CHF in the past. Qualifiers: Coronary Disease-Associated Artery/Lesion type: [place] artery [place] vs. transplanted heart: [place] heart Associated angina: without angina Qualified Code(s): I25.10 - Atherosclerotic heart disease of [place] coronary artery without angina pectoris (3) COPD (chronic obstructive pulmonary disease) SNOMED Code(s): 16944033 Code(s): J44.9 - CHRONIC OBSTRUCTIVE PULMONARY DISEASE, UNSPECIFIED Status : Chronic Priority: High Annotation/Comment:: No recent fever or bronchitic- type symptoms Qualifiers: COPD type: emphysema Emphysema type: panlobular Qualified Code(s): J43.1 - Panlobular emphysema (4) Hypertension SNOMED Code(s): 75398903 Code(s): I10 - ESSENTIAL (PRIMARY) HYPERTENSION Status: Chronic Priority : Medium Annotation/Comment:: Blood pressures stable by history and in the emergency room. Qualifiers: Hypertension type: essential hypertension Qualified Code(s): I10 - Essential (primary) hypertension (5) Iron deficiency anemia SNOMED Code(s): 40137052 Code(s): D50.9 - IRON DEFICIENCY ANEMIA, UNSPECIFIED Status: Chronic Priority: Medium Annotation/Comment:: Stable at this time. Qualifiers: Iron deficiency anemia type: unspecified iron deficiency Qualified Code(s) : D50.9 - Iron deficiency anemia, unspecified (6) Mixed anxiety depressive disorder SNOMED Code(s): 433671865 Code(s): F41.8 - OTHER SPECIFIED ANXIETY DISORDERS Status: Chronic Priority: Medium Annotation/Comment:: Stable by patient history (7) Osteoarthritis SNOMED Code(s): 389968896 Code(s): M19.90 - UNSPECIFIED OSTEOARTHRITIS, UNSPECIFIED SITE Status: Chronic Priority: Medium Annotation/Comment:: Stable by patient history Qualifiers: Osteoarthritis location: multiple joints Osteoarthritis type: primary Qualified Code(s): M15.0 - Primary generalized (osteo)arthritis (8) Peptic reflux disease SNOMED Code(s): 916848437 Code(s): K21.9 - GASTRO-ESOPHAGEAL REFLUX DISEASE WITHOUT ESOPHAGITIS Status: Chronic Priority: Medium Annotation/Comment:: No abdominal pain at this time. Stable by history. Note history of colon cancer with current colostomy. (9) Renal insufficiency SNOMED Code(s): 655575579, 574129484 Code(s): N28.9 - DISORDER OF KIDNEY AND URETER, UNSPECIFIED Status: Chronic Priority: Medium Annotation/Comment:: Continue to observe closely especially in light of Famvir therapy. Mild progression of his creatinine elevation with creatinine of 1.68 on 10/29/17. (10) Atrial fibrillation SNOMED Code(s): 27640987 Code(s): I48.91 - UNSPECIFIED ATRIAL FIBRILLATION Status: Chronic Priority: Medium Annotation/Comment:: INR is somewhat subtherapeutic today, however no change in therapy secondary to newly initiated Famvir today as above. Close follow-up by regular provider. Qualifiers: Atrial fibrillation type: chronic Qualified Code(s): I48.2 - Chronic atrial fibrillation (11) Comfort measures only status SNOMED Code(s): 41834166130526 Code(s): Z51.5 - ENCOUNTER FOR PALLIATIVE CARE Status: Chronic Priority: Medium Annotation/Comment:: Continue comfort/palliative care. 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 - Problem List Review Problem List Initiated/Reviewed/Updated: Yes - My Orders Last 24 Hours: My Active Orders 01/11/18 11:05 Obtain Past Medical Record [OM.PC] Routine 01/11/18 12:00 CULTURE EYE [RM] Stat VIRAL CULTURE, GENERAL Routine - Assessment/Plan Last 24 Hours: My Active Orders 01/11/18 11:05 Obtain Past Medical Record [OM.PC] Routine 01/11/18 12:00 CULTURE EYE [RM] Stat VIRAL CULTURE, GENERAL Routine Assessment:: As above Plan: As above. Extensive precautions were given to the patient and long term staff , who are in agreement with the treatment plan. A copy of this emergency room note to be provided to the long term. See Patient Instructions for further treatment and plan.
== END 2018-01-11 13:30 ==
LOC: LL.ED 10:52
DX: B02.30 Zoster ocular disease, unspecified (principal); I13.0 Hypertensive heart and chronic kidney disease with heart failure and stage 1 through stage 4 chronic kidney disease, or unspecified chronic kidney disease; I50.9 Heart failure, unspecified; N18.9 Chronic kidney disease, unspecified; F41.8 Other specified anxiety disorders; K21.9 Gastro-esophageal reflux disease without esophagitis; I25.10 Atherosclerotic heart disease of native coronary artery without angina pectoris; I48.2 Chronic atrial fibrillation; J43.1 Panlobular emphysema; I25.2 Old myocardial infarction; E78.5 Hyperlipidemia, unspecified; E78.00 Pure hypercholesterolemia, unspecified; E03.9 Hypothyroidism, unspecified; D50.9 Iron deficiency anemia, unspecified; Z87.891 Personal history of nicotine dependence; Z79.01 Long term (current) use of anticoagulants; Z79.899 Other long term (current) drug therapy; Z88.8 Allergy status to other drugs, medicaments and biological substances
CPT/HCPCS: 36415; 80053; 85025; 85610; 87070; 87252; 99284

== ENCOUNTER 2020-04-26 10:35 | Emergency (ER) | payer MEDICARE, MEDICAID ==
[2020-04-26] MEDS ORDERED: Sodium Chloride 0.9% 1,000 ML IV ONE ×3 (11:03→12:35)
[2020-04-26] MEDS ORDERED: Labetalol 20 MG/4 ML Syringe IVPUSH ONE (11:03)
[2020-04-26 11:41] LABS: CHLORIDE,CL 102 mmol/L (98-107); SODIUM,NA 141 mmol/L (136-145)
[2020-04-26] MEDS ORDERED: cefTRIAXone 1 GM in Sodium Chloride 0.9% 100 ML IV ONE (11:43)
[2020-04-26] MEDS: Sodium Chloride 0.9% 1,000 ML IV ONE ×2 (11:55→12:43)
[2020-04-26] MEDS ORDERED: Piperacillin/Tazobactam 3.375 GM in Sodium Chloride 0.9% 100 ML IV ONE (12:19)
--- NOTE | 2020-04-26 12:33 | EDM.PDOC ---
ED HPI GENERAL MEDICAL PROBLEM - General Chief Complaint: General Stated Complaint: lethargic/fever Time Seen by Provider: 04/26/20 10:45 Source of Information: Reports: EMS, Detention Records History Limitations: Reports: Altered Mental Status - History of Present Illness INITIAL COMMENTS - FREE TEXT/NARRATIVE: Pt sent from [facility] for lethargy and fever Fever to 101.5 Pt essentially unresponsive upon arrival to ER EMS notes tachycardia and hypotension Did have negative Covid test 4 days ago Has hx/o UTI in past Pulled [place] out last PM Onset: Gradual Duration: Day(s):, Getting Worse Location: Reports: Generalized Associated Symptoms: Reports: Fever/Chills, Other (Tachycardia Hypotension) - Related Data Allergies Allergy/AdvReac Type Severity Reaction Status Date / Time carvedilol Allergy Itching Verified 01/11/18 11:03 Home Meds: Home Meds Sertraline [Zoloft] 50 mg PO QAM 01/08/14 [History] Acetaminophen 650 mg PO BID 08/01/16 [History] Simethicone [Gas Relief] 160 mg PO TID PRN 08/01/16 [History] Metoprolol Succinate 25 mg PO DAILY@1800 08/19/16 [History] Bumetanide 1 mg PO DAILY@1800 09/11/16 [History] Bumetanide 2 mg PO QAM 09/11/16 [History] Nitroglycerin [Nitrostat] 0.4 mg SL Q5M PRN 09/11/16 [History] Fluticasone Propionate [Flonase] 1 spray NASBOTH BID PRN 11/04/16 [History] Losartan [Cozaar] 50 mg PO DAILY@1800 11/04/16 [History] Aloe Vera/Sodium Chloride [[place] Saline Nasal Gel] 1 applic ROCIO ASDIRECTED PRN 01/11/18 [History] Digoxin [Lanoxin] 125 mcg PO DAILY 01/11/18 [History] Levothyroxine 25 mcg PO DAILY 01/11/18 [History] Lidocaine 2% [Xylocaine 2% Jelly] 5 ml TOP ASDIRECTED PRN 01/11/18 [History] Potassium Chloride [Klor-Con M20] 20 meq PO BID 01/11/18 [History] Sennosides/Docusate Sodium [Senna Plus Tablet] 1 tab PO BID 01/11/18 [History] Spironolactone [Aldactone] 25 mg PO DAILY 01/11/18 [History] Warfarin Sodium [Coumadin] 2 mg PO ASDIRECTED 01/11/18 [History] Warfarin Sodium [Coumadin] 3 mg PO ASDIRECTED 01/11/18 [History] ondansetron HCL [Zofran] 4 mg PO Q4HR PRN 01/11/18 [History] Acetaminophen 650 mg PO Q6H PRN 04/26/20 [History] Acyclovir 400 mg PO BID 04/26/20 [History] Bicalutamide [Casodex] 50 mg PO DAILY 04/26/20 [History] Carbamide Peroxide [Debrox 6.5% Otic Soln] 1 applic EARBOTH ASDIRECTED 04/26/20 [History] Carboxymethylcellulose Sodium [Artificial Tears] 2 drop EYEBOTH Q4H PRN 04/26/20 [History] Carboxymethylcellulose Sodium [Refresh Liquigel 1%] 1 drop EYEBOTH BID 04/26/20 [History] Docusate Sodium 100 mg PO BID PRN 04/26/20 [History] Gabapentin [Neurontin] 200 mg PO BID 04/26/20 [History] Hydrocortisone [Hydrocortisone 1% Crm] 1 applic TOP QID PRN 04/26/20 [History] Metolazone [Zaroxolyn] 2.5 mg PO TUTHSA@0800 04/26/20 [History] Mineral Oil/Petrolatum,White [Artificial Tears Eye Ointment] 1 applic EYEBOTH DAILY@1800 04/26/20 [History] Simethicone 1 tab PO BID 04/26/20 [History] Past Medical History HEENT History: Reports: Cataract, Hard of Hearing, Impaired Vision, Macular Degeneration. 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 Patient wears glasses. Chronic tinnitus with moderate bilateral presbycusis. Right-sided cataract. Cardiovascular History: Reports: Afib, Arrhythmia, CAD, Cardiomyopathy, Heart Failure, Heart Murmur, High Cholesterol, Hypertension, [place], PTCA, Pulmonary Hypertension, Stents, Other (See Below). Denies: Aneurysm, Blood Clots/VTE/DVT, Bypass, PVD, Syncope Other Cardiovascular History: Dyslipidemia, non-STEMI on 08/01/16 and 08/19/16 with subsequent PTCA/stent as below, new onset atrial fibrillation with rapid ventricular response with frequent PVCs and incomplete bifascicular bundle branch block at time of WV on 08/19/16, non-STEMI on 09/11/16 with history of subsequent occasional bradycardia and complete bifascicular bundle-branch block. severe systolic/grade 2 diastolic dysfunction and cardiomyopathy with ejection fraction of only 20-25%, recurrent CHF, severe mitral valve insufficiency and aortic valve insufficiency with additional moderate tricuspid valve insufficiency and moderate bilateral atrial enlargement, severe pulmonary hypertension by echocardiogram, chronic d-dimer elevation with negative workup as below Respiratory History: Reports: Bronchitis, Recurrent, COPD, Intubation, Previous, Pneumonia, Recurrent, Other (See Below). Denies: Asthma, Intubation, Difficult, PE, Pneumothorax, Sleep Apnea, TB Other Respiratory History: Respiratory failure in July 2016 with concomitant CHF Gastrointestinal History: Reports: Bowel Obstruction, Chronic Constipation, Colon Polyp, Diverticulosis, Gastritis, GI Bleed, PUD, Other (See Below). Denies: Celiac Disease, Cholelithiasis, Fecal Incontinence, GERD, Hepatitis, Hiatal Hernia, Inflammatory Bowel Disease, Irritable Bowel Syndrome, Jaundice Other Gastrointestinal History: Upper GI bleed from duodenal ulcer in about 2014, history of colon cancer as below, left lower quadrant colostomy, left- sided ischemic colitis with acute lower GI bleed in July 2016, excision of tubular adenomas x3 from the cecal area on 08/08/16, history of LFTs elevation secondary to fatty liver, CHF, and possible statin intolerance, benign hepatic cysts Genitourinary History: Reports: BPH, Chronic Renal Insuffiency, Prostate Disorder, Urinary Incontinence, UTI, Recurrent, Other (See Below). Denies: Acu te Renal Failure, Dialysis, Renal Calculus, STD Other Genitourinary History: Prostate cancer as below Musculoskeletal History: Reports: Arthritis, Back Pain, Chronic, Fracture, Neck Pain, Chronic, Osteoarthritis, Other (See Below). Denies: Gout, RA, SLE Other Musculoskeletal History: Right distal fibular/ankle fracture at about age 40 Neurological History: Reports: None. Denies: Cerebral Aneurysms, Concussion, CVA, Headaches, Chronic, Head Trauma, Migraines, MS, Neuropathy, Peripheral, Parkinson's, Seizure, TIA Psychiatric History: Reports: Addiction, Alzheimers Disease, Anxiety, Dementia, Depression, Other (See Below). 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 Endocrine/Metabolic History: Reports: Hypothyroidism, Other (See Below). Denies: Diabetes, Type I, Diabetes, Type II, Diabetes Mellitus, Type 3c, IDDM Other Endocrine/Metabolic History: Borderline hyperglycemia with normal glycosylated hemoglobin. Hypoalbuminemia Hematologic History: Reports: Anemia, Iron Deficiency. Denies: Blood Transfusion(s) Immunologic History: Reports: None. Denies: AIDS, HIV, SLE Oncologic (Cancer) History: Reports: Colon, Prostate, Other (See Below). Denies: Basal Cell Carcinoma, Hodgkin's Lymphoma, Leukemia, Lymphoma, Malignant Melanoma, Metastatic, Non-Hodgkin's Lymphoma, Squamous Cell Carcinoma Other Oncologic History: colon cancer 1982 requiring surgery as below with no radiation treatment or chemotherapy, prostate cancer in 1990 with current every 6 month Lupron injections Dermatologic History: Reports: None. Denies: Eczema, Psoriasis - Infectious Disease History Infectious Disease History: Reports: Measles, Mumps. Denies: C-Difficile, Chicken Pox, Meningitis, Mononucleosis, MRSA, Rubella, Shingles, TB, VRE - Past Surgical History Head Surgeries/Procedures: Reports: None HEENT Surgical History: Reports: Oral Surgery, Other (See Below). Denies: Adenoidectomy, Cataract Surgery, Eye Surgery, Laser Surgery, LASIK, Myringotomy w Tube(s), Naso-Sinus Surgery, Tonsillectomy Other HEENT Surgeries/Procedures: Complete upper teeth extraction with multiple lower teeth extractions Cardiovascular Surgical History: Reports: Coronary Artery Stent, Percutaneous Transluminal Angioplasty, Other (See Below). Denies: Coronary Artery Bypass, Pacer, Varicose Other Cardiovascular Surgeries/Procedures: PTCA/stent x4 on 08/29/16 Respiratory Surgical History: Reports: None. Denies: Thoracentesis GI Surgical History: Reports: Colon, Colonoscopy, Colostomy, EGD, Polypectomy, Other (See Below). Denies: Appendectomy, Cholecystectomy, Hernia, Abdominal, Hernia, Inguinal, Hernia Repair/Other, Betzy Fundoplication Other GI Surgeries/Procedures: Last colonoscopy on 08/08/16 with previous evaluation in about 2013, EGD in about 2015, left hemicolectomy secondary to colon cancer in 1982 with current colostomy Male Surgical History: Reports: Prostate Biopsy, Other (See Below). Denies: Circumcision, TURP-Transurethral Resection of Prostate Other Male Surgeries/Procedures: Prostate biopsy for prostate cancer 1990 Endocrine Surgical History: Reports: None Neurological Surgical History: Reports: Other (See Below). Denies: C-Spine, Discectomy, Laminectomy, Lumbar Spine, Sacral Spine, Spinal Fusion, Thoracic Spine Other Neurological Surgeries/Procedures: Last epidural steroid injection and lumbar region on 06/13/16 Musculoskeletal Surgical History: Reports: None. Denies: Arthroscopic Procedure, Carpal Tunnel, Ganglion Cyst, Joint Replacement, Knee Replacement, ORIF, Shoulder Surgery Oncologic Surgical History: Reports: None Dermatological Surgical History: Reports: None - Past Imaging History Past Imaging History: Reports: Bone Scan (Whole body bone scan on 05/24/04), Cardiac Echo (Last echocardiogram on 01/30/17 with ejection fraction of only 20- 25% and significant findings as above with previous similar findings from previous echocardiogram on 08/06/16.), CAT Scan (Negative CTA of the chest on 08/19/16, CT of the abdomen and pelvis on 08/06/16 with previous evaluations on 07/21/14 and 05/21/04), Ultrasound (Abdominal ultrasound on 12/27/16), Venous Doppler (Lower extremities bilaterally on 08/01/16) Social & Family History - Family History HEENT: Reports: None. Denies: Allergic Rhinitis, Glaucoma, Macular Degeneration, Retinal Detachment Cardiac: Reports: Bypass, CAD, Hypertension, [place]V, PVD/COD, Other (See Below) Other Cardiac Family History: Father with WV in his 70s, sister, mother and father with hypertension, sister with several MIs with 4 vessel CABG with fatal WV at age 83, mother with peripheral vascular disease secondary to her IDDM Respiratory: Reports: None. Denies: COPD, PE, Pneumothorax, Sleep Apnea GI: Reports: Cholelithiasis, Other (See Below). Denies: Celiac Disease, Colon Polyps, GERD, GI bleed, Inflammatory Bowel Disease, Irritable Bowel Syndrome, Pancreatitis, PUD Other GI Family History: Mother with cholelithiasis : Reports: None. Denies: Renal Calculus, Renal Disease/Insufficiency OBGYN: Reports: None. Denies: Dysfunctional uterine bleeding, Endometriosis, Recurrent Spontaneous Musculoskeletal: Reports: None. Denies: Arthritis, Gout, RA, SLE Neurological: Reports: Alzheimers Disease, CVA, Dementia, Other (See Below). Denies: Cerebral Aneurysms, Migraines, MS, Parkinson's, Seizure Other Neurological Family History: Mother with fatal dementia at age 89, father with history of CVA x4 with fatal CVA at age 82, a brother with a CVA during surgery at age 62 secondary to oral cancer as below Psychiatric: Reports: None. Denies: Abuse, Victim of, ADD, ADHD, Anxiety, Depression, Psych Hospitalization(s), PTSD, Suicide Attempt Endocrine/Metabolic: Reports: Diabetes, type II, IDDM, Other (See Below). Denies: Diabetes, Gestational, Diabetes, Type I, Diabetes Mellitus, Type 3c, Hypothyroidism Other Endocrine/Metabolic Family History: Mother with IDDM Hematologic: Reports: None. Denies: Anemia Immunologic: Reports: None. Denies: AIDS, HIV, SLE Dermatologic: Reports: None. Denies: Eczema, Psoriasis Oncologic: Reports: Metastatic, Prostate, Other (See Below). Denies: Colon, Hodgkin's Lymphoma, Leukemia, Lymphoma, Non-Hodgkin's Lymphoma, Skin Other Oncologic Family History: 2 brothers with fatal metastatic prostate cancer at age 68 and age 79, brother with oral/? Tonsil cancer at age 62 - Caffeine Use Caffeine Use: Reports: Coffee (5 cups per day), Soda (1 soda per day). Denies: Energy Drinks, Tea - Living Situation & Occupation Living situation: Reports: (10/17/13, no children), Extended Care Facility ([facility]) Occupation: Retired ([employer]ired [employer], retired in 1990) ED ROS GENERAL - Review of Systems Review Of Systems: Unable To Obtain Reason Not Obtained: Pt unresponsive Will review [place] records Constitutional: Reports: Fever ED EXAM, GENERAL - Physical Exam Exam: See Below Exam Limited By: Altered Mental Status Throat/Mouth: Normal Oropharynx Neck: Supple Respiratory/Chest: Decreased Breath Sounds, Accessory Muscle Use Cardiovascular: Tachycardia GI/Abdominal: Soft Extremities: Normal Inspection Neurological: Unresponsive Course - Vital Signs Last Recorded V/S: Last Vital Signs Temp 100.5 F 04/26/20 10:35 Pulse 130 H 04/26/20 10:35 Resp 36 H 04/26/20 10:35 BP 106/77 04/26/20 10:35 Pulse Ox 94 L 04/26/20 10:35 - Orders/Labs/Meds Orders: Active Orders 24 hr Category Date Time Status EKG Documentation Completion [RC] ASDIRECTED Care 04/26/20 11:16 Active Chest 1V Frontal [CR] Stat Exams 04/26/20 11:01 Taken CULTURE BLOOD [BC] Stat Lab 04/26/20 11:10 Received CULTURE BLOOD [BC] Stat Lab 04/26/20 11:20 Received CULTURE URINE [RM] Stat Lab 04/26/20 11:20 Received Piperacillin/Tazobactam [Zosyn] 3.375 gm Med 04/26/20 12:19 Active Sodium Chloride 0.9% [Normal Saline] 100 ml IV ONETIME Blood Culture x2 Reflex Set [OM.PC] Stat Oth 04/26/20 11:01 Ordered Medication Orders Piperacillin Sod/Tazobactam (Sod 3.375 gm/ Sodium Chloride) 100 mls @ 200 mls/hr IV ONETIME ONE Stop: 04/26/20 12:48 Labs: Laboratory Tests 04/26/20 04/26/20 04/26/20 Range/Units 11:10 11:10 11:10 WBC 6.4 (4.0-10.2) K/uL RBC 3.84 L (4.33-5.41) M/uL Hgb 12.2 L D (13.1-16.8) g/dL Hct 38.7 L (39.0-49.0) % MCV 100.8 H D (84.0-98.0) fL MCH 31.8 (28.2-33.3) pg MCHC 31.5 L (31.7-36.0) g/dL RDW 15.4 H (11.2-14.1) % Plt Count 157 (150-350) K/uL Neut % (Auto) 86.2 H (45.0-80.0) % Lymph % (Auto) 13.0 (10.0-50.0) % [place] % (Auto) 0.3 L (2.0-14.0) % Eos % (Auto) 0.2 (0.0-5.0) % Baso % (Auto) 0.3 (0.0-2.0) % Neut # (Auto) 5.51 (1.40-7.00) K/uL Lymph # (Auto) 0.83 (0.50-3.50) K/uL [place] # (Auto) 0.02 (0.00-1.00) K/uL Eos # (Auto) 0.01 (0.00-0.50) K/uL Baso # (Auto) 0.02 (0.00-0.20) K/uL PT (9.5-12.0) SEC INR Sodium 141 (136-145) mmol/L Potassium 3.3 L (3.5-5.1) mmol/L Chloride 102 (98-107) mmol/L Carbon Dioxide 21.8 D (21.0-32.0) mmol/L BUN 67 H (7-18) mg/dL Creatinine 2.70 H (0.51-1.17) mg/dL Est Cr Clr Drug Dosing TNP Estimated GFR (MDRD) 22 mL/min Glucose 122 H (74-106) mg/dL Lactic Acid 11.3 H (0.4-2.0) mmol/L Calcium 8.6 (8.5-10.1) mg/dL Total Bilirubin 0.8 (0.2-1.0) mg/dL AST 20 (15-37) U/L ALT 24 (12-78) U/L Alkaline Phosphatase 79 (46-116) IU/L Total Protein 6.9 (6.4-8.2) g/dL Albumin 3.3 L (3.4-5.0) g/dL Specimen Type Urine Color Urine Appearance Urine pH (5.0-9.0) Ur Specific Dougherty (1.005-1.030) Urine Protein (NEGATIVE) mg/dL Urine Glucose (UA) (NEGATIVE) mg/dL Urine Ketones (NEGATIVE) mg/dL Urine Occult Blood (NEGATIVE) Urine Nitrite (NEGATIVE) Urine Bilirubin (NEGATIVE) Urine Urobilinogen (0.2-1.0) E.U./dL Ur Leukocyte Esterase (NEGATIVE) Urine RBC /HPF Urine WBC /HPF Ur Epithelial Cells /LPF Amorphous Sediment (0/HPF) /HPF Urine Bacteria (NONE TO FEW) /HPF SARS-CoV-2 Ag (Rapid) (NEGATIVE) 04/26/20 04/26/2004/26/21 Range/Units 11:10 11:20 11:45 WBC (4.0-10.2) K/uL RBC (4.33-5.41) M/uL Hgb (13.1-16.8) g/dL Hct (39.0-49.0) % MCV (84.0-98.0) fL MCH (28.2-33.3) pg MCHC (31.7-36.0) g/dL RDW (11.2-14.1) % Plt Count (150-350) K/uL Neut % (Auto) (45.0-80.0) % Lymph % (Auto) (10.0-50.0) % [place] % (Auto) (2.0-14.0) % Eos % (Auto) (0.0-5.0) % Baso % (Auto) (0.0-2.0) % Neut # (Auto) (1.40-7.00) K/uL Lymph # (Auto) (0.50-3.50) K/uL [place] # (Auto) (0.00-1.00) K/uL Eos # (Auto) (0.00-0.50) K/uL Baso # (Auto) (0.00-0.20) K/uL PT 23.9 H (9.5-12.0) SEC INR 2.5 Sodium (136-145) mmol/L Potassium (3.5-5.1) mmol/L Chloride (98-107) mmol/L Carbon Dioxide (21.0-32.0) mmol/L BUN (7-18) mg/dL Creatinine (0.51-1.17) mg/dL Est Cr Clr Drug Dosing Estimated GFR (MDRD) mL/min Glucose (74-106) mg/dL Lactic Acid (0.4-2.0) mmol/L Calcium (8.5-10.1) mg/dL Total Bilirubin (0.2-1.0) mg/dL AST (15-37) U/L ALT (12-78) U/L Alkaline Phosphatase (46-116) IU/L Total Protein (6.4-8.2) g/dL Albumin (3.4-5.0) g/dL Specimen Type Urinfol Urine Color Red Urine Appearance Cloudy Urine pH 5.5 (5.0-9.0) Ur Specific [place] 1.015 (1.005-1.030) Urine Protein >=300 H (NEGATIVE) mg/dL Urine Glucose (UA) Negative (NEGATIVE) mg/dL Urine Ketones Negative (NEGATIVE) mg/dL Urine Occult Blood Large H (NEGATIVE) Urine Nitrite Positive H (NEGATIVE) Urine Bilirubin Small H (NEGATIVE) Urine Urobilinogen 0.2 (0.2-1.0) E.U./dL Ur Leukocyte Esterase Trace H (NEGATIVE) Urine RBC >100 H /HPF Urine WBC 40-50 H /HPF Ur Epithelial Cells Few /LPF Amorphous Sediment Moderate H (0/HPF) /HPF Urine Bacteria Moderate H (NONE TO FEW) /HPF SARS-CoV-2 Ag (Rapid) Negative (NEGATIVE) Meds: Medications Generic Name Dose Route Start Last Admin Trade Name Freq PRN Reason Stop Dose Admin Piperacillin Sod/Tazobactam 100 mls @ 200 mls/hr 04/26/20 12:19 Sod 3.375 gm/ Sodium Chloride IV 04/26/20 12:48 ONETIME ONE Discontinued Medications Generic Name Dose Route Start Last Admin Trade Name Freq PRN Reason Stop Dose Admin Sodium Chloride 1,000 mls @ 1,000 mls/hr 04/26/20 11:03 04/26/20 10:55 Normal Saline IV 04/26/20 12:02 1,000 mls/hr .BOLUS ONE Administration Sodium Chloride 1,000 mls @ 1,000 mls/hr 04/26/20 11:23 04/26/20 11:20 Normal Saline IV 04/26/20 12:22 1,000 mls/hr .BOLUS ONE Administration Ceftriaxone Sodium 1 gm/ 100 mls @ 200 mls/hr 04/26/20 11:43 04/26/20 12:13 Sodium Chloride IV 04/26/20 12:12 200 mls/hr ONETIME ONE Administration Labetalol HCl 5 mg 04/26/20 11:03 04/26/20 10:53 Normodyne IVPUSH 04/26/20 11:04 5 mg ONETIME ONE Administration Protocol - Re-Assessments/Exams Free Text/Narrative Re-Assessment/Exam: 04/26/20 12:28 Pt noted to be hypotensive upon arrival 100/53 and tachycardic to 150 Had episode where HR went to 230-250 and persisted Given Labetalol 5 mg IV and HR came down to 130's and has stayed in the 110's to 130's range See lab Lactic 11.3 Pt given Rocephin 1 gm IV and Zosyn 3.375 mg IV Pt has had 2 L IVF so far D/W Dr Colby On-call [place] ICU Will accept in transfer Family at bedside Understand pt's current grave condition and [facility] Transfer EMS Departure - Departure Time of Disposition: 12:30 Disposition: Home, Self-Care 01 Clinical Impression: Sepsis Qualifiers: Sepsis type: sepsis due to unspecified organism Sepsis acute organ dysfunction status: with acute organ dysfunction Severe sepsis acute organ dysfunction type: unspecified Severe sepsis shock status: with septic shock Qualified Code(s): A41.9 - Sepsis, unspecified organism; R65.21 - Severe sepsis with septic shock - Discharge Information Referrals: Gaby Perdomo PA [Primary Care Provider] - Sepsis Event Note (ED) - Evaluation Sepsis Screening Result: Possible Sepsis Risk - Focused Exam Vital Signs: Vital Signs Temp Pulse Resp BP Pulse Ox 04/26/20 10:35 100.5 F 130 H 36 H 106/77 94 L - My Orders Last 24 Hours: My Active Orders 04/26/20 11:01 Chest 1V Frontal [CR] Stat Blood Culture x2 Reflex Set [OM.PC] Stat 04/26/20 11:10 CULTURE BLOOD [BC] Stat 04/26/20 11:16 EKG Documentation Completion [RC] ASDIRECTED 04/26/20 11:20 CULTURE BLOOD [BC] Stat CULTURE URINE [RM] Stat 04/26/20 12:19 Piperacillin/Tazobactam [Zosyn] 3.375 gm Sodium Chloride 0.9% [Normal Saline] 100 ml IV ONETIME - Assessment/Plan Last 24 Hours: My Active Orders 04/26/20 11:01 Chest 1V Frontal [CR] Stat Blood Culture x2 Reflex Set [OM.PC] Stat 04/26/20 11:10 CULTURE BLOOD [BC] Stat 04/26/20 11:16 EKG Documentation Completion [RC] ASDIRECTED 04/26/20 11:20 CULTURE BLOOD [BC] Stat CULTURE URINE [RM] Stat 04/26/20 12:19 Piperacillin/Tazobactam [Zosyn] 3.375 gm Sodium Chloride 0.9% [Normal Saline] 100 ml IV ONETIME
[2020-04-26 13:28] VITALS: BP 86/70; PULSE 128
== END 2020-04-26 13:05 ==
LOC: LL.ED 10:35
DX: A41.9 Sepsis, unspecified organism (principal); R65.21 Severe sepsis with septic shock; I25.10 Atherosclerotic heart disease of native coronary artery without angina pectoris; E78.00 Pure hypercholesterolemia, unspecified; I13.0 Hypertensive heart and chronic kidney disease with heart failure and stage 1 through stage 4 chronic kidney disease, or unspecified chronic kidney disease; I25.2 Old myocardial infarction; I50.9 Heart failure, unspecified; E78.5 Hyperlipidemia, unspecified; J44.9 Chronic obstructive pulmonary disease, unspecified; N18.9 Chronic kidney disease, unspecified; G30.9 Alzheimer's disease, unspecified; F02.80 Dementia in other diseases classified elsewhere, unspecified severity, without behavioral disturbance, psychotic disturbance, mood disturbance, and anxiety; F41.9 Anxiety disorder, unspecified; F32.9 Major depressive disorder, single episode, unspecified; E03.9 Hypothyroidism, unspecified; Z20.822 Contact with and (suspected) exposure to COVID-19; Z88.8 Allergy status to other drugs, medicaments and biological substances; Z79.899 Other long term (current) drug therapy; Z95.5 Presence of coronary angioplasty implant and graft
CPT/HCPCS: 36415; 51702; 71045; 80053; 81001; 83605; 85025; 85610; 87040; 87077; 87086; 87088; 87186; 87426; 93005; 96365; 96367; 96375; 99284; 99285-25; J0696; J2543; J3490; J7030